=== PATIENT | male | born 1985 | race African-American/Black ===

== ENCOUNTER 2017-07-25 00:38 | Emergency (ER) | payer MEDICARE, MEDICAID ==
--- NOTE | 2017-07-25 01:10 | ER Document Report ---
HPI - HPI Patient complains to provider of: left knee pain Onset: Yesterday Onset/Duration: Sudden Pain Level: 5 Context: 32-year-old male fell on the left knee at work yesterday and is complaining of severe pain to the left knee. He is in a wheelchair moaning and rocking with a blanket over his mouth. He states he is allergic to hydrocodone. He has already been to x-ray. Associated Symptoms: None Exacerbated by: Movement, Walking Relieved by: Denies Similar symptoms previously: No Recently seen / treated by doctor: No - ROS ROS below otherwise negative: Yes Systems Reviewed and Negative: Yes All other systems reviewed and negative Past Medical History - General Information source: Patient - Social History Smoking Status: Current Every Day Smoker Frequency of alcohol use: None Drug Abuse: None Lives with: Family Family History: None, Reviewed & Not Pertinent - Medical History Notes: has been positive for cocaine in the past Neurological Medical History: Reports: Hx Seizures Surgical Hx: Negative - Immunizations Immunizations up to date: No Hx Diphtheria, Pertussis, Tetanus Vaccination: Yes Vertical Provider Document - CONSTITUTIONAL Agree With Documented VS: Yes Exam Limitations: No Limitations - NECK Neck: Supple - NEURO Level of Consciousness: Awake, Alert, Agitated - avoids eye contact, moaning, yelling out for the nurse states he can't get his leg up on the bed without help
[2017-07-25] MEDS ORDERED: IBUPROFEN 800 MG TABLET PO ONE (01:25)
[2017-07-25] MEDS ORDERED: ACETAMINOPHEN 325 MG TABLET PO ONE (01:25)
--- NOTE | 2017-07-25 01:50 | ER Document Report ---
ED Extremity Problem, Lower - General Chief Complaint: Knee Injury Stated Complaint: LEFT KNEE PAIN Time Seen by Provider: 07/25/17 01:09 Notes: Patient is a 32-year-old male who comes emergency department for chief complaint of left knee pain. He states that he has landed on the knee accidentally because it hurt and he could not bear his weight and then he fell and landed on the knee, he states he has done this several times, he states that today the pain and swelling became worse and he cannot walk on it now. He denies fever or chills. He denies history of IV drug abuse, he denies history of joint surgery or joint infection. He denies any other complaints. Past medical history of hypertension and seizures, medicated for both. - Related Data Allergies/Adverse Reactions: No Known Allergies Allergy (Verified 07/25/17 00:41) Past Medical History - General Information source: Patient - Social History Smoking Status: Current Some Day Smoker Chew tobacco use (# tins/day): No Frequency of alcohol use: None Drug Abuse: None Lives with: Family Family History: None, Reviewed & Not Pertinent Patient has suicidal ideation: No Patient has homicidal ideation: No - Past Medical History Cardiac Medical History: Reports: Hx Hypertension Neurological Medical History: Reports: Hx Seizures Renal/ Medical History: Denies: Hx Peritoneal Dialysis Surgical Hx: Negative - Immunizations Immunizations up to date: No Hx Diphtheria, Pertussis, Tetanus Vaccination: Yes Review of Systems - Review of Systems Constitutional: No symptoms reported EENT: No symptoms reported Cardiovascular: No symptoms reported Respiratory: No symptoms reported Gastrointestinal: No symptoms reported Genitourinary: No symptoms reported Male Genitourinary: No symptoms reported Musculoskeletal: See HPI Skin: No symptoms reported Hematologic/Lymphatic: No symptoms reported Neurological/Psychological: No symptoms reported Physical Exam - Vital signs Vitals: Temp Pulse Resp BP Pulse Ox 98.6 F 80 16 152/96 H 96 07/25/17 01:27 07/25/17 01:27 07/25/17 01:27 07/25/17 01:27 07/25/17 01:27 Interpretation: Normal - General General appearance: Appears well, Alert In distress: None - Patient talking on the phone when I entered the room - HEENT Head: Normocephalic, Atraumatic Eyes: Normal Pupils: PERRL - Respiratory Respiratory status: No respiratory distress Chest status: Nontender Breath sounds: Normal. No: Decreased air movement, Wheezing Chest palpation: Normal - Cardiovascular Rhythm: Regular. No: Tachycardia Heart sounds: Normal auscultation, S1 appreciated, S2 appreciated Murmur: No - Abdominal Inspection: Normal Distension: No distension Bowel sounds: Normal Tenderness: Nontender Organomegaly: No organomegaly - Back Back: Normal, Nontender. No: Tender - Extremities General upper extremity: Normal inspection, Nontender, Normal color, Normal ROM , Normal temperature General lower extremity: Other - Left knee has some soft tissue swelling generally anteriorly, minimal erythema, no wounds, range of motion appears painful but is still intact, normal hip, normal ankle, normal distal neurovascular exam. - Neurological Neuro grossly intact: Yes Cognition: Normal Orientation: AAOx4 [place] Coma Scale Eye Opening: Spontaneous [place] Coma Scale Verbal: Oriented [place] Coma Scale Motor: Obeys Commands [place] Coma Scale Total: 15 Speech: Normal Motor strength normal: LUE, RUE, LLE, RLE Sensory: Normal - Psychological Associated symptoms: Normal affect, Normal mood - Skin Skin Temperature: Warm Skin Moisture: Dry Skin Color: Normal Course - Re-evaluation Re-evalutation: Reported trauma to the knee, no reported risk factors of septic joint, area is swollen with some soft tissue swelling and mild erythema but he can still move the joint even though he reports significant pain when doing so, CRP and ESR are negative, no fever, I have very low suspicion of septic joint. No effusion on x-ray. I do not believe that with the amount of swelling he has in his knee that I would be able to obtain any fluid for evaluation. Will treat for traumatic swelling, provided with knee immobilizer, discussed follow-up and return precautions in detail. Discussed with Dr. Chamberlain. Patient states understanding and agreement. - Vital Signs Vital signs: Temp Pulse Resp BP Pulse Ox 99.2 F 82 18 156/86 H 96 07/25/17 04:08 07/25/17 04:08 07/25/17 04:08 07/25/17 04:08 07/25/17 04:08 - Laboratory Result Diagrams: 07/25/17 02:15 07/25/17 02:15 Laboratory results interpreted by me: 07/25/17 07/25/17 02:15 02:15 WBC 10.7 H RDW 14.2 H Seg Neutrophils % 80.5 H Lymphocytes % 9.2 L Absolute Neutrophils 8.6 H Glucose 112 H Procedures - Immobilization Left knee Pre-Proc Neuro Vasc Exam: Normal Immobilizer type: Knee immobilizer Performed by: RN, PCT Post-Proc Neuro Vasc Exam: Normal Alignment checked and good: Yes Discharge - Discharge Clinical Impression: Left knee injury Qualifiers: Encounter type: initial encounter Qualified Code(s): S89.92XA - Unspecified injury of left lower leg, initial encounter Condition: Stable Disposition: HOME, SELF-CARE Instructions: Use of Crutches ([facility]), Ice & Elevation ([facility]), Oral Narcotic Medication ([facility]) Additional Instructions: There is soft tissue swelling on exam, however no evidence of fracture, fluid in the joint, dislocation, or infection is seen on your evaluation and workup. This should resolve with time. Apply ice to the area 3-4 times a day for 10-15 minutes, take the naproxen anti-inflammatory, rest and elevate your knee. Use the knee immobilizer and crutches at least for the next few days. Follow-up with orthopedics referral if symptoms continue. Return immediately if you worsen including developing redness, spreading swelling, fever, or any other concerning symptoms. Prescriptions: Naproxen [Naprosyn 375 Mg Tablet] 375 mg PO BID #20 tablet Forms: Return to Work Referrals: POONAM HERNANDEZ MD [ACTIVE STAFF] - Follow up in 1 week
[2017-07-25 02:28] LABS: ABSOLUTE BASOPHILS # (AUTO) 0.1 10^3/uL (0.0-0.2); ABSOLUTE NEUT (AUTO) 8.6 10^3/uL (1.7-8.2); BASOPHILS % (AUTO) 0.8 % (0-2); EOSINOPHILS % (AUTO) 0.4 % (0-6); HEMATOCRIT 43.9 % (37.9-51.0); LYMPHOCYTES % (AUTO) 9.2 % (13-45); MEAN CORPUSCULAR HEMOGLOBIN 30.6 pg (27.0-33.4); MEAN CORPUSCULAR HGB CONC 34.3 g/dL (32.0-36.0); MEAN CORPUSCULAR VOLUME 89 fl (80-97); MONOCYTES % (AUTO) 9.1 % (3-13); PLATELET COUNT 196 10^3/uL (150-450); RED BLOOD COUNT 4.92 10^6/uL (4.35-5.55); RED CELL DISTRIBUTION WIDTH 14.2 % (11.5-14.0); SEGMENTED NEUTROPHILS % (AUTO) 80.5 % (42-78); TOTAL CELLS COUNTED % (AUTO) 100 %; WHITE BLOOD COUNT 10.7 10^3/uL (4.0-10.5)
[2017-07-25] MEDS ORDERED: MORPHINE SULFATE 10 MG/ML INJ IV ONE (02:29)
[2017-07-25] MEDS ORDERED: ONDANSETRON HCL INJ/PF 4 MG/2 ML SDV IV ONE (02:29)
[2017-07-25 02:43] LABS: ALANINE AMINOTRANSFERASE 27 U/L (21-72); ALBUMIN 4.1 g/dL (3.5-5.0); ALKALINE PHOSPHATASE 76 U/L (38-126); ANION GAP 10 (5-19); ASPARTATE AMINO TRANSFERASE 26 U/L (17-59); BILIRUBIN,DIRECT 0.3 mg/dL (0.0-0.4); BILIRUBIN,TOTAL 0.4 mg/dL (0.2-1.3); BLOOD UREA NITROGEN 12 mg/dL (7-20); CARBON DIOXIDE 26 mmol/L (22-30); CHLORIDE 106 mmol/L (98-107); GLUCOSE 112 mg/dL (75-110); POTASSIUM 3.6 mmol/L (3.6-5.0); SODIUM 141.9 mmol/L (137-145); TOTAL PROTEIN 7.2 g/dL (6.3-8.2); URIC ACID 5.6 mg/dL (3.5-8.5)
[2017-07-25 02:52] LABS: C-REACTIVE PROTEIN < 5.0 mg/L (<10.0)
[2017-07-25 03:05] LABS: ERYTHROCYTE SEDIMENTATION RATE 7 mm/hr (0-15)
--- NOTE | 2017-07-25 03:38 | RADIOLOGY REPORT (SQ) ---
EXAM DESCRIPTION: KNEE LEFT 3 VIEWS CLINICAL HISTORY: 32 years, Male, fall x5 with pain COMPARISON: None. LIMITATIONS: None. Bones, joints, and soft tissues of the left knee appear intact. IMPRESSION: No acute findings. 2011 [employer]- All Rights Reserved
[2017-07-25] MEDS ORDERED: HYDROCODONE/ACETAMINOPHEN 5-325 MG (6 TAB/ER DISP) PO PRN (03:50)
[2017-07-25 05:00] VITALS: BP 156/86
== END 2017-07-25 04:10 | disposition home or self-care (01) ==
LOC: ER 00:38
DX: S89.92XA Unspecified injury of left lower leg, initial encounter (principal); M25.562 Pain in left knee; F17.200 Nicotine dependence, unspecified, uncomplicated; W19.XXXA Unspecified fall, initial encounter
CPT/HCPCS: 99284; 36415; 84550; 85025; 85652; 86140; 80053; 73562; L1830; A9270 ×2

== ENCOUNTER 2017-11-23 15:49 | Emergency (ER) | payer MEDICARE, MEDICAID ==
[2017-11-23 16:02] VITALS: BP 161/114
== END 2017-11-23 17:01 | disposition left against medical advice (07) ==
LOC: ER 15:49
DX: Z53.21 Procedure and treatment not carried out due to patient leaving prior to being seen by health care provider (principal)

== ENCOUNTER 2017-11-24 11:35 | Emergency (ER) | payer OTHER, MEDICARE, MEDICAID ==
[2017-11-24] MEDS ORDERED: IBUPROFEN 600 MG TABLET PO ONE (11:53)
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
[2017-11-24 13:22] VITALS: BP 158/104
== END 2017-11-24 13:21 | disposition home or self-care (01) ==
LOC: ER 11:35
DX: S92.902A Unspecified fracture of left foot, initial encounter for closed fracture (principal); S16.1XXA Strain of muscle, fascia and tendon at neck level, initial encounter; S50.811A Abrasion of right forearm, initial encounter; S70.211A Abrasion, right hip, initial encounter; M25.551 Pain in right hip; M79.1 Myalgia; R51 Headache; V03.99XA Pedestrian with other conveyance injured in collision with car, pick-up truck or van, unspecified whether traffic or nontraffic accident, initial encounter; I10 Essential (primary) hypertension
CPT/HCPCS: 71046; 72110; 72125; 99284

== ENCOUNTER 2017-12-05 10:08 | Emergency (ER) | payer MEDICARE, MEDICAID ==
--- NOTE | 2017-12-05 10:24 | ER Document Report ---
ED General - General Stated Complaint: POSSIBLE SEIZURE/TOUNGE INJURY Time Seen by Provider: 12/05/17 10:20 Mode of Arrival: Medic Information source: Patient, Emergency Med Personnel Notes: This is a 32-year-old man with a history of seizures in the past (as previously been on Dilantin) who is brought into the emergency room by EMS after seizure. Patient does complain that he bit his tongue during the seizure. He does complain of pain to the right side of the tongue. The patient denies any recent fevers, chills, infections. He denies being under any stress. He denies lack of sleep. He denies alcohol or drug use. TRAVEL OUTSIDE OF THE [place] IN LAST 30 DAYS: No - HPI Onset: Just prior to arrival Onset/Duration: Sudden Quality of pain: Dull Severity: Moderate Pain Level: 2 Associated symptoms: denies: Chest pain, Fever, Shortness of breath Exacerbated by: Denies Relieved by: Denies Similar symptoms previously: No Recently seen / treated by doctor: No - Related Data Allergies/Adverse Reactions: acetaminophen [From Vicodin] Allergy (Verified 11/24/17 11:39) hydrocodone [From Vicodin] Allergy (Verified 11/24/17 11:39) Past Medical History - General Information source: Patient - Social History Smoking Status: Never Smoker Cigarette use (# per day): No Chew tobacco use (# tins/day): No Frequency of alcohol use: None Drug Abuse: None Lives with: Family Family History: None, Reviewed & Not Pertinent Patient has suicidal ideation: No Patient has homicidal ideation: No - Past Medical History Cardiac Medical History: Reports: Hx Hypertension Neurological Medical History: Reports: Hx Seizures Renal/ Medical History: Denies: Hx Peritoneal Dialysis Surgical Hx: Negative - Immunizations Immunizations up to date: No Hx Diphtheria, Pertussis, Tetanus Vaccination: Yes Review of Systems - Review of Systems Constitutional: denies: Chills, Fever EENT: No symptoms reported Cardiovascular: No symptoms reported Respiratory: No symptoms reported Gastrointestinal: No symptoms reported Genitourinary: No symptoms reported Male Genitourinary: No symptoms reported Musculoskeletal: No symptoms reported Skin: No symptoms reported Hematologic/Lymphatic: No symptoms reported Neurological/Psychological: See HPI Physical Exam - Vital signs Vitals: Temp Pulse Resp BP Pulse Ox 99.1 F 66 18 158/103 H 100 12/05/17 10:12 12/05/17 10:12 12/05/17 10:12 12/05/17 10:12 12/05/17 10:12 Notes: Physical exam: GENERAL: A 32-year-old man, alert and oriented 3, no acute distress HEAD: Atraumatic, normocephalic. EYES: Pupils equal round and reactive to light, extraocular movements intact, sclera anicteric, conjunctiva are normal. ENT: Oropharynx: Patient does have a puncture to the medial portion on the right side of the tongue with a small hematoma. No obvious laceration. There is no swelling of the airway. There is no stridor. No drooling. Moist mucous membranes. NECK: Normal range of motion, supple without obvious mass. LUNGS: Breath sounds clear to auscultation bilaterally and equal. No wheezes rales or rhonchi. HEART: Regular rate and rhythm without murmurs, rubs or gallops. ABDOMEN: Soft, normoactive bowel sounds. No tenderness to palpation. No guarding, no rebound. No masses appreciated. EXTREMITIES: Normal range of motion, no pitting or edema. No clubbing or cyanosis. NEUROLOGICAL: Cranial nerves II through XII grossly intact. Normal speech, moving all extremities. PSYCH: Normal mood, normal affect. SKIN: Warm, Dry, normal turgor, no rashes or lesions noted. Course - Re-evaluation Re-evalutation: 12/05/17 10:25 The charts for previous presentations with seizure have been reviewed. Patient did not tolerate any IV Dilantin so we will attempt to give it orally. 12/05/17 11:47 12/05/17 12:44 I have also given him the number for the [facility] for blood pressure recheck. - Vital Signs Vital signs: Temp Pulse Resp BP Pulse Ox 98.6 F 64 18 161/115 H 96 12/05/17 12:42 12/05/17 10:13 12/05/17 12:43 12/05/17 12:41 12/05/17 12:43 - Laboratory Result Diagrams: 12/05/17 11:00 12/05/17 11:00 Discharge - Discharge Clinical Impression: Seizure, TONGUE bITE, Hypertension Condition: Stable Disposition: HOME, SELF-CARE Instructions: Seizure, Known Epileptic ([facility]) Additional Instructions: As we discussed, the tongue bite will take a week or 2 to heal. There is no need for sutures at this time. I recommend Listerine rinses twice daily. For the seizure disorder, I recommend avoiding alcohol. See the seizure instruction sheet. I wrote for prescription for Dilantin and I would like you to follow-up with a neurologist. I put the number on the chart. Return to the emergency room for any concerns that the seizures are getting worse or if the tongue starts getting larger or there are concerns that it is getting more painful. Prescriptions: Phenytoin Sodium Extended [Dilantin 100 mg Capsule.er] 100 mg PO Q8 #90 capsule Forms: Elevated Blood Pressure Referrals: KATIE GATES MD [NO LOCAL MD] - Follow up as needed (This is the number for a neurologist) [facility] [Provider Group] - Follow up as needed (This is the number of the free clinic affiliated with the hospital: I want you to call them for blood pressure recheck.)
[2017-12-05] MEDS ORDERED: PHENYTOIN SODIUM INJ/PF 250 MG/5 ML SDV IV ONE (10:25)
[2017-12-05 11:18] LABS: ABSOLUTE BASOPHILS # (AUTO) 0.1 10^3/uL (0.0-0.2); ABSOLUTE MONOCYTES (AUTO) 0.8 10^3/uL (0.1-1.4); ABSOLUTE NEUT (AUTO) 4.6 10^3/uL (1.7-8.2); BASOPHILS % (AUTO) 0.9 % (0-2); EOSINOPHILS % (AUTO) 0.5 % (0-6); HEMOGLOBIN 14.8 g/dL (13.5-17.0); LYMPHOCYTES % (AUTO) 15.7 % (13-45); MEAN CORPUSCULAR HEMOGLOBIN 30.5 pg (27.0-33.4); MEAN CORPUSCULAR HGB CONC 34.4 g/dL (32.0-36.0); MEAN CORPUSCULAR VOLUME 89 fl (80-97); MONOCYTES % (AUTO) 12.2 % (3-13); PLATELET COUNT 222 10^3/uL (150-450); RED BLOOD COUNT 4.85 10^6/uL (4.35-5.55); RED CELL DISTRIBUTION WIDTH 13.4 % (11.5-14.0); SEGMENTED NEUTROPHILS % (AUTO) 70.7 % (42-78); TOTAL CELLS COUNTED % (AUTO) 100 %; WHITE BLOOD COUNT 6.5 10^3/uL (4.0-10.5)
[2017-12-05] MEDS ORDERED: PHENYTOIN SODIUM EXTENDED 100 MG CAPSULE PO ONE (11:45)
[2017-12-05 11:47] LABS: ALANINE AMINOTRANSFERASE 25 U/L (21-72); ALBUMIN 3.9 g/dL (3.5-5.0); ALKALINE PHOSPHATASE 75 U/L (38-126); ANION GAP 12 (5-19); ASPARTATE AMINO TRANSFERASE 26 U/L (17-59); BILIRUBIN,DIRECT 0.3 mg/dL (0.0-0.4); BILIRUBIN,TOTAL 0.3 mg/dL (0.2-1.3); BLOOD UREA NITROGEN 10 mg/dL (7-20); CALCIUM 9.1 mg/dL (8.4-10.2); CARBON DIOXIDE 27 mmol/L (22-30); CHLORIDE 105 mmol/L (98-107); GLUCOSE 86 mg/dL (75-110); POTASSIUM 3.7 mmol/L (3.6-5.0); SODIUM 144.3 mmol/L (137-145)
[2017-12-05 12:56] VITALS: BP 161/115
== END 2017-12-05 12:55 | disposition home or self-care (01) ==
LOC: ER 10:08
DX: R56.9 Unspecified convulsions (principal); S01.552A Open bite of oral cavity, initial encounter; W50.3XXA Accidental bite by another person, initial encounter; I10 Essential (primary) hypertension; Z88.6 Allergy status to analgesic agent; Z88.5 Allergy status to narcotic agent
CPT/HCPCS: 99284; 36415; 83735; 85025; 80053; A9270; J1165

== ENCOUNTER 2018-03-13 14:03 | Emergency (ER) | payer MEDICAID, MEDICARE ==
[2018-03-13] MEDS ORDERED: LEVETIRACETAM 1000 MG/NACL-ISO 1,000 MG/100 ML RTUPB IV ONE (14:32)
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
[2018-03-13 15:07] LABS: ABSOLUTE BASOPHILS # (AUTO) 0.1 10^3/uL (0.0-0.2); ABSOLUTE LYMPHOCYTES (AUTO) 0.6 10^3/uL (0.5-4.7); ABSOLUTE MONOCYTES (AUTO) 1.2 10^3/uL (0.1-1.4); ABSOLUTE NEUT (AUTO) 8.7 10^3/uL (1.7-8.2); BASOPHILS % (AUTO) 0.6 % (0-2); EOSINOPHILS % (AUTO) 0.1 % (0-6); HEMATOCRIT 46.1 % (37.9-51.0); LYMPHOCYTES % (AUTO) 5.7 % (13-45); MEAN CORPUSCULAR HEMOGLOBIN 30.9 pg (27.0-33.4); MEAN CORPUSCULAR HGB CONC 34.6 g/dL (32.0-36.0); MEAN CORPUSCULAR VOLUME 89 fl (80-97); MONOCYTES % (AUTO) 10.9 % (3-13); PLATELET COUNT 181 10^3/uL (150-450); RED BLOOD COUNT 5.16 10^6/uL (4.35-5.55); RED CELL DISTRIBUTION WIDTH 14.1 % (11.5-14.0); SEGMENTED NEUTROPHILS % (AUTO) 82.7 % (42-78); TOTAL CELLS COUNTED % (AUTO) 100 %; WHITE BLOOD COUNT 10.5 10^3/uL (4.0-10.5)
[2018-03-13 15:28] LABS: ALANINE AMINOTRANSFERASE 30 U/L (21-72); ALBUMIN 4.4 g/dL (3.5-5.0); ALKALINE PHOSPHATASE 89 U/L (38-126); ANION GAP 15 (5-19); ASPARTATE AMINO TRANSFERASE 40 U/L (17-59); BILIRUBIN,DIRECT 0.3 mg/dL (0.0-0.4); BILIRUBIN,TOTAL 0.3 mg/dL (0.2-1.3); BLOOD UREA NITROGEN 11 mg/dL (7-20); CALCIUM 9.1 mg/dL (8.4-10.2); CARBON DIOXIDE 21 mmol/L (22-30); CHLORIDE 108 mmol/L (98-107); GLUCOSE 84 mg/dL (75-110); POTASSIUM 3.7 mmol/L (3.6-5.0); SODIUM 144.2 mmol/L (137-145); TOTAL PROTEIN 8.2 g/dL (6.3-8.2)
[2018-03-13 15:30] LABS: ALCOHOL < 10 mg/dL (NONE DETECTED)
[2018-03-13 16:38] LABS: APPEARANCE,URINE SLIGHTLY-CLOUDY; BILIRUBIN,URINE NEGATIVE (NEGATIVE); COLOR,URINE YELLOW; GLUCOSE, URINE NEGATIVE (NEGATIVE); KETONES,URINE TRACE mg/dL (NEGATIVE); LEUKOCYTE ESTERASE,URINE NEGATIVE (NEGATIVE); NITRITE,URINE NEGATIVE (NEGATIVE); PROTEIN,URINE NEGATIVE (NEGATIVE); URIC ACID CRYSTALS,URINE MODERATE /HPF; URINE SPECIFIC GRAVITY 1.017; UROBILINOGEN,URINE NEGATIVE mg/dL (<2.0)
[2018-03-13 16:49] LABS: URINE AMPHETAMINES SCREEN NEGATIVE; URINE BARBITURATES SCREEN NEGATIVE; URINE BENZODIAZEPINES SCREEN NEGATIVE; URINE COCAINE SCREEN NEGATIVE; URINE MARIJUANA (THC) SCREEN NEGATIVE; URINE METHADONE SCREEN NEGATIVE; URINE PHENCYCLIDINE SCREEN NEGATIVE
[2018-03-13] MEDS ORDERED: IBUPROFEN 600 MG TABLET PO ONE (19:30)
[2018-03-13] MEDS ORDERED: LORAZEPAM INJ 2 MG/1 ML VIAL ONE (19:42)
[2018-03-13] MEDS ORDERED: NORMAL SALINE 1000 ML 1,000 ML IV ONE (19:51)
[2018-03-13] MEDS ORDERED: KETOROLAC TROMETHAMINE INJ/PF 30 MG/1 ML SDV IV ONE (19:55)
[2018-03-13] MEDS ORDERED: LORAZEPAM INJ 2 MG/1 ML VIAL IV ONE (20:15)
[2018-03-13 20:16] LABS: ABSOLUTE BASOPHILS # (AUTO) 0.1 10^3/uL (0.0-0.2); ABSOLUTE LYMPHOCYTES (AUTO) 1.4 10^3/uL (0.5-4.7); ABSOLUTE MONOCYTES (AUTO) 1.3 10^3/uL (0.1-1.4); ABSOLUTE NEUT (AUTO) 6.8 10^3/uL (1.7-8.2); BASOPHILS % (AUTO) 0.6 % (0-2); EOSINOPHILS % (AUTO) 0.2 % (0-6); HEMATOCRIT 42.1 % (37.9-51.0); HEMOGLOBIN 14.6 g/dL (13.5-17.0); LYMPHOCYTES % (AUTO) 14.7 % (13-45); MEAN CORPUSCULAR HGB CONC 34.6 g/dL (32.0-36.0); MEAN CORPUSCULAR VOLUME 89 fl (80-97); MONOCYTES % (AUTO) 13.4 % (3-13); PLATELET COUNT 176 10^3/uL (150-450); RED BLOOD COUNT 4.71 10^6/uL (4.35-5.55); RED CELL DISTRIBUTION WIDTH 13.9 % (11.5-14.0); SEGMENTED NEUTROPHILS % (AUTO) 71.1 % (42-78); TOTAL CELLS COUNTED % (AUTO) 100 %; WHITE BLOOD COUNT 9.5 10^3/uL (4.0-10.5)
[2018-03-13 20:32] LABS: VENOUS BLOOD BASE EXCESS -2.9 mmol/L; VENOUS BLOOD HCO3 21.7 mmol/L (20-32); VENOUS BLOOD PCO2 37.5 mmHg (35-63); VENOUS BLOOD PH 7.38 (7.30-7.42)
--- NOTE | 2018-03-13 20:54 | EKG REPORT ---
SEVERITY:- ABNORMAL ECG - SINUS RHYTHM PROBABLE LEFT ATRIAL ABNORMALITY LEFT VENTRICULAR HYPERTROPHY ST ELEVATION, CONSIDER ANTERIOR INJURY : Confirmed by: Katie Pérez 13-Mar-2018 20:53:23
[2018-03-13] MEDS ORDERED: HALOPERIDOL LACTATE INJ 5 MG/1 ML VIAL IV ONE (20:59)
--- NOTE | 2018-03-13 21:16 | RADIOLOGY REPORT (SQ) ---
EXAM DESCRIPTION: CT HEAD WITHOUT COMPLETED DATE/TIME: 03/13/2018 9:08 pm REASON FOR STUDY: ams COMPARISON: 11/17/2013 TECHNIQUE: Axial images acquired through the brain without intravenous contrast. Images reviewed wi th bone, brain and subdural windows. Additional sagittal and coronal reconstructions were generated. Images stored on PACS. All CT scanners at this facility use dose modulation, iterative reconstruction, and/or weight based d osing when appropriate to reduce radiation dose to as low as reasonably achievable (ALARA). [facility]: Dose Right [facility]: CareDose [facility]: Dose Right [facility]: Teradose 4D [facility]: Smart Motility Count RADIATION DOSE: CT Rad equipment meets quality standard of care and radiation dose reduction techniq ues were employed. CTDIvol: 53.2 mGy. DLP: 1124 mGy-cm. mGy. LIMITATIONS: None. FINDINGS: VENTRICLES: Normal size and contour. CEREBRUM: No masses. No hemorrhage. No midline shift. No evidence for acute infarction. Normal gra y/white matter differentiation. No areas of low density in the white matter. CEREBELLUM: No masses. No hemorrhage. No alteration of density. No evidence for acute infarction. EXTRAAXIAL SPACES: No fluid collections. No masses. ORBITS AND GLOBE: No intra- or extraconal masses. Normal contour of globe without masses. CALVARIUM: No fracture. PARANASAL SINUSES: No fluid or mucosal thickening. SOFT TISSUES: No mass or hematoma. OTHER: No other significant finding. IMPRESSION: NORMAL BRAIN CT WITHOUT CONTRAST. EVIDENCE OF ACUTE STROKE: NO. COMMENT: Quality ID # [id number]: Final reports with documentation of one or more dose reduction techniques (e.g., Automated exposure control, adjustment of the mA and/or kV according to patient size, use of iterative reconstruction technique) TECHNICAL DOCUMENTATION: JOB ID: [id number] [email or web address]- All Rights Reserved Reading location - IP/workstation name: [email or web address]
--- NOTE | 2018-03-13 21:38 | RADIOLOGY REPORT (SQ) ---
EXAM DESCRIPTION: CHEST SINGLE VIEW COMPLETED DATE/TIME: 03/13/2018 9:30 pm REASON FOR STUDY: fever COMPARISON: 11/24/2017 EXAM PARAMETERS: NUMBER OF VIEWS: One view. TECHNIQUE: Single frontal radiographic view of the chest acquired. RADIATION DOSE: NA LIMITATIONS: None. FINDINGS: LUNGS AND PLEURA: No opacities, masses or pneumothorax. No pleural effusion. MEDIASTINUM AND HILAR STRUCTURES: No masses. Contour normal. HEART AND VASCULAR STRUCTURES: Heart normal in size. Normal vasculature. BONES: No acute findings. HARDWARE: None in the chest. OTHER: No other significant finding. IMPRESSION: NO ACUTE RADIOGRAPHIC FINDING IN THE CHEST. TECHNICAL DOCUMENTATION: JOB ID: [id number] [employer]- All Rights Reserved Reading location - IP/workstation name: [email or web address]
[2018-03-13] MEDS ORDERED: LIDOCAINE 1% INJ-PF (10 MG/ML) 30 ML SDV INJ ONE (22:14)
[2018-03-13] MEDS ORDERED: KETAMINE HCL INJ 500 MG/10 ML VIAL IV ONE (22:15)
[2018-03-14 01:18] VITALS: BP 163/120
== END 2018-03-14 01:12 | disposition home or self-care (01) ==
LOC: ER 14:03
DX: R56.9 Unspecified convulsions (principal); S01.552A Open bite of oral cavity, initial encounter; Z88.6 Allergy status to analgesic agent; X58.XXXA Exposure to other specified factors, initial encounter
CPT/HCPCS: 93005; 99285; 96361; 96374; 96375; 36415; 87040; 82553; 80307 ×2; 82550; 83735; 85025; 80053; 81001; 82803; 83605; 71045; 70450; 93010; J1885; J2060; J7030; J1953

== ENCOUNTER 2018-03-18 01:18 | Emergency (ER) | payer MEDICARE ==
[2018-03-18 02:00] VITALS: BP 177/124
[2018-03-18] MEDS ORDERED: LIDOCAINE 2% VISCOUS SOLN 20 ML UDCUP PO ONE (04:54)
[2018-03-18] MEDS ORDERED: MAG HYDROX/AL HYDROX/SIMETH SUSP 30 ML UDCUP PO ONE (04:55)
[2018-03-18] MEDS ORDERED: AMOXICILLIN TR/POT CLAVULANATE 500-125 MG TAB PO ONE (04:59)
[2018-03-18] MEDS ORDERED: AMOXICILLIN TRIHYDRATE 500 MG CAPSULE PO ONE (05:00)
--- NOTE | 2018-03-18 05:27 | ER Document Report ---
ED General - General Chief Complaint: Abscess Stated Complaint: ABSCESS Time Seen by Provider: 03/18/18 04:14 Mode of Arrival: Ambulatory Information source: Patient Notes: Patient presents with complaint of possible abscess to his right upper leg just below the gluteal fold. Patient reports this is been there for several years. Patient also complaining of abnormality to his tongue. Reports that he bit his tongue during a seizure a few days ago and patient thinks it is infected. Patient denies any fevers. TRAVEL OUTSIDE OF THE [place] IN LAST 30 DAYS: No - HPI Onset/Duration: Gradual - Related Data Allergies/Adverse Reactions: acetaminophen [From Vicodin] Allergy (Verified 11/24/17 11:39) hydrocodone [From Vicodin] Allergy (Verified 11/24/17 11:39) Past Medical History - General Information source: Patient - Social History Smoking Status: Current Every Day Smoker Chew tobacco use (# tins/day): No Frequency of alcohol use: Social Drug Abuse: None Family History: None, Reviewed & Not Pertinent Patient has suicidal ideation: No Patient has homicidal ideation: No - Past Medical History Cardiac Medical History: Reports: Hx Hypertension Neurological Medical History: Reports: Hx Seizures Renal/ Medical History: Denies: Hx Peritoneal Dialysis Surgical Hx: Negative - Immunizations Immunizations up to date: No Hx Diphtheria, Pertussis, Tetanus Vaccination: Yes Review of Systems - Review of Systems EENT: Other - Tongue pain Skin: See HPI -: Yes All other systems reviewed and negative Physical Exam - Vital signs Vitals: Pulse BP Pulse Ox 71 177/124 H 100 03/18/18 01:47 03/18/18 01:47 03/18/18 01:47 - Notes Notes: PHYSICAL EXAMINATION: GENERAL: Well-appearing, well-nourished and in no acute distress. HEAD: Atraumatic, normocephalic. EYES: Pupils equal round and reactive to light, extraocular movements intact, sclera anicteric, conjunctiva are normal. ENT: Nares patent, oropharynx clear without exudates. Moist mucous membranes. Greenish discoloration noted to right side of patient's tongue near a healing laceration. NECK: Normal range of motion, supple without lymphadenopathy LUNGS: Breath sounds clear to auscultation bilaterally and equal. No wheezes rales or rhonchi. HEART: Regular rate and rhythm without murmurs ABDOMEN: Soft, nontender, nondistended abdomen. No guarding, no rebound. No masses appreciated. Musculoskeletal: Normal range of motion, no pitting or edema. No cyanosis. NEUROLOGICAL: Cranial nerves grossly intact. Normal speech, normal gait. Normal sensory, motor exams PSYCH: Normal mood, normal affect. SKIN: Warm, Dry, normal turgor, no rashes or lesions noted. Soft raised nontender area noted to right posterior leg just below the gluteal fold, consistent with lipoma. Course - Re-evaluation Re-evalutation: Patient will be referred back to his primary care provider for his lipoma. Patient will be placed on antibiotics and instructed to use Listerine mouth rinses for the infection to his tongue. Patient verbalizes understanding of the plan and agrees to same. - Vital Signs Vital signs: Temp Pulse Resp BP Pulse Ox 71 177/124 H 100 03/18/18 01:47 03/18/18 01:47 03/18/18 01:47 Discharge - Discharge Clinical Impression: Tongue biting Lipoma Qualifiers: Lipoma location: lower extremity Laterality: left Qualified Code(s): D17.24 - Benign lipomatous neoplasm of skin and subcutaneous tissue of left leg Clinical Impression: (Ruled Out): Tongue abnormality Condition: Good Disposition: HOME, SELF-CARE Additional Instructions: Follow up with primary care provider concerning treatment of lipoma on posterior aspect of right lower leg. This benign lesion cannot be removed in the ER and will require surgical consult. Complete Augmentin antibiotic for tongue infection most likely caused by biting during recent seizure. Discussed proper oral hygiene and recommend frequent washing mouth with Listerine mouthwash 1-2 times daily. Prescriptions: Amox Tr/Potassium Clavulanate [Augmentin 875-125 Tablet] 1 tab PO BID 10 Days # 14 tablet Forms: Smoking Cessation Education
== END 2018-03-18 06:06 | disposition home or self-care (01) ==
LOC: ER 01:18
DX: D17.24 Benign lipomatous neoplasm of skin and subcutaneous tissue of left leg (principal); S01.552A Open bite of oral cavity, initial encounter; X58.XXXA Exposure to other specified factors, initial encounter; F17.200 Nicotine dependence, unspecified, uncomplicated; I10 Essential (primary) hypertension
CPT/HCPCS: 99282; A9270 ×2; J3490

== ENCOUNTER 2018-04-27 10:51 | Emergency (ER) | payer MEDICARE ==
[2018-04-27] MEDS ORDERED: LORAZEPAM INJ 2 MG/1 ML VIAL ONE (11:22)
[2018-04-27] MEDS ORDERED: LORAZEPAM INJ 2 MG/1 ML VIAL IV ONE (11:25)
[2018-04-27] MEDS ORDERED: LEVETIRACETAM 1000 MG/NACL-ISO 1,000 MG/100 ML RTUPB IV ONE (11:41)
--- NOTE | 2018-04-27 11:47 | ER Document Report ---
ED General - General Mode of Arrival: Medic Information source: Emergency Med Personnel Cannot obtain history due to: Altered mental status <JOE GIANG - Last Filed: 04/27/18 14:55> <BOSTON HARLEY - Last Filed: 04/27/18 18:52> - General Chief Complaint: Seizure Stated Complaint: POSSIBLE SEIZURE Time Seen by Provider: 04/27/18 11:40 Notes: Patient is a 32 year old male with epilepsy (TBI related) presents to the emergency department via EMS due to seizures. According to staff patient had 4 witnessed tonic clonic seizures prior to arrival and 1 tonic clonic seizure while being in the emergency department. According to nurse, patient went out drinking last night and is non-compliant with his medications of Keppra. Patient is currently sleeping and no further history was obtained. Patient recently filled his prescription of 500 mg of Keppra, 2x daily on March 20, 2018 for 60 tablets. Patient currently has 11 tablets left. (JOE GIANG) - Related Data Allergies/Adverse Reactions: acetaminophen [From Vicodin] Allergy (Verified 11/24/17 11:39) hydrocodone [From Vicodin] Allergy (Verified 11/24/17 11:39) Past Medical History - General Information source: Emergency Med Personnel - Social History Smoking Status: Current Every Day Smoker Frequency of alcohol use: Social Family History: None, Reviewed & Not Pertinent Patient has suicidal ideation: No Patient has homicidal ideation: No - Past Medical History Cardiac Medical History: Reports: Hx Hypertension Neurological Medical History: Reports: Hx Seizures - Immunizations Immunizations up to date: No Hx Diphtheria, Pertussis, Tetanus Vaccination: Yes <JOE GIANG - Last Filed: 04/27/18 14:55> Review of Systems - Review of Systems Constitutional: No symptoms reported EENT: No symptoms reported Cardiovascular: No symptoms reported Respiratory: No symptoms reported Gastrointestinal: No symptoms reported Genitourinary: No symptoms reported Male Genitourinary: No symptoms reported Musculoskeletal: No symptoms reported Skin: No symptoms reported Hematologic/Lymphatic: No symptoms reported Neurological/Psychological: See HPI, Seizure -: Yes All other systems reviewed and negative <JOE GIANG - Last Filed: 04/27/18 14:55> Physical Exam <JOE GIANG - Last Filed: 04/27/18 14:55> <BOTSON HARLEY - Last Filed: 04/27/18 18:52> - Vital signs Vitals: Resp BP Pulse Ox 15 154/90 H 97 04/27/18 11:05 04/27/18 11:05 04/27/18 11:05 - Notes Notes: GENERAL: Sleeping, sedated appropriately, given 2 Ativan IV. Does not follow commands. No acute distress. HEAD: Normocephalic, atraumatic. EYES: Pupils equal, round, and reactive to light. Extraocular movements intact. ENT: Oral mucosa moist, tongue midline, appears to have bitten left side of tongue, less than half cm laceration. NECK: Full range of motion. Supple. Trachea midline. LUNGS: Clear to auscultation bilaterally, no wheezes, rales, or rhonchi. No respiratory distress. HEART: Regular rate and rhythm. No murmurs, gallops, or rubs. ABDOMEN: Soft, non-tender. Non-distended. Bowel sounds present in all 4 quadrants. EXTREMITIES: Moves all 4 extremities spontaneously. Left upper posterior thigh contains a soft nontender mass consistent with lipoma, no signs of infection, when palpating patient states to stop touching due to being ticklish. NEUROLOGICAL: Sleeping, does not follow commands. Withdraws from examination of tongue, opens eyes to noxious stimuli. No evidence of bladder or bowel incontinence. PSYCH: Sleeping. SKIN: Warm, dry, normal turgor. No rashes or lesions noted. (JOE GIANG) Course - Laboratory Result Diagrams: 04/27/18 11:40 04/27/18 11:40 <JOE GIANG - Last Filed: 04/27/18 14:55> - Laboratory Result Diagrams: 04/27/18 11:40 04/27/18 15:55 <BOSTON HARLEY - Last Filed: 04/27/18 18:52> - Re-evaluation Re-evalutation: 04/27/18 16:54 Patient arrived postictal, proceeded to have another full body tonic-clonic seizure that lasted for less than 1 minute, he was treated with 2 mg of Ativan IV and since then has had no further seizure activity. Pill bottle at the bedside was a prescription for Keppra which was filled on March 20 he was supposed to be taking 1 tablet twice a day and he was prescribed 60 pills, patient still had approximately 11 pills remaining. This means he is not taking his medications as frequently as directed. CBC shows mild leukocytosis at 11.2 otherwise unremarkable, arterial blood gas does not show any acidosis, CMP shows significantly low CO2 at 10 anion gap of 25 creatinine elevated 1.53, I am concerned for either starvation ketosis or alcoholic ketoacidosis given these findings, patient was hydrated with a liter of D5 normal saline and his labs were rechecked, chemistries now show a normal CO2 at 23 and a normal anion gap of 7, creatinine has improved significantly to 1.26, CK only mildly elevated at 416, CK-MB normal, urinalysis shows large blood but only 6 RBCs, this is likely myoglobinuria related to his multiple seizures. Urine drug screen is negative, alcohol, acetaminophen and salicylates are all undetectable , Keppra level is pending. Every time I tried to talk to the patient he will open his eyes look at me and then closes eyes and fall back asleep, at most he will mumble. Nursing just came and told me that he was standing at the side of the bed and then peed all over the floor, states that he was asking for something to eat and drink and when they told him that they would have to wait until they had asked me was when he proceeded to urinate all over the floor with good coordination. When I walked into the room the patient once again open his eyes and then close them again and would not wake up for me. When I attempted to talk to him multiple times and he only mumbled I then told him that he would be discharged home at this point he opened his eyes and said very clearly "but I am hungry I want some food" at this point I feel that the patient is neurologically intact and that he is intentionally misleading me by pretending to be asleep when I tried to talk to him. Nursing has witnessed him standing and walking on multiple occasions without any difficulty. Patient will be discharged home, patient was counseled to take his medication as directed, follow-up with a neurologist, he was given a referral to Dr. Gates and discharged to home. (BOSTON HARLEY) - Vital Signs Vital signs: Temp Pulse Resp BP Pulse Ox 97.8 F 87 16 158/98 H 98 04/27/18 18:03 04/27/18 18:03 04/27/18 18:03 04/27/18 18:03 04/27/18 18:03 - Laboratory Laboratory results interpreted by me: 04/27/18 04/27/18 04/27/18 11:40 11:40 11:40 WBC 11.2 H Chloride 109 H Carbon Dioxide 10 L* Anion Gap 25 H Creatinine 1.53 H Est GFR (Non-Af Amer) 53 L Glucose 117 H Direct Bilirubin 0.5 H Creatine Kinase Total Protein 8.7 H Urine Protein Urine Blood Salicylates < 1.0 L Acetaminophen < 10 L 04/27/18 04/27/18 04/27/18 12:20 14:48 15:55 WBC Chloride 111 H Carbon Dioxide Anion Gap Creatinine 1.26 H Est GFR (Non-Af Amer) Glucose Direct Bilirubin Creatine Kinase 416 H Total Protein Urine Protein 30 H Urine Blood LARGE H Salicylates Acetaminophen Discharge <JOE GIANG - Last Filed: 04/27/18 14:55> <BOSTON HARLEY - Last Filed: 04/27/18 18:52> - Discharge Clinical Impression: Seizure, Noncompliance w/medication treatment due to intermit use of medication , Alcoholic ketosis Condition: Stable Disposition: HOME, SELF-CARE Additional Instructions: You have not been taking your seizure medications as prescribed. I can tell this from looking at the bottle of medication that you have at the bedside and how many pills are left. You have too many pills left for when this was prescribed and filled. It is very important that you take your medications as prescribed. Do not drink alcohol, this can increase your risk of having seizures. You may not drive for at least the next year until you have been seizure-free for 1 year or until you are cleared by neurologist. Please follow-up with a neurologist within the next week. You had some signs of kidney damage on your examination today, this improved with hydration however you will need to have these rechecked by a primary care physician within the next week to make sure it continues improving. Referrals: KATIE GATES MD [NO LOCAL MD] - Follow up in 3-5 days TO NOLASCO MD [ACTIVE STAFF] - Follow up in 1 week Scribe Attestation: 04/27/18 18:51 I personally performed the services described in the documentation, reviewed and edited the documentation which was dictated to the scribe in my presence, and it accurately records my words and actions. (BOSTON HARLEY) Scribe Documentation - Scribe Written by Kell:: Kell Davis, 13:10 acting as scribe for :: Cintia <JOE GIANG - Last Filed: 04/27/18 14:55>
[2018-04-27 11:59] LABS: ABSOLUTE BASOPHILS # (AUTO) 0.1 10^3/uL (0.0-0.2); ABSOLUTE LYMPHOCYTES (AUTO) 2.3 10^3/uL (0.5-4.7); ABSOLUTE MONOCYTES (AUTO) 0.7 10^3/uL (0.1-1.4); ABSOLUTE NEUT (AUTO) 8.1 10^3/uL (1.7-8.2); BASOPHILS % (AUTO) 0.6 % (0-2); EOSINOPHILS % (AUTO) 0.3 % (0-6); HEMOGLOBIN 15.8 g/dL (13.5-17.0); LYMPHOCYTES % (AUTO) 20.4 % (13-45); MEAN CORPUSCULAR HEMOGLOBIN 30.7 pg (27.0-33.4); MEAN CORPUSCULAR VOLUME 93 fl (80-97); MONOCYTES % (AUTO) 6.5 % (3-13); PLATELET COUNT 269 10^3/uL (150-450); RED BLOOD COUNT 5.16 10^6/uL (4.35-5.55); RED CELL DISTRIBUTION WIDTH 13.7 % (11.5-14.0); SEGMENTED NEUTROPHILS % (AUTO) 72.2 % (42-78); TOTAL CELLS COUNTED % (AUTO) 100 %; WHITE BLOOD COUNT 11.2 10^3/uL (4.0-10.5)
[2018-04-27 12:24] LABS: ALANINE AMINOTRANSFERASE 24 U/L (21-72); ALBUMIN 4.9 g/dL (3.5-5.0); ALKALINE PHOSPHATASE 86 U/L (38-126); ASPARTATE AMINO TRANSFERASE 36 U/L (17-59); BILIRUBIN,DIRECT 0.5 mg/dL (0.0-0.4); BILIRUBIN,TOTAL 0.5 mg/dL (0.2-1.3); BLOOD UREA NITROGEN 12 mg/dL (7-20); CALCIUM 9.7 mg/dL (8.4-10.2); CHLORIDE 109 mmol/L (98-107); GLUCOSE 117 mg/dL (75-110); POTASSIUM 4.1 mmol/L (3.6-5.0); SODIUM 143.8 mmol/L (137-145); TOTAL PROTEIN 8.7 g/dL (6.3-8.2)
[2018-04-27 12:33] LABS: ANION GAP 25 (5-19)
[2018-04-27 12:36] LABS: CARBON DIOXIDE 10 mmol/L (22-30)
[2018-04-27] MEDS ORDERED: NORMAL SALINE 1000 ML 1,000 ML IV PRN (12:51)
[2018-04-27] MEDS ORDERED: DEXTROSE 5%-NORMAL SALINE 1,000 ML IV ONE (12:53)
[2018-04-27 13:15] LABS: URINE AMPHETAMINES SCREEN NEGATIVE; URINE BARBITURATES SCREEN NEGATIVE; URINE BENZODIAZEPINES SCREEN NEGATIVE; URINE COCAINE SCREEN NEGATIVE; URINE MARIJUANA (THC) SCREEN NEGATIVE; URINE METHADONE SCREEN NEGATIVE; URINE PHENCYCLIDINE SCREEN NEGATIVE
[2018-04-27 13:50] LABS: AMORPHOUS SEDIMENT,URINE TRACE /HPF; APPEARANCE,URINE CLOUDY; BILIRUBIN,URINE NEGATIVE (NEGATIVE); COLOR,URINE STRAW; GLUCOSE, URINE NEGATIVE (NEGATIVE); KETONES,URINE NEGATIVE (NEGATIVE); LEUKOCYTE ESTERASE,URINE NEGATIVE (NEGATIVE); NITRITE,URINE NEGATIVE (NEGATIVE); PROTEIN,URINE 30 mg/dL (NEGATIVE); UROBILINOGEN,URINE NEGATIVE mg/dL (<2.0)
[2018-04-27 14:00] LABS: URINE SPECIFIC GRAVITY 1.013
[2018-04-27 14:15] LABS: ACETAMINOPHEN < 10 ug/mL (10-30); ALCOHOL < 10 mg/dL (NONE DETECTED); SALICYLATE < 1.0 mg/dL (2.0-20.0)
[2018-04-27 14:29] LABS: ARTERIAL BLOOD BASE EXCESS -2.6 mmol/L; ARTERIAL BLOOD FIO2 ROOM AIR; ARTERIAL BLOOD H2CO3 1.31 mmol/L (1.05-1.35); ARTERIAL BLOOD HCO3 23.2 mmol/L (20-24); ARTERIAL BLOOD PCO2 43.4 mmHg (35-45); ARTERIAL BLOOD PH 7.35 (7.35-7.45); ARTERIAL BLOOD PO2 85.7 mmHg (80-100); ARTERIAL BLOOD TOTAL CO2 24.5 mmol/L (23-27)
[2018-04-27 16:21] LABS: BLOOD UREA NITROGEN 12 mg/dL (7-20); CHLORIDE 111 mmol/L (98-107); GLUCOSE 104 mg/dL (75-110); POTASSIUM 3.8 mmol/L (3.6-5.0); SODIUM 141.1 mmol/L (137-145)
[2018-04-27 16:36] LABS: ANION GAP 7 (5-19)
[2018-04-27 16:37] LABS: CARBON DIOXIDE 23 mmol/L (22-30)
[2018-04-27 18:19] VITALS: BP 158/98
== END 2018-04-27 18:03 | disposition home or self-care (01) ==
LOC: ER 10:51
DX: G40.909 Epilepsy, unspecified, not intractable, without status epilepticus (principal); T42.6X6A Underdosing of other antiepileptic and sedative-hypnotic drugs, initial encounter; Z91.14 Patient's other noncompliance with medication regimen; F10.20 Alcohol dependence, uncomplicated; E88.89 Other specified metabolic disorders; R22.42 Localized swelling, mass and lump, left lower limb; R74.8 Abnormal levels of other serum enzymes; R31.9 Hematuria, unspecified; F17.200 Nicotine dependence, unspecified, uncomplicated; I10 Essential (primary) hypertension; D72.829 Elevated white blood cell count, unspecified; Z88.5 Allergy status to narcotic agent; Z88.6 Allergy status to analgesic agent
CPT/HCPCS: 99284; 96361; 51701; 96374; 96375; 36415; 80177; 82553; 80307 ×4; 82803; 82550; 85025; 80048; 80053; 81001; 36600; J2060; J1953

== ENCOUNTER 2018-05-25 14:55 | Emergency (ER) | payer MEDICARE, MEDICAID ==
[2018-05-25] MEDS ORDERED: LEVETIRACETAM 1000 MG/NACL-ISO 1,000 MG/100 ML RTUPB IV ONE ×2 (15:06→15:15)
--- NOTE | 2018-05-25 15:15 | ER Document Report ---
ED General - General Mode of Arrival: Ambulatory Information source: Patient TRAVEL OUTSIDE OF THE [place] IN LAST 30 DAYS: No <JOE GIANG - Last Filed: 05/25/18 19:59> <BOSTON HARLEY - Last Filed: 05/25/18 20:04> - General Stated Complaint: POSSIBLE SEIZURE Time Seen by Provider: 05/25/18 15:08 Notes: Patient is a 32-year-old male with a history of epilepsy presents to the emergency department via EMS due to a seizure. EMS states the patient's girlfriend called EMS after a witness saw the patient having 2 tonic clonic seizures. EMS states upon arrival to the scene the patient was post ictal and bleeding from the mouth and remained post ictal for several minutes. Patient is known to be non-compliant with his medications and EMS reports they were told the patient had taken a dose of his Keppra (500 mg 2x daily) at 5 mins prior to their arrival. (JOE GIANG) - Related Data Allergies/Adverse Reactions: acetaminophen [From Vicodin] Allergy (Verified 11/24/17 11:39) hydrocodone [From Vicodin] Allergy (Verified 11/24/17 11:39) Past Medical History - General Information source: Patient, Emergency Med Personnel, [facility] Records - Social History Smoking Status: Current Every Day Smoker Cigarette use (# per day): Yes Chew tobacco use (# tins/day): No Frequency of alcohol use: Social Drug Abuse: None Family History: None, Reviewed & Not Pertinent - Past Medical History Cardiac Medical History: Reports: Hx Hypertension Neurological Medical History: Reports: Hx Seizures - Immunizations Immunizations up to date: No Hx Diphtheria, Pertussis, Tetanus Vaccination: Yes <JOE GIANG - Last Filed: 05/25/18 19:59> Review of Systems - Review of Systems Constitutional: No symptoms reported EENT: No symptoms reported Cardiovascular: No symptoms reported Respiratory: No symptoms reported Gastrointestinal: No symptoms reported Genitourinary: No symptoms reported Male Genitourinary: No symptoms reported Musculoskeletal: No symptoms reported Skin: No symptoms reported Hematologic/Lymphatic: No symptoms reported Neurological/Psychological: See HPI, Seizure -: Yes All other systems reviewed and negative <JOE GIANG - Last Filed: 05/25/18 19:59> <BOSTON HARLEY - Last Filed: 05/25/18 20:04> - Review of Systems Notes: Patient is postictal. ROS Per EMS. (JOE GIANG) Physical Exam <JOE GIANG - Last Filed: 05/25/18 19:59> <BOSTON HARLEY - Last Filed: 05/25/18 20:04> - Vital signs Vitals: Resp Pulse Ox 22 H 94 05/25/18 15:15 05/25/18 15:15 - Notes Notes: GENERAL: Initially actively having a non-focal, tonic-clonic seizure at bedside , resolves rapidly and is postictal. HEAD: Normocephalic, atraumatic. EYES: Pupils equal, round, and reactive to light. Extraocular movements intact. ENT: Oral mucosa moist, tongue midline. Small abrasions to the tongue consistent with bite craig. Bloody discharge from mouth. NECK: Full range of motion. Supple. Trachea midline. LUNGS: Sonorous respirations consistent with postictal phase. HEART: Tachycardic. No murmurs, gallops, or rubs. ABDOMEN: Soft, non-tender. Non-distended. Bowel sounds present in all 4 quadrants. EXTREMITIES: Moves all 4 extremities spontaneously. No edema, radial and dorsalis pedis pulses 2/4 bilaterally. No cyanosis. NEUROLOGICAL:Post ictal. Follows occasional commands. SKIN: Warm, dry, normal turgor. No rashes or lesions noted. (JOE GIANG) Course - Laboratory Result Diagrams: 05/25/18 15:30 05/25/18 17:37 <JOE GIANG - Last Filed: 05/25/18 19:59> - Laboratory Result Diagrams: 05/25/18 15:30 05/25/18 17:37 <BOSTON HARLEY - Last Filed: 05/25/18 20:04> - Re-evaluation Re-evalutation: 05/25/18 16:37 CBC shows slight leukocytosis at 11.6 otherwise unremarkable, CMP shows slightly elevated sodium of 148.4, CO2 low at 9 consistent with 2-3 seizures today, anion gap elevated at 28 also consistent with the seizures, these labs will be repeated after he has been hydrated, urinalysis shows moderate blood but 0 RBCs again likely mild rhabdomyolysis from the seizures. Urine drug screen negative, Keppra level is a send out. 05/25/18 20:01 Blood work has normalized, anion gap is now 10, CO2 is now 22, sodium has declined from 148.4 down to 143.9. Patient now wakes up uses the urinal and then goes back to sleep. Patient is following his usual postictal pattern. Patient tends to be tired for a few hours afterwards and sleeps and then is stable for discharge to home. We will continue to monitor this patient and as soon as he is able to ambulate on his own he will be discharged home. He is Guero been given a gram of Keppra. (BOSTON HARLEY) - Vital Signs Vital signs: Temp Pulse Resp BP Pulse Ox 29 H 135/94 H 100 05/25/18 17:28 05/25/18 17:28 05/25/18 17:28 - Laboratory Laboratory results interpreted by me: 05/25/18 05/25/18 05/25/18 14:35 15:30 15:30 WBC 11.6 H Absolute Neutrophils 8.7 H Sodium 148.4 H Chloride 111 H Carbon Dioxide 9 L* Anion Gap 28 H Glucose 111 H ALT 13 L Total Protein 8.3 H Urine Protein 100 H Urine Blood MODERATE H 05/25/18 17:37 WBC Absolute Neutrophils Sodium Chloride 112 H Carbon Dioxide Anion Gap Glucose ALT Total Protein Urine Protein Urine Blood - EKG Interpretation by Me Additional EKG results interpreted by me: 05/25/18 20:01 EKG shows sinus rhythm at a rate of 95, normal axis, prolonged QT interval at 392, QTc corrected is 493, there is LVH, no ST segment elevation, there is mild depression in 2 and aVF per my interpretation. (BOSTON HARLEY) Discharge <JOE GIANG - Last Filed: 05/25/18 19:59> <BOSTON HARLEY - Last Filed: 05/25/18 20:04> - Discharge Clinical Impression: Seizure, Noncompliance w/medication treatment due to intermit use of medication Condition: Stable Disposition: HOME, SELF-CARE Additional Instructions: It is incredibly important that you take your Keppra [address] day as directed. Whenever you skip your Keppra you have seizures. We will not know whether or not to add another medication until you have been taking your Keppra every day twice a day as directed for several months. Please follow-up with a neurologist as an outpatient. You may not drive until you have been seizure-free for at least a year and cleared by neurologist. Referrals: KATIE GATES MD [NO LOCAL MD] - Follow up as needed Scribe Attestation: 05/25/18 20:03 I personally performed the services described in the documentation, reviewed and edited the documentation which was dictated to the scribe in my presence, and it accurately records my words and actions. (BOSTON HARLEY) Scribe Documentation - Scribe Written by Scribe:: Kell Davis, 05/25/2018 15:42 acting as scribe for :: Cintia <JOE GIANG - Last Filed: 05/25/18 19:59>
[2018-05-25 15:46] LABS: ALANINE AMINOTRANSFERASE 13 U/L (21-72); ALBUMIN 4.9 g/dL (3.5-5.0); ALKALINE PHOSPHATASE 82 U/L (38-126); ASPARTATE AMINO TRANSFERASE 37 U/L (17-59); BILIRUBIN,DIRECT 0.2 mg/dL (0.0-0.4); BILIRUBIN,TOTAL 0.5 mg/dL (0.2-1.3); BLOOD UREA NITROGEN 7 mg/dL (7-20); CALCIUM 9.7 mg/dL (8.4-10.2); GLUCOSE 111 mg/dL (75-110); POTASSIUM 3.6 mmol/L (3.6-5.0); TOTAL PROTEIN 8.3 g/dL (6.3-8.2)
[2018-05-25 15:51] LABS: CHLORIDE 111 mmol/L (98-107); SODIUM 148.4 mmol/L (137-145)
[2018-05-25 15:52] LABS: ANION GAP 28 (5-19)
[2018-05-25 15:54] LABS: CARBON DIOXIDE 9 mmol/L (22-30)
[2018-05-25] MEDS ORDERED: NORMAL SALINE 1000 ML 1,000 ML IV ONE ×2 (15:55→16:46)
[2018-05-25 16:04] LABS: APPEARANCE,URINE CLEAR; BILIRUBIN,URINE NEGATIVE (NEGATIVE); COLOR,URINE COLORLESS; GLUCOSE, URINE NEGATIVE (NEGATIVE); KETONES,URINE NEGATIVE (NEGATIVE); LEUKOCYTE ESTERASE,URINE NEGATIVE (NEGATIVE); NITRITE,URINE NEGATIVE (NEGATIVE); PROTEIN,URINE 100 mg/dL (NEGATIVE); URINE SPECIFIC GRAVITY 1.011; UROBILINOGEN,URINE NEGATIVE mg/dL (<2.0)
[2018-05-25 16:12] LABS: ABSOLUTE BASOPHILS # (AUTO) 0.1 10^3/uL (0.0-0.2); ABSOLUTE EOSINOPHILS # (AUTO) 0.1 10^3/uL (0.0-0.6); ABSOLUTE LYMPHOCYTES (AUTO) 1.9 10^3/uL (0.5-4.7); ABSOLUTE MONOCYTES (AUTO) 0.8 10^3/uL (0.1-1.4); ABSOLUTE NEUT (AUTO) 8.7 10^3/uL (1.7-8.2); BASOPHILS % (AUTO) 0.7 % (0-2); EOSINOPHILS % (AUTO) 0.5 % (0-6); HEMATOCRIT 43.3 % (37.9-51.0); HEMOGLOBIN 14.7 g/dL (13.5-17.0); LYMPHOCYTES % (AUTO) 16.5 % (13-45); MEAN CORPUSCULAR HEMOGLOBIN 31.4 pg (27.0-33.4); MEAN CORPUSCULAR HGB CONC 33.9 g/dL (32.0-36.0); MEAN CORPUSCULAR VOLUME 93 fl (80-97); MONOCYTES % (AUTO) 7.3 % (3-13); PLATELET COUNT 209 10^3/uL (150-450); RED BLOOD COUNT 4.67 10^6/uL (4.35-5.55); RED CELL DISTRIBUTION WIDTH 13.8 % (11.5-14.0); TOTAL CELLS COUNTED % (AUTO) 100 %; WHITE BLOOD COUNT 11.6 10^3/uL (4.0-10.5)
[2018-05-25 16:25] LABS: URINE AMPHETAMINES SCREEN NEGATIVE; URINE BARBITURATES SCREEN NEGATIVE; URINE BENZODIAZEPINES SCREEN NEGATIVE; URINE COCAINE SCREEN NEGATIVE; URINE MARIJUANA (THC) SCREEN NEGATIVE; URINE METHADONE SCREEN NEGATIVE; URINE PHENCYCLIDINE SCREEN NEGATIVE
--- NOTE | 2018-05-25 18:11 | EKG REPORT ---
SEVERITY:- ABNORMAL ECG - SINUS RHYTHM PROLONGED QT INTERVAL : Confirmed by: Raghu Bird MD 25-May-2018 18:11:10
[2018-05-25 18:34] LABS: ANION GAP 10 (5-19); BLOOD UREA NITROGEN 8 mg/dL (7-20); CALCIUM 8.5 mg/dL (8.4-10.2); CHLORIDE 112 mmol/L (98-107); GLUCOSE 84 mg/dL (75-110); POTASSIUM 3.7 mmol/L (3.6-5.0); SODIUM 143.9 mmol/L (137-145)
[2018-05-25 18:51] LABS: CARBON DIOXIDE 22 mmol/L (22-30)
[2018-05-25 20:27] VITALS: BP 160/97
== END 2018-05-25 20:30 | disposition home or self-care (01) ==
LOC: ER 14:55
DX: G40.909 Epilepsy, unspecified, not intractable, without status epilepticus (principal); F17.210 Nicotine dependence, cigarettes, uncomplicated; Z91.14 Patient's other noncompliance with medication regimen
CPT/HCPCS: 93005; 99284; 96361; 96374; 36415; 80177; 85025; 80048; 80053; 81001; 80307; 93010; J7030; J1953

== ENCOUNTER 2018-07-10 08:25 | Emergency (ER) | payer MEDICARE ==
[2018-07-10] MEDS ORDERED: DIAZEPAM INJ 10 MG/2 ML DISP.SYRIN ONE (08:41)
[2018-07-10] MEDS ORDERED: LEVETIRACETAM 1000 MG/NACL-ISO 1,000 MG/100 ML RTUPB IV ONE (08:44)
[2018-07-10] MEDS ORDERED: LEVETIRACETAM 500 MG/NACL-ISO 500 MG/100 ML RTUPB IV ONE (08:44)
--- NOTE | 2018-07-10 08:48 | ER Document Report ---
ED General - General Stated Complaint: POSSIBLE SEIZURE Time Seen by Provider: 07/10/18 08:32 Mode of Arrival: Medic Information source: Patient, Emergency Med Personnel TRAVEL OUTSIDE OF THE [place] IN LAST 30 DAYS: No - HPI Patient complains to provider of: Seizure Onset: Just prior to arrival - 32-year-old man with a history of epilepsy and recurrent seizures in the past who is previously been treated with Keppra who also has a history of alcoholism and recurrent seizures when using alcohol that presents for evaluation of 2 seizures this morning witnessed at home. His girlfriend notes that he began to have a seizure this morning because he has been drinking heavily for the last 3 days at home similar to previous episodes of seizures she said she does not believe he has been taking his Keppra either. Patient is postictal limiting his history. - Related Data Allergies/Adverse Reactions: acetaminophen [From Vicodin] Allergy (Verified 11/24/17 11:39) hydrocodone [From Vicodin] Allergy (Verified 11/24/17 11:39) Past Medical History - General Information source: Patient, Emergency Med Personnel, [facility] Records Cannot obtain history due to: Altered mental status - Social History Smoking Status: Current Every Day Smoker Smoking Education Provided: Yes Frequency of alcohol use: Heavy Drug Abuse: None Family History: None, Reviewed & Not Pertinent - Past Medical History Cardiac Medical History: Reports: Hx Hypertension Neurological Medical History: Reports: Hx Seizures Renal/ Medical History: Denies: Hx Peritoneal Dialysis - Immunizations Immunizations up to date: No Hx Diphtheria, Pertussis, Tetanus Vaccination: Yes Review of Systems - Review of Systems -: Yes All other systems reviewed and negative Physical Exam - Vital signs Vitals: Resp 26 H 07/10/18 08:38 - General General appearance: Lethargic In distress: Moderate - HEENT Head: Normocephalic Eyes: Normal Conjunctiva: Normal Cornea: Normal Extraocular movements intact: Yes Pupils: PERRL Ears: Normal Mouth/Lips: Other - Bite craig on both sides of tongue - Respiratory Respiratory status: No respiratory distress Chest status: Nontender Breath sounds: Normal Chest palpation: Normal - Cardiovascular Rhythm: Regular Heart sounds: Normal auscultation Murmur: No - Abdominal Inspection: Normal Distension: No distension Bowel sounds: Normal Tenderness: Nontender Organomegaly: No organomegaly - Back Back: Normal, Nontender - Extremities General upper extremity: Normal inspection, Nontender, Normal color, Normal ROM, Normal temperature General lower extremity: Normal inspection, Nontender, Normal color, Normal ROM, Normal temperature, Normal weight bearing. No: Julissa's sign - Neurological Cognition: Confused Orientation: Disoriented to person Wilson Coma Scale Eye Opening: To Voice Wilson Coma Scale Verbal: Confused Wilson Coma Scale Motor: Localizes to Pain Bertin Coma Scale Total: 12 Cranial nerves: Normal Motor strength normal: LUE, RUE, LLE, RLE - Psychological Associated symptoms: Flat affect Course - Re-evaluation Re-evalutation: 32-year-old man that presents for history of seizures. Initially on arrival he was postictal having recently had a seizure while at home. Per family this patient has been on a binge drinking episode over the last 3 days which is a trigger for his seizures. His history is limited secondary to his postictal state. Upon arrival in the emergency department this patient had a recurrence of seizure, he bit his tongue, briefly had a desaturation, was emergently placed on nonrebreather had suctioning at the bedside aggressively. He was given Valium intravenously 5 mg. He was given 1500 of Keppra IV immediately loading. Is placed on residential monitor and kept on nonrebreather for an hour thereafter with frequent reassessments at the bedside. Following this episode this patient was somnolent however and a nonfocal neurologic examination and slowly cleared. I spoke to his girlfriend Lisa phone #[phone]. She notes that this is been a recurrent issue for him and he does not take his antiepileptic medication. As a gentleman begin to clear he denied any current complaints other than feeling somewhat cold. He was observed in the emergency department for approximately 5 hours without any return of seizures. He had a Keppra level drawn and sent. The importance of the use of his antiepileptic medications as well as the importance of alcohol cessation was reiterated to both he as well as his gi rlfriend's daughters who are helping take care of him Yahaira Chavez. Patient was discharged in the care of his family. - Vital Signs Vital signs: Temp Pulse Resp BP Pulse Ox 101.3 F H 81 12 180/128 H 97 07/10/18 16:22 07/10/18 16:22 07/10/18 16:22 07/10/18 16:22 07/10/18 16:22 - Laboratory Result Diagrams: 07/10/18 09:00 07/10/18 09:00 Laboratory results interpreted by me: 07/10/18 07/10/18 09:00 09:00 WBC 12.6 H Sodium 145.8 H Chloride 110 H Carbon Dioxide 9 L* Anion Gap 27 H Creatinine 1.28 H Glucose 128 H Creatine Kinase 608 H Discharge - Discharge Clinical Impression: Seizure, Alcohol abuse, Tongue biting Condition: Good Disposition: HOME, SELF-CARE Instructions: Acute Alcohol Intoxication ([facility]), Seizure, Known Epileptic ([facility]) Additional Instructions: Your seen today in the emergency department for your seizure. You should avoid alcohol as it is a trigger for your seizures. You must take your Keppra, if you missed doses of your Keppra you will have seizures again. If you have a seizure like this again it is possible that it will permanently damage your brain or potentially kill you. Today received doses of Keppra in the emergency department, you had blood tests performed as well as a chest x-ray. These look like they have looked previously. Prescriptions: Levetiracetam [Keppra 500 mg Tablet] 1,000 mg PO Q12 #120 tablet
[2018-07-10] MEDS ORDERED: DIAZEPAM INJ 10 MG/2 ML DISP.SYRIN IV ONE (08:49)
[2018-07-10] MEDS ORDERED: LEVETIRACETAM 1500 MG/NACL-ISO 1,500 MG/100 ML RTUPB IV ONE (08:50)
[2018-07-10 09:14] LABS: ABSOLUTE BASOPHILS # (AUTO) 0.1 10^3/uL (0.0-0.2); ABSOLUTE EOSINOPHILS # (AUTO) 0.2 10^3/uL (0.0-0.6); ABSOLUTE LYMPHOCYTES (AUTO) 3.8 10^3/uL (0.5-4.7); ABSOLUTE MONOCYTES (AUTO) 1.3 10^3/uL (0.1-1.4); ABSOLUTE NEUT (AUTO) 7.4 10^3/uL (1.7-8.2); BASOPHILS % (AUTO) 0.5 % (0-2); EOSINOPHILS % (AUTO) 1.2 % (0-6); HEMATOCRIT 48.6 % (37.9-51.0); HEMOGLOBIN 15.9 g/dL (13.5-17.0); LYMPHOCYTES % (AUTO) 29.9 % (13-45); MEAN CORPUSCULAR HEMOGLOBIN 30.6 pg (27.0-33.4); MEAN CORPUSCULAR HGB CONC 32.6 g/dL (32.0-36.0); MEAN CORPUSCULAR VOLUME 94 fl (80-97); PLATELET COUNT 246 10^3/uL (150-450); RED BLOOD COUNT 5.18 10^6/uL (4.35-5.55); RED CELL DISTRIBUTION WIDTH 13.4 % (11.5-14.0); SEGMENTED NEUTROPHILS % (AUTO) 58.4 % (42-78); TOTAL CELLS COUNTED % (AUTO) 100 %; WHITE BLOOD COUNT 12.6 10^3/uL (4.0-10.5)
[2018-07-10 09:29] LABS: BLOOD UREA NITROGEN 10 mg/dL (7-20); CALCIUM 9.5 mg/dL (8.4-10.2); CREATINE KINASE 608 U/L (55-170); GLUCOSE 128 mg/dL (75-110); POTASSIUM 4.1 mmol/L (3.6-5.0)
--- NOTE | 2018-07-10 09:31 | RADIOLOGY REPORT (SQ) ---
EXAM DESCRIPTION: CHEST SINGLE VIEW COMPLETED DATE/TIME: 07/10/2018 9:23 am REASON FOR STUDY: concern for aspiration COMPARISON: 11/24/2017 EXAM PARAMETERS: NUMBER OF VIEWS: One view. TECHNIQUE: Single frontal radiographic view of the chest acquired. RADIATION DOSE: NA LIMITATIONS: None. FINDINGS: LUNGS AND PLEURA: No opacities, masses or pneumothorax. No pleural effusion. MEDIASTINUM AND HILAR STRUCTURES: No masses. Contour normal. HEART AND VASCULAR STRUCTURES: Heart normal in size. Normal vasculature. BONES: No acute findings. HARDWARE: None in the chest. OTHER: No other significant finding. IMPRESSION: NO ACUTE RADIOGRAPHIC FINDING IN THE CHEST. TECHNICAL DOCUMENTATION: JOB ID: [id number] [employer]- All Rights Reserved Reading location - IP/workstation name: [email or web address]
[2018-07-10 09:34] LABS: CHLORIDE 110 mmol/L (98-107); SODIUM 145.8 mmol/L (137-145)
[2018-07-10 09:36] LABS: ANION GAP 27 (5-19); CARBON DIOXIDE 9 mmol/L (22-30)
[2018-07-10] MEDS ORDERED: NORMAL SALINE 1000 ML 1,000 ML IV ONE (10:15)
--- NOTE | 2018-07-10 11:39 | EKG REPORT ---
SEVERITY:- BORDERLINE ECG - SINUS RHYTHM PROBABLE LEFT ATRIAL ABNORMALITY : Confirmed by: Raghu Bird MD 10-Jul-2018 11:38:35
[2018-07-10] MEDS ORDERED: IBUPROFEN 600 MG TABLET PO ONE (16:05)
[2018-07-10 16:22] VITALS: BP 180/128
== END 2018-07-10 16:22 | disposition home or self-care (01) ==
LOC: ER 08:25
DX: G40.909 Epilepsy, unspecified, not intractable, without status epilepticus (principal); S01.552A Open bite of oral cavity, initial encounter; X58.XXXA Exposure to other specified factors, initial encounter; F10.10 Alcohol abuse, uncomplicated; I10 Essential (primary) hypertension; Z88.6 Allergy status to analgesic agent
CPT/HCPCS: 93005; 99291; 96361; 96375; 96365; 36415; 80177; 80307; 82550; 85025; 80048; 84484; 71045; 93010; J3360; A9270; J7030; J1953

== ENCOUNTER 2018-07-22 05:35 | Emergency (ER) | payer MEDICARE ==
[2018-07-22] MEDS ORDERED: LEVETIRACETAM 1000 MG/NACL-ISO 1,000 MG/100 ML RTUPB IV ONE (06:26)
--- NOTE | 2018-07-22 06:26 | ER Document Report ---
ED General - General Chief Complaint: Seizure Stated Complaint: POSSIBLE SEIZURE Time Seen by Provider: 07/22/18 06:11 Notes: Patient is a 33-year-old male with epilepsy that presents to the emergency department for chief complaint of seizure. Patient history obtained from EMS, patient reportedly had 2 seizures at home, one lasting 2 minutes this morning, and another lasting approximately 5 minutes, this was witnessed by his girlfriend. He does have epilepsy, but is noncompliant with his medications, he is supposed to be on Keppra, the last several times he has been seen, Keppra levels were sent, and were completely negative, he has not been taking medications despite being given multiple prescriptions for this. No other history obtained at this time as the patient is postictal. Past Medical History: Epilepsy Past Surgical History: Not obtainable at this time Social History: Smokes cigarettes, no apparent alcohol use or illicit drug use. Family History: Reviewed and noncontributory for presenting illness Allergies: Reviewed, see documented allergy list. REVIEW OF SYSTEMS: Complete review of systems is not obtainable at this time as the patient is postictal, and not able to answer all questions. PHYSICAL EXAMINATION: Vital signs reviewed, nursing noted reviewed. GENERAL: Somnolent, but arousable, will answer questions, current GCS is 13 HEAD: Atraumatic, normocephalic. EYES: Pupils dilated, but equally reactive, extraocular movements intact, sclera anicteric, conjunctiva are normal. ENT: nares patent, oropharynx clear without exudates. Moist mucous membranes. Right-sided tongue laceration NECK: Normal range of motion, supple without lymphadenopathy LUNGS: Breath sounds clear to auscultation bilaterally and equal. No wheezes rales or rhonchi. HEART: Regular rate and rhythm without murmurs ABDOMEN: Soft, nontender, normoactive bowel sounds. No rebound, guarding, or rigidity. No masses appreciated. EXTREMITIES: nontender, good range of motion, no pitting or edema. There was noted to be a fluctuant area over the patient's left lower leg, nontender no induration, possible seroma, no erythema or warmth either. NEUROLOGICAL: GCS 13, no focal neurological deficits. Moves all extremities sp ontaneously Motor and sensory grossly intact on exam. PSYCH: Postictal, arousable. SKIN: Warm, Dry, normal turgor, no rashes or lesions noted on exposed skin TRAVEL OUTSIDE OF THE [place] IN LAST 30 DAYS: No - Related Data Allergies/Adverse Reactions: acetaminophen [From Vicodin] Allergy (Verified 11/24/17 11:39) hydrocodone [From Vicodin] Allergy (Verified 11/24/17 11:39) Past Medical History - Social History Smoking Status: Unknown if Ever Smoked Family History: None, Reviewed & Not Pertinent Patient has suicidal ideation: No Patient has homicidal ideation: No - Past Medical History Cardiac Medical History: Reports: Hx Hypertension Neurological Medical History: Reports: Hx Seizures Renal/ Medical History: Denies: Hx Peritoneal Dialysis - Immunizations Immunizations up to date: No Hx Diphtheria, Pertussis, Tetanus Vaccination: Yes Physical Exam - Vital signs Vitals: Resp 15 07/22/18 05:38 Course - Re-evaluation Re-evalutation: Patient seen and examined vital signs reviewed. Laboratory data and imaging were ordered as appropriate for the patient's presenting symptoms and complaint, with consideration of any critical or life threatening conditions that may be associated with their obtained history and exam as noted above. Patient was treated with IV Keppra 1000 mg, but prior to administration of IV Keppra, the patient had a third seizure for the day, that lasted about 1 minute, IV Keppra was infused, patient was postictal again, then patient became very agitated and appeared to have tonic-clonic activity again, then continued to be agitated, was flailing around in the bed, not redirectable, and speaking nonsensically, he was kicking the bed, and falling out of the bed, and an immediate risk to himself and also staff, patient was given IV Ativan 2 mg, which did calm him down temporarily, but he was still agitated, at this point I decided to intubate the patient for his own protection, protection of other staff, as he was a immediate threat to himself and others. I also felt that given that the patient has had multiple seizures today, up to 4, that he is going to status epilepticus, patient was started on IV propofol after successful intubation, no further tonic-clonic activity. Results were reviewed when available and demonstrated mild metabolic acidosis consistent with seizure, mildly elevated CK as well, his creatinine was elevated at 1.8, when compared to prior labs, this is a mild acute kidney injury, he was at 1.4 in the past. Patient was additionally given IV fluids for his AK I. The patient was re-evaluated and was stable on the ventilator. CT of the head obtained and negative, chest x-ray demonstrated good positioning of ET tube and OG tube. Evaluation was most consistent with status epilepticus, AK I, metabolic aci dosis, acute respiratory failure, metabolic encephalopathy Results were discussed with the patients mother at this point after careful consideration I feel that that patient should be transferred to [facility], discussed with Dr. Pang due to status epilepticus, need for neurological evaluation and management. This was discussed with the patient's mother that it is in the best interest for their care to be transferred, the risks and benefits of transfer were discussed, including but not limited to clinical deterioration during transport, respiratory distress, and potential for traumatic injuries. Patients mother agreed with this plan of care. *Note is created using voice recognition software and may contain spelling, syntax or grammatical errors. Laboratory 07/22/18 07/22/18 07/22/18 05:40 05:40 07:20 WBC 7.5 RBC 4.58 Hgb 14.4 Hct 41.9 MCV 91 MCH 31.4 MCHC 34.4 RDW 12.6 Plt Count 300 Seg Neutrophils % 51.6 Lymphocytes % 35.1 Monocytes % 11.5 Eosinophils % 0.9 Basophils % 0.9 Absolute Neutrophils 3.9 Absolute Lymphocytes 2.6 Absolute Monocytes 0.9 Absolute Eosinophils 0.1 Absolute Basophils 0.1 Sodium 143.6 Potassium 4.3 Chloride 107 Carbon Dioxide 20 L Anion Gap 17 BUN 15 Creatinine 1.48 H Est GFR ( Amer) > 60 Est GFR (Non-Af Amer) 54 L Glucose 103 POC Glucose 107 Calcium 9.6 Total Bilirubin 0.2 Direct Bilirubin 0.2 Neonat Total Bilirubin Not Reportable Neonat Direct Bilirubin Not Reportable Neonat Indirect Bili Not Reportable AST 25 ALT 15 L Alkaline Phosphatase 82 Creatine Kinase 402 H Total Protein 7.9 Albumin 4.2 Urine Color Urine Appearance Urine pH Ur Specific [place] Urine Protein Urine Glucose (UA) Urine Ketones Urine Blood Urine Nitrite Urine Bilirubin Urine Urobilinogen Ur Leukocyte Esterase Urine WBC (Auto) Urine RBC (Auto) Urine Mucus (Auto) Urine Ascorbic Acid 07/22/18 09:20 WBC RBC Hgb Hct MCV MCH MCHC RDW Plt Count Seg Neutrophils % Lymphocytes % Monocytes % Eosinophils % Basophils % Absolute Neutrophils Absolute Lymphocytes Absolute Monocytes Absolute Eosinophils Absolute Basophils Sodium Potassium Chloride Carbon Dioxide Anion Gap BUN Creatinine Est GFR ( Amer) Est GFR (Non-Af Amer) Glucose POC Glucose Calcium Total Bilirubin Direct Bilirubin Neonat Total Bilirubin Neonat Direct Bilirubin Neonat Indirect Bili AST ALT Alkaline Phosphatase Creatine Kinase Total Protein Albumin Urine Color STRAW Urine Appearance CLEAR Urine pH 6.0 Ur Specific [place] 1.011 Urine Protein NEGATIVE Urine Glucose (UA) NEGATIVE Urine Ketones NEGATIVE Urine Blood NEGATIVE Urine Nitrite NEGATIVE Urine Bilirubin NEGATIVE Urine Urobilinogen NEGATIVE Ur Leukocyte Esterase NEGATIVE Urine WBC (Auto) 2 Urine RBC (Auto) 1 Urine Mucus (Auto) RARE Urine Ascorbic Acid NEGATIVE Chest X-Ray 07/22/18 07:35 IMPRESSION: Endotracheal tube, nasogastric tubes in good positioning. No focal infiltrates. Head CT 07/22/18 07:35 IMPRESSION: No acute intracranial changes EVIDENCE OF ACUTE STROKE: NO. 07/22/18 20:27 - Vital Signs Vital signs: Temp Pulse Resp BP Pulse Ox 99.3 F 12 169/116 H 100 07/22/18 05:47 07/22/18 10:08 07/22/18 10:08 07/22/18 10:08 - Laboratory Result Diagrams: 07/22/18 05:40 07/22/18 05:40 Laboratory results interpreted by me: 07/22/18 05:40 Carbon Dioxide 20 L Creatinine 1.48 H Est GFR (Non-Af Amer) 54 L ALT 15 L Creatine Kinase 402 H - EKG Interpretation by Me Additional EKG results interpreted by me: EKG demonstrates sinus rhythm with a ventricular rate of 80 bpm, normal axis, normal intervals, there is J-point elevation noted in leads V2 and V3, no ischemic changes. This is compared with prior EKG from 07/10/2018 Procedures - Intubation Orotracheal Airway evaluation: Normal anatomy Mallampati Classification: Class 1 Medications: Etomidate - 20mg, Other - rocuronium 75mg Intubation method: Orotracheal Blade size: 4 Equipment used: Glidescope ETT size: 8.0 ETT secured at: Teeth ETT secured at (cm): 23 Breath Sounds after Intubation: Equal End tidal CO2 confirmed: Yes Ventilator settings: SIMV Tidal volume: 500 FiO2: 40 Respirations: 12 PEEP: 5 Post Intubation Xray: Yes Intubation Complications: No complications Critical Care Note - Critical Care Note Total time excluding time spent on procedures (mins): 60 Comments: Critical care time 60 minutes exclusive from separate billable procedures for a patient requiring complex medical decision making, and high potential for clinical deterioration. In a patient with status epilepticus, requiring intubation, and close monitoring, high potential for deterioration. Time spent obtaining history from patient or surrogate, discussions with consultants, development of treatment plan with patient or surrogate, evaluation of patient's response to treatment, examination of patient, ordering and performing treatments and interventions, ordering and review of laboratory studies, re- evaluation of patient's condition, ordering and review of radiographic studies and review of old charts Discharge - Discharge Clinical Impression: Status epilepticus, Metabolic acidosis, BERRY (acute kidney injury) Acute respiratory failure Qualifiers: Respiratory failure complication: unspecified whether with hypoxia or hypercapnia Qualified Code(s): J96.00 - Acute respiratory failure, unspecified whether with hypoxia or hypercapnia Condition: Stable Disposition: [facility]
[2018-07-22] MEDS ORDERED: LORAZEPAM INJ 2 MG/1 ML VIAL IV ONE (07:16)
[2018-07-22] MEDS ORDERED: PROPOFOL 1,000 MG/100 ML INFUS..BTL IV ONE (07:33)
[2018-07-22] MEDS ORDERED: PROPOFOL 1,000 MG/100 ML INFUS..BTL IV PRN (07:34)
[2018-07-22] MEDS ORDERED: ETOMIDATE INJ/PF 20 MG/10 ML SDV IV ONE (07:34)
[2018-07-22] MEDS ORDERED: ROCURONIUM BROMIDE INJ 50 MG/5 ML VIAL IV ONE (07:34)
[2018-07-22 07:45] LABS: ABSOLUTE BASOPHILS # (AUTO) 0.1 10^3/uL (0.0-0.2); ABSOLUTE EOSINOPHILS # (AUTO) 0.1 10^3/uL (0.0-0.6); ABSOLUTE LYMPHOCYTES (AUTO) 2.6 10^3/uL (0.5-4.7); ABSOLUTE MONOCYTES (AUTO) 0.9 10^3/uL (0.1-1.4); ABSOLUTE NEUT (AUTO) 3.9 10^3/uL (1.7-8.2); BASOPHILS % (AUTO) 0.9 % (0-2); EOSINOPHILS % (AUTO) 0.9 % (0-6); HEMATOCRIT 41.9 % (37.9-51.0); HEMOGLOBIN 14.4 g/dL (13.5-17.0); LYMPHOCYTES % (AUTO) 35.1 % (13-45); MEAN CORPUSCULAR HEMOGLOBIN 31.4 pg (27.0-33.4); MEAN CORPUSCULAR HGB CONC 34.4 g/dL (32.0-36.0); MEAN CORPUSCULAR VOLUME 91 fl (80-97); MONOCYTES % (AUTO) 11.5 % (3-13); PLATELET COUNT 300 10^3/uL (150-450); RED BLOOD COUNT 4.58 10^6/uL (4.35-5.55); RED CELL DISTRIBUTION WIDTH 12.6 % (11.5-14.0); SEGMENTED NEUTROPHILS % (AUTO) 51.6 % (42-78); TOTAL CELLS COUNTED % (AUTO) 100 %; WHITE BLOOD COUNT 7.5 10^3/uL (4.0-10.5)
[2018-07-22 07:55] LABS: ALANINE AMINOTRANSFERASE 15 U/L (21-72); ALBUMIN 4.2 g/dL (3.5-5.0); ALKALINE PHOSPHATASE 82 U/L (38-126); ANION GAP 17 (5-19); ASPARTATE AMINO TRANSFERASE 25 U/L (17-59); BILIRUBIN,DIRECT 0.2 mg/dL (0.0-0.4); BILIRUBIN,TOTAL 0.2 mg/dL (0.2-1.3); BLOOD UREA NITROGEN 15 mg/dL (7-20); CALCIUM 9.6 mg/dL (8.4-10.2); CARBON DIOXIDE 20 mmol/L (22-30); CHLORIDE 107 mmol/L (98-107); CREATINE KINASE 402 U/L (55-170); GLUCOSE 103 mg/dL (75-110); POTASSIUM 4.3 mmol/L (3.6-5.0); SODIUM 143.6 mmol/L (137-145); TOTAL PROTEIN 7.9 g/dL (6.3-8.2)
--- NOTE | 2018-07-22 08:38 | RADIOLOGY REPORT (SQ) ---
EXAM DESCRIPTION: CT HEAD WITHOUT COMPLETED DATE/TIME: 07/22/2018 8:27 am REASON FOR STUDY: siezures, combative, ams COMPARISON: CT brain 03/13/2018, 11/17/2013 TECHNIQUE: Axial images acquired through the brain without intravenous contrast. Images reviewed wi th bone, brain and subdural windows. Additional sagittal and coronal reconstructions were generated. Images stored on PACS. All CT scanners at this facility use dose modulation, iterative reconstruction, and/or weight based d osing when appropriate to reduce radiation dose to as low as reasonably achievable (ALARA). [facility]: Dose Right [facility]: CareDose [facility]: Dose Right [facility]: Teradose 4D [facility]: [employer] RADIATION DOSE: CT Rad equipment meets quality standard of care and radiation dose reduction techniq ues were employed. CTDIvol: 53.2 mGy. DLP: 1177 mGy-cm. mGy. LIMITATIONS: None. FINDINGS: VENTRICLES: Normal size and contour. CEREBRUM: No masses. No hemorrhage. No midline shift. No evidence for acute infarction. Normal gra y/white matter differentiation. No areas of low density in the white matter. CEREBELLUM: No masses. No hemorrhage. No alteration of density. No evidence for acute infarction. EXTRAAXIAL SPACES: No fluid collections. No masses. ORBITS AND GLOBE: No intra- or extraconal masses. Normal contour of globe without masses. CALVARIUM: No fracture. PARANASAL SINUSES: There are air-fluid levels in the right and left maxillary sinuses, air and fluid in the ethmoid air cells likely representing pre-existing sinus disease. SOFT TISSUES: No mass or hematoma. OTHER: Endotracheal tube, orogastric tube in place. Oral airway in place. IMPRESSION: No acute intracranial changes EVIDENCE OF ACUTE STROKE: NO. COMMENT: Quality ID # [id number]: Final reports with documentation of one or more dose reduction techniques (e.g., Automated exposure control, adjustment of the mA and/or kV according to patient size, use of iterative reconstruction technique) TECHNICAL DOCUMENTATION: JOB ID: [id number] [employer]- All Rights Reserved Reading location - IP/workstation name: [email or web address]
--- NOTE | 2018-07-22 08:42 | RADIOLOGY REPORT (SQ) ---
EXAM DESCRIPTION: CHEST SINGLE VIEW COMPLETED DATE/TIME: 07/22/2018 8:32 am REASON FOR STUDY: post intubation COMPARISON: AP chest 07/10/2018 EXAM PARAMETERS: NUMBER OF VIEWS: One view. TECHNIQUE: Single frontal radiographic view of the chest acquired. RADIATION DOSE: NA LIMITATIONS: None. FINDINGS: LUNGS AND PLEURA: No opacities, masses or pneumothorax. No pleural effusion. MEDIASTINUM AND HILAR STRUCTURES: No masses. Contour normal. HEART AND VASCULAR STRUCTURES: Heart normal in size. Normal vasculature. BONES: No acute findings. HARDWARE: Endotracheal tube tip 5 cm above the jason. Nasogastric tube tip and side port in the sto mach. OTHER: No other significant finding. IMPRESSION: Endotracheal tube, nasogastric tubes in good positioning. No focal infiltrates. TECHNICAL DOCUMENTATION: JOB ID: [id number] [employer]- All Rights Reserved Reading location - IP/workstation name: [email or web address]
[2018-07-22] MEDS ORDERED: NORMAL SALINE 1000 ML 1,000 ML IV ONE (08:55)
[2018-07-22 09:33] LABS: APPEARANCE,URINE CLEAR; BILIRUBIN,URINE NEGATIVE (NEGATIVE); COLOR,URINE STRAW; GLUCOSE, URINE NEGATIVE (NEGATIVE); KETONES,URINE NEGATIVE (NEGATIVE); LEUKOCYTE ESTERASE,URINE NEGATIVE (NEGATIVE); NITRITE,URINE NEGATIVE (NEGATIVE); PROTEIN,URINE NEGATIVE (NEGATIVE); URINE SPECIFIC GRAVITY 1.011; UROBILINOGEN,URINE NEGATIVE mg/dL (<2.0)
[2018-07-22] MEDS ORDERED: PROPOFOL 2,000 MG/200 ML INFUS..BTL IV ONE (10:24)
[2018-07-22 10:30] VITALS: BP 169/116
[2018-07-22 10:59] LABS: URINE AMPHETAMINES SCREEN NEGATIVE; URINE BARBITURATES SCREEN NEGATIVE; URINE BENZODIAZEPINES SCREEN NEGATIVE; URINE COCAINE SCREEN NEGATIVE; URINE MARIJUANA (THC) SCREEN NEGATIVE; URINE METHADONE SCREEN NEGATIVE; URINE PHENCYCLIDINE SCREEN NEGATIVE
--- NOTE | 2018-07-22 13:40 | EKG REPORT ---
SEVERITY:- ABNORMAL ECG - SINUS RHYTHM CONSIDER LEFT VENTRICULAR HYPERTROPHY ST ELEV, PROBABLE NORMAL EARLY REPOL PATTERN : Confirmed by: Maddy Marx MD 22-Jul-2018 13:39:11
== END 2018-07-22 10:35 | disposition short-term general hospital (02) ==
LOC: ER 05:35
DX: G40.901 Epilepsy, unspecified, not intractable, with status epilepticus (principal); N17.9 Acute kidney failure, unspecified; E87.2 Acidosis; J96.00 Acute respiratory failure, unspecified whether with hypoxia or hypercapnia; Z88.6 Allergy status to analgesic agent
CPT/HCPCS: 93005; 99291; 96361; 51702; 96375; 96365; 36415; 82962; 82550; 85025; 80053; 81001; 80307; 71045; 70450; 94660; 93010; 31500; J3490 ×2; J2704; J2060; J7030; J1953

== ENCOUNTER 2018-08-13 10:35 | Emergency (ER) | payer MEDICARE ==
[2018-08-13] MEDS ORDERED: LEVETIRACETAM 1000 MG/NACL-ISO 1,000 MG/100 ML RTUPB IV ONE (10:51)
--- NOTE | 2018-08-13 11:03 | ER Document Report ---
ED General - General Chief Complaint: Seizure Stated Complaint: POSSIBLE SEIZURE Time Seen by Provider: 08/13/18 10:46 Primary Care Provider: KATIE GATES MD [NO LOCAL MD] - Follow up as needed TRAVEL OUTSIDE OF THE [place] IN LAST 30 DAYS: No - HPI Notes: Patient is a 33-year-old male with a history of seizure disorder and noncompliance with a history of alcoholism who presents to the emergency department by EMS for a seizure prior to arrival who was then found to be postictal at that time. Pt was drinking alcohol this morning which is a known trigger for his seizures (witnessed intake). Patient states that he has been eating and drinking without difficulty. He is urinating normally and having normal bowel movements. Patient states he has not been drinking recently. Patient states that he has been taking his Keppra as prescribed. Patient states that aside from feeling cold and weak this is his typical after a seizure. He was intubated and sent to [facility] earlier this month for recurrent seizures. No other concerns or complaints at this time. Denies any headache, fever, neck pain, URI, sore throat, chest pain, palpitations, syncope, cough, shortness of breath, wheeze, dyspnea, abdominal pain, nausea/vomiting/diarrhea, urinary retention, dysuria, hematuria, loss of control of bowel or bladder, numbness/tingling, saddle anesthesia, muscle paralysis/weakness, or rash. - Related Data Allergies/Adverse Reactions: acetaminophen [From Vicodin] Allergy (Verified 11/24/17 11:39) hydrocodone [From Vicodin] Allergy (Verified 11/24/17 11:39) Past Medical History - Social History Smoking Status: Current Every Day Smoker Family History: None, Reviewed & Not Pertinent - Past Medical History Cardiac Medical History: Reports: Hx Hypertension Neurological Medical History: Reports: Hx Seizures Renal/ Medical History: Denies: Hx Peritoneal Dialysis - Immunizations Immunizations up to date: No Hx Diphtheria, Pertussis, Tetanus Vaccination: Yes Review of Systems - Review of Systems -: Yes All other systems reviewed and negative Physical Exam - Vital signs Vitals: Temp Resp 98.6 F 22 H 08/13/18 10:39 08/13/18 10:39 - Notes Notes: PHYSICAL EXAMINATION: GENERAL: Well-appearing, well-nourished and in no acute distress. A&Ox4. Answers questions appropriately. Pt is somnolent but otherwise cooperative. HEAD: Atraumatic, normocephalic. Non-tender. EYES: Pupils equal round and reactive to light, extraocular movements intact, sclera anicteric, conjunctiva are normal. No nystagmus. vis rouse intact. ENT: EAC clear b/l. TM's intact b/l without erythema, fluid, or perforation. Nares patent and without discharge. oropharynx clear without exudates. No ton silar hypertrophy or erythema. Moist mucous membranes. No sinus tenderness. NECK: Normal range of motion, supple without lymphadenopathy. No rigidity/meningismus. No midline tenderness. LUNGS: Breath sounds clear to auscultation bilaterally and equal. No wheezes rales or rhonchi. HEART: Regular rate and rhythm without murmurs, rubs, gallops. ABDOMEN: Soft, nontender, nondistended abdomen. No guarding, no rebound. Normal bowel sounds present. No CVA tenderness bilaterally. Musculoskeletal: Ext's b/l: FROM to passive/active. Strength 5+/5. No deficits noted. No bony tenderness of extremities. Extremities: No cyanosis, clubbing, or edema b/l. Peripheral pulses 2+. Capillary refill less than 2 seconds. NEUROLOGICAL: NIH 0. GCS 15. Cranial nerves grossly intact. Normal speech. Normal sensory, motor exams. Reflexes 2+ b/l. HIPOLITO's negative. Pronator drift negative. Heel/smith, finger/nose wnl. PSYCH: flat SKIN: Warm, Dry, normal turgor, no rashes or lesions noted. Course - Re-evaluation Re-evalutation: 08/13/18 11:[address] Ortiz. Pt is somewhat somnolent but appropriately responsive. Pt has a seizure history. We will give keppra and fluids. Discharge if pt stable thereafter. 08/13/18 13:10 Patient is an afebrile, well-hydrated 33-year-old male who presents to the emergency department with seizure and known epileptic. Patient has returned to baseline. Vitals are acceptable without significant tachycardia, tachypnea, or hypoxia. PE is otherwise unremarkable for any focal neurological deficits. Patient is nontoxic-appearing and is tolerating p.o. without difficulty. He is responding appropriately. Patient does have a Keppra level pending. He did receive fluids as well as IV Keppra. No further labs or imaging warranted at this time. Low suspicion for any acute intracranial process, sepsis, meningitis, severe dehydration, respiratory compromise, or other systemic emergent condition at this time. Patient is aware that condition can change from initial presentation and he needs to monitor symptoms closely and seek medical attention with any acute changes. Recheck with your PCM/neurologist in 2-3 days. Return to the ED with any other worsening/concerning symptoms as reviewed. Patient is in agreement. - Vital Signs Vital signs: Temp Pulse Resp BP Pulse Ox 98.6 F 14 159/109 H 100 08/13/18 10:39 08/13/18 13:22 08/13/18 13:22 08/13/18 12:01 Discharge - Discharge Clinical Impression: Seizure Condition: Stable Disposition: HOME, SELF-CARE Instructions: Seizure, Known Epileptic ([facility]) Additional Instructions: AVOID ALCOHOL! Take your medicines as prescribed Rest, Ice/cool compress Tylenol/ibuprofen as needed Light stretches daily Strength exercises as able Moist heat and massage may help F/u with your PCP/Neurology in 2-3 days for a recheck Return to the ED with any worsening symptoms and/or development of fever, headache, changes in behavior/mentation/vision/speech, chest pain, palpitations, syncope, shortness of breath, trouble breathing, abdominal pain, n/v/d, blood in stool/urine, loss of control of bowel/bladder, urinary retention, muscle weakness/paralysis, saddle anesthesia, numbness/tingling, or other worsening symptoms that are concerning to you. Forms: Elevated Blood Pressure Referrals: KATIE GATES MD [NO LOCAL MD] - Follow up as needed
[2018-08-13] MEDS: NORMAL SALINE 1000 ML 1,000 ML IV PRN ×2 (11:27→12:27)
[2018-08-13 14:28] VITALS: BP 154/98
== END 2018-08-13 14:25 | disposition home or self-care (01) ==
LOC: ER 10:35
DX: G40.909 Epilepsy, unspecified, not intractable, without status epilepticus (principal); Z91.14 Patient's other noncompliance with medication regimen; F17.200 Nicotine dependence, unspecified, uncomplicated; I10 Essential (primary) hypertension
CPT/HCPCS: 99284; 96361; 96374; 36415; 80177; J7030; J1953

== ENCOUNTER 2018-09-04 06:47 | Emergency (ER) | payer MEDICARE ==
[2018-09-04] MEDS ORDERED: LEVETIRACETAM 1000 MG/NACL-ISO 1,000 MG/100 ML RTUPB IV ONE (06:50)
[2018-09-04] MEDS ORDERED: NORMAL SALINE 1000 ML 1,000 ML IV ONE ×2 (06:54→08:41)
[2018-09-04 07:16] LABS: ABSOLUTE BASOPHILS # (AUTO) 0.1 10^3/uL (0.0-0.2); ABSOLUTE LYMPHOCYTES (AUTO) 1.8 10^3/uL (0.5-4.7); ABSOLUTE MONOCYTES (AUTO) 0.9 10^3/uL (0.1-1.4); ABSOLUTE NEUT (AUTO) 9.5 10^3/uL (1.7-8.2); BASOPHILS % (AUTO) 0.6 % (0-2); EOSINOPHILS % (AUTO) 0.2 % (0-6); HEMATOCRIT 42.5 % (37.9-51.0); HEMOGLOBIN 14.1 g/dL (13.5-17.0); LYMPHOCYTES % (AUTO) 14.7 % (13-45); MEAN CORPUSCULAR HEMOGLOBIN 30.4 pg (27.0-33.4); MEAN CORPUSCULAR HGB CONC 33.1 g/dL (32.0-36.0); MEAN CORPUSCULAR VOLUME 92 fl (80-97); MONOCYTES % (AUTO) 7.4 % (3-13); PLATELET COUNT 296 10^3/uL (150-450); RED BLOOD COUNT 4.64 10^6/uL (4.35-5.55); RED CELL DISTRIBUTION WIDTH 13.2 % (11.5-14.0); SEGMENTED NEUTROPHILS % (AUTO) 77.1 % (42-78); TOTAL CELLS COUNTED % (AUTO) 100 %; WHITE BLOOD COUNT 12.3 10^3/uL (4.0-10.5)
[2018-09-04 07:30] LABS: ALANINE AMINOTRANSFERASE 19 U/L (21-72); ALKALINE PHOSPHATASE 93 U/L (38-126); ASPARTATE AMINO TRANSFERASE 36 U/L (17-59); BILIRUBIN,DIRECT 0.2 mg/dL (0.0-0.4); BILIRUBIN,TOTAL 0.3 mg/dL (0.2-1.3); BLOOD UREA NITROGEN 11 mg/dL (7-20); CALCIUM 9.5 mg/dL (8.4-10.2); GLUCOSE 86 mg/dL (75-110); POTASSIUM 4.1 mmol/L (3.6-5.0); TOTAL PROTEIN 8.2 g/dL (6.3-8.2)
[2018-09-04 07:34] LABS: CHLORIDE 107 mmol/L (98-107); SODIUM 142.9 mmol/L (137-145)
[2018-09-04 07:45] LABS: ACETAMINOPHEN < 10 ug/mL (10-30); ALCOHOL < 10 mg/dL (NONE DETECTED); ANION GAP 26 (5-19); SALICYLATE < 1.0 mg/dL (2.0-20.0)
[2018-09-04 07:47] LABS: CARBON DIOXIDE 10 mmol/L (22-30)
[2018-09-04 07:57] LABS: APPEARANCE,URINE SLIGHTLY-CLOUDY; BILIRUBIN,URINE NEGATIVE (NEGATIVE); COLOR,URINE STRAW; GLUCOSE, URINE NEGATIVE (NEGATIVE); KETONES,URINE NEGATIVE (NEGATIVE); LEUKOCYTE ESTERASE,URINE NEGATIVE (NEGATIVE); NITRITE,URINE NEGATIVE (NEGATIVE); PROTEIN,URINE NEGATIVE (NEGATIVE); UROBILINOGEN,URINE NEGATIVE mg/dL (<2.0)
--- NOTE | 2018-09-04 08:03 | RADIOLOGY REPORT (SQ) ---
EXAM DESCRIPTION: CT HEAD WITHOUT COMPLETED DATE/TIME: 09/04/2018 7:43 am REASON FOR STUDY: seizure COMPARISON: 07/22/2018, 03/13/2018, 11/17/2013 CT brain TECHNIQUE: Axial images acquired through the brain without intravenous contrast. Images reviewed wi th bone, brain and subdural windows. Additional sagittal and coronal reconstructions were generated. Images stored on PACS. All CT scanners at this facility use dose modulation, iterative reconstruction, and/or weight based d osing when appropriate to reduce radiation dose to as low as reasonably achievable (ALARA). [facility]: Dose Right [facility]: CareDose [facility]: Dose Right [facility]: Teradose 4D [facility]: [employer] RADIATION DOSE: CT Rad equipment meets quality standard of care and radiation dose reduction techniq ues were employed. CTDIvol: 53.2 mGy. DLP: 1044 mGy-cm. mGy. LIMITATIONS: None. FINDINGS: VENTRICLES: Normal size and contour. CEREBRUM: No masses. No hemorrhage. No midline shift. No evidence for acute infarction. Normal gra y/white matter differentiation. No areas of low density in the white matter. CEREBELLUM: No masses. No hemorrhage. No alteration of density. No evidence for acute infarction. EXTRAAXIAL SPACES: No fluid collections. No masses. ORBITS AND GLOBE: No intra- or extraconal masses. Normal contour of globe without masses. CALVARIUM: No fracture. PARANASAL SINUSES: No fluid or mucosal thickening. SOFT TISSUES: Left frontal scalp hematoma without underlying skull fracture or acute intracranial hem orrhage OTHER: Old bilateral nasal bone fractures IMPRESSION: Left frontal scalp hematoma without underlying skull fracture or intracranial hemorrhage EVIDENCE OF ACUTE STROKE: NO. COMMENT: Quality ID # [id number]: Final reports with documentation of one or more dose reduction techniques (e.g., Automated exposure control, adjustment of the mA and/or kV according to patient size, use of iterative reconstruction technique) TECHNICAL DOCUMENTATION: JOB ID: [id number] [employer]- All Rights Reserved Reading location - IP/workstation name: [email or web address]
[2018-09-04 08:16] LABS: URINE AMPHETAMINES SCREEN NEGATIVE; URINE BARBITURATES SCREEN NEGATIVE; URINE BENZODIAZEPINES SCREEN NEGATIVE; URINE COCAINE SCREEN NEGATIVE; URINE MARIJUANA (THC) SCREEN NEGATIVE; URINE METHADONE SCREEN NEGATIVE; URINE PHENCYCLIDINE SCREEN NEGATIVE
--- NOTE | 2018-09-04 08:41 | EKG REPORT ---
SEVERITY:- ABNORMAL ECG - SINUS RHYTHM PROBABLE LEFT ATRIAL ABNORMALITY LEFT VENTRICULAR HYPERTROPHY : Confirmed by: Maddy Marx MD 04-Sep-2018 08:40:49
[2018-09-04 10:45] LABS: ANION GAP 11 (5-19); BLOOD UREA NITROGEN 11 mg/dL (7-20); CALCIUM 8.7 mg/dL (8.4-10.2); CHLORIDE 110 mmol/L (98-107); GLUCOSE 73 mg/dL (75-110); POTASSIUM 4.2 mmol/L (3.6-5.0); SODIUM 141.4 mmol/L (137-145)
[2018-09-04 10:59] LABS: CARBON DIOXIDE 20 mmol/L (22-30)
--- NOTE | 2018-09-04 12:08 | ER Document Report ---
ED General - General Chief Complaint: Seizure Stated Complaint: SEIZURES Time Seen by Provider: 09/04/18 06:49 TRAVEL OUTSIDE OF THE [place] IN LAST 30 DAYS: No - HPI Patient complains to provider of: Seizure Notes: Patient coming in for evaluation of a seizure. According EMS had a seizure while in route. Patient has been out drinking the night prior and apparently had been noncompliant with his medications. Patient has a history of noncompliance with breakthrough seizures in the past. During transport was given Versed upon my evaluation patient has a nasal trumpet in his right nare will open his eyes to painful stimuli will follow some commands does have a gag in place. Otherwise patient's sedated. The current seizure-like activity because of sedation medications given by EMS no history can be obtained at this time. A brief review of the patient's past medical records available in [facility] was performed - Related Data Allergies/Adverse Reactions: acetaminophen [From Vicodin] Allergy (Verified 11/24/17 11:39) hydrocodone [From Vicodin] Allergy (Verified 11/24/17 11:39) Past Medical History - Social History Smoking Status: Unknown if Ever Smoked Family History: None, Reviewed & Not Pertinent Patient has suicidal ideation: No Patient has homicidal ideation: No - Past Medical History Cardiac Medical History: Reports: Hx Hypertension Neurological Medical History: Reports: Hx Seizures Renal/ Medical History: Denies: Hx Peritoneal Dialysis - Immunizations Immunizations up to date: No Hx Diphtheria, Pertussis, Tetanus Vaccination: Yes Review of Systems - Review of Systems -: Yes ROS unobtainable due to patient's medical condition - Sedated Physical Exam - Vital signs Vitals: Temp Resp BP Pulse Ox 98.5 F 20 174/95 H 97 09/04/18 06:58 09/04/18 06:58 09/04/18 06:58 09/04/18 06:58 Interpretation: Normal - General General appearance: Appears well, Alert - HEENT Head: Normocephalic, Atraumatic Eyes: Normal Conjunctiva: Normal Cornea: Normal Eyelashes: Normal Pupils: PERRL Ears: Normal External canal: Normal Tympanic membrane: Normal Mouth/Lips: Other - Laceration of the tongue V-shaped on the left lateral border approximately 2 cm Pharynx: Normal Neck: Normal - Respiratory Respiratory status: No respiratory distress Chest status: Nontender Breath sounds: Normal Chest palpation: Normal - Cardiovascular Rhythm: Regular Heart sounds: Normal auscultation Murmur: No - Abdominal Inspection: Normal Distension: No distension Bowel sounds: Normal Tenderness: Nontender Organomegaly: No organomegaly - Back Back: Normal, Nontender - Extremities General upper extremity: Normal inspection, Nontender, Normal color, Normal ROM, Normal temperature General lower extremity: Normal inspection, Nontender, Normal color, Normal ROM, Normal temperature, Normal weight bearing. No: Julissa's sign - Neurological Neuro grossly intact: Yes Bertin Coma Scale Eye Opening: To Voice Bertin Coma Scale Verbal: Confused Bertin Coma Scale Motor: Obeys Commands Bertin Coma Scale Total: 13 Speech: Normal Motor strength normal: LUE, RUE, LLE, RLE Sensory: Normal - Psychological Associated symptoms: Normal affect, Normal mood - Skin Skin Temperature: Warm Skin Moisture: Dry Skin Color: Normal Course - Re-evaluation Re-evalutation: 09/04/18 14:19 Observation of the patient after sedation wore off patient seen and relating around the room using a urinal however would lay back down and go back to sleep. I would attempt to reevaluate the patient patient would answer simple questions however was very much uncooperative with examination. Patient able to move all 4 extremities ambulating with a steady gait. After multiple attempts of examining the patient was able to find that he did have a tongue laceration. Explained to the patient that we will be able to repair this however he would like to stay awake and give consent. Patient would not give verbal consent patient will continue to be asleep patient will take his head yes when I explained the procedure to him. Patient remained silent while trying to obtain consent took this as patient not consenting to treatment to so his laceration of his tongue. Bleeding is otherwise well controlled. Patient does have a low bicarb more likely due to seizure activity. Patient had a repeat showing increase in his bicarb. Electrolytes otherwise are normal limits. No other critical pathology patient was given Keppra here in ER. Zach was called patient was discharged into her custody. - Vital Signs Vital signs: Temp Pulse Resp BP Pulse Ox 99.2 F 18 143/90 H 98 09/04/18 13:16 09/04/18 13:16 09/04/18 13:16 09/04/18 13:16 - Laboratory Result Diagrams: 09/04/18 06:28 09/04/18 10:07 Laboratory results interpreted by me: 09/04/18 09/04/18 09/04/18 06:28 06:28 07:08 WBC 12.3 H Absolute Neutrophils 9.5 H Chloride Carbon Dioxide 10 L* Anion Gap 26 H Creatinine 1.26 H Glucose ALT 19 L Urine Blood MODERATE H Salicylates < 1.0 L Acetaminophen < 10 L 09/04/18 10:07 WBC Absolute Neutrophils Chloride 110 H Carbon Dioxide 20 L D Anion Gap Creatinine Glucose 73 L ALT Urine Blood Salicylates Acetaminophen Discharge - Discharge Clinical Impression: Seizure, History of medication noncompliance Tongue laceration Qualifiers: Encounter type: initial encounter Qualified Code(s): S01.512A - Laceration without foreign body of oral cavity, initial encounter Disposition: HOME, SELF-CARE Instructions: Febrile Seizure ([facility]) Additional Instructions: You were seen today for seizure-like activity we did give you an IV dose of your Keppra. Please continue to take your Keppra at home. Please do not drink any alcohol as alcohol will increase your chances of having a seizure. Your evaluation did reveal a tongue laceration. I would recommend rinsing your mouth out after eating with water. I offered to repair your tongue laceration today he did not give consent he may follow-up with your primary care physician for further evaluation of your tongue laceration. Your tongue laceration will heal on its own
[2018-09-04 13:20] VITALS: BP 143/90
== END 2018-09-04 13:37 | disposition home or self-care (01) ==
LOC: ER 06:47
DX: G40.909 Epilepsy, unspecified, not intractable, without status epilepticus (principal); S01.512A Laceration without foreign body of oral cavity, initial encounter; X58.XXXA Exposure to other specified factors, initial encounter; I10 Essential (primary) hypertension; Z88.6 Allergy status to analgesic agent
CPT/HCPCS: 93005; 99285; 96361; 51701; 96365; 36415; 80177; 80307 ×4; 85025; 80048; 80053; 81001; 70450; 93010; J7030; J1953

== ENCOUNTER 2018-10-07 12:35 | Emergency (ER) | payer MEDICARE ==
[2018-10-07] MEDS ORDERED: LEVETIRACETAM 1500 MG/NACL-ISO 1,500 MG/100 ML RTUPB IV ONE (13:11)
[2018-10-07] MEDS ORDERED: NORMAL SALINE 1000 ML 1,000 ML IV ONE (13:11)
--- NOTE | 2018-10-07 13:13 | ER Document Report ---
ED Seizure - General Chief Complaint: Probable Seizure Stated Complaint: POSSIBLE SEIZURE Time Seen by Provider: 10/07/18 13:04 Mode of Arrival: Medic Information source: Emergency Med Personnel, [facility] Records Notes: 33-year-old male patient with seizure disorder brought to the emergency room by EMS. By EMS history the patient has been on a 5-day alcohol binge. He is known to be frequently noncompliant. He had Keppra levels done here on 08/13/2018 and the level is 15.8 and again on 09/04/2018 level 17.3. Both of those are within the therapeutic range but at the lowest end of that range. He comes here frequently for seizures after he had been drinking and probably not taking his medication. - Related Data Allergies/Adverse Reactions: acetaminophen [From Vicodin] Allergy (Verified 10/07/18 13:35) hydrocodone [From Vicodin] Allergy (Verified 10/07/18 13:35) Past Medical History - General Information source: Emergency Med Personnel, [facility] Records - Social History Smoking Status: Current Every Day Smoker Cigarette use (# per day): Yes Chew tobacco use (# tins/day): No Smoking Education Provided: No Frequency of alcohol use: Heavy Drug Abuse: None Occupation: Unemployed Lives with: Spouse/Significant other Family History: None, Reviewed & Not Pertinent Patient has suicidal ideation: No Patient has homicidal ideation: No - Past Medical History Cardiac Medical History: Reports: Hx Hypertension Neurological Medical History: Reports: Hx Seizures Past Surgical History: Reports: None - Immunizations Immunizations up to date: No Hx Diphtheria, Pertussis, Tetanus Vaccination: Yes Review of Systems - Review of Systems -: Yes ROS unobtainable due to patient's medical condition - Patient is extremely postictal at this time and not answering questions. Physical Exam - Vital signs Vitals: BP Pulse Ox 119/83 95 10/07/18 12:46 10/07/18 12:46 Interpretation: Normal - General General appearance: Other - Patient is trying to sleep, and appears to be somewhat postictal - HEENT Head: Normocephalic, Atraumatic Eyes: Normal Pupils: PERRL Mouth/Lips: No: Laceration Mucous membranes: Dry Neck: Normal - Respiratory Respiratory status: No respiratory distress Breath sounds: Normal - Cardiovascular Rhythm: Regular Heart sounds: Normal auscultation Murmur: No - Abdominal Inspection: Normal Distension: No distension Bowel sounds: Normal Tenderness: Nontender - Back Back: Normal - Extremities General upper extremity: Normal inspection General lower extremity: Normal inspection - Neurological Neuro grossly intact: Yes Cognition: Other - Patient is postictal and not answering questions, however he was able to stick his tongue out when I asked him to do that. - Psychological Associated symptoms: Other - Patient is extremely postictal at this time and not answering questions. Course - Re-evaluation Re-evalutation: 10/07/18 15:48 The patient has received 800 mg of Keppra IV, and 1 L of normal saline. At this time he is arousable. He states that he has not missed any doses of his Keppra, and he also states that he has plenty of medication at home. Reviewing records shows that the last 2 times his Keppra levels were checked once in July 2018 once in August 2018, they are in the very low end of the therapeutic range. If he is in fact taking his medication as he claims, then he needs to be on a higher dose. He will be advised to follow up with his primary care provider to discuss his Keppra dosing. - Vital Signs Vital signs: Temp Pulse Resp BP Pulse Ox 98.4 F 18 118/78 96 10/07/18 12:47 10/07/18 15:01 10/07/18 15:01 10/07/18 15:01 - Laboratory Result Diagrams: 10/07/18 12:43 10/07/18 12:43 Laboratory results interpreted by me: 10/07/18 10/07/18 12:43 12:43 Seg Neutrophils % 36.4 L Lymphocytes % 46.9 H Monocytes % 13.6 H Absolute Neutrophils 1.5 L Carbon Dioxide 21 L ALT 14 L Creatine Kinase 180 H Discharge - Discharge Clinical Impression: Seizures Condition: Stable Disposition: HOME, SELF-CARE Additional Instructions: Seizure, Known Epileptic You have had a seizure. Seizures may "break through" in an epileptic due to stress of infection or injury, a change in blood chemistry, or drug and alcohol use. Another common cause is failure to take medication as prescribed. Your doctor has evaluated your situation for the likely cause of this seizure. It is important that you follow his advice concerning any medication changes and follow-up care. Further testing of anti-seizure medication levels in your blood may be necessary. 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 This seizure must be reported to the crew truck driver's license bureau. Call the doctor or return if seizures recur, or if new or unusual symptoms arise -- such as severe headache, confusion, excessive sleepiness, local weakness or numbness, neck stiffness, or fever. Be sure not to miss any doses of your seizure medication. Stop drinking alcohol completely to reduce your frequency of seizures. Follow-up with your primary care provider to discuss your Keppra dosing, since your levels are always on the low therapeutic side when they are checked. You will have another level that was done today, available for review early next week. RETURN TO THE EMERGENCY ROOM IF ANY NEW OR WORSENING SYMPTOMS. Scribe Attestation: 10/07/18 15:52 I personally performed the services described in the documentation, reviewed and edited the documentation which was dictated to the scribe in my presence, and it accurately records my words and actions.
[2018-10-07 14:00] LABS: ABSOLUTE BASOPHILS # (AUTO) 0.1 10^3/uL (0.0-0.2); ABSOLUTE EOSINOPHILS # (AUTO) 0.1 10^3/uL (0.0-0.6); ABSOLUTE LYMPHOCYTES (AUTO) 1.9 10^3/uL (0.5-4.7); ABSOLUTE MONOCYTES (AUTO) 0.6 10^3/uL (0.1-1.4); ABSOLUTE NEUT (AUTO) 1.5 10^3/uL (1.7-8.2); BASOPHILS % (AUTO) 1.4 % (0-2); EOSINOPHILS % (AUTO) 1.7 % (0-6); HEMATOCRIT 43.2 % (37.9-51.0); HEMOGLOBIN 14.9 g/dL (13.5-17.0); LYMPHOCYTES % (AUTO) 46.9 % (13-45); MEAN CORPUSCULAR HEMOGLOBIN 30.8 pg (27.0-33.4); MEAN CORPUSCULAR HGB CONC 34.4 g/dL (32.0-36.0); MEAN CORPUSCULAR VOLUME 90 fl (80-97); MONOCYTES % (AUTO) 13.6 % (3-13); PLATELET COUNT 213 10^3/uL (150-450); RED BLOOD COUNT 4.83 10^6/uL (4.35-5.55); RED CELL DISTRIBUTION WIDTH 13.6 % (11.5-14.0); SEGMENTED NEUTROPHILS % (AUTO) 36.4 % (42-78); TOTAL CELLS COUNTED % (AUTO) 100 %; WHITE BLOOD COUNT 4.1 10^3/uL (4.0-10.5)
[2018-10-07 14:23] LABS: ALANINE AMINOTRANSFERASE 14 U/L (21-72); ALBUMIN 4.4 g/dL (3.5-5.0); ALKALINE PHOSPHATASE 82 U/L (38-126); ANION GAP 14 (5-19); ASPARTATE AMINO TRANSFERASE 27 U/L (17-59); BILIRUBIN,DIRECT 0.3 mg/dL (0.0-0.4); BILIRUBIN,TOTAL 0.5 mg/dL (0.2-1.3); BLOOD UREA NITROGEN 9 mg/dL (7-20); CALCIUM 9.8 mg/dL (8.4-10.2); CARBON DIOXIDE 21 mmol/L (22-30); CHLORIDE 106 mmol/L (98-107); CREATINE KINASE 180 U/L (55-170); GLUCOSE 77 mg/dL (75-110); POTASSIUM 4.3 mmol/L (3.6-5.0); SODIUM 140.6 mmol/L (137-145); TOTAL PROTEIN 7.9 g/dL (6.3-8.2)
[2018-10-07 14:24] LABS: ALCOHOL < 10 mg/dL (NONE DETECTED)
[2018-10-07 16:10] VITALS: BP 127/86
== END 2018-10-07 16:20 | disposition home or self-care (01) ==
LOC: ER 12:35
DX: G40.909 Epilepsy, unspecified, not intractable, without status epilepticus (principal); F17.210 Nicotine dependence, cigarettes, uncomplicated; I10 Essential (primary) hypertension; Z88.6 Allergy status to analgesic agent
CPT/HCPCS: 99284; 96361; 96365; 36415; 80177; 80307; 82550; 85025; 80053; J7030; J1953

== ENCOUNTER 2019-02-01 14:16 | Emergency (ER) | payer MEDICARE, MEDICAID ==
[2019-02-01] MEDS: ONDANSETRON HCL INJ/PF 4 MG/2 ML SDV ONE ×2 (14:45→16:47)
[2019-02-01] MEDS ORDERED: LORAZEPAM INJ 2 MG/1 ML VIAL ONE (14:53)
[2019-02-01] MEDS ORDERED: LEVETIRACETAM 1000 MG/NACL-ISO 1,000 MG/100 ML RTUPB IV ONE (15:07)
[2019-02-01] MEDS ORDERED: ONDANSETRON HCL INJ/PF 4 MG/2 ML SDV IV ONE (15:10)
[2019-02-01] MEDS ORDERED: NORMAL SALINE 1000 ML 1,000 ML IV ONE (15:10)
[2019-02-01] MEDS ORDERED: THIAMINE HCL 100 MG, FOLIC ACID 1 MG in NORMAL SALINE 250 ML IV ONE (15:11)
--- NOTE | 2019-02-01 15:14 | ER Document Report ---
ED General - General Chief Complaint: Probable Seizure Stated Complaint: POSSIBLE SEIZURE Time Seen by Provider: 02/01/19 15:00 Mode of Arrival: Medic Information source: Relative, Emergency Med Personnel, [facility] Records Cannot obtain history due to: Altered mental status Notes: 33-year-old male with a history of hypertension, epilepsy (known history of noncompliance with seizure medication and alcohol use) presents via EMS from home after a witnessed seizure by his . EMS reported that the patient had no seizure-like activity during their interaction with him. Nursing reports that just prior to my exam patient had a tonic-clonic seizure lasting approximately 1 minute. She also reported that the patient did arrive alert and awake and admitted to drinking "shots". Unclear how much alcohol was consumed. Patient does smell of alcohol. Has had prior similar visits. Patient is unresponsive but breathing spontaneously. Appears to be in a postictal state. TRAVEL OUTSIDE OF THE [place] IN LAST 30 DAYS: No - HPI Onset: Just prior to arrival Similar symptoms previously: Yes Recently seen / treated by doctor: Yes - Related Data Allergies/Adverse Reactions: acetaminophen [From Vicodin] Allergy (Verified 10/07/18 13:35) hydrocodone [From Vicodin] Allergy (Verified 10/07/18 13:35) Past Medical History - General Information source: Relative, Emergency Med Personnel, [facility] Records Cannot obtain history due to: Altered mental status - Social History Smoking Status: Unknown if Ever Smoked Frequency of alcohol use: Heavy Drug Abuse: None Lives with: Spouse/Significant other Family History: None, Reviewed & Not Pertinent - Past Medical History Cardiac Medical History: Reports: Hx Hypertension Neurological Medical History: Reports: Hx Seizures Renal/ Medical History: Denies: Hx Peritoneal Dialysis - Immunizations Immunizations up to date: No Hx Diphtheria, Pertussis, Tetanus Vaccination: Yes Review of Systems - Review of Systems -: Yes ROS unobtainable due to patient's medical condition Physical Exam - Vital signs Vitals: Temp Pulse Resp BP Pulse Ox 98.3 F 112 H 22 H 181/116 H 94 02/01/19 14:17 02/01/19 14:17 02/01/19 14:17 02/01/19 14:17 02/01/19 14:17 - Notes Notes: PHYSICAL EXAMINATION: GENERAL: Unresponsive, breathing spontaneously, on nonrebreather. HEAD: Atraumatic, normocephalic. EYES: Pupils equal round and reactive to light, sclera anicteric, conjunctiva are normal. No nystagmus or abnormal eye movements. ENT: Nares patent, oropharynx clear without exudates. Moist mucous membranes. Small tongue laceration NECK: Normal range of motion, supple without lymphadenopathy LUNGS: Breath sounds clear to auscultation bilaterally and equal. No wheezes rales or rhonchi. HEART: Tachycardic, regular rhythm without murmurs ABDOMEN: Soft, nontender, nondistended abdomen. No guarding, no rebound. No masses appreciated. Musculoskeletal: No evidence of trauma NEUROLOGICAL: GCS 9 PSYCH: Altered SKIN: Small superficial abrasion on the right temporal scalp 3 cm. Course - Re-evaluation Re-evalutation: Laboratory 02/01/19 02/01/19 02/01/19 15:14 15:22 15:22 WBC 16.9 H RBC 5.45 Hgb 16.5 Hct 52.0 H MCV 96 MCH 30.4 MCHC 31.8 L RDW 14.4 H Plt Count 314 Seg Neutrophils % 72.8 Lymphocytes % 20.0 Monocytes % 6.1 Eosinophils % 0.2 Basophils % 0.9 Absolute Neutrophils 12.3 H Absolute Lymphocytes 3.4 Absolute Monocytes 1.0 Absolute Eosinophils 0.0 Absolute Basophils 0.1 VBG pH VBG pCO2 VBG HCO3 VBG Base Excess Sodium 146.6 H Potassium 4.5 Chloride 112 H Carbon Dioxide < 5 L* Anion Gap Not Reportable BUN 7 Creatinine 1.45 H Est GFR ( Amer) > 60 Est GFR (Non-Af Amer) 56 L Glucose 124 H POC Glucose 112 H Calcium 9.8 Magnesium 3.1 H Total Bilirubin 0.4 Direct Bilirubin 0.3 Neonat Total Bilirubin Not Reportable Neonat Direct Bilirubin Not Reportable Neonat Indirect Bili Not Reportable AST 45 ALT 9 L Alkaline Phosphatase 151 H Total Protein 10.2 H Albumin 5.4 H Urine Color Urine Appearance Urine pH Ur Specific [place] Urine Protein Urine Glucose (UA) Urine Ketones Urine Blood Urine Nitrite Urine Bilirubin Urine Urobilinogen Ur Leukocyte Esterase Urine WBC (Auto) Urine RBC (Auto) Urine Bacteria (Auto) Squamous Epi Cells Auto Urine Mucus (Auto) Urine Ascorbic Acid Salicylates < 1.0 L Urine Opiates Screen Urine Methadone Screen Acetaminophen < 10 L Ur Barbiturates Screen Ur Phencyclidine Scrn Ur Amphetamines Screen U Benzodiazepines Scrn Urine Cocaine Screen U Marijuana (THC) Screen Serum Alcohol < 10 02/01/19 02/01/19 02/01/19 16:53 16:53 18:05 WBC RBC Hgb Hct MCV MCH MCHC RDW Plt Count Seg Neutrophils % Lymphocytes % Monocytes % Eosinophils % Basophils % Absolute Neutrophils Absolute Lymphocytes Absolute Monocytes Absolute Eosinophils Absolute Basophils VBG pH 7.22 L VBG pCO2 35.3 VBG HCO3 14.1 L VBG Base Excess -12.7 Sodium Potassium Chloride Carbon Dioxide Anion Gap BUN Creatinine Est GFR ( Amer) Est GFR (Non-Af Amer) Glucose POC Glucose Calcium Magnesium Total Bilirubin Direct Bilirubin Neonat Total Bilirubin Neonat Direct Bilirubin Neonat Indirect Bili AST ALT Alkaline Phosphatase Total Protein Albumin Urine Color YELLOW Urine Appearance CLOUDY Urine pH 5.0 Ur Specific [place] 1.016 Urine Protein 100 H Urine Glucose (UA) NEGATIVE Urine Ketones TRACE H Urine Blood MODERATE H Urine Nitrite NEGATIVE Urine Bilirubin NEGATIVE Urine Urobilinogen NEGATIVE Ur Leukocyte Esterase NEGATIVE Urine WBC (Auto) 2 Urine RBC (Auto) 2 Urine Bacteria (Auto) TRACE Squamous Epi Cells Auto 1 Urine Mucus (Auto) RARE Urine Ascorbic Acid NEGATIVE Salicylates Urine Opiates Screen NEGATIVE Urine Methadone Screen NEGATIVE Acetaminophen Ur Barbiturates Screen NEGATIVE Ur Phencyclidine Scrn NEGATIVE Ur Amphetamines Screen NEGATIVE U Benzodiazepines Scrn NEGATIVE Urine Cocaine Screen NEGATIVE U Marijuana (THC) Screen NEGATIVE Serum Alcohol Head CT 02/01/19 15:08 IMPRESSION: No acute intracranial pathology. EVIDENCE OF ACUTE STROKE: NO. 02/01/19 15:13 33-year-old male with known epilepsy and known noncompliance presents via EMS after witnessed seizure. Has been drinking admittedly. Was initially responsive upon arrival to the emergency department but then had a 1 minute tonic-clonic seizure that was reported to me by nursing. Seizure stopped prior to administration of Ativan. I did review the patient's medication records and the last time he filled his Keppra as far as I can see in our system was March 20, 2018. Vitals reviewed upon arrival and patient is 95% on a nonrebreather, mildly tachycardic but afebrile. There is a small superficial abrasion to the right temporal scalp. Will obtain a CT. Keppra administered as well as IV fluids. 02/01/19 20:13 Nursing reported that the patient became agitated and administered Ativan. Patient is somnolent but arousable. He is alert and oriented x2. Blood pressure remains elevated. Metoprolol will be administered. 02/01/19 21:56 Nursing did speak to the patient's who did witness the patient's seizure. She states that he has been out of his seizure medication for 2 days now. He is supposed to be on Keppra 500 mg twice daily. Patient is also supposed to be on amlodipine which he states he needs a refill of. Patient has been sleeping consistently for several hours and is now alert, awake and able to ambulate. Patient will be given a prescription for his Keppra and amlodipine. 02/02/19 10:52 Patient was evaluated and treated as appropriate for the patient's presenting symptoms and complaint, with consideration of any critical or life threatening conditions that may be associated with their obtained history and exam as noted above. All results were discussed with patient. Patient provided the opportunity to ask questions, and express concerns. Patient was educated on treatments based on their presumed diagnosis as noted above. At this time we will discharge the patient with return precautions and follow-up recommendations. Verbal discharge instructions given a the bedside. Medication warnings reviewed. Patient is in agreement with this plan and has verbalized understanding of return precautions. After careful consideration I feel that that patient can be safely discharged from the emergency department, they were advised to followup with a primary care physician in 2-3 days. Dictation on this chart was performed using voice recognition software and may result in unintended grammatical, spelling, syntax or errors. - Vital Signs Vital signs: Temp Pulse Resp BP Pulse Ox 98.3 F 112 H 18 163/108 H 98 02/01/19 14:17 02/01/19 14:17 02/01/19 22:22 02/01/19 22:22 02/01/19 22:22 - Laboratory Result Diagrams: 02/01/19 15:22 02/01/19 20:19 Laboratory results interpreted by me: 02/01/19 02/01/19 02/01/19 15:14 15:22 15:22 WBC 16.9 H Hct 52.0 H MCHC 31.8 L RDW 14.4 H Absolute Neutrophils 12.3 H VBG pH VBG HCO3 Sodium 146.6 H Chloride 112 H Carbon Dioxide < 5 L* Creatinine 1.45 H Est GFR (Non-Af Amer) 56 L Glucose 124 H POC Glucose 112 H Magnesium 3.1 H ALT 9 L Alkaline Phosphatase 151 H Total Protein 10.2 H Albumin 5.4 H Urine Protein Urine Ketones Urine Blood Salicylates < 1.0 L Acetaminophen < 10 L 02/01/19 02/01/19 02/01/19 16:53 18:05 20:19 WBC Hct MCHC RDW Absolute Neutrophils VBG pH 7.22 L VBG HCO3 14.1 L Sodium Chloride 115 H Carbon Dioxide 16 L D Creatinine 1.32 H Est GFR (Non-Af Amer) Glucose 74 L POC Glucose Magnesium ALT Alkaline Phosphatase Total Protein Albumin Urine Protein 100 H Urine Ketones TRACE H Urine Blood MODERATE H Salicylates Acetaminophen - Diagnostic Test Radiology reviewed: Image reviewed, Reports reviewed - EKG Interpretation by Me EKG shows normal: Sinus rhythm Rate: Normal Rhythm: NSR Voltage: Consistant with LVH When compared to previous EKG there are: No significant change Discharge - Discharge Clinical Impression: Seizure, Noncompliance with medication regimen Hypertension Qualifiers: Hypertension type: unspecified Qualified Code(s): I10 - Essential (primary) hypertension Condition: Good Disposition: HOME, SELF-CARE Instructions: Seizure, Known Epileptic ([facility]) Additional Instructions: Regarding Blood Pressure: Your blood pressure was noted to be greater than 120/80 at least once in the emergency room today. It is recommended that you follow-up with her primary care physician in the next week for repeat blood pressure check. The Centers for Medicare and Medicaid Services has specific recommendations regarding a person's blood pressure. There are several lifestyle modifications that are recommended in order to help lower your blood pressure. These include: Quitting smoking if you smoke. Reducing the amount of sodium in your diet. Getting regular exercise Limiting alcohol to no more than 2 drinks a day for men and one drink a day for women. Eating a healthy diet, including more fruits and vegetables, low fat dairy products, less saturated and total fat. Losing weight if you are overweight. FOLLOW-UP: Call your doctor's office and let them know your blood pressure was elevated and you were advised to get your blood pressure checked in the above time-line. If you are unable to get into your doctor's office in this time period, you can follow-up with a new physician (I have left the numbers below for a few primary care doctors affiliated with this [facility]) or return to the ER. PRIMARY CARE PHYSICIANS: Dr. Albert Bernal [address], [place] [phone] Dr Bañuelos Address: [address] [place] [address] [place] [address] Dr Sawant Address: [address] [place] [address] , [place] [address] Prescriptions: RX: Amlodipine Besylate [Norvasc 10 mg Tablet] 10 mg PO DAILY #30 tablet Levetiracetam [Keppra 500 mg Tablet] 500 mg PO Q12 #60 tablet Forms: Elevated Blood Pressure
[2019-02-01 15:43] LABS: ABSOLUTE BASOPHILS # (AUTO) 0.1 10^3/uL (0.0-0.2); ABSOLUTE LYMPHOCYTES (AUTO) 3.4 10^3/uL (0.5-4.7); ABSOLUTE NEUT (AUTO) 12.3 10^3/uL (1.7-8.2); BASOPHILS % (AUTO) 0.9 % (0-2); EOSINOPHILS % (AUTO) 0.2 % (0-6); HEMOGLOBIN 16.5 g/dL (13.5-17.0); MEAN CORPUSCULAR HEMOGLOBIN 30.4 pg (27.0-33.4); MEAN CORPUSCULAR HGB CONC 31.8 g/dL (32.0-36.0); MEAN CORPUSCULAR VOLUME 96 fl (80-97); MONOCYTES % (AUTO) 6.1 % (3-13); PLATELET COUNT 314 10^3/uL (150-450); RED BLOOD COUNT 5.45 10^6/uL (4.35-5.55); RED CELL DISTRIBUTION WIDTH 14.4 % (11.5-14.0); SEGMENTED NEUTROPHILS % (AUTO) 72.8 % (42-78); TOTAL CELLS COUNTED % (AUTO) 100 %; WHITE BLOOD COUNT 16.9 10^3/uL (4.0-10.5)
--- NOTE | 2019-02-01 15:50 | RADIOLOGY REPORT (SQ) ---
EXAM DESCRIPTION: CT HEAD WITHOUT COMPLETED DATE/TIME: 02/01/2019 3:37 pm REASON FOR STUDY: abrasion right head seizure unwitnessed COMPARISON: 09/04/2018 TECHNIQUE: Axial images acquired through the brain without intravenous contrast. Images reviewed wi th bone, brain and subdural windows. Additional sagittal and coronal reconstructions were generated. Images stored on PACS. All CT scanners at this facility use dose modulation, iterative reconstruction, and/or weight based d osing when appropriate to reduce radiation dose to as low as reasonably achievable (ALARA). [facility]: Dose Right [facility]: CareDose [facility]: Dose Right [facility]: Teradose 4D [facility]: Smart Doist RADIATION DOSE: CT Rad equipment meets quality standard of care and radiation dose reduction techniq ues were employed. CTDIvol: 53.2 mGy. DLP: 1203 mGy-cm. mGy. LIMITATIONS: None. FINDINGS: VENTRICLES: Normal size and contour. CEREBRUM: No masses. No hemorrhage. No midline shift. No evidence for acute infarction. Normal gra y/white matter differentiation. No areas of low density in the white matter. CEREBELLUM: No masses. No hemorrhage. No alteration of density. No evidence for acute infarction. EXTRAAXIAL SPACES: No fluid collections. No masses. ORBITS AND GLOBE: No intra- or extraconal masses. Normal contour of globe without masses. CALVARIUM: No fracture. PARANASAL SINUSES: No fluid or mucosal thickening. SOFT TISSUES: No mass or hematoma. OTHER: No other significant finding. IMPRESSION: No acute intracranial pathology. EVIDENCE OF ACUTE STROKE: NO. COMMENT: Quality ID # [id number]: Final reports with documentation of one or more dose reduction techniques (e.g., Automated exposure control, adjustment of the mA and/or kV according to patient size, use of iterative reconstruction technique) TECHNICAL DOCUMENTATION: JOB ID: [id number] [employer]- All Rights Reserved Reading location - IP/workstation name: [email or web address]
[2019-02-01] MEDS ORDERED: LORAZEPAM INJ 2 MG/1 ML VIAL IV ONE (16:00)
[2019-02-01 16:03] LABS: ALANINE AMINOTRANSFERASE 9 U/L (21-72); ALBUMIN 5.4 g/dL (3.5-5.0); ALKALINE PHOSPHATASE 151 U/L (38-126); ASPARTATE AMINO TRANSFERASE 45 U/L (17-59); BILIRUBIN,DIRECT 0.3 mg/dL (0.0-0.4); BILIRUBIN,TOTAL 0.4 mg/dL (0.2-1.3); BLOOD UREA NITROGEN 7 mg/dL (7-20); CALCIUM 9.8 mg/dL (8.4-10.2); CHLORIDE 112 mmol/L (98-107); GLUCOSE 124 mg/dL (75-110); POTASSIUM 4.5 mmol/L (3.6-5.0); SODIUM 146.6 mmol/L (137-145); TOTAL PROTEIN 10.2 g/dL (6.3-8.2)
[2019-02-01 16:05] LABS: ACETAMINOPHEN < 10 ug/mL (10-30); ALCOHOL < 10 mg/dL (NONE DETECTED); SALICYLATE < 1.0 mg/dL (2.0-20.0)
[2019-02-01 16:29] LABS: CARBON DIOXIDE < 5 mmol/L (22-30)
[2019-02-01 17:22] LABS: APPEARANCE,URINE CLOUDY; BILIRUBIN,URINE NEGATIVE (NEGATIVE); COLOR,URINE YELLOW; GLUCOSE, URINE NEGATIVE (NEGATIVE); KETONES,URINE TRACE mg/dL (NEGATIVE); LEUKOCYTE ESTERASE,URINE NEGATIVE (NEGATIVE); NITRITE,URINE NEGATIVE (NEGATIVE); PROTEIN,URINE 100 mg/dL (NEGATIVE); URINE AMPHETAMINES SCREEN NEGATIVE; URINE BARBITURATES SCREEN NEGATIVE; URINE BENZODIAZEPINES SCREEN NEGATIVE; URINE COCAINE SCREEN NEGATIVE; URINE MARIJUANA (THC) SCREEN NEGATIVE; URINE METHADONE SCREEN NEGATIVE; URINE PHENCYCLIDINE SCREEN NEGATIVE; URINE SPECIFIC GRAVITY 1.016; UROBILINOGEN,URINE NEGATIVE mg/dL (<2.0)
[2019-02-01 18:13] LABS: VENOUS BLOOD BASE EXCESS -12.7 mmol/L; VENOUS BLOOD HCO3 14.1 mmol/L (20-32); VENOUS BLOOD PCO2 35.3 mmHg (35-63); VENOUS BLOOD PH 7.22 (7.30-7.42)
[2019-02-01] MEDS ORDERED: METOPROLOL TARTRATE PF/INJ 5 MG/5 ML SDV IV ONE (20:03)
[2019-02-01 20:55] LABS: ANION GAP 11 (5-19); BLOOD UREA NITROGEN 11 mg/dL (7-20); CHLORIDE 115 mmol/L (98-107); GLUCOSE 74 mg/dL (75-110); POTASSIUM 4.1 mmol/L (3.6-5.0); SODIUM 142.3 mmol/L (137-145)
[2019-02-01 21:05] LABS: CARBON DIOXIDE 16 mmol/L (22-30)
[2019-02-01] MEDS ORDERED: CLONIDINE HCL 0.2 MG TABLET PO ONE (21:38)
[2019-02-01 22:48] VITALS: BP 163/108
--- NOTE | 2019-02-02 07:53 | EKG REPORT ---
SEVERITY:- ABNORMAL ECG - SINUS RHYTHM CONSIDER LEFT VENTRICULAR HYPERTROPHY NONSPECIFIC ST-T CHANGES INFERIOR LEADS. : Confirmed by: Raghu Bird MD 02-Feb-2019 07:52:37
== END 2019-02-01 23:10 | disposition home or self-care (01) ==
LOC: ER 14:16
DX: G40.909 Epilepsy, unspecified, not intractable, without status epilepticus (principal); T42.6X6A Underdosing of other antiepileptic and sedative-hypnotic drugs, initial encounter; Z91.128 Patient's intentional underdosing of medication regimen for other reason; Z91.14 Patient's other noncompliance with medication regimen; I10 Essential (primary) hypertension; S00.01XA Abrasion of scalp, initial encounter; X58.XXXA Exposure to other specified factors, initial encounter; R00.0 Tachycardia, unspecified; Z88.8 Allergy status to other drugs, medicaments and biological substances; Z88.5 Allergy status to narcotic agent
CPT/HCPCS: 93005; 99285; 96361; 96375; 96365; 96367; 36415; 80177; 82962; 80307 ×4; 83735; 85025; 80053; 81001; 82803; 70450; 93010; A9270; J3490 ×2; J2060; J3411; J2405; J7030; J7050; J1953

== ENCOUNTER 2019-03-27 03:32 | Inpatient (IN) | payer MEDICARE, MEDICAID ==
[2019-03-27] MEDS: LEVETIRACETAM 1000 MG/NACL-ISO 1,000 MG/100 ML RTUPB IV ONE ×4 (03:40→06:38)
[2019-03-27] MEDS ORDERED: LORAZEPAM INJ 2 MG/1 ML VIAL IM ONE (03:40)
[2019-03-27] MEDS: LORAZEPAM INJ 2 MG/1 ML VIAL ONE ×6 (03:40→06:37)
[2019-03-27] MEDS ORDERED: RINGERS SOLUTION,LACTATED 1,000 ML IV ONE ×3 (03:46→06:11)
[2019-03-27] MEDS ORDERED: LEVETIRACETAM 500 MG/NACL-ISO 500 MG/100 ML RTUPB IV ONE ×2 (03:59→04:55)
[2019-03-27 04:15] LABS: APPEARANCE,URINE CLEAR; BILIRUBIN,URINE NEGATIVE (NEGATIVE); COLOR,URINE STRAW; GLUCOSE, URINE NEGATIVE (NEGATIVE); KETONES,URINE NEGATIVE (NEGATIVE); LEUKOCYTE ESTERASE,URINE NEGATIVE (NEGATIVE); NITRITE,URINE NEGATIVE (NEGATIVE); PROTEIN,URINE 100 mg/dL (NEGATIVE); UROBILINOGEN,URINE NEGATIVE mg/dL (<2.0)
[2019-03-27 04:20] LABS: ALBUMIN 5.7 g/dL (3.5-5.0); ALKALINE PHOSPHATASE 143 U/L (38-126); ASPARTATE AMINO TRANSFERASE 39 U/L (17-59); BILIRUBIN,DIRECT 0.4 mg/dL (0.0-0.4); BILIRUBIN,TOTAL 0.4 mg/dL (0.2-1.3); BLOOD UREA NITROGEN 15 mg/dL (7-20); CALCIUM 10.9 mg/dL (8.4-10.2); CHLORIDE 109 mmol/L (98-107); GLUCOSE 222 mg/dL (75-110); POTASSIUM 4.4 mmol/L (3.6-5.0); TOTAL PROTEIN 10.1 g/dL (6.3-8.2)
[2019-03-27 04:28] LABS: URINE AMPHETAMINES SCREEN NEGATIVE; URINE BARBITURATES SCREEN NEGATIVE; URINE BENZODIAZEPINES SCREEN NEGATIVE; URINE COCAINE SCREEN NEGATIVE; URINE MARIJUANA (THC) SCREEN NEGATIVE; URINE METHADONE SCREEN NEGATIVE; URINE PHENCYCLIDINE SCREEN NEGATIVE
[2019-03-27] MEDS ORDERED: ONDANSETRON HCL INJ/PF 4 MG/2 ML SDV IV ONE (04:30)
--- NOTE | 2019-03-27 04:33 | ER Document Report ---
ED General - General Chief Complaint: Seizure Stated Complaint: SEIZURE Time Seen by Provider: 03/27/19 03:46 Mode of Arrival: Medic Information source: Relative, Friend, Emergency Med Personnel, [facility] Records Cannot obtain history due to: Altered mental status Notes: 33-year-old male with known seizure disorder, known noncompliance with his seizure medication and presents via EMS from home after seizures witnessed by his . states that the patient only takes his Keppra when he wants to drink alcohol. She did state that they did heavy drinking tonight. No reported recent illness from EMS. TRAVEL OUTSIDE OF THE [place] IN LAST 30 DAYS: No - HPI Onset: Just prior to arrival Onset/Duration: Sudden - Related Data Allergies/Adverse Reactions: acetaminophen [From Vicodin] Allergy (Verified 10/07/18 13:35) hydrocodone [From Vicodin] Allergy (Verified 10/07/18 13:35) Past Medical History - General Information source: Relative, Emergency Med Personnel, [facility] Records Cannot obtain history due to: Altered mental status - Social History Smoking Status: Unknown if Ever Smoked Family History: None, Reviewed & Not Pertinent Patient has suicidal ideation: No Patient has homicidal ideation: No - Past Medical History Cardiac Medical History: Reports: Hx Hypertension Neurological Medical History: Reports: Hx Seizures Renal/ Medical History: Denies: Hx Peritoneal Dialysis - Immunizations Immunizations up to date: No Hx Diphtheria, Pertussis, Tetanus Vaccination: Yes Review of Systems - Review of Systems -: Yes ROS unobtainable due to patient's medical condition Physical Exam - Vital signs Vitals: Temp Pulse Resp BP 98.6 F 112 H 32 H 227/135 H 03/27/19 03:32 03/27/19 03:32 03/27/19 03:32 03/27/19 03:32 - Notes Notes: PHYSICAL EXAMINATION: GENERAL: Somnolent, spontaneous respirations, vomit on clothing HEAD: Atraumatic, normocephalic. EYES: Pupils equal round and reactive to light, extraocular movements intact, sclera anicteric, conjunctiva are normal. ENT: Nares patent, oropharynx clear without exudates. Moist mucous membranes. Laceration of the tongue on the left side. NECK: Normal range of motion, supple without lymphadenopathy LUNGS: Breath sounds clear to auscultation bilaterally and equal. No wheezes rales or rhonchi. HEART: Regular rate and rhythm without murmurs ABDOMEN: Soft, nontender, nondistended abdomen. No guarding, no rebound. No masses appreciated. Incontinent of urine Musculoskeletal: Normal range of motion, no pitting or edema. No cyanosis. NEUROLOGICAL: Postictal PSYCH: Cooperative SKIN: Warm, Dry, normal turgor, no rashes or lesions noted. Course - Re-evaluation Re-evalutation: 03/27/19 05:32 Laboratory 03/27/19 03/27/19 03/27/19 03:52 03:55 03:55 Sodium 148.9 H Potassium 4.4 Chloride 109 H Carbon Dioxide < 5 L* Anion Gap Not Reportable BUN 15 Creatinine 1.90 H Est GFR ( Amer) 49 L Est GFR (MDRD) Non-Af 41 L Glucose 222 H Calcium 10.9 H Total Bilirubin 0.4 Direct Bilirubin 0.4 Neonat Total Bilirubin Not Reportable Neonat Direct Bilirubin Not Reportable Neonat Indirect Bili Not Reportable AST 39 ALT 22 Alkaline Phosphatase 143 H Total Protein 10.1 H Albumin 5.7 H Urine Color STRAW Urine Appearance CLEAR Urine pH 5.0 Ur Specific [place] 1.010 Urine Protein 100 H Urine Glucose (UA) NEGATIVE Urine Ketones NEGATIVE Urine Blood MODERATE H Urine Nitrite NEGATIVE Urine Bilirubin NEGATIVE Urine Urobilinogen NEGATIVE Ur Leukocyte Esterase NEGATIVE Urine RBC (Auto) 0 U Hyaline Cast (Auto) 3 Urine Bacteria (Auto) 1+ Squamous Epi Cells Auto 1 Urine Mucus (Auto) RARE Urine Ascorbic Acid NEGATIVE Urine Opiates Screen NEGATIVE Urine Methadone Screen NEGATIVE Ur Barbiturates Screen NEGATIVE Ur Phencyclidine Scrn NEGATIVE Ur Amphetamines Screen NEGATIVE U Benzodiazepines Scrn NEGATIVE Urine Cocaine Screen NEGATIVE U Marijuana (THC) Screen NEGATIVE Serum Alcohol < 10 Temp Pulse Resp BP Pulse Ox 98.6 F 112 H 23 H 194/112 H 100 03/27/19 03:32 03/27/19 03:32 03/27/19 04:51 03/27/19 04:51 03/27/19 04:51 Laboratory 03/27/19 03/27/19 03/27/19 03:52 03:55 03:55 Sodium 148.9 H Potassium 4.4 Chloride 109 H Carbon Dioxide < 5 L* Anion Gap Not Reportable BUN 15 Creatinine 1.90 H Est GFR ( Amer) 49 L Est GFR (MDRD) Non-Af 41 L Glucose 222 H Calcium 10.9 H Total Bilirubin 0.4 Direct Bilirubin 0.4 Neonat Total Bilirubin Not Reportable Neonat Direct Bilirubin Not Reportable Neonat Indirect Bili Not Reportable AST 39 ALT 22 Alkaline Phosphatase 143 H Total Protein 10.1 H Albumin 5.7 H Urine Color STRAW Urine Appearance CLEAR Urine pH 5.0 Ur Specific [place] 1.010 Urine Protein 100 H Urine Glucose (UA) NEGATIVE Urine Ketones NEGATIVE Urine Blood MODERATE H Urine Nitrite NEGATIVE Urine Bilirubin NEGATIVE Urine Urobilinogen NEGATIVE Ur Leukocyte Esterase NEGATIVE Urine RBC (Auto) 0 U Hyaline Cast (Auto) 3 Urine Bacteria (Auto) 1+ Squamous Epi Cells Auto 1 Urine Mucus (Auto) RARE Urine Ascorbic Acid NEGATIVE Urine Opiates Screen NEGATIVE Urine Methadone Screen NEGATIVE Ur Barbiturates Screen NEGATIVE Ur Phencyclidine Scrn NEGATIVE Ur Amphetamines Screen NEGATIVE U Benzodiazepines Scrn NEGATIVE Urine Cocaine Screen NEGATIVE U Marijuana (THC) Screen NEGATIVE Serum Alcohol < [address] 03/27/19 00:00 IMPRESSION: No acute intracranial findings. 33-year-old male with known seizure history presents after a witnessed seizure at home. Per EMS the did report that the patient had been drinking and coleman s only take his Keppra when he wants to drink. Upon arrival patient was alert, awake and in asking for urinal. Patient did have a witnessed tonic-clonic seizure which lasted approximately 30 seconds and self resolved. Patient had a second seizure and 2 mg of IM Ativan was administered as well as 1500 mg of Keppra. Again this seizure lasted less than 1 minute. Patient had an additional seizure and did receive 2 mg of IV Ativan. He has had spontaneous respirations, no hypoxia. Patient was placed on a nonrebreather temporarily and an oral airway was placed. Despite the report of heavy drinking patient's alcohol is less than 10. Urine drug screen is negative. CT of the head was obtained and showed no acute abnormalities. Patient has been evaluated multiple times and is still unresponsive but breathing spontaneously with stable vital signs. EMS also reported that the stated that patient often has a long postictal periods. At this time patient will be evaluated for airway c ompromise, recurrent seizures. 03/27/19 05:49 03/27/19 05:54 Patient was reevaluated and is now having spontaneous movement. He is responsive to painful stimuli. Repeat BMP pending. I did attempt to contact the that phone #[phone] without success. Patient will be signed out to Dr. Poe with repeat BMP pending and observation for return to baseline mental status. 03/27/19 06:18 - Vital Signs Vital signs: Temp Pulse Resp BP Pulse Ox 100.2 F 112 H 34 H 145/92 H 98 03/27/19 13:47 03/27/19 03:32 03/27/19 12:16 03/27/19 12:16 03/27/19 12:16 - Laboratory Result Diagrams: 03/27/19 06:19 Laboratory results interpreted by me: 03/27/19 03/27/19 03/27/19 03:52 03:55 06:19 Sodium 148.9 H Chloride 109 H 111 H Carbon Dioxide < 5 L* 19 L D Creatinine 1.90 H 1.47 H Est GFR ( Amer) 49 L Est GFR (MDRD) Non-Af 41 L 55 L Glucose 222 H Calcium 10.9 H Alkaline Phosphatase 143 H Total Protein 10.1 H Albumin 5.7 H Urine Protein 100 H Urine Blood MODERATE H CSF Glucose CSF Total Protein 03/27/19 11:48 Sodium Chloride Carbon Dioxide Creatinine Est GFR ( Amer) Est GFR (MDRD) Non-Af Glucose Calcium Alkaline Phosphatase Total Protein Albumin Urine Protein Urine Blood CSF Glucose 82 H CSF Total Protein 83 H - Diagnostic Test Radiology reviewed: Image reviewed, Reports reviewed Discharge - Discharge Clinical Impression: Seizure, Hyperglycemia, Dehydration, Fever, Altered mental status Hypertension Qualifiers: Hypertension type: unspecified Qualified Code(s): I10 - Essential (primary) hypertension Kidney injury Qualifiers: Encounter type: initial encounter Laterality: unspecified laterality Qualified Code(s): S37.009A - Unspecified injury of unspecified kidney, initial encounter Condition: Stable Disposition: ADMITTED INPATIENT
[2019-03-27 04:34] LABS: ALCOHOL < 10 mg/dL (NONE DETECTED)
[2019-03-27] MEDS: ONDANSETRON HCL INJ/PF 4 MG/2 ML SDV ONE ×2 (04:35→06:34)
[2019-03-27 04:37] LABS: CARBON DIOXIDE < 5 mmol/L (22-30)
--- NOTE | 2019-03-27 04:45 | RADIOLOGY REPORT (SQ) ---
CLINICAL HISTORY: r/o stroke COMPARISON: None. TECHNIQUE: CT HEAD WITHOUT IV CONTRAST on 03/27/2019 12:00 AM CDT This exam was performed according to our departmental dose-optimization program, which includes automated exposure control, adjustment of the mA and/or kV according to patient size and/or use of iterative reconstruction technique. FINDINGS: There is no acute hemorrhage, mass effect or midline shift. Patterson-white differentiation is preserved. There is no hydrocephalus. There is no significant volume loss for age. The calvarium is intact. Orbits and globes are unremarkable. The paranasal sinuses are clear. Mastoid air cells are clear. IMPRESSION: No acute intracranial findings.
[2019-03-27] MEDS ORDERED: LORAZEPAM INJ 2 MG/1 ML VIAL IV ONE ×4 (04:58→11:59)
--- NOTE | 2019-03-27 05:36 | RADIOLOGY REPORT (SQ) ---
CLINICAL HISTORY: possible aspiration COMPARISON: None. TECHNIQUE: XR CHEST 1 VIEW 03/27/2019 12:00 AM CDT FINDINGS: Cardiac silhouette is normal in size. Lungs are clear without consolidation, atelectasis, mass or edema. There is no pleural effusion. There is no pneumothorax. There are no acute osseous findings. IMPRESSION: Clear lungs.
[2019-03-27 06:43] LABS: ANION GAP 13 (5-19); BLOOD UREA NITROGEN 16 mg/dL (7-20); CALCIUM 9.2 mg/dL (8.4-10.2); CHLORIDE 111 mmol/L (98-107); GLUCOSE 110 mg/dL (75-110); POTASSIUM 4.5 mmol/L (3.6-5.0)
[2019-03-27 06:50] LABS: CARBON DIOXIDE 19 mmol/L (22-30)
[2019-03-27] MEDS ORDERED: ACETAMINOPHEN 650 MG SUPP.RECT PR ONE (08:57)
--- NOTE | 2019-03-27 09:40 | RADIOLOGY REPORT (SQ) ---
EXAM DESCRIPTION: CHEST SINGLE VIEW COMPLETED DATE/TIME: 03/27/2019 9:12 am REASON FOR STUDY: fever COMPARISON: Earlier same day. EXAM PARAMETERS: NUMBER OF VIEWS: One view. TECHNIQUE: Single frontal radiographic view of the chest acquired. RADIATION DOSE: NA LIMITATIONS: None. FINDINGS: LUNGS AND PLEURA: No opacities, masses or pneumothorax. No pleural effusion. MEDIASTINUM AND HILAR STRUCTURES: No masses. Contour normal. HEART AND VASCULAR STRUCTURES: Heart normal in size. Normal vasculature. BONES: No acute findings. HARDWARE: None in the chest. OTHER: No other significant finding. IMPRESSION: NO ACUTE RADIOGRAPHIC FINDING IN THE CHEST. TECHNICAL DOCUMENTATION: JOB ID: [id number] [employer]- All Rights Reserved Reading location - IP/workstation name: [email or web address]
[2019-03-27] MEDS ORDERED: LIDOCAINE 1% INJ-PF (10 MG/ML) 30 ML SDV INJ ONE (11:07)
[2019-03-27] MEDS ORDERED: LORAZEPAM INJ 2 MG/1 ML VIAL ONE (11:36)
[2019-03-27] MEDS ORDERED: CEFTRIAXONE 2 GM/D5W RTU 2 GM/50 ML RTUPB IV ONE (11:54)
--- NOTE | 2019-03-27 11:56 | ER Document Report ---
ED General - General Chief Complaint: Seizure Stated Complaint: SEIZURE Time Seen by Provider: 03/27/19 03:46 Mode of Arrival: Medic TRAVEL OUTSIDE OF THE [place] IN LAST 30 DAYS: No - HPI Notes: Patient presents to the emergency department for evaluation. Initially this patient was a sign out from the prior ED physician. I was notified that the patient had a new finding of fever. I did go in and reevaluate the patient. The patient himself is not able to give me any sort of history, history entirely obtained from the patient's , present at bedside. Patient's states that he has a history of seizure disorder. He is supposed to be taking Keppra, but was told that he should not mix it with alcohol. Therefore, since he is alcohol dependent and drinks daily, he does not take any Keppra. He had 3 seizures last night according to doctor's notes. There is some confusion, as they had been told that the patient normally takes several days to return to baseline. The patient's at bedside tells me that normally within an hour he is back to baseline. I asked her if she knew anything about a fever. She states that her grandchildren live with them, they have been having fevers with vomiting and diarrhea. She notes that she saw him directly drinking alcohol last evening. - Related Data Allergies/Adverse Reactions: acetaminophen [From Vicodin] Allergy (Verified 10/07/18 13:35) hydrocodone [From Vicodin] Allergy (Verified 10/07/18 13:35) Home Medications: Keppra and an antihypertensive. The patient is noncompliant with both. Past Medical History - General Information source: Patient, Relative, Emergency Med Personnel, [facility] Records - Social History Smoking Status: Unknown if Ever Smoked Family History: None, Reviewed & Not Pertinent Patient has suicidal ideation: No Patient has homicidal ideation: No - Past Medical History Cardiac Medical History: Reports: Hx Hypertension Neurological Medical History: Reports: Hx Seizures Renal/ Medical History: Denies: Hx Peritoneal Dialysis - Immunizations Immunizations up to date: No Hx Diphtheria, Pertussis, Tetanus Vaccination: Yes Review of Systems - Review of Systems -: Yes ROS unobtainable due to patient's medical condition Physical Exam - Vital signs Vitals: Temp Pulse Resp BP 98.6 F 112 H 32 H 227/135 H 03/27/19 03:32 03/27/19 03:32 03/27/19 03:32 03/27/19 03:32 - Notes Notes: This is a 33-year-old male who appears his stated age, no acute distress. He is somnolent but rises to painful stimuli, eventually verbal stimuli. He has an oral airway in place. Pupils are equal and round, reactive to light. Nares are patent. Oral mucosa is moist. Neck is supple, I do not appreciate any meningismus, negative Kernig's emergency signs. Heart is regular rate and rhythm, lungs are clear station bilaterally. Abdomen soft, nontender, normoactive bowel sounds. No gross facial asymmetry. Patient moves all 4 extremity spontaneously. Course - Re-evaluation Re-evalutation: 03/27/19 12:00 Patient presents to the emergency department for evaluation. He was initially worked up by my colleague. At that time he was found to have a significant lactic acidosis and resultant low bicarb. He was hydrated with significant improvement. During the course of his stay, however, the patient developed a fever. According to his he did not return to baseline. Given his seizures, lack of return to baseline, as well as fever, I was inclined to perform lumbar puncture. Consent was obtained from his . Procedure went without difficulty. Patient was treated with IV Rocephin. Because I am getting conflicting reports, about the fact that he was drinking but had a negative alcohol level, repeat blood alcohol level was ordered. We will continue to monitor. - Vital Signs Vital signs: Temp Pulse Resp BP Pulse Ox 101.5 F H 112 H 34 H 145/92 H 98 03/27/19 11:57 03/27/19 03:32 03/27/19 12:16 03/27/19 12:16 03/27/19 12:16 - Laboratory Result Diagrams: 03/27/19 06:19 Laboratory results interpreted by me: 03/27/19 03/27/19 03/27/19 03:52 03:55 06:19 Sodium 148.9 H Chloride 109 H 111 H Carbon Dioxide < 5 L* 19 L D Creatinine 1.90 H 1.47 H Est GFR ( Amer) 49 L Est GFR (MDRD) Non-Af 41 L 55 L Glucose 222 H Calcium 10.9 H Alkaline Phosphatase 143 H Total Protein 10.1 H Albumin 5.7 H Urine Protein 100 H Urine Blood MODERATE H CSF Glucose CSF Total Protein 03/27/19 11:48 Sodium Chloride Carbon Dioxide Creatinine Est GFR ( Amer) Est GFR (MDRD) Non-Af Glucose Calcium Alkaline Phosphatase Total Protein Albumin Urine Protein Urine Blood CSF Glucose 82 H CSF Total Protein 83 H - Diagnostic Test Radiology reviewed: Reports reviewed Radiology results interpreted by me: 03/27/19 12:42 Chest X-Ray 03/27/19 00:00 IMPRESSION: Clear lungs. Head CT 03/27/19 00:00 IMPRESSION: No acute intracranial findings. Chest X-Ray 03/27/19 08:56 IMPRESSION: NO ACUTE RADIOGRAPHIC FINDING IN THE CHEST. - EKG Interpretation by Me Additional EKG results interpreted by me: 03/27/19 12:42 Sinus mechanism with a rate of [address] changes, but no acute changes concerning for ischemia or infarction. Procedures - Lumbar Puncture Lumbar puncture Time completed: 11:50 Consent obtained: Yes Lumbar puncture pre-procedure: Sterile PPE donned, Betadine prep applied, Sterile drapes applied Patient position: Lying - Left lateral recumbent Needle size: 22 Lumbar puncture location: L3-4 Anesthetic type: 1% Lidocaine mL's of anesthetic: 3 Amount/type of drainage: 4-1/2 cc of clear CSF Number of attempts: 1 Complications: No Discharge - Discharge Clinical Impression: Seizure, Hyperglycemia, Dehydration, Fever, Altered mental status Hypertension Qualifiers: Hypertension type: unspecified Qualified Code(s): I10 - Essential (primary) hypertension Kidney injury Qualifiers: Encounter type: initial encounter Laterality: unspecified laterality Qualified Code(s): S37.009A - Unspecified injury of unspecified kidney, initial encounter Condition: Stable Disposition: ADMITTED INPATIENT Admitting Provider: RUSSEL Kay Unit Admitted: ICU Instructions: Dehydration ([facility]), Kidney Injury ([facility]), Seizure, Known Epileptic ([facility]) Additional Instructions: You need to followup urgently with your primary care doctor as your blood sugars were high today. You did not have any evidence of a dangerous condition associated with these blood sugars at this time. However, it is very important that you get your blood sugars under control. Please take all of your medications exactly as directed. You should avoid foods that are high in carbohydrates and sugary foods. Losing weight will also help to better control your blood sugars. Please return to emergency department immediately if you develop weakness, persistent vomiting, confusion, or any other symptoms that are concerning to you. Today you had a seizure. It is imperative that you take your seizure medication as prescribed. It is very important that you do not engage in any activities that could result in severe injury should you have a seizure. Specifically, do not drive a vehicle, go into a body of water, take a bath, climb ladders, or operate any heavy machinery until you have been cleared by your neurologist. Please return to the ED immediately if you have multiple seizures close together, develop a severe headache, weakness, numbness, difficulty speaking, have a seizure in which you do not return to normal within 1 hour of the seizure, or have any other symptoms that are concerning to you. Prescriptions: Levetiracetam [Keppra 500 mg Tablet] 500 mg PO Q12 #60 tablet Forms: Elevated Blood Pressure
[2019-03-27] MEDS ORDERED: KETOROLAC TROMETHAMINE INJ/PF 30 MG/1 ML SDV IV ONE (12:16)
[2019-03-27 12:24] LABS: GLUCOSE,CSF 82 mg/dL (40-70); PROTEIN,CSF 83 mg/dL (12-60)
[2019-03-27 12:38] LABS: APPEARANCE ALL TUBES CLEAR; COLOR ALL TUBES COLORLESS; CSF TUBE NUMBER 1; RED BLOOD CELL,CSF 7 /uL (0-10); WHITE BLOOD CELL,CSF 2 /uL (0-5)
[2019-03-27 12:49] LABS: APPEARANCE ALL TUBES CLEAR; COLOR ALL TUBES COLORLESS; CSF TUBE NUMBER 4; RED BLOOD CELL,CSF 5 /uL (0-10); WHITE BLOOD CELL,CSF 3 /uL (0-5)
[2019-03-27] MEDS ORDERED: ONDANSETRON HCL INJ/PF 4 MG/2 ML SDV IV PRN (13:15)
[2019-03-27] MEDS ORDERED: NORMAL SALINE 1000 ML 1,000 ML IV PRN (13:15)
--- NOTE | 2019-03-27 13:54 | PDOC H&P ---
History of Present Illness Admission Date/PCP: 03/27/19 13:09 Patient admitted today for seizure disorder and alcohol abuse History of Present Illness: AMADOR CHAVEZ is a 33 year old male who is brought to the emergency room because of seizure disorder. Patient has a known history of seizures as well as alcohol abuse. Patient is said in the past he only takes his Keppra "when I drink". Reportedly had 3 seizures last night. Patient originally did not have a fever when he presented to the emergency room but after several hours his temperature is gone up to 102. Patient is now obtunded either from being postictal or from Ativan to control his agitation. The chart patient is also supposed to be taking metoprolol as well as Norvasc. Patient is unable to give any history due to altered mental status and no family members has not Past Medical History Medical History: Other - Unable to get medical history except from the chart Cardiac Medical History: Reports: Hypertension Neurological Medical History: Reports: Seizures Psychiatric Medical History: Reports: Alcohol Dependency Social History Smoking Status: Unknown if Ever Smoked - Advance Directive Resuscitation Status: Full Code Family History Family History: None, Reviewed & Not Pertinent Parental Family History Reviewed: No Children Family History Reviewed: No Sibling(s) Family History Reviewed.: No Medication/Allergy Home Medications: No Home Medications 1 07/19/11 Phenytoin Sodium Extended [Dilantin 100 Mg Capsule.Er] 200 mg PO BID #60 capsule 06/03/12 Phenytoin Sodium Extended [Dilantin] 300 mg PO DAILY #90 capsule 01/14/13 Ibuprofen 600 mg PO QID PRN #30 tablet 07/12/13 Naproxen [Naprosyn 375 Mg Tablet] 375 mg PO BID #20 tablet 07/25/17 Tramadol HCl [Ultram 50 mg Tablet] 50 mg PO Q6HP PRN #12 tablet 11/24/17 Phenytoin Sodium Extended [Dilantin 100 mg Capsule.er] 100 mg PO Q8 #90 capsule 12/05/17 Levetiracetam [Keppra 500 mg Tablet] 500 mg PO Q12 #60 tablet 03/13/18 Amox Tr/Potassium Clavulanate [Augmentin 875-125 Tablet] 1 tab PO BID 10 Days #14 tablet 03/18/18 Levetiracetam [Keppra 500 mg Tablet] 1,000 mg PO Q12 #120 tablet 07/10/18 Amlodipine Besylate [Norvasc 10 mg Tablet] 10 mg PO DAILY #30 tablet 02/01/19 Levetiracetam [Keppra 500 mg Tablet] 500 mg PO Q12 #60 tablet 02/01/19 Levetiracetam [Keppra 500 mg Tablet] 500 mg PO Q12 #60 tablet 03/27/19 Allergies/Adverse Reactions: acetaminophen [From Vicodin] Allergy (Verified 10/07/18 13:35) hydrocodone [From Vicodin] Allergy (Verified 10/07/18 13:35) Review of Systems ROS unobtainable: Due to mental status Physical Exam Vital Signs: Temp Pulse Resp BP Pulse Ox 101.5 F H 112 H 34 H 145/92 H 98 03/27/19 11:57 03/27/19 03:32 03/27/19 12:16 03/27/19 12:16 03/27/19 12:16 Intake & Output 03/26/19 03/27/19 03/28/19 06:59 06:59 06:59 Intake Total 2005 1151 Balance 2005 1151 Weight 81 kg General appearance: PRESENT: severe distress Head exam: PRESENT: atraumatic, normocephalic Cardiovascular exam: PRESENT: RRR. ABSENT: diastolic murmur, rubs, systolic murmur Neurological exam: PRESENT: altered, other - Post ictal or obtunded secondary to benzodiazepines Results Laboratory Results: 03/27/19 06:19 03/27/19 03/27/19 03/27/19 03:52 03:55 06:19 Sodium 148.9 H 142.5 Potassium 4.4 4.5 Chloride 109 H 111 H Carbon Dioxide < 5 L* 19 L D Anion Gap Not Reportable 13 BUN 15 16 Creatinine 1.90 H 1.47 H Est GFR ( Amer) 49 L > 60 Glucose 222 H 110 Calcium 10.9 H 9.2 Total Bilirubin 0.4 AST 39 Alkaline Phosphatase 143 H Total Protein 10.1 H Albumin 5.7 H Urine Color STRAW Urine Appearance CLEAR Urine pH 5.0 Ur Specific [place] 1.010 Urine Protein 100 H Urine Glucose (UA) NEGATIVE Urine Ketones NEGATIVE Urine Blood MODERATE H Urine Nitrite NEGATIVE Ur Leukocyte Esterase NEGATIVE Urine RBC (Auto) 0 Fluid Tube Number CSF Volume CSF Appearance CSF Color CSF WBC CSF RBC CSF Glucose CSF Total Protein 09/03/0703/27/19 03/27/19 11:48 11:48 11:48 Sodium Potassium Chloride Carbon Dioxide Anion Gap BUN Creatinine Est GFR ( Amer) Glucose Calcium Total Bilirubin AST Alkaline Phosphatase Total Protein Albumin Urine Color Urine Appearance Urine pH Ur Specific [place] Urine Protein Urine Glucose (UA) Urine Ketones Urine Blood Urine Nitrite Ur Leukocyte Esterase Urine RBC (Auto) Fluid Tube Number 1 4 CSF Volume 4.0 4.0 CSF Appearance CLEAR CLEAR CSF Color COLORLESS COLORLESS CSF WBC 2 3 CSF RBC 7 5 CSF Glucose 82 H CSF Total Protein 83 H Impressions: Head CT 03/27/19 00:00 IMPRESSION: No acute intracranial findings. Chest X-Ray 03/27/19 08:56 IMPRESSION: NO ACUTE RADIOGRAPHIC FINDING IN THE CHEST. Assessment and Plan - Diagnosis (1) Alcohol abuse Is this a current diagnosis for this admission?: Yes Plan: She has a known past medical history of alcohol abuse although his alcohol level on this admission less than 10 urine drug screen is negative (2) Altered mental status Is this a current diagnosis for this admission?: Yes Plan: Patient has an oral airway in place. Patient has had 3 separate seizures that we know of a be postictal. He is also been given a total of 8 mg of Ativan IV over the course of his ER visit. Patient is obtunded at this time unable to give any history (3) Fever Is this a current diagnosis for this admission?: Yes Plan: Patient came in his temperature was 98 6 then it went up to 100.3 and then 101.5 and now 100.2, over a course of 10 hours. Patient has had 2 chest x-rays in the ER both are negative acute disease. CT head scan is negative (4) Seizure Is this a current diagnosis for this admission?: Yes Plan: She has a known seizure history and was supposed to be taking Keppra patient had 2 previous levels one in July of this year that was 15.8 and another one August of this year 17.3. Both of these are therapeutic but on the low side. - Time Time Spent with patient: 35 or more minutes
[2019-03-27] MEDS ORDERED: AZITHROMYCIN INJ 500 MG VIAL IV SCH (14:00)
[2019-03-27] MEDS: AZITHROMYCIN 500 MG in DEXTROSE 5%-WATER 250 ML IV SCH (15:05)
[2019-03-27] MEDS: PANTOPRAZOLE SODIUM 40 MG VIAL IV SCH ×2 (15:06→22:01)
[2019-03-27 15:39] LABS: HEMATOCRIT 53.1 % (37.9-51.0); HEMOGLOBIN 16.2 g/dL (13.5-17.0); MEAN CORPUSCULAR HEMOGLOBIN 30.4 pg (27.0-33.4); MEAN CORPUSCULAR HGB CONC 30.5 g/dL (32.0-36.0); MEAN CORPUSCULAR VOLUME 100 fl (80-97); PLATELET COUNT 239 10^3/uL (150-450); RED BLOOD COUNT 5.33 10^6/uL (4.35-5.55); RED CELL DISTRIBUTION WIDTH 15.1 % (11.5-14.0); WHITE BLOOD COUNT 19.6 10^3/uL (4.0-10.5)
[2019-03-27] MEDS: HEPARIN SOD (PORCINE) 5,000 UNIT/ML 1 ML VIAL SUBCUT SCH ×2 (16:17→22:01)
[2019-03-27] MEDS ORDERED: ZIPRASIDONE MESYLATE INJ/PF 20 MG SDV IM ONE (17:04)
[2019-03-27] MEDS: LORAZEPAM INJ 2 MG/1 ML VIAL IV PRN ×2 (17:06→22:01)
[2019-03-27] MEDS ORDERED: HYDRALAZINE HCL INJ/PF 20 MG/1 ML SDV IV PRN (18:50)
[2019-03-27] MEDS ORDERED: ZIPRASIDONE MESYLATE INJ/PF 20 MG SDV IM PRN (18:52)
--- NOTE | 2019-03-27 18:56 | EKG REPORT ---
SEVERITY:- ABNORMAL ECG - SINUS TACHYCARDIA PROBABLE LEFT VENTRICULAR HYPERTROPHY TALL T, CONSIDER METABOLIC/ISCHEMIC ABNRM PROLONGED QT INTERVAL : Confirmed by: Katie Pérez 27-Mar-2019 18:55:56
--- NOTE | 2019-03-27 18:57 | EKG REPORT ---
SEVERITY:- ABNORMAL ECG - SINUS TACHYCARDIA PROBABLE LEFT ATRIAL ABNORMALITY LEFT VENTRICULAR HYPERTROPHY : Confirmed by: Katie Pérez 27-Mar-2019 18:55:40
[2019-03-27] MEDS ORDERED: LEVETIRACETAM 500 MG TABLET PO SCH (22:00)
[2019-03-27] MEDS: CEFTRIAXONE 1 GM/D5W RTU 1 GM/50 ML RTUPB IV SCH (22:02)
[2019-03-27] MEDS ORDERED: LEVETIRACETAM 500 MG TABLET PO ONE ×2 (22:45)
[2019-03-27] MEDS: METOPROLOL TARTRATE PF/INJ 5 MG/5 ML SDV IV SCH ×3 (22:58→23:11)
[2019-03-27] MEDS ORDERED: METOPROLOL TARTRATE 100 MG TABLET PO ONE (23:00)
[2019-03-28] MEDS: HYDRALAZINE HCL INJ/PF 20 MG/1 ML SDV IV PRN ×3 (01:18→21:42)
[2019-03-28 05:09] LABS: ABSOLUTE LYMPHOCYTES (AUTO) 1.5 10^3/uL (0.5-4.7); ABSOLUTE MONOCYTES (AUTO) 0.8 10^3/uL (0.1-1.4); ABSOLUTE NEUT (AUTO) 5.9 10^3/uL (1.7-8.2); BASOPHILS % (AUTO) 0.6 % (0-2); EOSINOPHILS % (AUTO) 0.2 % (0-6); HEMATOCRIT 44.8 % (37.9-51.0); HEMOGLOBIN 15.4 g/dL (13.5-17.0); LYMPHOCYTES % (AUTO) 18.1 % (13-45); MEAN CORPUSCULAR HEMOGLOBIN 30.5 pg (27.0-33.4); MEAN CORPUSCULAR HGB CONC 34.3 g/dL (32.0-36.0); MONOCYTES % (AUTO) 9.6 % (3-13); PLATELET COUNT 192 10^3/uL (150-450); RED BLOOD COUNT 5.04 10^6/uL (4.35-5.55); SEGMENTED NEUTROPHILS % (AUTO) 71.5 % (42-78); TOTAL CELLS COUNTED % (AUTO) 100 %; WHITE BLOOD COUNT 8.2 10^3/uL (4.0-10.5)
[2019-03-28 05:13] LABS: MEAN CORPUSCULAR VOLUME 89 fl (80-97)
[2019-03-28 05:25] LABS: ANION GAP 11 (5-19); BLOOD UREA NITROGEN 11 mg/dL (7-20); CALCIUM 9.4 mg/dL (8.4-10.2); CARBON DIOXIDE 22 mmol/L (22-30); CHLORIDE 106 mmol/L (98-107); GLUCOSE 93 mg/dL (75-110); POTASSIUM 3.7 mmol/L (3.6-5.0)
[2019-03-28 05:32] LABS: INTERNATIONAL RATION (INR) 1.09; PROTHROMBIN TIME 14.2 SEC (11.4-15.4)
[2019-03-28] MEDS: HEPARIN SOD (PORCINE) 5,000 UNIT/ML 1 ML VIAL SUBCUT SCH ×3 (06:34→21:46)
--- NOTE | 2019-03-28 09:31 | PDOC PROGRESS REPORT ---
Subjective Progress Note for:: 03/28/19 Subjective:: Mr. Stout is resting in bed. He does not appear to be uncomfortable. He appears to have minimal interest in verbal interaction during this encounter. He is very slow to answer questions. He is not maintain or establish eye contact. His answers are somewhat mumbled and in a low voice. Reason For Visit: SEIZURE DISORDER,PATIENT NONCOMPLIANCE,HYPERTENSIO Physical Exam Vital Signs: Temp Pulse Resp BP Pulse Ox 98.8 F 93 11 L 145/100 H 99 03/28/19 06:00 03/28/19 05:03 03/28/19 06:08 03/28/19 06:08 03/28/19 06:08 Intake & Output 03/27/19 03/28/19 03/29/19 06:59 06:59 06:59 Intake Total 2005 1641 Output Total 925 Balance 2005 716 Weight 81 kg 81.7 kg General appearance: PRESENT: no acute distress, well-developed. ABSENT: cooperative - Sullen and quiet Eye exam: PRESENT: conjunctiva pink. ABSENT: scleral icterus Ear exam: PRESENT: normal external ear exam. ABSENT: bleeding, drainage Mouth exam: PRESENT: moist, tongue midline Respiratory exam: PRESENT: clear to auscultation ector, symmetrical, unlabored. ABSENT: rales, rhonchi, tachypnea, wheezes Cardiovascular exam: PRESENT: RRR, +S1, +S2. ABSENT: diastolic murmur, systolic murmur Pulses: PRESENT: normal radial pulses, +2 pedal pulses bilateral GI/Abdominal exam: PRESENT: normal bowel sounds, soft. ABSENT: distended, tenderness Rectal exam: PRESENT: deferred Gentrourinary exam: ABSENT: indwelling catheter Extremities exam: ABSENT: pedal edema Musculoskeletal exam: PRESENT: ambulatory, normal inspection. ABSENT: deformity Neurological exam: PRESENT: awake, oriented to person, oriented to place, oriented to situation, CN II-XII grossly intact. ABSENT: alert - seems somewhat somnolent Psychiatric exam: PRESENT: flat affect, other - Very limited interaction. Patient provided very limited answers to questions. He did not keep his eyes open during the encounter. He did not attempt to maintain eye contact.. ABSENT: agitated, anxious Focused psych exam: ABSENT: delusional, restlessness Results Laboratory Results: 03/28/19 04:45 03/28/19 04:45 03/27/19 03/27/19 03/27/19 03:52 11:48 11:48 WBC 19.6 H RBC 5.33 Hgb 16.2 Hct 53.1 H MCV 100 H MCH 30.4 MCHC 30.5 L RDW 15.1 H Plt Count 239 Seg Neutrophils % Sodium Potassium Chloride Carbon Dioxide Anion Gap BUN Creatinine Est GFR ( Amer) Glucose Calcium Magnesium Ammonia Fluid Tube Number 1 CSF Volume 4.0 CSF Appearance CLEAR CSF Color COLORLESS CSF WBC 2 CSF RBC 7 CSF Glucose 82 H CSF Total Protein 83 H 03/27/19 03/28/19 03/28/19 11:48 04:45 04:45 WBC 8.2 RBC 5.04 Hgb 15.4 Hct 44.8 MCV 89 D MCH 30.5 MCHC 34.3 RDW 14.0 Plt Count 192 Seg Neutrophils % 71.5 Sodium 138.9 Potassium 3.7 Chloride 106 Carbon Dioxide 22 Anion Gap 11 BUN 11 Creatinine 0.97 Est GFR ( Amer) > 60 Glucose 93 Calcium 9.4 Magnesium 2.6 H Ammonia Fluid Tube Number 4 CSF Volume 4.0 CSF Appearance CLEAR CSF Color COLORLESS CSF WBC 3 CSF RBC 5 CSF Glucose CSF Total Protein 03/28/19 04:45 WBC RBC Hgb Hct MCV MCH MCHC RDW Plt Count Seg Neutrophils % Sodium Potassium Chloride Carbon Dioxide Anion Gap BUN Creatinine Est GFR ( Amer) Glucose Calcium Magnesium Ammonia 19.5 Fluid Tube Number CSF Volume CSF Appearance CSF Color CSF WBC CSF RBC CSF Glucose CSF Total Protein 03/27/19 06:19 Creatine Kinase 356 H Impressions: Head CT 03/27/19 00:00 IMPRESSION: No acute intracranial findings. Chest X-Ray 03/27/19 08:56 IMPRESSION: NO ACUTE RADIOGRAPHIC FINDING IN THE CHEST. Assessment and Plan - Diagnosis (1) Seizure Is this a current diagnosis for this admission?: Yes Plan: She has a known seizure history and was supposed to be taking Keppra patient had 2 previous levels one in July of this year that was 15.8 and another one August of this year 17.3. Both of these are therapeutic but on the low side. 03/28/2019-the patient presented to the emergency department after having multiple seizures. Since initiation of Keppra he is seizure-free. He should be past the postictal state. He has been seizure-free while in the hospital. He is downgraded to medical floor status. (2) Hypertension Qualifiers: Hypertension type: essential hypertension Qualified Code(s): I10 - Essenti al (primary) hypertension Is this a current diagnosis for this admission?: Yes Plan: 03/28/2019-the patient was on antihypertensive medications prior to this admission. There is a question of compliance. His blood pressures are still elevated. I have ordered 5 mg of enalapril by intravenous and we will add oral leslie inhibitor therapy. He does have hydralazine ordered as needed and is on metoprolol 200 mg daily. (3) Altered mental status Is this a current diagnosis for this admission?: Yes Plan: Patient has an oral airway in place. Patient has had 3 separate seizures that we know of a be postictal. He is also been given a total of 8 mg of Ativan IV over the course of his ER visit. Patient is obtunded at this time unable to give any history 03/28/2019-the altered mental status was a combination of a post ictal state and benzodiazepine therapy for his seizure. He is no longer on benzodiazepines. He is communicative although in a limited fashion. The medications may still be wearing off. The postictal altered mental status has resolved. (4) Fever Is this a current diagnosis for this admission?: Yes Plan: Patient came in his temperature was 98 6 then it went up to 100.3 and then 101.5 and now 100.2, over a course of 10 hours. Patient has had 2 chest x-rays in the ER both are negative acute disease. CT head scan is negative 03/28/2019-the patient was febrile upon arrival in the emergency department. He appeared to be dehydrated in the increased muscle activity from several seizures could certainly have elevated his temperature. Having experienced multiple seizures he is at risk for aspiration pneumonia. He is afebrile now. His chest x-ray has been negative but he is also on antibiotic therapy. He did receive IV fluids. If there is no evidence of infection I would consider discontinuing his antibiotics. (5) Leukocytosis Qualifiers: Leukocytosis type: unspecified Qualified Code(s): D72.829 - Elevated white blood cell count, unspecified Is this a current diagnosis for this admission?: Yes Plan: 03/28/2019-the patient's elevated white count is likely a combination of his seizure activity and dehydration with possible underlying infection. His white blood cell count has normalized. He is on antibiotics for possible aspiration pneumonia. Leukocytosis has resolved. If still suspicious for infection despite 2- chest x-rays consider continuing antibiotics. (6) Kidney injury Qualifiers: Encounter type: initial encounter Laterality: unspecified laterality Qualified Code(s): S37.009A - Unspecified injury of unspecified kidney, initial encounter Is this a current diagnosis for this admission?: Yes Plan: 03/28/2019-the patient's serum creatinine was elevated on admission. He did have a slightly elevated creatinine kinase level that is secondary to his seizure activity. His BUN was normal and but his MCV, calcium, total protein, sodium, chloride and albumin were elevated. Dehydration might be a consideration and an etiology of his elevated creatinine. At this point his serum creatinine has normalized. His BUN is remained normal. Kidney injury is resolved. (7) Dehydration Is this a current diagnosis for this admission?: Yes Plan: 03/28/2019-please see above (8) Rhabdomyolysis Qualifiers: Rhabdomyolysis type: non-traumatic Qualified Code(s): M62.82 - Rhabdomyolysis Is this a current diagnosis for this admission?: Yes Plan: 03/28/2019-the mildly elevated creatinine kinase level is likely due to increased muscular activity from seizure. This should normalize with the aggressive IV hydration. (9) Alcohol abuse Is this a current diagnosis for this admission?: Yes Plan: 03/28/2019-the patient has a history of alcohol abuse. His serum alcohol level was negative on admission. Seizures may have been induced by withdrawal however he does have a positive seizure history. Continue to monitor for withdrawal symptoms. - Time Time Spent with patient: 15-24 minutes Medications reviewed and adjusted accordingly: Yes Anticipated discharge: Home
[2019-03-28] MEDS ORDERED: METOPROLOL TARTRATE 25 MG TABLET PO SCH (10:00)
[2019-03-28] MEDS: AMLODIPINE BESYLATE 10 MG TABLET PO SCH (10:05)
[2019-03-28] MEDS: LEVETIRACETAM 500 MG TABLET PO SCH ×2 (10:07→21:43)
[2019-03-28] MEDS: METOPROLOL SUCCINATE 50 MG TAB.SR.24H PO SCH (10:07)
[2019-03-28] MEDS: PANTOPRAZOLE SODIUM 40 MG VIAL IV SCH ×2 (10:12→22:22)
[2019-03-28] MEDS ORDERED: ENALAPRILAT DIHYDRATE INJ/PF 2.5 MG/2 ML SDV IV ONE (11:30)
[2019-03-28] MEDS: CEFTRIAXONE 1 GM/D5W RTU 1 GM/50 ML RTUPB IV SCH ×2 (13:15→21:43)
[2019-03-28] MEDS: AZITHROMYCIN 500 MG in DEXTROSE 5%-WATER 250 ML IV SCH (14:07)
[2019-03-29] MEDS: HYDRALAZINE HCL INJ/PF 20 MG/1 ML SDV IV PRN (03:47)
[2019-03-29 04:13] LABS: ABSOLUTE BASOPHILS # (AUTO) 0.1 10^3/uL (0.0-0.2); ABSOLUTE LYMPHOCYTES (AUTO) 2.2 10^3/uL (0.5-4.7); ABSOLUTE MONOCYTES (AUTO) 0.9 10^3/uL (0.1-1.4); ABSOLUTE NEUT (AUTO) 3.6 10^3/uL (1.7-8.2); BASOPHILS % (AUTO) 0.9 % (0-2); EOSINOPHILS % (AUTO) 0.5 % (0-6); HEMATOCRIT 45.8 % (37.9-51.0); HEMOGLOBIN 15.6 g/dL (13.5-17.0); LYMPHOCYTES % (AUTO) 32.7 % (13-45); MEAN CORPUSCULAR HEMOGLOBIN 30.7 pg (27.0-33.4); MEAN CORPUSCULAR HGB CONC 34.1 g/dL (32.0-36.0); MEAN CORPUSCULAR VOLUME 90 fl (80-97); MONOCYTES % (AUTO) 12.6 % (3-13); PLATELET COUNT 196 10^3/uL (150-450); RED CELL DISTRIBUTION WIDTH 14.4 % (11.5-14.0); SEGMENTED NEUTROPHILS % (AUTO) 53.3 % (42-78); TOTAL CELLS COUNTED % (AUTO) 100 %; WHITE BLOOD COUNT 6.8 10^3/uL (4.0-10.5)
[2019-03-29 04:21] LABS: ANION GAP 11 (5-19); BLOOD UREA NITROGEN 15 mg/dL (7-20); CALCIUM 9.2 mg/dL (8.4-10.2); CARBON DIOXIDE 24 mmol/L (22-30); CHLORIDE 104 mmol/L (98-107); GLUCOSE 110 mg/dL (75-110); POTASSIUM 3.6 mmol/L (3.6-5.0)
[2019-03-29] MEDS: HEPARIN SOD (PORCINE) 5,000 UNIT/ML 1 ML VIAL SUBCUT SCH ×2 (05:26→13:16)
[2019-03-29] MEDS: ACETAMINOPHEN 325 MG TABLET PO PRN ×2 (05:51→13:19)
[2019-03-29] MEDS: LEVETIRACETAM 500 MG TABLET PO SCH (09:30)
[2019-03-29] MEDS: METOPROLOL SUCCINATE 50 MG TAB.SR.24H PO SCH (09:32)
[2019-03-29] MEDS: AMLODIPINE BESYLATE 10 MG TABLET PO SCH (09:32)
[2019-03-29] MEDS ORDERED: FAMOTIDINE 20 MG TABLET PO SCH (10:00)
[2019-03-29] MEDS ORDERED: LISINOPRIL 10 MG TABLET PO SCH (10:00)
[2019-03-29 16:38] VITALS: BP 129/88
--- NOTE | 2019-03-31 17:28 | Left Against Medical Advice ---
Against Medical Advice Admission Date/Time: 03/27/19 13:09 Primary Care Provider: Date of Patient Emigration: 03/29/19 - Diagnosis: (1) Altered mental status Is this a current diagnosis for this admission?: Yes (2) Dehydration Is this a current diagnosis for this admission?: Yes (3) Fever Is this a current diagnosis for this admission?: Yes (4) Kidney injury Is this a current diagnosis for this admission?: Yes (5) Leukocytosis Is this a current diagnosis for this admission?: Yes (6) Rhabdomyolysis Is this a current diagnosis for this admission?: Yes (7) Seizure Is this a current diagnosis for this admission?: Yes - Summary: Summary: Please see Admission and Progress Notes as well. AMADOR CHAVEZ is a 33 M, who LEFT AGAINST MEDICAL ADVICE. The Patient was admitted on 03/27/19 13:09. Saw patient in the morning who was awake and enjoying her breakfast, alert and oriented, very slow to response, not sure if this was his baseline, after talking to his in the afternoon she stated that 3 years ago patient had a TBI and since then level of communication has decreased, patient is disabled due to TBI however making his own medical decisions. Patient is still having intermittent fever however leukocytosis improved, has not had any seizure. Patient was asked to stay in the hospital until his fever has solved as it may cause more seizures. Patient still wanted to leave the hospital AMA, as per my conversation with his he still has supplies of her Keppra. were strongly encouraged to continue his Keppra and if he develops another seizure to come back to ED right away. Patient and voiced understanding.
== END 2019-03-29 17:19 | disposition left against medical advice (07) | DRG 101 ==
LOC: ER 03:32 → EH 13:09 → ICU 16:51
PROVIDERS: ADMIT Internal Medicine; ATTEND Internal Medicine
PROC: 009U3ZX Drainage of Spinal Canal, Percutaneous Approach, Diagnostic (ICD-10-PCS; principal; 2019-03-27)
DX: G40.909 Epilepsy, unspecified, not intractable, without status epilepticus (principal); M62.82 Rhabdomyolysis; N17.9 Acute kidney failure, unspecified; T42.6X6A Underdosing of other antiepileptic and sedative-hypnotic drugs, initial encounter; F10.20 Alcohol dependence, uncomplicated; I10 Essential (primary) hypertension; N28.9 Disorder of kidney and ureter, unspecified; R50.9 Fever, unspecified; D72.829 Elevated white blood cell count, unspecified; R41.82 Altered mental status, unspecified; E86.0 Dehydration; Z87.820 Personal history of traumatic brain injury; Z91.128 Patient's intentional underdosing of medication regimen for other reason; Y92.009 Unspecified place in unspecified non-institutional (private) residence as the place of occurrence of the external cause; Z88.5 Allergy status to narcotic agent; Z88.8 Allergy status to other drugs, medicaments and biological substances; Z79.899 Other long term (current) drug therapy; Z78.1 Physical restraint status
CPT/HCPCS: 36415; 70450; 71045; 80048; 80053; 80177; 80307; 81001; 82140; 82550; 82945; 83735; 84157; 85025; 85027; 85610; 87040; 87070; 87086; 87205; 87210; 89050; 93005; 93010; 96361; 96365; 96375; 96376; 99285; J0360; J0456; J0696; J1644; J1885; J1953; J2060; J2405; J3490; J7030; J7060; J7120; S0164

== ENCOUNTER 2019-05-06 05:12 | Observation (INO) | payer MEDICARE, MEDICAID ==
--- NOTE | 2019-05-06 05:42 | ER Document Report ---
ED General - General Chief Complaint: Seizure Stated Complaint: POSS SEIZURE Time Seen by Provider: 05/06/19 05:35 Notes: Patient is a 33-year-old male with a known history of seizures who presents to the emergency department post ictal after his second seizure of the night. No family is at bedside at this time. According to EMS, the patient had been given thousand milligrams of Keppra by his shortly before having his second seizure. No reports of vomiting. According to the patient's medical record, he is noncompliant with his medications from his previous visit when he was here in ICU. TRAVEL OUTSIDE OF THE [place] IN LAST 30 DAYS: No - Related Data Allergies/Adverse Reactions: acetaminophen [From Vicodin] Allergy (Verified 10/07/18 13:35) hydrocodone [From Vicodin] Allergy (Verified 10/07/18 13:35) Past Medical History - General Information source: [facility] Records - Social History Smoking Status: Unknown if Ever Smoked Family History: None, Reviewed & Not Pertinent - Past Medical History Cardiac Medical History: Reports: Hx Hypertension Neurological Medical History: Reports: Hx Seizures Renal/ Medical History: Denies: Hx Peritoneal Dialysis - Immunizations Immunizations up to date: No Hx Diphtheria, Pertussis, Tetanus Vaccination: Yes Review of Systems - Review of Systems -: Yes ROS unobtainable due to patient's medical condition Physical Exam - Vital signs Vitals: Pulse Ox 100 05/06/19 05:12 - Notes Notes: PHYSICAL EXAMINATION: GENERAL: Appears well, healthy, well-nourished, no acute distress. HEAD: Normocephalic, atraumatic. EYES: PERRL, conjunctiva normal, all extraocular movements intact, sclera nonicteric ENT: Dry mucous membranes. NECK: Supple, no noticeable swelling, redness, rash. Normal range of motion. LUNGS: Equal breath sounds bilaterally and clear to auscultation. No wheezes rales or rhonchi. CARDIOVASCULAR: S1-S2, regular rate, regular rhythm. Radial pulses 2+, normal. ABDOMEN: Normoactive bowel sounds. Soft, nontender, no guarding, no rebound tenderness, and no masses palpated. EXTREMITIES: Normal strength and range of motion, no pitting or edema. No cyanosis. NEUROLOGICAL: Unresponsive, postictal. PSYCH: Normal mood, normal affect. SKIN: Warm, dry. No rash, lesions, ulcerations noted. Normal skin turgor. Course - Re-evaluation Re-evalutation: 05/06/19 06:40 Patient CO2 is 9 and he has a creatinine of 1.13. I suspect this is due to dehydration. His blood pressure is elevated. I will give him hydralazine and a fluid bolus. Chest x-ray is negative at this time. CT of the head is negative for any intracranial bleed. 05/06/19 07:00 I reevaluated the patient and he is able to tell me where he is, his name, and date of . I asked the patient if he takes his Keppra every day and he stated "yes." I told him that he had a seizure today. I asked him if he is really compliant with his medication and he stated, "I ran out." I then asked him if he ran out, how did his give him a dose of Keppra when he had his first seizure this morning. He did not have anything to say and he ended up pulling the covers over his head. I asked him if he drank alcohol tonight and he did not respond. 05/06/19 07:[address] Grover. The patient will be admitted to [facility]. - Vital Signs Vital signs: Temp Pulse Resp BP Pulse Ox 97.4 F 18 170/113 H 100 05/06/19 08:01 05/06/19 08:01 05/06/19 08:01 05/06/19 08:01 - Laboratory Result Diagrams: 05/06/19 05:40 05/06/19 05:40 Laboratory results interpreted by me: 05/06/19 05/06/19 05/06/19 05:40 05:40 05:40 Hct 51.9 H RDW 15.4 H VBG pH Chloride 108 H Carbon Dioxide 9 L* Anion Gap 26 H Creatinine 1.31 H Glucose 116 H Creatine Kinase 248 H Total Protein 9.5 H Albumin 5.4 H Urine Protein 30 H Urine Blood MODERATE H Salicylates Acetaminophen 05/06/19 05/06/19 05:40 06:58 Hct RDW VBG pH 7.27 L Chloride Carbon Dioxide Anion Gap Creatinine Glucose Creatine Kinase Total Protein Albumin Urine Protein Urine Blood Salicylates < 1.0 L Acetaminophen < 10 L - EKG Interpretation by Me Additional EKG results interpreted by me: 05/06/19 07:59 Sinus tachycardia. Rate 109. MO 148; QRS 98; QT 354; QTc 480. No ST elevations or depressions noted. Discharge - Discharge Clinical Impression: Seizure, Acute kidney injury Condition: Fair Disposition: ADMITTED INPATIENT Admitting Provider: Reilly (Hospitalist) Unit Admitted: [facility]
[2019-05-06 05:57] LABS: ABSOLUTE BASOPHILS # (AUTO) 0.1 10^3/uL (0.0-0.2); ABSOLUTE EOSINOPHILS # (AUTO) 0.1 10^3/uL (0.0-0.6); ABSOLUTE LYMPHOCYTES (AUTO) 2.9 10^3/uL (0.5-4.7); ABSOLUTE MONOCYTES (AUTO) 0.9 10^3/uL (0.1-1.4); BASOPHILS % (AUTO) 0.8 % (0-2); EOSINOPHILS % (AUTO) 0.7 % (0-6); HEMATOCRIT 51.9 % (37.9-51.0); HEMOGLOBIN 16.9 g/dL (13.5-17.0); LYMPHOCYTES % (AUTO) 28.9 % (13-45); MEAN CORPUSCULAR HGB CONC 32.6 g/dL (32.0-36.0); MEAN CORPUSCULAR VOLUME 95 fl (80-97); MONOCYTES % (AUTO) 8.8 % (3-13); PLATELET COUNT 234 10^3/uL (150-450); RED BLOOD COUNT 5.45 10^6/uL (4.35-5.55); RED CELL DISTRIBUTION WIDTH 15.4 % (11.5-14.0); SEGMENTED NEUTROPHILS % (AUTO) 60.8 % (42-78); TOTAL CELLS COUNTED % (AUTO) 100 %; WHITE BLOOD COUNT 9.9 10^3/uL (4.0-10.5)
[2019-05-06 06:09] LABS: ALBUMIN 5.4 g/dL (3.5-5.0); ALKALINE PHOSPHATASE 110 U/L (38-126); ASPARTATE AMINO TRANSFERASE 32 U/L (17-59); BILIRUBIN,DIRECT 0.2 mg/dL (0.0-0.4); BILIRUBIN,TOTAL 0.3 mg/dL (0.2-1.3); BLOOD UREA NITROGEN 12 mg/dL (7-20); CALCIUM 9.8 mg/dL (8.4-10.2); CREATINE KINASE 248 U/L (55-170); GLUCOSE 116 mg/dL (75-110); POTASSIUM 4.5 mmol/L (3.6-5.0); TOTAL PROTEIN 9.5 g/dL (6.3-8.2)
[2019-05-06 06:14] LABS: CHLORIDE 108 mmol/L (98-107)
[2019-05-06 06:19] LABS: ANION GAP 26 (5-19)
[2019-05-06 06:21] LABS: CARBON DIOXIDE 9 mmol/L (22-30); CREATINE KINASE MB 2.33 ng/mL (<4.55); TROPONIN I < 0.012 ng/mL
[2019-05-06 06:23] LABS: APPEARANCE,URINE CLEAR; BILIRUBIN,URINE NEGATIVE (NEGATIVE); COLOR,URINE STRAW; GLUCOSE, URINE NEGATIVE (NEGATIVE); KETONES,URINE NEGATIVE (NEGATIVE); LEUKOCYTE ESTERASE,URINE NEGATIVE (NEGATIVE); NITRITE,URINE NEGATIVE (NEGATIVE); PROTEIN,URINE 30 mg/dL (NEGATIVE); URINE SPECIFIC GRAVITY 1.012; UROBILINOGEN,URINE NEGATIVE mg/dL (<2.0)
--- NOTE | 2019-05-06 06:31 | RADIOLOGY REPORT (SQ) ---
EXAM: CT head without IV contrast CLINICAL DATA: seizure; unresponsive; hypertensive TECHNICAL DATA: Multiple axial CT images of the brain were performed followed by sagittal and coronal reconstructed images. The CT study is performed according to ALARA (as low as reasonably achievable) or ALARA/IMAGE GENTLY, with automatic adjustment of mA and/or kV according to patient size. Performed on: 05/06/2019 at 6:13 AM Comparisons: 03/27/2019. FINDINGS: There is no evidence of mass, acute mass effect or midline shift. There are no acute extra-axial fluid collections. There is no evidence of acute intracranial hemorrhage. The cerebral sulci and ventricles are normal in size and configuration. There are no focal abnormal areas of increased or decreased attenuation. There is no significant mucosal thickening of the paranasal sinuses. The mastoid air cells are clear. The orbital contents are grossly unremarkable. There is an old medial wall blowout fracture of the left orbit with herniation of fat through the orbital wall defect. No acute osseous abnormalities are identified. There is minimal left frontal parietal scalp soft tissue swelling. IMPRESSION: 1. There is no evidence of acute intracranial pathology. 2. Minimal left frontal parietal scalp soft tissue swelling.
--- NOTE | 2019-05-06 06:33 | RADIOLOGY REPORT (SQ) ---
Chest single view on 05/06/2019 CLINICAL INDICATION: Unresponsive COMPARISON: 03/27/2019 FINDINGS: There is mild elevation of the right hemidiaphragm. There is minimal basilar atelectasis or scarring. Lungs are otherwise clear. Cardiac, hilar and mediastinal contours are within normal limits. Pulmonary vascularity is within normal limits. IMPRESSION: No acute disease.
[2019-05-06 06:36] LABS: URINE AMPHETAMINES SCREEN NEGATIVE; URINE BARBITURATES SCREEN NEGATIVE; URINE BENZODIAZEPINES SCREEN UNCONFIRMED POSITIVE; URINE COCAINE SCREEN NEGATIVE; URINE MARIJUANA (THC) SCREEN NEGATIVE; URINE METHADONE SCREEN NEGATIVE; URINE PHENCYCLIDINE SCREEN NEGATIVE
[2019-05-06 06:48] LABS: ACETAMINOPHEN < 10 ug/mL (10-30); ALCOHOL < 10 mg/dL (NONE DETECTED); SALICYLATE < 1.0 mg/dL (2.0-20.0)
[2019-05-06] MEDS ORDERED: NORMAL SALINE 1000 ML 1,000 ML IV ONE (06:50)
[2019-05-06] MEDS ORDERED: HYDRALAZINE HCL INJ/PF 20 MG/1 ML SDV IV ONE (07:07)
[2019-05-06 07:14] LABS: VENOUS BLOOD BASE EXCESS -6.1 mmol/L; VENOUS BLOOD HCO3 21.1 mmol/L (20-32); VENOUS BLOOD PCO2 47.1 mmHg (35-63); VENOUS BLOOD PH 7.27 (7.30-7.42)
[2019-05-06] MEDS ORDERED: TEMAZEPAM 7.5 MG CAPSULE PO PRN (10:03)
[2019-05-06] MEDS ORDERED: IPRATROPIUM/ALBUTEROL 0.5-2.5 MG/3 ML AMPUL NEB PRN (10:03)
[2019-05-06] MEDS ORDERED: MAG HYDROX/AL HYDROX/SIMETH SUSP 30 ML UDCUP PO PRN (10:03)
[2019-05-06] MEDS ORDERED: ONDANSETRON HCL INJ/PF 4 MG/2 ML SDV IV PRN (10:03)
[2019-05-06] MEDS ORDERED: LORAZEPAM INJ 2 MG/1 ML VIAL IV PRN (10:07)
[2019-05-06] MEDS ORDERED: HYDRALAZINE HCL INJ/PF 20 MG/1 ML SDV IV PRN (10:09)
[2019-05-06] MEDS ORDERED: METOPROLOL TARTRATE PF/INJ 5 MG/5 ML SDV IV PRN (10:09)
[2019-05-06 10:30] LABS: BLOOD UREA NITROGEN 12 mg/dL (7-20); CALCIUM 9.2 mg/dL (8.4-10.2); CHLORIDE 110 mmol/L (98-107); GLUCOSE 100 mg/dL (75-110)
[2019-05-06 10:42] LABS: ANION GAP 12 (5-19)
[2019-05-06 10:47] LABS: CARBON DIOXIDE 19 mmol/L (22-30)
[2019-05-06] MEDS: LISINOPRIL 10 MG TABLET PO SCH (11:07)
[2019-05-06] MEDS: DEXTROSE 5%-NORMAL SALINE 1,000 ML IV PRN ×2 (12:52→21:39)
[2019-05-06] MEDS: HEPARIN SOD (PORCINE) 5,000 UNIT/ML 1 ML VIAL SUBCUT SCH ×2 (16:30→21:38)
--- NOTE | 2019-05-06 19:02 | PDOC H&P ---
History of Present Illness Admission Date/PCP: 05/06/19 08:12 History of Present Illness: AMADOR CHAVEZ is a 33 year old male with a known history of seizures noncompliant, TBI presented brought into ED by EMS after having a seizure at home. On my first encounter patient is very lethargic and postictal, arousable but does not provide any information, later that day when he was more alert and not lethargic anymore he stated that he missed 3 of his Depakote doses but did not provide any clear reasons. Patient denies any recent trauma, fever, chills, nausea, vomiting, diarrhea, constipation or any urinary symptoms. Past Medical History Cardiac Medical History: Reports: Hypertension Neurological Medical History: Reports: Seizures Psychiatric Medical History: Denies: Depression Social History Smoking Status: Current Every Day Smoker Cigarettes Packs Per Day: 1 Electronic Cigarette use?: No Number of Years Smokin Frequency of Alcohol Use: Occasional Hx Recreational Drug Use: No Drugs: None Hx Prescription Drug Abuse: No Family History Family History: None, Reviewed & Not Pertinent Parental Family History Reviewed: Yes Children Family History Reviewed: Yes Sibling(s) Family History Reviewed.: Yes Medication/Allergy Home Medications: Levetiracetam [Keppra] 1,000 mg PO Q12 90 Days #180 tab 05/07/19 Lisinopril 20 mg PO DAILY 30 Days #30 tablet 05/07/19 Allergies/Adverse Reactions: acetaminophen [From Vicodin] Allergy (Verified 10/07/18 13:35) hydrocodone [From Vicodin] Allergy (Verified 10/07/18 13:35) Review of Systems Review of Systems: as per hpi Physical Exam Vital Signs: Temp Pulse Resp BP Pulse Ox 99.6 F 79 15 159/88 H 100 05/06/19 17:34 05/06/19 17:34 05/06/19 17:34 05/06/19 17:34 05/06/19 17:34 Intake & Output 05/05/19 05/06/19 05/07/19 06:59 06:59 06:59 Intake Total 1450 Output Total 1578 Balance -128 Weight 87 kg 87 kg General appearance: PRESENT: no acute distress, well-developed, well-nourished Respiratory exam: PRESENT: clear to auscultation ector. ABSENT: rales, rhonchi, wheezes Cardiovascular exam: PRESENT: RRR. ABSENT: diastolic murmur, rubs, systolic murmur GI/Abdominal exam: PRESENT: normal bowel sounds, soft. ABSENT: distended, guarding, mass, organolmegaly, rebound, tenderness Extremities exam: PRESENT: full ROM. ABSENT: calf tenderness, clubbing, pedal edema Neurological exam: PRESENT: alert, altered, awake, oriented to person, oriented to place, oriented to time, CN II-XII grossly intact, motor sensory deficit Results Laboratory Results: 05/06/19 05:40 05/06/19 08:57 05/06/19 05/06/19 05/06/19 05:40 05:40 05:40 WBC 9.9 RBC 5.45 Hgb 16.9 Hct 51.9 H MCV 95 MCH 31.0 MCHC 32.6 RDW 15.4 H Plt Count 234 Seg Neutrophils % 60.8 VBG pH VBG pCO2 VBG HCO3 VBG Base Excess Sodium 142.9 Potassium 4.5 Chloride 108 H Carbon Dioxide 9 L* Anion Gap 26 H BUN 12 Creatinine 1.31 H Est GFR ( Amer) > 60 Glucose 116 H Calcium 9.8 Total Bilirubin 0.3 AST 32 Alkaline Phosphatase 110 Total Protein 9.5 H Albumin 5.4 H Urine Color STRAW Urine Appearance CLEAR Urine pH 5.0 Ur Specific [place] 1.012 Urine Protein 30 H Urine Glucose (UA) NEGATIVE Urine Ketones NEGATIVE Urine Blood MODERATE H Urine Nitrite NEGATIVE Ur Leukocyte Esterase NEGATIVE Urine WBC (Auto) 0 Urine RBC (Auto) 0 05/06/19 05/06/19 06:58 08:57 WBC RBC Hgb Hct MCV MCH MCHC RDW Plt Count Seg Neutrophils % VBG pH 7.27 L VBG pCO2 47.1 VBG HCO3 21.1 VBG Base Excess -6.1 Sodium 140.7 Potassium 4.0 Chloride 110 H Carbon Dioxide 19 L D Anion Gap 12 BUN 12 Creatinine 1.02 Est GFR ( Amer) > 60 Glucose 100 Calcium 9.2 Total Bilirubin AST Alkaline Phosphatase Total Protein Albumin Urine Color Urine Appearance Urine pH Ur Specific [place] Urine Protein Urine Glucose (UA) Urine Ketones Urine Blood Urine Nitrite Ur Leukocyte Esterase Urine WBC (Auto) Urine RBC (Auto) 05/06/19 05/06/19 05:40 05:40 Creatine Kinase 248 H CK-MB (CK-2) 2.33 Troponin I < 0.012 Impressions: Head CT 05/06/19 05:38 IMPRESSION: 1. There is no evidence of acute intracranial pathology. 2. Minimal left frontal parietal scalp soft tissue swelling. Chest X-Ray 05/06/19 05:41 IMPRESSION: No acute disease. Assessment and Plan - Diagnosis (1) Seizure Is this a current diagnosis for this admission?: Yes Plan: No history of seizure disorder. History of noncompliance. Patient is stating that he missed 3 doses, does not provide any clear reason. Will admit to ICU, with seizure fall precautions, restart Keppra and benzos as needed. (2) Acute kidney injury Is this a current diagnosis for this admission?: Yes Plan: Prerenal. Cautious volume resuscitation, monitor volume status and electrolytes. (3) Hypertension Qualifiers: Is this a current diagnosis for this admission?: Yes Plan: Noncompliant. We will start on lisinopril. Adjust dose as needed. Outpatient PCP follow-up.
[2019-05-06] MEDS: LEVETIRACETAM 500 MG TABLET PO SCH (21:37)
[2019-05-06] MEDS: FAMOTIDINE 20 MG TABLET PO SCH (21:37)
[2019-05-07 05:49] LABS: ABSOLUTE LYMPHOCYTES (AUTO) 1.6 10^3/uL (0.5-4.7); ABSOLUTE MONOCYTES (AUTO) 0.6 10^3/uL (0.1-1.4); ABSOLUTE NEUT (AUTO) 1.7 10^3/uL (1.7-8.2); BASOPHILS % (AUTO) 0.8 % (0-2); EOSINOPHILS % (AUTO) 0.3 % (0-6); HEMATOCRIT 44.8 % (37.9-51.0); HEMOGLOBIN 14.9 g/dL (13.5-17.0); LYMPHOCYTES % (AUTO) 39.9 % (13-45); MEAN CORPUSCULAR HEMOGLOBIN 30.6 pg (27.0-33.4); MEAN CORPUSCULAR HGB CONC 33.2 g/dL (32.0-36.0); MEAN CORPUSCULAR VOLUME 92 fl (80-97); PLATELET COUNT 173 10^3/uL (150-450); RED BLOOD COUNT 4.86 10^6/uL (4.35-5.55); TOTAL CELLS COUNTED % (AUTO) 100 %
[2019-05-07] MEDS: HEPARIN SOD (PORCINE) 5,000 UNIT/ML 1 ML VIAL SUBCUT SCH (06:46)
[2019-05-07] MEDS ORDERED: INFLUENZA QUAD (6MOS+) 2019-20 VAC 0.5 ML SYR IM ONE (08:00)
[2019-05-07] MEDS: LISINOPRIL 10 MG TABLET PO SCH (09:15)
[2019-05-07] MEDS: LEVETIRACETAM 500 MG TABLET PO SCH (09:15)
[2019-05-07] MEDS: FAMOTIDINE 20 MG TABLET PO SCH (09:15)
[2019-05-07] MEDS ORDERED: DOCUSATE SODIUM 100 MG CAPSULE PO SCH (10:00)
[2019-05-07 10:28] LABS: ALBUMIN 3.8 g/dL (3.5-5.0); ALKALINE PHOSPHATASE 81 U/L (38-126); ANION GAP 12 (5-19); ASPARTATE AMINO TRANSFERASE 22 U/L (17-59); BILIRUBIN,DIRECT 0.2 mg/dL (0.0-0.4); BILIRUBIN,TOTAL 0.7 mg/dL (0.2-1.3); BLOOD UREA NITROGEN 9 mg/dL (7-20); CALCIUM 9.1 mg/dL (8.4-10.2); CARBON DIOXIDE 16 mmol/L (22-30); CHLORIDE 112 mmol/L (98-107); GLUCOSE 180 mg/dL (75-110); POTASSIUM 3.3 mmol/L (3.6-5.0); TOTAL PROTEIN 7.2 g/dL (6.3-8.2)
[2019-05-07] MEDS ORDERED: POTASSIUM CHLORIDE 10 MEQ CAPSULE.ER PO ONE ×2 (12:15→12:28)
[2019-05-07 13:11] VITALS: BP 139/99
--- NOTE | 2019-05-08 18:10 | PDOC H&P ---
History of Present Illness Admission Date/PCP: 05/06/19 08:12 History of Present Illness: AMADOR CHAVEZ is a 33 year old male with a known history of seizures noncompliant, TBI presented brought into ED by EMS after having a seizure at home. On my first encounter patient is very lethargic and postictal, arousable but does not provide any information, later that day when he was more alert and not lethargic anymore he stated that he missed 3 of his Depakote doses but did not provide any clear reasons. Patient denies any recent trauma, fever, chills, nausea, vomiting, diarrhea, constipation or any urinary symptoms. Past Medical History Cardiac Medical History: Reports: Hypertension Neurological Medical History: Reports: Seizures Psychiatric Medical History: Denies: Depression Social History Smoking Status: Current Every Day Smoker Cigarettes Packs Per Day: 1 Electronic Cigarette use?: No Number of Years Smokin Frequency of Alcohol Use: Occasional Hx Recreational Drug Use: No Drugs: None Hx Prescription Drug Abuse: No Family History Family History: None, Reviewed & Not Pertinent Parental Family History Reviewed: Yes Children Family History Reviewed: Yes Sibling(s) Family History Reviewed.: Yes Medication/Allergy Home Medications: Levetiracetam [Keppra] 1,000 mg PO Q12 90 Days #180 tab 05/07/19 Lisinopril 20 mg PO DAILY 30 Days #30 tablet 05/07/19 Allergies/Adverse Reactions: acetaminophen [From Vicodin] Allergy (Verified 10/07/18 13:35) hydrocodone [From Vicodin] Allergy (Verified 10/07/18 13:35) Physical Exam Vital Signs: Temp Pulse Resp BP Pulse Ox 98.8 F 67 16 159/88 H 95 05/07/19 12:41 05/07/19 12:41 05/07/19 12:41 05/07/19 12:41 05/07/19 12:41 Intake & Output 05/07/19 05/08/19 05/09/19 06:59 06:59 06:59 Intake Total 2564 1354 Output Total 1578 Balance 986 1354 Weight 84.1 kg General appearance: PRESENT: no acute distress, well-developed, well-nourished Head exam: PRESENT: atraumatic, normocephalic Eye exam: PRESENT: conjunctiva pink, EOMI, PERRLA. ABSENT: scleral icterus Ear exam: PRESENT: normal external ear exam Mouth exam: PRESENT: moist, tongue midline Neck exam: ABSENT: carotid bruit, JVD, lymphadenopathy, thyromegaly Respiratory exam: PRESENT: clear to auscultation ector. ABSENT: rales, rhonchi, wheezes Cardiovascular exam: PRESENT: RRR. ABSENT: diastolic murmur, rubs, systolic murmur Pulses: PRESENT: normal dorsalis pedis pul Vascular exam: PRESENT: normal capillary refill GI/Abdominal exam: PRESENT: normal bowel sounds, soft. ABSENT: distended, guarding, mass, organolmegaly, rebound, tenderness Rectal exam: PRESENT: deferred Extremities exam: PRESENT: full ROM. ABSENT: calf tenderness, clubbing, pedal edema Neurological exam: PRESENT: alert, awake, oriented to person, oriented to place, oriented to time, CN II-XII grossly intact, other - Alert oriented x3 however there is slow when he is communicates.. ABSENT: motor sensory deficit Psychiatric exam: PRESENT: appropriate affect. ABSENT: homicidal ideation, suicidal ideation Skin exam: PRESENT: dry, intact, warm. ABSENT: cyanosis, rash Results Laboratory Results: 05/07/19 05:24 05/07/19 09:56 05/06/19 05/06/19 05:40 05:40 Creatine Kinase 248 H CK-MB (CK-2) 2.33 Troponin I < 0.012 Impressions: Head CT 05/06/19 05:38 IMPRESSION: 1. There is no evidence of acute intracranial pathology. 2. Minimal left frontal parietal scalp soft tissue swelling. Chest X-Ray 05/06/19 05:41 IMPRESSION: No acute disease. Assessment and Plan - Diagnosis (1) Seizure Is this a current diagnosis for this admission?: Yes Plan: No history of seizure disorder. History of noncompliance. Patient is stating that he missed 3 doses, does not provide any clear reason. Was admitted to [facility], with seizure fall precautions, restart Keppra and benzos as needed. Did not have any seizure episode while inpatient. Patient was extensively counseled on the need for medication adherence. Patient was discharged on Keppra 1000 mg p.o. twice daily and a prescription was provided for him for the next 3 months just in case he does not follow-up with PCP. (2) Acute kidney injury Is this a current diagnosis for this admission?: Yes Plan: Prerenal. Resolved. Started on cautious volume resuscitation, monitor volume status and electrolytes. (3) Hypertension Qualifiers: Is this a current diagnosis for this admission?: Yes Plan: Noncompliant. Start on lisinopril. Normotensive and euvolemic at the time of discharge. Was started on normal we will start on lisinopril. Outpatient PCP follow-up. (4) Hypokalemia Is this a current diagnosis for this admission?: Yes Plan: Likely due to low p.o. intake. Was started on supplemental p.o. potassium. Potassium three-point. Day of discharge, patient was given 40 mEq of p.o. potassium before discharge. Encouraged to follow-up with PCP for reevaluation of his potassium level.
--- NOTE | 2019-05-08 18:11 | PDOC DISCHARGE SUMMARY ---
Impression - Admit/DC Date/PCP Admission Date/Primary Care Provider: 05/06/19 08:12 Discharge Date: 05/07/19 - Discharge Diagnosis (1) Seizure Is this a current diagnosis for this admission?: Yes (2) Acute kidney injury Is this a current diagnosis for this admission?: Yes (3) Hypertension Is this a current diagnosis for this admission?: Yes - Additional Information Discharge Activity: Activity As Tolerated, Balance Activity w/Rest Prescriptions: Levetiracetam [Keppra] 1,000 mg PO Q12 90 Days #180 tab Lisinopril 20 mg PO DAILY 30 Days #30 tablet Home Medications: Levetiracetam [Keppra] 1,000 mg PO Q12 90 Days #180 tab 05/07/19 Lisinopril 20 mg PO DAILY 30 Days #30 tablet 05/07/19 History of Present Illiness History of Present Illness: AMADOR CHAVEZ is a 33 year old male with a known history of seizures noncompliant, TBI presented brought into ED by EMS after having a seizure at home. On my first encounter patient is very lethargic and postictal, arousable but does not provide any information, later that day when he was more alert and not lethargic anymore he stated that he missed 3 of his Depakote doses but did not provide any clear reasons. Patient denies any recent trauma, fever, chills, nausea, vomiting, diarrhea, constipation or any urinary symptoms. Hospital Course Hospital Course: (1) Seizure No history of seizure disorder. History of noncompliance. Patient is stating that he missed 3 doses, does not provide any clear reason. Was admitted to [facility], with seizure fall precautions, restart Keppra and benzos as needed. Did not have any seizure episode while inpatient. Patient was extensively counseled on the need for medication adherence. Patient was discharged on Keppra 1000 mg p.o. twice daily and a prescription was provided for him for the next 3 months just in case he does not follow-up with PCP. (2) Acute kidney injury Prerenal. Resolved. Started on cautious volume resuscitation, monitor volume status and electrolytes. (3) Hypertension Noncompliant. Start on lisinopril. Normotensive and euvolemic at the time of discharge. Was started on normal we will start on lisinopril. Outpatient PCP follow-up. (4) Hypokalemia Likely due to low p.o. intake. Was started on supplemental p.o. potassium. Potassium three-point. Day of discharge, patient was given 40 mEq of p.o. potassium before discharge. Encouraged to follow-up with PCP for reevaluation of his potassium level. Physical Exam Vital Signs: Temp Pulse Resp BP Pulse Ox 98.8 F 67 16 159/88 H 95 05/07/19 12:41 05/07/19 12:41 05/07/19 12:41 05/07/19 12:41 05/07/19 12:41 Intake & Output 05/07/19 05/08/19 05/09/19 06:59 06:59 06:59 Intake Total 2564 1354 Output Total 1578 Balance 986 1354 Weight 84.1 kg General appearance: PRESENT: no acute distress, well-developed, well-nourished Head exam: PRESENT: atraumatic, normocephalic Eye exam: PRESENT: conjunctiva pink, EOMI, PERRLA. ABSENT: scleral icterus Ear exam: PRESENT: normal external ear exam Mouth exam: PRESENT: moist, tongue midline Neck exam: ABSENT: carotid bruit, JVD, lymphadenopathy, thyromegaly Respiratory exam: PRESENT: clear to auscultation ector. ABSENT: rales, rhonchi, wheezes Cardiovascular exam: PRESENT: RRR. ABSENT: diastolic murmur, rubs, systolic murmur Pulses: PRESENT: normal dorsalis pedis pul Vascular exam: PRESENT: normal capillary refill GI/Abdominal exam: PRESENT: normal bowel sounds, soft. ABSENT: distended, guarding, mass, organolmegaly, rebound, tenderness Rectal exam: PRESENT: deferred Extremities exam: PRESENT: full ROM. ABSENT: calf tenderness, clubbing, pedal edema Neurological exam: PRESENT: alert, awake, oriented to person, oriented to place, oriented to time, oriented to situation, CN II-XII grossly intact, other - Alert oriented x3, however communicate is a very slowly.. ABSENT: motor sensory deficit Psychiatric exam: PRESENT: appropriate affect, normal mood. ABSENT: homicidal ideation, suicidal ideation Skin exam: PRESENT: dry, intact, warm. ABSENT: cyanosis, rash Results Laboratory Results: WBC 4.0 10^3/uL (4.0-10.5) 05/07/19 05:24 RBC 4.86 10^6/uL (4.35-5.55) 05/07/19 05:24 Hgb 14.9 g/dL (13.5-17.0) 05/07/19 05:24 Hct 44.8 % (37.9-51.0) 05/07/19 05:24 MCV 92 fl (80-97) 05/07/19 05:24 MCH 30.6 pg (27.0-33.4) 05/07/19 05:24 MCHC 33.2 g/dL (32.0-36.0) 05/07/19 05:24 RDW 15.0 % (11.5-14.0) H 05/07/19 05:24 Plt Count 173 10^3/uL (150-450) 05/07/19 05:24 Lymph % (Auto) 39.9 % (13-45) 05/07/19 05:24 [place] % (Auto) 16.0 % (3-13) H 05/07/19 05:24 Eos % (Auto) 0.3 % (0-6) 05/07/19 05:24 Baso % (Auto) 0.8 % (0-2) 05/07/19 05:24 Absolute Neuts (auto) 1.7 10^3/uL (1.7-8.2) 05/07/19 05:24 Absolute Lymphs (auto) 1.6 10^3/uL (0.5-4.7) 05/07/19 05:24 Absolute Monos (auto) 0.6 10^3/uL (0.1-1.4) 05/07/19 05:24 Absolute Eos (auto) 0.0 10^3/uL (0.0-0.6) 05/07/19 05:24 Absolute Basos (auto) 0.0 10^3/uL (0.0-0.2) 05/07/19 05:24 Seg Neutrophils % 43.0 % (42-78) 05/07/19 05:24 VBG pH 7.27 (7.30-7.42) L 05/06/19 06:58 VBG pCO2 47.1 mmHg (35-63) 05/06/19 06:58 VBG HCO3 21.1 mmol/L (20-32) 05/06/19 06:58 VBG Base Excess -6.1 mmol/L 05/06/19 06:58 Sodium 140.4 mmol/L (137-145) 05/07/19 09:56 Potassium 3.3 mmol/L (3.6-5.0) L 05/07/19 09:56 Chloride 112 mmol/L (98-107) H 05/07/19 09:56 Carbon Dioxide 16 mmol/L (22-30) L 05/07/19 09:56 Anion Gap 12 (5-19) 05/07/19 09:56 BUN 9 mg/dL (7-20) 05/07/19 09:56 Creatinine 1.23 mg/dL (0.52-1.25) 05/07/19 09:56 Est GFR ( Amer) > 60 (>60) 05/07/19 09:56 Est GFR (MDRD) Non-Af > 60 (>60) 05/07/19 09:56 Glucose 180 mg/dL (75-110) H 05/07/19 09:56 Calcium 9.1 mg/dL (8.4-10.2) 05/07/19 09:56 Magnesium 2.3 mg/dL (1.6-2.3) 05/07/19 09:56 Total Bilirubin 0.7 mg/dL (0.2-1.3) 05/07/19 09:56 Direct Bilirubin 0.2 mg/dL (0.0-0.4) 05/07/19 09:56 Neonat Total Bilirubin Not Reportable 05/07/19 09:56 Neonat Direct Bilirubin Not Reportable 05/07/19 09:56 Neonat Indirect Bili Not Reportable 05/07/19 09:56 AST 22 U/L (17-59) 05/07/19 09:56 ALT 18 U/L (<50) 05/07/19 09:56 Alkaline Phosphatase 81 U/L (38-126) 05/07/19 09:56 Creatine Kinase 248 U/L (55-170) H 05/06/19 05:40 CK-MB (CK-2) 2.33 ng/mL (<4.55) 05/06/19 05:40 Troponin I < 0.012 ng/mL 05/06/19 05:40 Total Protein 7.2 g/dL (6.3-8.2) 05/07/19 09:56 Albumin 3.8 g/dL (3.5-5.0) 05/07/19 09:56 Urine Color STRAW 05/06/19 05:40 Urine Appearance CLEAR 05/06/19 05:40 Urine pH 5.0 (5.0-9.0) 05/06/19 05:40 Ur Specific [place] 1.012 05/06/19 05:40 Urine Protein 30 mg/dL (NEGATIVE) H 05/06/19 05:40 Urine Glucose (UA) NEGATIVE mg/dL (NEGATIVE) 05/06/19 05:40 Urine Ketones NEGATIVE mg/dL (NEGATIVE) 05/06/19 05:40 Urine Blood MODERATE (NEGATIVE) H 05/06/19 05:40 Urine Nitrite NEGATIVE (NEGATIVE) 05/06/19 05:40 Urine Bilirubin NEGATIVE (NEGATIVE) 05/06/19 05:40 Urine Urobilinogen NEGATIVE mg/dL (<2.0) 05/06/19 05:40 Ur Leukocyte Esterase NEGATIVE (NEGATIVE) 05/06/19 05:40 Urine WBC (Auto) 0 /HPF 05/06/19 05:40 Urine RBC (Auto) 0 /HPF 05/06/19 05:40 U Hyaline Cast (Auto) 1 /LPF 05/06/19 05:40 Urine Mucus (Auto) RARE /LPF 05/06/19 05:40 Urine Ascorbic Acid NEGATIVE (NEGATIVE) 05/06/19 05:40 Salicylates < 1.0 mg/dL (2.0-20.0) L 05/06/19 05:40 Urine Opiates Screen NEGATIVE 05/06/19 05:40 Urine Methadone Screen NEGATIVE 05/06/19 05:40 Acetaminophen < 10 ug/mL (10-30) L 05/06/19 05:40 Ur Barbiturates Screen NEGATIVE 05/06/19 05:40 Ur Phencyclidine Scrn NEGATIVE 05/06/19 05:40 Ur Amphetamines Screen NEGATIVE 05/06/19 05:40 U Benzodiazepines Scrn UNCONFIRMED POSITIVE 05/06/19 05:40 Urine Cocaine Screen NEGATIVE 05/06/19 05:40 U Marijuana (THC) Screen NEGATIVE 05/06/19 05:40 Serum Alcohol < 10 mg/dL (NONE DETECTED) 05/06/19 05:40 05/06/19 05:40 CK-MB (CK-2) 2.33 Troponin I < 0.012 Impressions: Head CT 05/06/19 05:38 IMPRESSION: 1. There is no evidence of acute intracranial pathology. 2. Minimal left frontal parietal scalp soft tissue swelling. Chest X-Ray 05/06/19 05:41 IMPRESSION: No acute disease. Plan Time Spent: Greater than 30 Minutes Stroke Is this a Stroke Patient?: No Acute Heart Failure - Is this a Heart Failure Patient?: No
== END 2019-05-07 13:13 | disposition home or self-care (01) ==
LOC: ER 05:12 → INTOOBSV 08:12 → EH 08:12 → 3N 16:50
PROVIDERS: ADMIT Internal Medicine; ATTEND Internal Medicine
DX: R56.9 Unspecified convulsions (principal); I16.0 Hypertensive urgency; N17.9 Acute kidney failure, unspecified; I10 Essential (primary) hypertension; E87.6 Hypokalemia; F17.210 Nicotine dependence, cigarettes, uncomplicated; Z91.19 Patient's noncompliance with other medical treatment and regimen; Z87.820 Personal history of traumatic brain injury; Z88.6 Allergy status to analgesic agent; Z23 Encounter for immunization
CPT/HCPCS: 99285; 96361; 96374; 36415 ×2; 80177; 82553; 80307 ×4; 82550; 83735; 85025 ×2; 80053 ×2; 81001; 84484; 82803; 71045; 70450; 90686; 90471; J1644 ×2; A9270 ×8; J0360; J7042; J7030

== ENCOUNTER 2019-05-31 12:56 | Inpatient (IN) | payer MEDICARE, MEDICAID ==
[2019-05-31 14:06] LABS: ALBUMIN 5.4 g/dL (3.5-5.0); ALKALINE PHOSPHATASE 130 U/L (38-126); ASPARTATE AMINO TRANSFERASE 36 U/L (17-59); BILIRUBIN,DIRECT 0.2 mg/dL (0.0-0.4); BILIRUBIN,TOTAL 0.4 mg/dL (0.2-1.3); BLOOD UREA NITROGEN 9 mg/dL (7-20); CALCIUM 9.9 mg/dL (8.4-10.2); CHLORIDE 106 mmol/L (98-107); GLUCOSE 144 mg/dL (75-110); POTASSIUM 4.8 mmol/L (3.6-5.0); TOTAL PROTEIN 9.6 g/dL (6.3-8.2)
[2019-05-31] MEDS ORDERED: LEVETIRACETAM 1000 MG/NACL-ISO 1,000 MG/100 ML RTUPB IV ONE (14:13)
--- NOTE | 2019-05-31 14:14 | ER Document Report ---
ED Seizure - General Chief Complaint: Seizure Stated Complaint: POSSIBLE SEIZURE Time Seen by Provider: 05/31/19 14:04 - Related Data Allergies/Adverse Reactions: acetaminophen [From Vicodin] Allergy (Verified 10/07/18 13:35) hydrocodone [From Vicodin] Allergy (Verified 10/07/18 13:35) Past Medical History - Social History Smoking Status: Unknown if Ever Smoked Family History: None, Reviewed & Not Pertinent Patient has suicidal ideation: No Patient has homicidal ideation: No - Past Medical History Cardiac Medical History: Reports: Hx Hypertension Neurological Medical History: Reports: Hx Seizures Renal/ Medical History: Denies: Hx Peritoneal Dialysis Psychiatric Medical History: Denies: Hx Depression - Immunizations Immunizations up to date: No Hx Diphtheria, Pertussis, Tetanus Vaccination: Yes Physical Exam - Vital signs Vitals: Temp Resp BP Pulse Ox 98.2 F 27 H 182/108 H 94 05/31/19 13:03 05/31/19 13:03 05/31/19 13:03 05/31/19 13:03 Course - Vital Signs Vital signs: Temp Pulse Resp BP Pulse Ox 98.2 F 27 H 182/108 H 94 05/31/19 13:03 05/31/19 13:03 05/31/19 13:03 05/31/19 13:03 - Laboratory Result Diagrams: 05/31/19 13:14 05/31/19 13:14
[2019-05-31 14:16] LABS: ALCOHOL < 10 mg/dL (NONE DETECTED)
--- NOTE | 2019-05-31 14:16 | ER Document Report ---
ED Seizure - General Chief Complaint: Seizure Stated Complaint: POSSIBLE SEIZURE Time Seen by Provider: 05/31/19 14:04 Notes: Patient is a 33-year-old male who presents with a past medical history of seizures who presents emergency department after having 1 seizure at home and 4 with EMS. He was given 6 mg of Ativan in route to the hospital. Patient is postictal at this time. He is also sedated with the Ativan. He is unable to give me any meaningful history. Primary nurse has reported to be that the patient has been drinking alcohol. - Related Data Allergies/Adverse Reactions: acetaminophen [From Vicodin] Allergy (Verified 10/07/18 13:35) hydrocodone [From Vicodin] Allergy (Verified 10/07/18 13:35) Past Medical History - Social History Smoking Status: Unknown if Ever Smoked Family History: None, Reviewed & Not Pertinent Patient has suicidal ideation: No Patient has homicidal ideation: No - Past Medical History Cardiac Medical History: Reports: Hx Hypertension Neurological Medical History: Reports: Hx Seizures Renal/ Medical History: Denies: Hx Peritoneal Dialysis Psychiatric Medical History: Denies: Hx Depression - Immunizations Immunizations up to date: No Hx Diphtheria, Pertussis, Tetanus Vaccination: Yes Review of Systems - Review of Systems -: Yes ROS unobtainable due to patient's medical condition Physical Exam - Vital signs Vitals: Temp Resp BP Pulse Ox 98.2 F 27 H 182/108 H 94 05/31/19 13:03 05/31/19 13:03 05/31/19 13:03 05/31/19 13:03 - Notes Notes: PHYSICAL EXAMINATION: GENERAL: Appears well, healthy, well-nourished, no acute distress. HEAD: Normocephalic, atraumatic. EYES: PERRL, conjunctiva normal, all extraocular movements intact, sclera nonicteric ENT: Moist mucous membranes. NECK: Supple, no noticeable swelling, redness, rash. Normal range of motion. LUNGS: Equal breath sounds bilaterally and clear to auscultation. No wheezes rales or rhonchi. CARDIOVASCULAR: S1-S2, tachycardic, regular rhythm. Radial pulses 2+, normal. ABDOMEN: Normoactive bowel sounds. Soft, nontender, no guarding, no rebound tenderness, and no masses palpated. EXTREMITIES: Normal strength and range of motion, no pitting or edema. No cyanosis. NEUROLOGICAL: Obtunded, but able to protect airway. PSYCH: Normal mood, normal affect. SKIN: Warm, dry. No rash, lesions, ulcerations noted. Normal skin turgor. Course - Re-evaluation Re-evalutation: 05/31/19 17:2 patient 5 Hematology shows a leukocytosis of 18,200. In the ED due to him having a seizure. No bandemia noted. Chemistries show a bicarb less than 5. His creatinine is also elevated at 4 and the patient was here he did have an acute kidney injury. Urinalysis shows protein and blood in his urine. This is most likely due to dehydration. Patient received a liter of IV fluids here in the emergency department. Surprisingly, the patient's alcohol level is nondetectable and toxicology screen is negative. Patient was positive for illicit drugs. Due to the patient having seizures and is not fully out of his postictal state, will call hospitalist for admission. CT of the head and chest x-ray are unremarkable. 05/31/19 17:[address] Wilson, the patient will be admitted to [facility]. - Vital Signs Vital signs: Temp Pulse Resp BP Pulse Ox 99.0 F 92 16 135/75 H 99 06/01/19 19:34 06/01/19 19:34 06/01/19 19:34 06/01/19 19:34 06/01/19 19:34 - Laboratory Result Diagrams: 06/01/19 04:27 06/01/19 04:27 Laboratory results interpreted by me: 05/31/19 05/31/19 05/31/19 13:14 14:32 15:49 WBC 18.2 H RDW 14.6 H Seg Neuts % (Manual) 90 H Lymphocytes % (Manual) 3 L Abs Neuts (Manual) 16.4 H ABG pH ABG pO2 ABG HCO3 ABG Total CO2 Carbon Dioxide < 5 L* Creatinine 1.48 H Est GFR (MDRD) Non-Af 54 L Glucose 144 H Alkaline Phosphatase 130 H Total Protein 9.6 H Albumin 5.4 H Urine Protein 100 H Urine Blood MODERATE H 05/31/19 17:06 WBC RDW Seg Neuts % (Manual) Lymphocytes % (Manual) Abs Neuts (Manual) ABG pH 7.31 L ABG pO2 78.3 L ABG HCO3 17.8 L ABG Total CO2 18.9 L Carbon Dioxide Creatinine Est GFR (MDRD) Non-Af Glucose Alkaline Phosphatase Total Protein Albumin Urine Protein Urine Blood - EKG Interpretation by Me Additional EKG results interpreted by me: 05/31/19 17:36 Sinus rhythm. Rate 92. RI 148; QRS 92; QT 400; QTc 495. No ST elevations or depressions noted. Discharge - Discharge Clinical Impression: Seizure, Dehydration Altered mental status Qualifiers: Altered mental status type: unspecified Qualified Code(s): R41.82 - Altered mental status, unspecified Condition: Stable Disposition: ADMITTED INPATIENT Admitting Provider: Reilly (Hospitalist) Unit Admitted: [facility]
[2019-05-31] MEDS ORDERED: NORMAL SALINE 1000 ML 1,000 ML IV ONE (14:28)
[2019-05-31 14:33] LABS: CARBON DIOXIDE < 5 mmol/L (22-30)
[2019-05-31] MEDS ORDERED: LEVETIRACETAM 500 MG/NACL-ISO 500 MG/100 ML RTUPB IV ONE (14:36)
[2019-05-31 15:16] LABS: APPEARANCE,URINE SLIGHTLY-CLOUDY; BILIRUBIN,URINE NEGATIVE (NEGATIVE); COLOR,URINE STRAW; GLUCOSE, URINE NEGATIVE (NEGATIVE); KETONES,URINE NEGATIVE (NEGATIVE); PROTEIN,URINE 100 mg/dL (NEGATIVE); URINE SPECIFIC GRAVITY 1.011; UROBILINOGEN,URINE NEGATIVE mg/dL (<2.0)
--- NOTE | 2019-05-31 15:20 | RADIOLOGY REPORT (SQ) ---
EXAM DESCRIPTION: CT HEAD WITHOUT COMPLETED DATE/TIME: 05/31/2019 3:00 pm REASON FOR STUDY: seizure, AMS; HTN COMPARISON: CT of the head without contrast from 05/06/2019. TECHNIQUE: Axial images acquired through the brain without intravenous contrast. Images reviewed wi th bone, brain and subdural windows. Additional sagittal and coronal reconstructions were generated. Images stored on PACS. All CT scanners at this facility use dose modulation, iterative reconstruction, and/or weight based d osing when appropriate to reduce radiation dose to as low as reasonably achievable (ALARA). [facility]: Dose Right [facility]: CareDose [facility]: Dose Right [facility]: Teradose 4D [facility]: VGTI [place] RADIATION DOSE: CT Rad equipment meets quality standard of care and radiation dose reduction techniq ues were employed. CTDIvol: 48.8 mGy. DLP: 1104 mGy-cm. mGy. LIMITATIONS: None. FINDINGS: There is no acute intracranial hemorrhage, vascular territorial infarct, extra-axial fluid collection, mass effect or midline shift. There is no effacement of the cerebral sulci or basal sub arachnoid cisterns. The sanchez-white matter differentiation is preserved. The caliber of the ventricl es is concordant with the degree of sulcation. The orbits and globes are intact. The paranasal sinuses and the mastoid air cells are clear. There is a left frontoparietal scalp hematoma/laceration. There is no associated fracture of the calvarium . IMPRESSION: 1. No acute intracranial abnormality. 2. Left frontoparietal scalp hematoma/laceration. EVIDENCE OF ACUTE STROKE: NO. COMMENT: Quality ID # [id number]: Final reports with documentation of one or more dose reduction techniques (e.g., Automated exposure control, adjustment of the mA and/or kV according to patient size, use of iterative reconstruction technique) TECHNICAL DOCUMENTATION: JOB ID: [id number] [employer]- All Rights Reserved Reading location - IP/workstation name: [email or web address]
[2019-05-31 15:32] LABS: URINE AMPHETAMINES SCREEN NEGATIVE; URINE BARBITURATES SCREEN NEGATIVE; URINE BENZODIAZEPINES SCREEN NEGATIVE; URINE COCAINE SCREEN NEGATIVE; URINE MARIJUANA (THC) SCREEN NEGATIVE; URINE METHADONE SCREEN NEGATIVE; URINE PHENCYCLIDINE SCREEN NEGATIVE
--- NOTE | 2019-05-31 15:32 | RADIOLOGY REPORT (SQ) ---
EXAM DESCRIPTION: CHEST SINGLE VIEW COMPLETED DATE/TIME: 05/31/2019 3:14 pm REASON FOR STUDY: vomiting; eval aspiration PNA COMPARISON: AP view of the chest from 05/06/2019. EXAM PARAMETERS: NUMBER OF VIEWS: One view. TECHNIQUE: Single frontal radiographic view of the chest acquired. RADIATION DOSE: NA LIMITATIONS: None. FINDINGS: LUNGS AND PLEURA: No consolidation, pleural effusion or pneumothorax. MEDIASTINUM AND HILAR STRUCTURES: No mediastinal or hilar contour abnormality. HEART AND VASCULAR STRUCTURES: The cardiac silhouette is enlarged. The pulmonary vasculature is with in normal limits given the low inspiratory lung volumes. BONES: No acute findings. HARDWARE: None in the chest. OTHER: No other finding. IMPRESSION: Cardiomegaly without a superimposed acute cardiopulmonary process. TECHNICAL DOCUMENTATION: JOB ID: [id number] [employer]- All Rights Reserved Reading location - IP/workstation name: [email or web address]
[2019-05-31 16:01] LABS: HEMOGLOBIN 16.9 g/dL (13.5-17.0); MEAN CORPUSCULAR HEMOGLOBIN 30.9 pg (27.0-33.4); MEAN CORPUSCULAR HGB CONC 33.9 g/dL (32.0-36.0); MEAN CORPUSCULAR VOLUME 91 fl (80-97); PLATELET COUNT 176 10^3/uL (150-450); RED BLOOD COUNT 5.49 10^6/uL (4.35-5.55); RED CELL DISTRIBUTION WIDTH 14.6 % (11.5-14.0); WHITE BLOOD COUNT 18.2 10^3/uL (4.0-10.5)
--- NOTE | 2019-05-31 16:19 | EKG REPORT ---
SEVERITY:- ABNORMAL ECG - SINUS RHYTHM PROBABLE LEFT ATRIAL ABNORMALITY PROBABLE LEFT VENTRICULAR HYPERTROPHY ANTERIOR Q WAVES, POSSIBLY DUE TO LVH PROLONGED QT INTERVAL : Confirmed by: Maddy Marx MD 31-May-2019 16:18:45
[2019-05-31 16:28] LABS: ABSOLUTE LYMPHOCYTES# (MANUAL) 0.7 10^3/uL (0.5-4.7); ABSOLUTE MONOCYTES # (MANUAL) 1.1 10^3/uL (0.1-1.4); ANISOCYTOSIS SLIGHT; BASOPHILS % (MANUAL) 0 % (0-2); EOSINOPHILS % (MANUAL) 0 % (0-6); LYMPHOCYTES % (MANUAL) 3 % (13-45); MONOCYTES % (MANUAL) 6 % (3-13); PLATELET COMMENT ADEQUATE; SEGMENTED NEUTROPHILS % (MAN) 90 % (42-78); TOTAL CELLS COUNTED 100
[2019-05-31] MEDS ORDERED: HYDRALAZINE HCL INJ/PF 20 MG/1 ML SDV IV ONE ×2 (17:15→17:35)
[2019-05-31 17:23] LABS: ARTERIAL BLOOD BASE EXCESS -7.6 mmol/L; ARTERIAL BLOOD FIO2 ROOM AIR; ARTERIAL BLOOD H2CO3 1.09 mmol/L (1.05-1.35); ARTERIAL BLOOD HCO3 17.8 mmol/L (20-24); ARTERIAL BLOOD O2 SATURATION 94.6 % (94-98); ARTERIAL BLOOD PCO2 36.1 mmHg (35-45); ARTERIAL BLOOD PH 7.31 (7.35-7.45); ARTERIAL BLOOD PO2 78.3 mmHg (80-100); ARTERIAL BLOOD TOTAL CO2 18.9 mmol/L (23-27)
[2019-05-31] MEDS ORDERED: DEXTROSE 5%-NORMAL SALINE 1,000 ML IV PRN ×2 (17:55→18:36)
[2019-05-31] MEDS ORDERED: ONDANSETRON HCL INJ/PF 4 MG/2 ML SDV IV PRN (17:55)
[2019-05-31] MEDS ORDERED: PROMETHAZINE HCL INJ 25 MG/1 ML VIAL IV PRN (17:55)
[2019-05-31] MEDS ORDERED: IPRATROPIUM/ALBUTEROL 0.5-2.5 MG/3 ML AMPUL NEB PRN (17:55)
[2019-05-31] MEDS ORDERED: LORAZEPAM INJ 2 MG/1 ML VIAL IV PRN (18:00)
--- NOTE | 2019-05-31 18:17 | PDOC H&P ---
History of Present Illness History of Present Illness: AMADOR CHAVEZ is a 33 year old male past medical history of TBI, seizure disorder, EtOH abuse, hypertension known to be medically noncompliant recently discharged after sustaining a seizure brought in by ED after having a seizure at home, and for seizure in route to the hospital. In ED he was noted to be postictal, started on Keppra and hospitalist admitted for admission. On my encounter patient is heavily sedated arousable to voice unfortunately no family available at the bedside. CT head negative for any acute abnormalities, CBC positive for leukocytosis and CMP positive for BERRY. Past Medical History Cardiac Medical History: Reports: Hypertension Neurological Medical History: Reports: Seizures Psychiatric Medical History: Denies: Depression Social History Smoking Status: Unknown if Ever Smoked Frequency of Alcohol Use: Occasional Hx Recreational Drug Use: No Drugs: None Hx Prescription Drug Abuse: No Family History Family History: None, Reviewed & Not Pertinent Parental Family History Reviewed: Yes Children Family History Reviewed: Yes Sibling(s) Family History Reviewed.: Yes Medication/Allergy Home Medications: Levetiracetam [Keppra] 1,000 mg PO Q12 90 Days #180 tab 05/07/19 Lisinopril 20 mg PO DAILY 30 Days #30 tablet 05/07/19 Allergies/Adverse Reactions: acetaminophen [From Vicodin] Allergy (Verified 10/07/18 13:35) hydrocodone [From Vicodin] Allergy (Verified 10/07/18 13:35) Review of Systems ROS unobtainable: Due to mental status Physical Exam Vital Signs: Temp Pulse Resp BP Pulse Ox 98.2 F 15 188/127 H 98 05/31/19 13:03 05/31/19 17:33 05/31/19 17:33 05/31/19 17:33 Intake & Output 05/30/19 05/31/19 06/01/19 06:59 06:59 06:59 Intake Total 1100 Balance 1100 Weight 81.647 kg General appearance: PRESENT: no acute distress, well-developed, well-nourished Neck exam: ABSENT: carotid bruit, JVD, lymphadenopathy, thyromegaly Respiratory exam: PRESENT: clear to auscultation ector. ABSENT: rales, rhonchi, wheezes Cardiovascular exam: PRESENT: RRR. ABSENT: diastolic murmur, rubs, systolic murmur Pulses: PRESENT: normal dorsalis pedis pul Extremities exam: PRESENT: full ROM. ABSENT: calf tenderness, clubbing, pedal edema Neurological exam: PRESENT: other - Heavily sedated due to receiving be nzodiazepine.. ABSENT: motor sensory deficit Results Laboratory Results: 05/31/19 15:49 05/31/19 13:14 05/31/19 05/31/19 05/31/19 13:14 13:14 14:32 WBC Cancelled RBC Cancelled Hgb Cancelled Hct Cancelled MCV Cancelled MCH Cancelled MCHC Cancelled RDW Cancelled Plt Count Cancelled Seg Neutrophils % Cancelled Carbonic Acid HCO3/H2CO3 Ratio ABG pH ABG pCO2 ABG pO2 ABG HCO3 ABG O2 Saturation ABG Base Excess FiO2 Sodium 144.8 Potassium 4.8 Chloride 106 Carbon Dioxide < 5 L* Anion Gap Not Reportable BUN 9 Creatinine 1.48 H Est GFR ( Amer) > 60 Glucose 144 H Calcium 9.9 Total Bilirubin 0.4 AST 36 Alkaline Phosphatase 130 H Total Protein 9.6 H Albumin 5.4 H Urine Color STRAW Urine Appearance SLIGHTLY-CLOUDY Urine pH 5.0 Ur Specific [place] 1.011 Urine Protein 100 H Urine Glucose (UA) NEGATIVE Urine Ketones NEGATIVE Urine Blood MODERATE H Urine RBC (Auto) 0 05/31/19 05/31/19 15:49 17:06 WBC 18.2 H RBC 5.49 Hgb 16.9 Hct 50.0 MCV 91 MCH 30.9 MCHC 33.9 RDW 14.6 H Plt Count 176 Seg Neutrophils % Not Reportable Carbonic Acid 1.09 HCO3/H2CO3 Ratio 16:1 ABG pH 7.31 L ABG pCO2 36.1 ABG pO2 78.3 L ABG HCO3 17.8 L ABG O2 Saturation 94.6 ABG Base Excess -7.6 FiO2 ROOM AIR Sodium Potassium Chloride Carbon Dioxide Anion Gap BUN Creatinine Est GFR ( Amer) Glucose Calcium Total Bilirubin AST Alkaline Phosphatase Total Protein Albumin Urine Color Urine Appearance Urine pH Ur Specific [place] Urine Protein Urine Glucose (UA) Urine Ketones Urine Blood Urine RBC (Auto) Impressions: Head CT 05/31/19 14:13 IMPRESSION: 1. No acute intracranial abnormality. 2. Left frontoparietal scalp hematoma/laceration. EVIDENCE OF ACUTE STROKE: NO. Chest X-Ray 05/31/19 14:14 IMPRESSION: Cardiomegaly without a superimposed acute cardiopulmonary process. Assessment and Plan - Diagnosis (1) Seizure Is this a current diagnosis for this admission?: Yes Plan: Known history of seizure disorder. History of noncompliance. Will to admitted to [facility], with seizure fall precautions, restart Keppra and benzos as needed. (2) Metabolic acidosis Is this a current diagnosis for this admission?: Yes Plan: Likely due to underlying seizure. We will start on sodium bicarbonate and follow BMP. (3) Kidney injury Qualifiers: Encounter type: subsequent encounter Laterality: unspecified laterality Qualified Code(s): S37.009D - Unspecified injury of unspecified kidney, subsequent encounter Is this a current diagnosis for this admission?: Yes Plan: Prerenal. Likely due to low p.o. intake. We will start on cautious volume resuscitation, monitor volume status and electrolytes. (4) Hypertension Qualifiers: Is this a current diagnosis for this admission?: Yes Plan: Known history of noncompliant. Home meds are lisinopril. Admit to telemetry, PRN hydralazine and labetalol, restart home meds once kidney function improves. Outpatient PCP follow-up.
[2019-05-31] MEDS ORDERED: METOPROLOL TARTRATE PF/INJ 5 MG/5 ML SDV IV PRN (18:30)
[2019-05-31] MEDS ORDERED: HYDRALAZINE HCL INJ/PF 20 MG/1 ML SDV ONE (18:36)
[2019-05-31] MEDS: HYDRALAZINE HCL INJ/PF 20 MG/1 ML SDV IV PRN (18:41)
[2019-05-31] MEDS: DEXTROSE 5%-WATER 1000 ML 1,000 ML with SODIUM BICARBONATE 100 MEQ IV PRN ×2 (19:46)
[2019-05-31 21:16] LABS: BLOOD UREA NITROGEN 12 mg/dL (7-20); CALCIUM 7.8 mg/dL (8.4-10.2); CHLORIDE 99 mmol/L (98-107)
[2019-05-31 21:28] LABS: ANION GAP 11 (5-19)
[2019-05-31 21:32] LABS: CARBON DIOXIDE 26 mmol/L (22-30); POTASSIUM 3.1 mmol/L (3.6-5.0)
[2019-05-31 21:39] LABS: GLUCOSE 554 mg/dL (75-110)
[2019-05-31] MEDS: LEVETIRACETAM 1500 MG/NACL-ISO 1,500 MG/100 ML RTUPB IV SCH (21:57)
[2019-05-31] MEDS: HEPARIN SOD (PORCINE) 5,000 UNIT/ML 1 ML VIAL SUBCUT SCH (21:58)
[2019-05-31] MEDS: LABETALOL HCL INJ 20 MG/4 ML DISP.SYRIN IV PRN (22:00)
[2019-05-31 23:06] LABS: ANION GAP 15 (5-19); BLOOD UREA NITROGEN 13 mg/dL (7-20); CALCIUM 9.2 mg/dL (8.4-10.2); CARBON DIOXIDE 17 mmol/L (22-30); CHLORIDE 112 mmol/L (98-107); GLUCOSE 100 mg/dL (75-110); POTASSIUM 3.8 mmol/L (3.6-5.0)
[2019-05-31] MEDS ORDERED: INFLUENZA QUAD (6MOS+) 2019-20 VAC 0.5 ML SYR IM ONE (23:47)
[2019-06-01] MEDS: HYDRALAZINE HCL INJ/PF 20 MG/1 ML SDV IV PRN ×2 (00:47→12:56)
[2019-06-01] MEDS: PANTOPRAZOLE SODIUM 40 MG TABLET.DR PO SCH ×2 (05:33→17:11)
[2019-06-01] MEDS: HEPARIN SOD (PORCINE) 5,000 UNIT/ML 1 ML VIAL SUBCUT SCH ×3 (05:33→21:04)
[2019-06-01 07:13] LABS: ALBUMIN 4.2 g/dL (3.5-5.0); ALKALINE PHOSPHATASE 104 U/L (38-126); ANION GAP 11 (5-19); ASPARTATE AMINO TRANSFERASE 33 U/L (17-59); BILIRUBIN,DIRECT 0.3 mg/dL (0.0-0.4); BILIRUBIN,TOTAL 0.8 mg/dL (0.2-1.3); BLOOD UREA NITROGEN 13 mg/dL (7-20); CARBON DIOXIDE 22 mmol/L (22-30); CHLORIDE 110 mmol/L (98-107); GLUCOSE 114 mg/dL (75-110); POTASSIUM 3.2 mmol/L (3.6-5.0); TOTAL PROTEIN 7.8 g/dL (6.3-8.2)
[2019-06-01] MEDS: DEXTROSE 5%-WATER 1000 ML 1,000 ML with SODIUM BICARBONATE 100 MEQ IV PRN ×2 (08:00)
[2019-06-01] MEDS: LABETALOL HCL INJ 20 MG/4 ML DISP.SYRIN IV PRN (08:01)
[2019-06-01 08:19] LABS: MEAN CORPUSCULAR HEMOGLOBIN 31.4 pg (27.0-33.4); MEAN CORPUSCULAR HGB CONC 34.7 g/dL (32.0-36.0); MEAN CORPUSCULAR VOLUME 90 fl (80-97); PLATELET COUNT 165 10^3/uL (150-450); RED BLOOD COUNT 5.09 10^6/uL (4.35-5.55); RED CELL DISTRIBUTION WIDTH 14.5 % (11.5-14.0); WHITE BLOOD COUNT 10.4 10^3/uL (4.0-10.5)
[2019-06-01] MEDS ORDERED: HYDRALAZINE HCL INJ/PF 20 MG/1 ML SDV IV ONE (09:00)
[2019-06-01] MEDS: LEVETIRACETAM 1500 MG/NACL-ISO 1,500 MG/100 ML RTUPB IV SCH (09:43)
[2019-06-01] MEDS ORDERED: LEVETIRACETAM INJ/PF 500 MG/5 ML SDV IV SCH (10:00)
[2019-06-01] MEDS ORDERED: LISINOPRIL 10 MG TABLET PO SCH (10:00)
[2019-06-01] MEDS ORDERED: (PENDING PHARMACY ID) (Lisinopril [Lisinopril] 20 MG) PO SCH (10:00)
[2019-06-01] MEDS: NORMAL SALINE 1000 ML 1,000 ML IV PRN (11:34)
[2019-06-01] MEDS ORDERED: POTASSIUM CHLORIDE 10 MEQ CAPSULE.ER PO ONE (13:04)
--- NOTE | 2019-06-01 13:14 | PDOC PROGRESS REPORT ---
Subjective Progress Note for:: 06/01/19 Subjective:: AMADOR CHAVEZ is a 33 year old male past medical history of TBI, seizure disorder, EtOH abuse, hypertension known to be medically noncompliant recently discharged after sustaining a seizure brought in by ED after having a seizure at home, and for seizure in route to the hospital. In ED he was noted to be postictal, started on Keppra and hospitalist admitted for admission. On my encounter patient is heavily sedated arousable to voice unfortunately no family available at the bedside. CT head negative for any acute abnormalities, CBC positive for leukocytosis and CMP positive for BERRY. 06/01/2019. No acute events overnight. Patient has not had any seizures since admission. On my encounter patient is sitting on the edge of his pain enjoying his breakfast. Patient back to baseline. Patient does not communicate much but will talk to he responds however very slowly. He stating that he is taking his medication does not know what caused his seizure. Patient living with his and when asked if she is taking care of him he states yes. Patient complaining of chronic right shoulder pain and some headache otherwise denies any fever, chills, nausea, vomiting, diarrhea, constipation or any urinary symptoms. Reason For Visit: SEIZURE,DEHUDRATION,AMS Physical Exam Vital Signs: Temp Pulse Resp BP Pulse Ox 98.2 F 91 16 158/107 H 99 06/01/19 12:36 06/01/19 12:36 06/01/19 12:36 06/01/19 12:36 06/01/19 12:36 Intake & Output 05/31/19 06/01/19 06/02/19 06:59 06:59 06:59 Intake Total 2550 400 Output Total 1150 Balance 1400 400 Weight 76.8 kg General appearance: PRESENT: no acute distress, well-developed, well-nourished Head exam: PRESENT: atraumatic, normocephalic Respiratory exam: PRESENT: clear to auscultation ector. ABSENT: rales, rhonchi, wheezes GI/Abdominal exam: PRESENT: normal bowel sounds, soft. ABSENT: distended, guarding, mass, organolmegaly, rebound, tenderness Extremities exam: PRESENT: full ROM - Right shoulder pain upon abduction.. ABSENT: calf tenderness, clubbing, pedal edema Neurological exam: PRESENT: alert, awake, oriented to person, oriented to place, oriented to time, CN II-XII grossly intact. ABSENT: motor sensory deficit Results Laboratory Results: 06/01/19 04:27 06/01/19 04:27 05/31/19 05/31/19 05/31/19 13:14 13:14 14:32 WBC Cancelled RBC Cancelled Hgb Cancelled Hct Cancelled MCV Cancelled MCH Cancelled MCHC Cancelled RDW Cancelled Plt Count Cancelled Seg Neutrophils % Cancelled Carbonic Acid HCO3/H2CO3 Ratio ABG pH ABG pCO2 ABG pO2 ABG HCO3 ABG O2 Saturation ABG Base Excess FiO2 Sodium 144.8 Potassium 4.8 Chloride 106 Carbon Dioxide < 5 L* Anion Gap Not Reportable BUN 9 Creatinine 1.48 H Est GFR ( Amer) > 60 Glucose 144 H Calcium 9.9 Magnesium Total Bilirubin 0.4 AST 36 Alkaline Phosphatase 130 H Total Protein 9.6 H Albumin 5.4 H Urine Color STRAW Urine Appearance SLIGHTLY-CLOUDY Urine pH 5.0 Ur Specific [place] 1.011 Urine Protein 100 H Urine Glucose (UA) NEGATIVE Urine Ketones NEGATIVE Urine Blood MODERATE H Urine RBC (Auto) 0 05/31/19 05/31/19 05/31/19 15:49 17:06 20:41 WBC 18.2 H RBC 5.49 Hgb 16.9 Hct 50.0 MCV 91 MCH 30.9 MCHC 33.9 RDW 14.6 H Plt Count 176 Seg Neutrophils % Not Reportable Carbonic Acid 1.09 HCO3/H2CO3 Ratio 16:1 ABG pH 7.31 L ABG pCO2 36.1 ABG pO2 78.3 L ABG HCO3 17.8 L ABG O2 Saturation 94.6 ABG Base Excess -7.6 FiO2 ROOM AIR Sodium 135.5 L Potassium 3.1 L D Chloride 99 Carbon Dioxide 26 D Anion Gap 11 BUN 12 Creatinine 1.13 Est GFR ( Amer) > 60 Glucose 554 H* Calcium 7.8 L Magnesium Total Bilirubin AST Alkaline Phosphatase Total Protein Albumin Urine Color Urine Appearance Urine pH Ur Specific [place] Urine Protein Urine Glucose (UA) Urine Ketones Urine Blood Urine RBC (Auto) 05/31/19 06/01/19 06/01/19 22:33 04:27 04:27 WBC 10.4 RBC 5.09 Hgb 16.0 Hct 46.0 MCV 90 MCH 31.4 MCHC 34.7 RDW 14.5 H Plt Count 165 Seg Neutrophils % Carbonic Acid HCO3/H2CO3 Ratio ABG pH ABG pCO2 ABG pO2 ABG HCO3 ABG O2 Saturation ABG Base Excess FiO2 Sodium 143.5 143.0 Potassium 3.8 3.2 L Chloride 112 H 110 H Carbon Dioxide 17 L 22 Anion Gap 15 11 BUN 13 13 Creatinine 1.42 H 1.42 H Est GFR ( Amer) > 60 > 60 Glucose 100 114 H Calcium 9.2 9.0 Magnesium 2.8 H Total Bilirubin 0.8 AST 33 Alkaline Phosphatase 104 Total Protein 7.8 Albumin 4.2 Urine Color Urine Appearance Urine pH Ur Specific [place] Urine Protein Urine Glucose (UA) Urine Ketones Urine Blood Urine RBC (Auto) Impressions: Head CT 05/31/19 14:13 IMPRESSION: 1. No acute intracranial abnormality. 2. Left frontoparietal scalp hematoma/laceration. EVIDENCE OF ACUTE STROKE: NO. Chest X-Ray 05/31/19 14:14 IMPRESSION: Cardiomegaly without a superimposed acute cardiopulmonary process. Assessment and Plan - Diagnosis (1) Seizure Is this a current diagnosis for this admission?: Yes Plan: Known history of seizure disorder. History of noncompliance. No recurrence since admission. Switch IV Keppra to p.o. Continue PRN benzos, fall and seizure precautions. (2) Metabolic acidosis Is this a current diagnosis for this admission?: Yes Plan: Resolved. Non-anion gap metabolic acidosis. Likely due to underlying seizure. Bicarbonate WNL. Electrolytes WNL except for low potassium. DC bicarb drip. Continue treating the underlying seizure. (3) Kidney injury Qualifiers: Encounter type: subsequent encounter Laterality: unspecified laterality Qualified Code(s): S37.009D - Unspecified injury of unspecified kidney, subsequent encounter Is this a current diagnosis for this admission?: Yes Plan: Improving. Prerenal. Likely due to low p.o. intake. Cautious volume resuscitation, monitor volume status and electrolytes. (4) Hypertension Qualifiers: Is this a current diagnosis for this admission?: Yes Plan: Improving. Not optimized. Known history of noncompliant. Home meds are lisinopril. Continue telemetry, PRN hydralazine and labetalol, restart home meds once kidney function improves. Outpatient PCP follow-up. (5) Right shoulder pain Qualifiers: Chronicity: chronic Qualified Code(s): M25.511 - Pain in right shoulder; G89.29 - Other chronic pain Is this a current diagnosis for this admission?: Yes Plan: Right shoulder pain from abduction. Neurovascularly intact. Chronic. We will obtain x-rays. Continue supportive measures. We will consult orthopedic surgery if x-rays are positive. (6) Hypokalemia Is this a current diagnosis for this admission?: Yes Plan: Replenished. No acute EKG changes. BMP tomorrow.
--- NOTE | 2019-06-01 14:03 | RADIOLOGY REPORT (SQ) ---
EXAM DESCRIPTION: SHOULDER RIGHT 2 OR MORE VIEWS COMPLETED DATE/TIME: 06/01/2019 1:51 pm REASON FOR STUDY: Right shoulder pain COMPARISON: None. NUMBER OF VIEWS: Three views. TECHNIQUE: Internal rotation, external rotation, and Y view images acquired of the right shoulder. LIMITATIONS: None. FINDINGS: MINERALIZATION: Normal. BONES: No acute fracture. No worrisome bone lesions. JOINTS: No dislocation. VISUALIZED LUNGS AND RIBS: No pneumothorax. No rib fracture. SOFT TISSUES: No radiopaque foreign body. OTHER: No other significant finding. IMPRESSION: NEGATIVE STUDY OF THE RIGHT SHOULDER. NO RADIOGRAPHIC EVIDENCE OF ACUTE INJURY. TECHNICAL DOCUMENTATION: JOB ID: [id number] [employer]- All Rights Reserved Reading location - IP/workstation name: [email or web address]
[2019-06-01] MEDS: FOLIC ACID 1 MG TABLET PO SCH (17:11)
[2019-06-01] MEDS: THIAMINE HCL 100 MG TABLET PO SCH (17:11)
[2019-06-01] MEDS: LEVETIRACETAM 500 MG TABLET PO SCH (21:04)
[2019-06-02] MEDS: NORMAL SALINE 1000 ML 1,000 ML IV PRN (00:48)
[2019-06-02] MEDS: HEPARIN SOD (PORCINE) 5,000 UNIT/ML 1 ML VIAL SUBCUT SCH ×3 (05:24→22:05)
[2019-06-02] MEDS: PANTOPRAZOLE SODIUM 40 MG TABLET.DR PO SCH ×2 (05:24→18:11)
[2019-06-02] MEDS ORDERED: PIPERACILLIN SODIUM/TAZOBACTAM 3.375 GM in NORMAL SALINE 100 ML IV SCH (06:00)
[2019-06-02 06:20] LABS: HEMATOCRIT 45.6 % (37.9-51.0); HEMOGLOBIN 15.4 g/dL (13.5-17.0); MEAN CORPUSCULAR HGB CONC 33.8 g/dL (32.0-36.0); MEAN CORPUSCULAR VOLUME 92 fl (80-97); PLATELET COUNT 140 10^3/uL (150-450); RED BLOOD COUNT 4.98 10^6/uL (4.35-5.55); RED CELL DISTRIBUTION WIDTH 14.7 % (11.5-14.0); WHITE BLOOD COUNT 5.6 10^3/uL (4.0-10.5)
[2019-06-02] MEDS ORDERED: PIPERACILLIN/TAZOBACTAM 3.375 GM VIAL IV PRN (07:01)
[2019-06-02] MEDS ORDERED: VANCOMYCIN HCL 0 MG in DEXTROSE 5%-WATER 250 ML IV NR (07:30)
[2019-06-02 08:33] LABS: ALBUMIN 3.7 g/dL (3.5-5.0); ALKALINE PHOSPHATASE 81 U/L (38-126); ANION GAP 7 (5-19); ASPARTATE AMINO TRANSFERASE 23 U/L (17-59); BILIRUBIN,TOTAL 0.7 mg/dL (0.2-1.3); BLOOD UREA NITROGEN 7 mg/dL (7-20); CALCIUM 8.7 mg/dL (8.4-10.2); CARBON DIOXIDE 25 mmol/L (22-30); CHLORIDE 107 mmol/L (98-107); GLUCOSE 94 mg/dL (75-110); POTASSIUM 3.6 mmol/L (3.6-5.0); TOTAL PROTEIN 6.8 g/dL (6.3-8.2)
[2019-06-02] MEDS: VANCOMYCIN HCL 1,000 MG in DEXTROSE 5%-WATER 250 ML IV SCH ×2 (10:24→22:08)
[2019-06-02] MEDS: LEVETIRACETAM 500 MG TABLET PO SCH ×2 (10:24→22:09)
[2019-06-02] MEDS: THIAMINE HCL 100 MG TABLET PO SCH (10:24)
[2019-06-02] MEDS: FOLIC ACID 1 MG TABLET PO SCH (10:24)
[2019-06-02] MEDS: LISINOPRIL 10 MG TABLET PO SCH (10:24)
[2019-06-02] MEDS ORDERED: PIPERACILLIN/TAZOBACTAM 3.375 GM VIAL IV SCH (12:00)
--- NOTE | 2019-06-02 15:29 | PDOC PROGRESS REPORT ---
Subjective Progress Note for:: 06/02/19 Subjective:: AMADOR CHAVEZ is a 33 year old male past medical history of TBI, seizure disorder, EtOH abuse, hypertension known to be medically noncompliant recently discharged after sustaining a seizure brought in by ED after having a seizure at home, and for seizure in route to the hospital. In ED he was noted to be postictal, started on Keppra and hospitalist admitted for admission. On my encounter patient is heavily sedated arousable to voice unfortunately no family available at the bedside. CT head negative for any acute abnormalities, CBC positive for leukocytosis and CMP positive for BERRY. 06/01/2019. No acute events overnight. Patient has not had any seizures since admission. On my encounter patient is sitting on the edge of his pain enjoying his breakfast. Patient back to baseline. Patient does not communicate much but will talk to he responds however very slowly. He stating that he is taking his medication does not know what caused his seizure. Patient living with his and when asked if she is taking care of him he states yes. Patient complaining of chronic right shoulder pain and some headache otherwise denies any fever, chills, nausea, vomiting, diarrhea, constipation or any urinary symptoms. 06/02/2019. No acute events overnight. Patient Resting in bed in no apparent distress, has not had any recurrence of his seizures. Patient was asked about his EtOH abuse stating that he does drink but he drinks only socially. Patient denies any fever, chills, nausea, vomiting, diarrhea, constipation or any urinary symptoms. Patient would like to be discharged home but unfortunately patient had one positive blood culture which is pending sensitivity. Possible discharge tomorrow. Reason For Visit: SEIZURE,DEHUDRATION,AMS Physical Exam Vital Signs: Temp Pulse Resp BP Pulse Ox 98.3 F 81 18 156/108 H 98 06/02/19 08:30 06/02/19 08:30 06/02/19 08:30 06/02/19 08:30 06/02/19 08:30 Intake & Output 06/01/19 06/02/19 06/03/19 06:59 06:59 06:59 Intake Total 2550 3140 360 Output Total 1150 1160 Balance 1400 1980 360 Weight 76.8 kg 77 kg General appearance: PRESENT: no acute distress, well-developed, well-nourished Respiratory exam: PRESENT: clear to auscultation ector. ABSENT: rales, rhonchi, wheezes Cardiovascular exam: PRESENT: RRR. ABSENT: diastolic murmur, rubs, systolic murmur GI/Abdominal exam: PRESENT: normal bowel sounds, soft. ABSENT: distended, guarding, mass, organolmegaly, rebound, tenderness Extremities exam: PRESENT: full ROM - Right shoulder pain upon abduction.. ABSENT: calf tenderness, clubbing, pedal edema Neurological exam: PRESENT: alert, awake, oriented to person, oriented to place. ABSENT: motor sensory deficit Results Laboratory Results: 06/02/19 06:02 06/02/19 07:50 06/02/19 06/02/19 06/02/19 06:02 06:02 07:50 WBC 5.6 RBC 4.98 Hgb 15.4 Hct 45.6 MCV 92 MCH 31.0 MCHC 33.8 RDW 14.7 H Plt Count 140 L Sodium Cancelled 139.2 Potassium Cancelled 3.6 Chloride Cancelled 107 Carbon Dioxide Cancelled 25 Anion Gap Cancelled 7 BUN Cancelled 7 Creatinine Cancelled 1.05 Est GFR ( Amer) Cancelled > 60 Est GFR (Non-Af Amer) Cancelled Glucose Cancelled 94 Calcium Cancelled 8.7 Magnesium Cancelled 2.2 Total Bilirubin Cancelled 0.7 AST Cancelled 23 Alkaline Phosphatase Cancelled 81 Total Protein Cancelled 6.8 Albumin Cancelled 3.7 Impressions: Head CT 05/31/19 14:13 IMPRESSION: 1. No acute intracranial abnormality. 2. Left frontoparietal scalp hematoma/laceration. EVIDENCE OF ACUTE STROKE: NO. Chest X-Ray 05/31/19 14:14 IMPRESSION: Cardiomegaly without a superimposed acute cardiopulmonary process. Shoulder X-Ray 06/01/19 13:07 IMPRESSION: NEGATIVE STUDY OF THE RIGHT SHOULDER. NO RADIOGRAPHIC EVIDENCE OF ACUTE INJURY. Assessment and Plan - Diagnosis (1) Seizure Is this a current diagnosis for this admission?: Yes Plan: Known history of seizure disorder. History of noncompliance as well as EtOH abuse. No recurrence since admission. Switch IV Keppra to p.o. Continue PRN benzos, fall and seizure precautions. (2) Alcohol abuse Is this a current diagnosis for this admission?: Yes Plan: Patient endorses alcohol abuse is stating that he only drinks socially. As per patient has history of excessive alcohol abuse he is compliant with his Keppra. EtOH abuse could be a reason for recurrent seizures while being on Keppra as EtOH withdrawal tend to decrease seizure threshold. Patient advised on alcohol abstinence. Voiced understanding. Start on DT protocol. No sign of withdrawal while inpatient. Will be discharged on folic acid and thiamine p.o. (3) Metabolic acidosis Is this a current diagnosis for this admission?: Yes Plan: Resolved. Non-anion gap metabolic acidosis. Likely due to underlying seizure. Bicarbonate WNL. Electrolytes WNL except for low potassium. DC bicarb drip. Continue treating the underlying seizure. (4) Kidney injury Qualifiers: Encounter type: subsequent encounter Laterality: unspecified laterality Qualified Code(s): S37.009D - Unspecified injury of unspecified kidney, subsequent encounter Is this a current diagnosis for this admission?: Yes Plan: Resolved. Renal function WNL. Electrolytes are noted. Likely due to low p.o. intake. DC IV fluids. Encourage p.o. intake. (5) Hypertension Qualifiers: Is this a current diagnosis for this admission?: Yes Plan: Euvolemic. Improving. Not optimized. Known history of noncompliant. Home meds are lisinopril. Increase lisinopril to 40 mg p.o. daily. Continue telemetry, PRN hydralazine and labetalol. Outpatient PCP follow-up. (6) Right shoulder pain Qualifiers: Chronicity: chronic Qualified Code(s): M25.511 - Pain in right shoulder; G89.29 - Other chronic pain Is this a current diagnosis for this admission?: Yes Plan: Right shoulder pain from abduction. Neurovascularly intact. Chronic. Right shoulder x-ray 2 views no acute abnormalities. Continue supportive measures. (7) Hypokalemia Is this a current diagnosis for this admission?: Yes Plan: Resolved. (8) Gram-positive bacteremia Is this a current diagnosis for this admission?: Yes Plan: Gram-positive cocci in clusters 1 bottle out of 2. Patient did present with leukocytosis however it may have been due to seizure. Leukocytosis improved the following day without any antibiotics. No sign of systemic infection. Likely contamination. Repeat blood culture. Follow-up culture results.
[2019-06-03] MEDS: LABETALOL HCL INJ 20 MG/4 ML DISP.SYRIN IV PRN (00:22)
[2019-06-03] MEDS: HEPARIN SOD (PORCINE) 5,000 UNIT/ML 1 ML VIAL SUBCUT SCH (05:35)
[2019-06-03] MEDS: PANTOPRAZOLE SODIUM 40 MG TABLET.DR PO SCH (05:41)
[2019-06-03 07:26] LABS: HEMATOCRIT 40.1 % (37.9-51.0); HEMOGLOBIN 13.6 g/dL (13.5-17.0); MEAN CORPUSCULAR VOLUME 91 fl (80-97); PLATELET COUNT 134 10^3/uL (150-450); RED BLOOD COUNT 4.39 10^6/uL (4.35-5.55); RED CELL DISTRIBUTION WIDTH 14.1 % (11.5-14.0); WHITE BLOOD COUNT 3.8 10^3/uL (4.0-10.5)
[2019-06-03 07:49] LABS: ALBUMIN 3.5 g/dL (3.5-5.0); ALKALINE PHOSPHATASE 66 U/L (38-126); ANION GAP 7 (5-19); ASPARTATE AMINO TRANSFERASE 25 U/L (17-59); BILIRUBIN,TOTAL 0.7 mg/dL (0.2-1.3); BLOOD UREA NITROGEN 8 mg/dL (7-20); CALCIUM 8.8 mg/dL (8.4-10.2); CARBON DIOXIDE 26 mmol/L (22-30); CHLORIDE 109 mmol/L (98-107); GLUCOSE 86 mg/dL (75-110); POTASSIUM 3.6 mmol/L (3.6-5.0); TOTAL PROTEIN 6.8 g/dL (6.3-8.2)
[2019-06-03] MEDS: NORMAL SALINE 1000 ML 1,000 ML IV PRN (08:33)
[2019-06-03] MEDS: LEVETIRACETAM 500 MG TABLET PO SCH (09:22)
[2019-06-03] MEDS: FOLIC ACID 1 MG TABLET PO SCH (09:23)
[2019-06-03] MEDS: LISINOPRIL 10 MG TABLET PO SCH (09:23)
[2019-06-03] MEDS: THIAMINE HCL 100 MG TABLET PO SCH (09:23)
[2019-06-03] MEDS: VANCOMYCIN HCL 1,000 MG in DEXTROSE 5%-WATER 250 ML IV SCH (09:30)
[2019-06-03 12:43] VITALS: BP 186/118
--- NOTE | 2019-06-05 17:23 | PDOC DISCHARGE SUMMARY ---
Impression - Admit/DC Date/PCP Admission Date/Primary Care Provider: 05/31/19 18:28 Discharge Date: 06/03/19 - Discharge Diagnosis (1) Seizure Is this a current diagnosis for this admission?: Yes (2) Alcohol abuse Is this a current diagnosis for this admission?: Yes (3) Metabolic acidosis Is this a current diagnosis for this admission?: Yes (4) Kidney injury Is this a current diagnosis for this admission?: Yes (5) Hypertension Is this a current diagnosis for this admission?: Yes (6) Right shoulder pain Is this a current diagnosis for this admission?: Yes (7) Hypokalemia Is this a current diagnosis for this admission?: Yes (8) Gram-positive bacteremia Is this a current diagnosis for this admission?: Yes - Additional Information Discharge Diet: As Tolerated Discharge Activity: Activity As Tolerated Referrals: CELESTINO MACK MD [ACTIVE STAFF] - 06/07/19 9:00 am (New patient appointment) Prescriptions: Folic Acid [Folvite 1 mg Tablet] 1 mg PO DAILY 30 Days #30 tablet Thiamine HCl [Thiamine 100 mg Tablet] 100 mg PO DAILY 30 Days #30 tablet Lisinopril [Zestril] 40 mg PO DAILY 30 Days #30 tablet Home Medications: Levetiracetam [Keppra] 1,000 mg PO Q12 90 Days #180 tab 05/07/19 Folic Acid [Folvite 1 mg Tablet] 1 mg PO DAILY 30 Days #30 tablet 06/02/19 Lisinopril [Zestril] 40 mg PO DAILY 30 Days #30 tablet 06/02/19 Thiamine HCl [Thiamine 100 mg Tablet] 100 mg PO DAILY 30 Days #30 tablet 06/02/19 History of Present Illiness History of Present Illness: AMADOR CHAVEZ is a 33 year old male past medical history of TBI, seizure disorder, EtOH abuse, hypertension known to be medically noncompliant recently discharged after sustaining a seizure brought in by ED after having a seizure at home, and for seizure in route to the hospital. In ED he was noted to be postictal, started on Keppra and hospitalist admitted for admission. On my encounter patient is heavily sedated arousable to voice unfortunately no family available at the bedside. CT head negative for any acute abnormalities, CBC positive for leukocytosis and CMP positive for BERRY. Hospital Course Hospital Course: (1) Seizure Known history of seizure disorder. History of noncompliance as well as EtOH abuse. No recurrence since admission. Was a started on IV Keppra 1500 mg twice daily, benzodiazepine as needed, fall and seizure precautions. Restarted on home meds on discharge advised on medication adherence and EtOH abstinence. (2) Alcohol abuse Patient endorses alcohol abuse is stating that he only drinks socially. As per patient has history of excessive alcohol abuse he is compliant with his Keppra. EtOH abuse could be a reason for recurrent seizures while being on Keppra as EtOH withdrawal tend to decrease seizure threshold. Patient advised on alcohol abstinence. Voiced understanding. Started on DT protocol. No sign of withdrawal while inpatient. Discharged on folic acid and thiamine p.o. (3) Metabolic acidosis Resolved. Non-anion gap metabolic acidosis. Likely due to underlying seizure. Bicarbonate WNL. Electrolytes WNL except for low potassium. Was a started on bicarbonate drip. DC'd after metabolic disorder resolved. (4) Kidney injury Resolved. Renal function WNL. Electrolytes are noted. Likely due to low p.o. intake. Was started on cautious fluid resuscitation. (5) Hypertension Euvolemic. Optimized. Known history of noncompliant. Home meds are lisinopril 20 mg p.o. daily. Increased lisinopril to 40 mg p.o. daily, PRN hydralazine and labetalol. Discharged on lisinopril 40 mg p.o. daily. Advised follow-up with PCP for read justment of his meds. Patient voiced understanding. (6) Right shoulder pain Right shoulder pain from abduction. Neurovascularly intact. Chronic. Right shoulder x-ray 2 views no acute abnormalities. Continued supportive measures. Outpatient orthopedic and PCP follow-up. (7) Hypokalemia Resolved. (8) Gram-positive bacteremia Staphylococcus hominis pansensitive coagulase-negative 1 bottle out of 2 Patient did present with leukocytosis however it may have been due to seizure. Received 1 dose of Zosyn on admission. Leukocytosis improved the following day. No sign of systemic infection. Likely contamination. Repeat blood culture remained negative. Physical Exam Vital Signs: Temp Pulse Resp BP Pulse Ox 98.5 F 82 16 186/118 H 94 06/03/19 12:39 06/03/19 12:39 06/03/19 12:39 06/03/19 12:39 06/03/19 12:39 Intake & Output 06/04/19 06/05/19 06/06/19 06:59 06:59 06:59 Intake Total 480 Output Total 1000 Balance -520 General appearance: PRESENT: no acute distress, well-developed, well-nourished Respiratory exam: PRESENT: clear to auscultation ector. ABSENT: rales, rhonchi, wheezes Cardiovascular exam: PRESENT: RRR. ABSENT: diastolic murmur, rubs, systolic murmur Neurological exam: PRESENT: alert, awake, oriented to person, oriented to place, oriented to time, CN II-XII grossly intact Results Laboratory Results: WBC 3.8 10^3/uL (4.0-10.5) L 06/03/19 07:01 RBC 4.39 10^6/uL (4.35-5.55) 06/03/19 07:01 Hgb 13.6 g/dL (13.5-17.0) 06/03/19 07:01 Hct 40.1 % (37.9-51.0) 06/03/19 07:01 MCV 91 fl (80-97) 06/03/19 07:01 MCH 31.0 pg (27.0-33.4) 06/03/19 07:01 MCHC 34.0 g/dL (32.0-36.0) 06/03/19 07:01 RDW 14.1 % (11.5-14.0) H 06/03/19 07:01 Plt Count 134 10^3/uL (150-450) L 06/03/19 07:01 Lymph % (Auto) Not Reportable 05/31/19 15:49 Casey % (Auto) Not Reportable 05/31/19 15:49 Eos % (Auto) Not Reportable 05/31/19 15:49 Baso % (Auto) Not Reportable 05/31/19 15:49 Absolute Neuts (auto) Not Reportable 05/31/19 15:49 Absolute Lymphs (auto) Not Reportable 05/31/19 15:49 Absolute Monos (auto) Not Reportable 05/31/19 15:49 Absolute Eos (auto) Not Reportable 05/31/19 15:49 Absolute Basos (auto) Not Reportable 05/31/19 15:49 Total Counted 100 05/31/19 15:49 Seg Neutrophils % Not Reportable 05/31/19 15:49 Seg Neuts % (Manual) 90 % (42-78) H 05/31/19 15:49 Lymphocytes % (Manual) 3 % (13-45) L 05/31/19 15:49 Atypical Lymphs % 1 % (0) 05/31/19 15:49 Monocytes % (Manual) 6 % (3-13) 05/31/19 15:49 Eosinophils % (Manual) 0 % (0-6) 05/31/19 15:49 Basophils % (Manual) 0 % (0-2) 05/31/19 15:49 Abs Neuts (Manual) 16.4 10^3/uL (1.7-8.2) H 05/31/19 15:49 Abs Lymphs (Manual) 0.7 10^3/uL (0.5-4.7) 05/31/19 15:49 Abs Monocytes (Manual) 1.1 10^3/uL (0.1-1.4) 05/31/19 15:49 Absolute Eos (Manual) 0.0 10^3/uL (0.0-0.6) 05/31/19 15:49 Abs Basophils (Manual) 0.0 10^3/uL (0.0-0.2) 05/31/19 15:49 Platelet Estimate Cancelled 05/31/19 13:14 Platelet Comment ADEQUATE 05/31/19 15:49 Anisocytosis SLIGHT 05/31/19 15:49 Carbonic Acid 1.09 mmol/L (1.05-1.35) 05/31/19 17:06 HCO3/H2CO3 Ratio 16:1 05/31/19 17:06 ABG pH 7.31 (7.35-7.45) L 05/31/19 17:06 ABG pCO2 36.1 mmHg (35-45) 05/31/19 17:06 ABG pO2 78.3 mmHg (80-100) L 05/31/19 17:06 ABG HCO3 17.8 mmol/L (20-24) L 05/31/19 17:06 ABG Total CO2 18.9 mmol/L (23-27) L 05/31/19 17:06 ABG O2 Saturation 94.6 % (94-98) 05/31/19 17:06 ABG Base Excess -7.6 mmol/L 05/31/19 17:06 FiO2 ROOM AIR 05/31/19 17:06 Sodium 142.3 mmol/L (137-145) 06/03/19 07:01 Potassium 3.6 mmol/L (3.6-5.0) 06/03/19 07:01 Chloride 109 mmol/L (98-107) H 06/03/19 07:01 Carbon Dioxide 26 mmol/L (22-30) 06/03/19 07:01 Anion Gap 7 (5-19) 06/03/19 07:01 BUN 8 mg/dL (7-20) 06/03/19 07:01 Creatinine 1.05 mg/dL (0.52-1.25) 06/03/19 07:01 Est GFR ( Amer) > 60 (>60) 06/03/19 07:01 Est GFR (Non-Af Amer) Cancelled 06/02/19 06:02 Est GFR (MDRD) Non-Af > 60 (>60) 06/03/19 07:01 Glucose 86 mg/dL (75-110) 06/03/19 07:01 POC Glucose 100 mg/dL (70-110) 05/31/19 21:57 Calcium 8.8 mg/dL (8.4-10.2) 06/03/19 07:01 Magnesium 1.8 mg/dL (1.6-2.3) 06/03/19 07:01 Total Bilirubin 0.7 mg/dL (0.2-1.3) 06/03/19 07:01 Direct Bilirubin 0.0 mg/dL (0.0-0.4) 06/03/19 07:01 Neonat Total Bilirubin Not Reportable 06/03/19 07:01 Neonat Direct Bilirubin Not Reportable 06/03/19 07:01 Neonat Indirect Bili Not Reportable 06/03/19 07:01 AST 25 U/L (17-59) 06/03/19 07:01 ALT 14 U/L (<50) 06/03/19 07:01 Alkaline Phosphatase 66 U/L (38-126) 06/03/19 07:01 Total Protein 6.8 g/dL (6.3-8.2) 06/03/19 07:01 Albumin 3.5 g/dL (3.5-5.0) 06/03/19 07:01 EGFR Cancelled 06/02/19 06:02 Urine Color STRAW 05/31/19 14:32 Urine Appearance SLIGHTLY-CLOUDY 05/31/19 14:32 Urine pH 5.0 (5.0-9.0) 05/31/19 14:32 Ur Specific [place] 1.011 05/31/19 14:32 Urine Protein 100 mg/dL (NEGATIVE) H 05/31/19 14:32 Urine Glucose (UA) NEGATIVE mg/dL (NEGATIVE) 05/31/19 14:32 Urine Ketones NEGATIVE mg/dL (NEGATIVE) 05/31/19 14:32 Urine Blood MODERATE (NEGATIVE) H 05/31/19 14:32 Urine Nitrite (Reflex) NEGATIVE (NEGATIVE) 05/31/19 14:32 Urine Bilirubin NEGATIVE (NEGATIVE) 05/31/19 14:32 Urine Urobilinogen NEGATIVE mg/dL (<2.0) 05/31/19 14:32 Leukocyte Esterase Rfl NEGATIVE (NEGATIVE) 05/31/19 14:32 Urine RBC (Auto) 0 /HPF 05/31/19 14:32 Urine Bacteria (Auto) TRACE /HPF 05/31/19 14:32 Urine WBC (Reflex) 1 /HPF 05/31/19 14:32 Squamous Epi Cells Auto <1 /HPF 05/31/19 14:32 Urine Mucus (Auto) RARE /LPF 05/31/19 14:32 Urine Ascorbic Acid NEGATIVE (NEGATIVE) 05/31/19 14:32 Urine Opiates Screen NEGATIVE 05/31/19 14:32 Urine Methadone Screen NEGATIVE 05/31/19 14:32 Ur Barbiturates Screen NEGATIVE 05/31/19 14:32 Ur Phencyclidine Scrn NEGATIVE 05/31/19 14:32 Ur Amphetamines Screen NEGATIVE 05/31/19 14:32 U Benzodiazepines Scrn NEGATIVE 05/31/19 14:32 Urine Cocaine Screen NEGATIVE 05/31/19 14:32 U Marijuana (THC) Screen NEGATIVE 05/31/19 14:32 Serum Alcohol < 10 mg/dL (NONE DETECTED) 05/31/19 13:14 Slides for Path Review Cancelled 05/31/19 13:14 Impressions: Head CT 05/31/19 14:13 IMPRESSION: 1. No acute intracranial abnormality. 2. Left frontoparietal scalp hematoma/laceration. EVIDENCE OF ACUTE STROKE: NO. Chest X-Ray 05/31/19 14:14 IMPRESSION: Cardiomegaly without a superimposed acute cardiopulmonary process. Shoulder X-Ray 06/01/19 13:07 IMPRESSION: NEGATIVE STUDY OF THE RIGHT SHOULDER. NO RADIOGRAPHIC EVIDENCE OF ACUTE INJURY. Stroke Is this a Stroke Patient?: No Acute Heart Failure - Is this a Heart Failure Patient?: No
== END 2019-06-03 13:31 | disposition home or self-care (01) | DRG 101 ==
LOC: ER 12:56 → EH 18:28 → 3S 19:57
PROVIDERS: ADMIT Internal Medicine; ATTEND Internal Medicine
DX: G40.909 Epilepsy, unspecified, not intractable, without status epilepticus (principal); R78.81 Bacteremia; N17.9 Acute kidney failure, unspecified; E87.2 Acidosis; F10.10 Alcohol abuse, uncomplicated; I10 Essential (primary) hypertension; M25.511 Pain in right shoulder; E87.6 Hypokalemia; G89.29 Other chronic pain; Z87.820 Personal history of traumatic brain injury; Z91.14 Patient's other noncompliance with medication regimen; Z79.899 Other long term (current) drug therapy; Z88.6 Allergy status to analgesic agent; Z23 Encounter for immunization
CPT/HCPCS: 36415; 51702; 70450; 71045; 80053; 80307; 81001; 82803; 82962; 83735; 85025; 85027; 87040; 87077; 87186; 90686; 93005; 93010; 94660; 96361; 96365; 96375; 99285; J0360; J1644; J1953; J3370; J3490; J7030; J7060

== ENCOUNTER 2019-06-21 08:40 | Inpatient (IN) | payer MEDICARE, MEDICAID ==
[2019-06-21] MEDS ORDERED: NORMAL SALINE IV ONE (09:22)
[2019-06-21] MEDS ORDERED: LEVETIRACETAM 1500 MG/NACL-ISO 1,500 MG/100 ML RTUPB IV ONE (09:35)
[2019-06-21 09:43] LABS: PROTHROMBIN TIME 18.2 SEC (11.4-15.4)
--- NOTE | 2019-06-21 10:34 | RADIOLOGY REPORT (SQ) ---
EXAM DESCRIPTION: CHEST SINGLE VIEW COMPLETED DATE/TIME: 06/21/2019 10:10 am REASON FOR STUDY: ams COMPARISON: 05/31/2019 EXAM PARAMETERS: NUMBER OF VIEWS: One view. TECHNIQUE: Single frontal radiographic view of the chest acquired. RADIATION DOSE: NA LIMITATIONS: None. FINDINGS: LUNGS AND PLEURA: No opacities, masses or pneumothorax. No pleural effusion. MEDIASTINUM AND HILAR STRUCTURES: No masses. Contour normal. HEART AND VASCULAR STRUCTURES: Heart normal in size. Normal vasculature. BONES: No acute findings. HARDWARE: None in the chest. OTHER: No other significant finding. IMPRESSION: NO ACUTE RADIOGRAPHIC FINDING IN THE CHEST. TECHNICAL DOCUMENTATION: JOB ID: [id number] [employer]- All Rights Reserved Reading location - IP/workstation name: [email or web address]
[2019-06-21] MEDS ORDERED: LORAZEPAM INJ 2 MG/1 ML VIAL IV ONE ×3 (11:42→14:52)
[2019-06-21 11:44] LABS: HEMATOCRIT 53.2 % (37.9-51.0); HEMOGLOBIN 17.4 g/dL (13.5-17.0); MEAN CORPUSCULAR HGB CONC 32.6 g/dL (32.0-36.0); PLATELET COUNT 293 10^3/uL (150-450); RED CELL DISTRIBUTION WIDTH 14.4 % (11.5-14.0); WHITE BLOOD COUNT 23.2 10^3/uL (4.0-10.5)
[2019-06-21 11:55] LABS: ALCOHOL 17 mg/dL (NONE DETECTED); ALKALINE PHOSPHATASE 137 U/L (38-126); ASPARTATE AMINO TRANSFERASE 49 U/L (17-59); BILIRUBIN,DIRECT 0.3 mg/dL (0.0-0.4); BILIRUBIN,TOTAL 0.5 mg/dL (0.2-1.3); BLOOD UREA NITROGEN 10 mg/dL (7-20); CALCIUM 10.5 mg/dL (8.4-10.2); GLUCOSE 161 mg/dL (75-110); POTASSIUM 4.3 mmol/L (3.6-5.0); TOTAL PROTEIN 9.1 g/dL (6.3-8.2)
[2019-06-21 11:59] LABS: CHLORIDE 110 mmol/L (98-107)
[2019-06-21 12:02] LABS: CARBON DIOXIDE 9 mmol/L (22-30)
[2019-06-21 12:03] LABS: ANION GAP 26 (5-19)
[2019-06-21 12:04] LABS: MEAN CORPUSCULAR VOLUME 95 fl (80-97)
[2019-06-21] MEDS ORDERED: 1/2 NORMAL SALINE 1,000 ML IV ONE (12:08)
[2019-06-21 12:14] LABS: ABSOLUTE LYMPHOCYTES# (MANUAL) 2.3 10^3/uL (0.5-4.7); ABSOLUTE MONOCYTES # (MANUAL) 1.4 10^3/uL (0.1-1.4); BAND NEUTROPHILS % (MANUAL) 3 % (3-5); BASOPHILS % (MANUAL) 1 % (0-2); EOSINOPHILS % (MANUAL) 0 % (0-6); LYMPHOCYTES % (MANUAL) 10 % (13-45); MONOCYTES % (MANUAL) 6 % (3-13); SEGMENTED NEUTROPHILS % (MAN) 80 % (42-78); TOTAL CELLS COUNTED 100
[2019-06-21 12:16] LABS: ANISOCYTOSIS SLIGHT; POLYCHROMASIA SLIGHT; TOXIC VACUOLATION PRESENT
[2019-06-21 12:17] LABS: PLATELET COMMENT ADEQUATE
--- NOTE | 2019-06-21 12:26 | RADIOLOGY REPORT (SQ) ---
EXAM DESCRIPTION: HUMERUS RIGHT COMPLETED DATE/TIME: 06/21/2019 12:04 pm REASON FOR STUDY: arm pain COMPARISON: None. NUMBER OF VIEWS: Two views. TECHNIQUE: Two radiographic images were acquired of the right humerus to include elbow and shoulder in at least one projection. LIMITATIONS: None. FINDINGS: MINERALIZATION: Normal. BONES: No acute fracture or dislocation. No worrisome bone lesions. SOFT TISSUES: No obvious swelling or foreign body. OTHER: No other significant finding. IMPRESSION: NEGATIVE STUDY OF THE RIGHT HUMERUS. NO RADIOGRAPHIC EVIDENCE OF ACUTE INJURY. TECHNICAL DOCUMENTATION: JOB ID: [id number] [employer]- All Rights Reserved Reading location - IP/workstation name: [email or web address]
[2019-06-21 14:08] LABS: APPEARANCE,URINE SLIGHTLY-CLOUDY; BILIRUBIN,URINE NEGATIVE (NEGATIVE); COLOR,URINE YELLOW; GLUCOSE, URINE NEGATIVE (NEGATIVE); KETONES,URINE NEGATIVE (NEGATIVE); PROTEIN,URINE 100 mg/dL (NEGATIVE); UROBILINOGEN,URINE NEGATIVE mg/dL (<2.0)
[2019-06-21 14:30] LABS: URINE AMPHETAMINES SCREEN NEGATIVE; URINE BARBITURATES SCREEN NEGATIVE; URINE COCAINE SCREEN NEGATIVE; URINE MARIJUANA (THC) SCREEN NEGATIVE; URINE METHADONE SCREEN NEGATIVE; URINE PHENCYCLIDINE SCREEN NEGATIVE
[2019-06-21 14:31] LABS: URINE BENZODIAZEPINES SCREEN UNCONFIRMED POSITIVE
--- NOTE | 2019-06-21 14:33 | EKG REPORT ---
SEVERITY:- ABNORMAL ECG - SINUS TACHYCARDIA DENNIS, CONSIDER BIATRIAL ABNORMALITIES LEFT VENTRICULAR HYPERTROPHY ST ELEV, PROBABLE NORMAL EARLY REPOL PATTERN TALL T, CONSIDER METABOLIC/ISCHEMIC ABNRM BORDERLINE PROLONGED QT INTERVAL : Confirmed by: Maddy Marx MD 21-Jun-2019 14:32:09
[2019-06-21 14:34] LABS: ARTERIAL BLOOD BASE EXCESS -4.9 mmol/L; ARTERIAL BLOOD H2CO3 1.16 mmol/L (1.05-1.35); ARTERIAL BLOOD HCO3 20.3 mmol/L (20-24); ARTERIAL BLOOD O2 SATURATION 94.8 % (94-98); ARTERIAL BLOOD PCO2 38.4 mmHg (35-45); ARTERIAL BLOOD PH 7.34 (7.35-7.45); ARTERIAL BLOOD PO2 77.1 mmHg (80-100); ARTERIAL BLOOD TOTAL CO2 21.5 mmol/L (23-27)
[2019-06-21 14:36] LABS: ARTERIAL BLOOD FIO2 ROOM AIR
[2019-06-21] MEDS ORDERED: WATER IV PRN ×2 (15:41)
[2019-06-21] MEDS ORDERED: SODIUM BICARBONATE IV PRN ×2 (15:41)
[2019-06-21] MEDS ORDERED: DEXTROSE 5% IV PRN ×2 (15:41)
[2019-06-21] MEDS ORDERED: FOLIC ACID INJ 5 MG/1 ML 10 ML VIAL IV SCH (16:15)
--- NOTE | 2019-06-21 16:40 | CRITICAL CARE ADMISSION REPORT ---
HPI Date:: 06/21/19 Time:: 15:30 Reason for ICU Reason:: Seizure with hypertension HPI: 33-year-old black male with known history of seizure disorder since childhood, traumatic brain injury, with significant alcohol abuse disorder. Admitted multiple times and in fact this admission is contact center representative of previous admission except for severe lactic acidosis and prolonged alteration of mental status. I was able to speak with the emergency room staff and the patient's Lisa Stout phone #[phone] According to the the patient had his typical beer binge late last evening. He has not been through any withdrawal patterns. She states that he awoke in his normal state but had a seizure that lasted less than 3 minutes. He had a very short-lived postictal state and then had a short seizure. After this he remained seizure-free walking and talking acting normal. Approximately 1 and half hours after the first seizure he had another prolonged seizure. EMS was called he was given Versed. He was noted to be hypotensive in the emergency room and received 3 L of fluid. He also had a significant lactic acidosis and bicarbonate was low as well. He did awaken in the emergency room and was somewhat agitated. He did complain of right shoulder discomfort examination was unremarkable and x-ray was unremarkable as well. ED staff confirms that he was in his normal state however he became agitated and gave him more Ativan. Evaluated patient in the emergency room however he was too lethargic to provide any history or complaints. His heart rate was 117 with a blood pressure of 186/130 saturation 99% breathing at 18 breaths/min. Cardene drip was started. He was arousable and would follow commands but extremely lethargic. His exam following was not consistent. Glascow coma scale on my initial evaluation was 2-2-6 intermittent. - Diagnosis/Plan (1) Status epilepticus, generalized convulsive Is this a current diagnosis for this admission?: Yes (2) Lactic acidosis Is this a current diagnosis for this admission?: Yes (3) Acute kidney failure Qualifiers: Acute renal failure type: with acute renal cortical necrosis Qualified Code(s): N17.1 - Acute kidney failure with acute cortical necrosis Is this a current diagnosis for this admission?: Yes (4) Encephalopathy acute Is this a current diagnosis for this admission?: Yes (5) Delirium due to another medical condition, acute, hypoactive Is this a current diagnosis for this admission?: Yes (6) Alcohol abuse Is this a current diagnosis for this admission?: Yes (7) Tobacco abuse Is this a current diagnosis for this admission?: Yes (8) Rhabdomyolysis Qualifiers: Rhabdomyolysis type: traumatic Encounter type: initial encounter Qualified Code(s): T79.6XXA - Traumatic ischemia of muscle, initial encounter Is this a current diagnosis for this admission?: Yes Plan: Suspected. Await Ck. From excessive muscle activity - . Plan Summary: Will admit the patient to the ICU. Have placed him on a D5 modified bicarbonate drip as a resuscitation fluid to prevent renal failure. Have increased his Keppra to 1500 mg twice daily. Unfortunately I am unable to get a baseline Keppra because the patient was given a bolus loading dose in the emergency room. Of importance is his encephalopathy and delirium. He was given Ativan and I am concerned about aspiration and neurological status. He also has hypertension that is difficult to control. He is not taking anything p.o. and so we have started a Cardene drip. Important follow-up items will be to check creatinine kinase to evaluate the degree of rhabdomyolysis. We will follow his pH and bicarbonate status. In that the patient had a full neurological recovery and has had multiple CAT scans (greater than 9), will wait on ordering any imaging studies unless the patient has a neurological deficits. This does not appear to be alcohol withdrawal related but may be related to alcohol excess. Will check alcohol level as well. Will need to have neurological follow-up as well. Past Medical History Cardiac Medical History: Reports: Hypertension Pulmonary Medical History: Reports: None EENT Medical History: Reports: None Neurological Medical History: Reports: Seizures Endocrine Medical History: Reports: None Renal/ Medical History: Reports: None Malignancy Medical History: Reports: None GI Medical History: Reports: None Musculoskeltal Medical History: Reports: None Skin Medical History: Reports: None Psychiatric Medical History: Reports: Alcohol Dependency, Tobacco Dependency Denies: Depression Traumatic Medical History: Reports: Traumatic Brain Injury Hematology: Reports: None Infectious Medical History: Reports: None Social/Family History - Social History Lives with: Spouse/Significant other - Lisa Stout: [phone] Smoking Status: Unknown if Ever Smoked Frequency of Alcohol Use: Occasional Hx Recreational Drug Use: No Drugs: None Hx Prescription Drug Abuse: No - Family History Family History: Unable to obtain - Medication/Allergies Home Medications: Folic Acid [Folvite 1 mg Tablet] 1 mg PO DAILY 06/21/19 Levetiracetam [Keppra] 1,000 mg PO Q12 06/21/19 Lisinopril [Prinivil 40 mg Tablet] 40 mg PO DAILY 06/21/19 Thiamine HCl [Thiamine 100 mg Tablet] 100 mg PO DAILY 06/21/19 Allergies/Adverse Reactions: hydrocodone [From Vicodin] Allergy (Verified 10/07/18 13:35) Review of Systems ROS unobtainable: Due to mental status Physical Exam Vital Signs: Temp Pulse Resp BP Pulse Ox 99.1 F 9 L 188/131 H 98 06/21/19 14:00 06/21/19 14:21 06/21/19 14:21 06/21/19 14:21 Intake & Output 06/20/19 06/21/19 06/22/19 06:59 06:59 06:59 Intake Total 3710 Balance 3710 Weight 87.1 kg Weight/Height Weight 87.1 kg Chest X-Ray 06/21/19 09:22 IMPRESSION: NO ACUTE RADIOGRAPHIC FINDING IN THE CHEST. Humerus X-Ray 06/21/19 10:39 IMPRESSION: NEGATIVE STUDY OF THE RIGHT HUMERUS. NO RADIOGRAPHIC EVIDENCE OF ACUTE INJURY. General appearance: PRESENT: no acute distress, disheveled, well-developed, well-nourished Exam: Well-developed well-nourished nontoxic older appearing 33-year-old black male no active distress. He is lethargic arousable only to loud voice and noxious stimulus. Over time he did follow some commands but not consistently. Head exam: PRESENT: atraumatic, normocephalic Eye exam: PRESENT: conjunctival injection, conjunctiva pink, PERRLA, other - No papilledema. ABSENT: conjunctiva pale, scleral icterus Ear exam: PRESENT: normal external ear exam. ABSENT: bleeding Mouth exam: PRESENT: dry mucosa Teeth exam: PRESENT: poor dentation Neck exam: ABSENT: carotid bruit, JVD, lymphadenopathy, meningismus, tenderness, thyromegaly Respiratory exam: PRESENT: clear to auscultation ector, unlabored. ABSENT: accessory muscle use, rales, rhonchi, tachypnea, wheezes Cardiovascular exam: PRESENT: RRR, +S1, +S2, tachycardia Pulses: PRESENT: +2 pedal pulses bilateral Vascular exam: PRESENT: normal capillary refill. ABSENT: pallor GI/Abdominal exam: PRESENT: normal bowel sounds, soft. ABSENT: distended, guarding, mass, organolmegaly, rebound, tenderness Rectal exam: PRESENT: deferred Gentrourinary exam: ABSENT: lesions, scrotal swelling, urethral discharge Extremities exam: ABSENT: tenderness Musculoskeletal exam: PRESENT: normal inspection. ABSENT: deformity, dislocation Neurological exam: PRESENT: altered - GCS: 2-2-6. No focal deficits. Moving all extremities. Follows commands intermittently Skin exam: PRESENT: intact. ABSENT: abrasion, jaundice, mottled, normal color, petechiae, urticaria, vesicles Tubes/Lines: ABSENT: Endotracheal Tube, Chest Tube, Central Line, Arterial Catheter, Dialysis catheter, Peg Tube, Nasogastic Tube, Other Laboratory/Radiographs Laboratory Results: 06/21/19 11:09 06/21/19 11:09 06/21/19 06/21/19 06/21/19 08:53 08:53 09:30 WBC Cancelled RBC Cancelled Hgb Cancelled Hct Cancelled MCV Cancelled MCH Cancelled MCHC Cancelled RDW Cancelled Plt Count Cancelled Seg Neutrophils % Cancelled Carbonic Acid HCO3/H2CO3 Ratio ABG pH ABG pCO2 ABG pO2 ABG HCO3 ABG O2 Saturation ABG Base Excess VBG pH Cancelled VBG pCO2 Cancelled VBG HCO3 Cancelled VBG Base Excess Cancelled FiO2 Sodium Cancelled Potassium Cancelled Chloride Cancelled Carbon Dioxide Cancelled Anion Gap Cancelled BUN Cancelled Creatinine Cancelled Est GFR ( Amer) Cancelled Est GFR (Non-Af Amer) Cancelled Glucose Cancelled Calcium Cancelled Total Bilirubin Cancelled AST Cancelled Alkaline Phosphatase Cancelled Total Protein Cancelled Albumin Cancelled Urine Color Urine Appearance Urine pH Ur Specific [place] Urine Protein Urine Glucose (UA) Urine Ketones Urine Blood 06/21/19 06/21/19 06/21/19 11:09 11:09 13:40 WBC 23.2 H RBC 5.60 H Hgb 17.4 H Hct 53.2 H MCV 95 D MCH 31.0 MCHC 32.6 RDW 14.4 H Plt Count 293 Seg Neutrophils % Not Reportable Carbonic Acid HCO3/H2CO3 Ratio ABG pH ABG pCO2 ABG pO2 ABG HCO3 ABG O2 Saturation ABG Base Excess VBG pH VBG pCO2 VBG HCO3 VBG Base Excess FiO2 Sodium 145.3 H Potassium 4.3 Chloride 110 H Carbon Dioxide 9 L* Anion Gap 26 H BUN 10 Creatinine 2.16 H Est GFR ( Amer) 43 L Est GFR (Non-Af Amer) Glucose 161 H Calcium 10.5 H Total Bilirubin 0.5 AST 49 Alkaline Phosphatase 137 H Total Protein 9.1 H Albumin 5.0 Urine Color YELLOW Urine Appearance SLIGHTLY-CLOUDY Urine pH 5.0 Ur Specific [place] 1.010 Urine Protein 100 H Urine Glucose (UA) NEGATIVE Urine Ketones NEGATIVE Urine Blood MODERATE H 06/21/19 14:10 WBC RBC Hgb Hct MCV MCH MCHC RDW Plt Count Seg Neutrophils % Carbonic Acid 1.16 HCO3/H2CO3 Ratio 17:1 ABG pH 7.34 L ABG pCO2 38.4 ABG pO2 77.1 L ABG HCO3 20.3 ABG O2 Saturation 94.8 ABG Base Excess -4.9 VBG pH VBG pCO2 VBG HCO3 VBG Base Excess FiO2 ROOM AIR Sodium Potassium Chloride Carbon Dioxide Anion Gap BUN Creatinine Est GFR ( Amer) Est GFR (Non-Af Amer) Glucose Calcium Total Bilirubin AST Alkaline Phosphatase Total Protein Albumin Urine Color Urine Appearance Urine pH Ur Specific [place] Urine Protein Urine Glucose (UA) Urine Ketones Urine Blood 06/21/19 08:53 Troponin I 0.022 Impressions: Chest X-Ray 06/21/19 09:22 IMPRESSION: NO ACUTE RADIOGRAPHIC FINDING IN THE CHEST. Humerus X-Ray 06/21/19 10:39 IMPRESSION: NEGATIVE STUDY OF THE RIGHT HUMERUS. NO RADIOGRAPHIC EVIDENCE OF ACUTE INJURY. All labs, radiographs, diagnostic studies and EKGs were personally reviewed: Yes In addition, reports of radiographic and diagnostic studies were read: Yes Critical Time Critical Time (minutes): 65 -: The care of a critically ill patient is dynamic. This note represents a static moment in the admission process. orders and treatments may be given simultaneously and urgently, and time is not contact center representative of the treatment process. This patient requires Critical Care secondary to life threatening organ or limb dysfunction. Without the need for Critical Care services, the patient is at risk for increased mortality and morbidity. MPOA: Lisa Girish: [phone]
[2019-06-21] MEDS: ENOXAPARIN SODIUM INJ 40 MG/0.4 ML DISP.SYRIN SUBCUT SCH (16:45)
--- NOTE | 2019-06-21 16:48 | RADIOLOGY REPORT (SQ) ---
EXAM DESCRIPTION: CT HEAD WITHOUT COMPLETED DATE/TIME: 06/21/2019 4:38 pm REASON FOR STUDY: ams COMPARISON: 05/31/2019 TECHNIQUE: Axial images acquired through the brain without intravenous contrast. Images reviewed wi th bone, brain and subdural windows. Additional sagittal and coronal reconstructions were generated. Images stored on PACS. All CT scanners at this facility use dose modulation, iterative reconstruction, and/or weight based d osing when appropriate to reduce radiation dose to as low as reasonably achievable (ALARA). [facility]: Dose Right [facility]: CareDose [facility]: Dose Right [facility]: Teradose 4D [facility]: Copybar RADIATION DOSE: CT Rad equipment meets quality standard of care and radiation dose reduction techniq ues were employed. CTDIvol: 53.2 mGy. DLP: 1230 mGy-cm. mGy. LIMITATIONS: None. FINDINGS: VENTRICLES: Normal size and contour. CEREBRUM: No masses. No hemorrhage. No midline shift. No evidence for acute infarction. Normal gra y/white matter differentiation. No areas of low density in the white matter. CEREBELLUM: No masses. No hemorrhage. No alteration of density. No evidence for acute infarction. EXTRAAXIAL SPACES: No fluid collections. No masses. ORBITS AND GLOBE: No intra- or extraconal masses. Normal contour of globe without masses. CALVARIUM: No fracture. PARANASAL SINUSES: No fluid or mucosal thickening. SOFT TISSUES: Mild soft tissue swelling remains overlying the left frontal bone. This is improved fr om prior study. OTHER: No other significant finding. IMPRESSION: NORMAL BRAIN CT WITHOUT CONTRAST. EVIDENCE OF ACUTE STROKE: NO. COMMENT: Quality ID # [id number]: Final reports with documentation of one or more dose reduction techniques (e.g., Automated exposure control, adjustment of the mA and/or kV according to patient size, use of iterative reconstruction technique) TECHNICAL DOCUMENTATION: JOB ID: [id number] [employer]- All Rights Reserved Reading location - IP/workstation name: [email or web address]
[2019-06-21] MEDS: NICARDIPINE HCL RTU, ISO-OS 20 MG/200 ML RTUINJ IV PRN ×2 (16:49→23:24)
[2019-06-21] MEDS ORDERED: ZINC SULF/CUSO4 P-HYD/MANG/CR INJ 1 ML SDV IV SCH (17:00)
[2019-06-21] MEDS ORDERED: LEVETIRACETAM IV SCH (18:00)
[2019-06-21] MEDS ORDERED: NORMAL SALINE IV SCH (18:00)
[2019-06-21] MEDS ORDERED: NORMAL SALINE INJ/PF 0.9% 10 ML SDV IV PRN (18:03)
[2019-06-21] MEDS: LEVETIRACETAM 1500 MG/NACL-ISO 1,500 MG/100 ML RTUPB IV SCH (18:03)
--- NOTE | 2019-06-21 18:03 | Operative Report ---
Bedside Procedure - History of Present Illness History of Present Illness: 33-year-old black male with known history of seizure disorder since childhood, traumatic brain injury, with significant alcohol abuse disorder. Admitted multiple times and in fact this admission is patient representative of previous admission except for severe lactic acidosis and prolonged alteration of mental status. I was able to speak with the emergency room staff and the patient's Lisa Stout phone #[phone] According to the the patient had his typical beer binge late last evening. He has not been through any withdrawal patterns. She states that he awoke in his normal state but had a seizure that lasted less than 3 minutes. He had a very short-lived postictal state and then had a short seizure. After this he remained seizure-free walking and talking acting normal. Approximately 1 and half hours after the first seizure he had another prolonged seizure. EMS was called he was given Versed. He was noted to be hypotensive in the emergency room and received 3 L of fluid. He also had a significant lactic acidosis and bicarbonate was low as well. He did awaken in the emergency room and was somewhat agitated. He did complain of right shoulder discomfort examination was unremarkable and x-ray was unremarkable as well. ED staff confirms that he was in his normal state however he became agitated and gave him more Ativan. Evaluated patient in the emergency room however he was too lethargic to provide any history or complaints. His heart rate was 117 with a blood pressure of 186/130 saturation 99% breathing at 18 breaths/min. Cardene drip was started. He was arousable and would follow commands but extremely lethargic. His exam following was not consistent. Glascow coma scale on my initial evaluation was 2-2-6 intermittent. He required multiple medications and had no available IV access. His gave consent over the phone Indication for Procedure: Seizure and Hypertensive urgency, need for IV access Date: 06/21/19 Provider: PRETTY HENRIQUEZ - Central Line Right Internal jugular Time completed: 18:02 Consent obtained: Yes - verbal over phone from Lsia Central line pre-insertion: Sterile PPE donned, Chloraprep applied, Sterile drapes applied Central line size (Fr.): 7 Central line lumen type: Triple Anesthetic type: 1% Lidocaine mL's of anesthesia: 3 Ultrasound guided: Yes CM at insertion site: 15 Line secured with sutures: Yes Central line post-insertion: Blood return from lumens, Biopatch applied, Sutured, Sterile dressing applied, Other - Seen on ultrasound. Number of attempts: 1 Complications: No
[2019-06-21] MEDS: THIAMINE HCL 500 MG in NORMAL SALINE 250 ML IV SCH (18:22)
--- NOTE | 2019-06-21 18:35 | RADIOLOGY REPORT (SQ) ---
EXAM DESCRIPTION: CHEST SINGLE VIEW COMPLETED DATE/TIME: 06/21/2019 6:21 pm REASON FOR STUDY: line placement COMPARISON: 06/21/2019 EXAM PARAMETERS: NUMBER OF VIEWS: One view. TECHNIQUE: Single frontal radiographic view of the chest acquired. RADIATION DOSE: NA LIMITATIONS: None. FINDINGS: LUNGS AND PLEURA: No opacities, masses or pneumothorax. No pleural effusion. MEDIASTINUM AND HILAR STRUCTURES: No masses. Contour normal. HEART AND VASCULAR STRUCTURES: Heart normal in size. Normal vasculature. BONES: No acute findings. HARDWARE: Right internal jugular catheter has its tip in the superior vena cava. OTHER: No other significant finding. IMPRESSION: Right internal jugular catheter placement. TECHNICAL DOCUMENTATION: JOB ID: [id number] [employer]- All Rights Reserved Reading location - IP/workstation name: [email or web address]
--- NOTE | 2019-06-21 18:40 | ER Document Report ---
Entered by HITESH KING SCRIBE 06/21/19 0927 Acting as scribe for:OLGA LIDIA MEDINA DO ED Seizure - General Chief Complaint: Seizure Stated Complaint: POSSIBLE SEIZURE Time Seen by Provider: 06/21/19 09:21 Mode of Arrival: Medic Information source: Emergency Med Personnel Cannot obtain history due to: Altered mental status Notes: This 33 year old male patient presents to the emergency department today with complaints of seizures prior to arrival. EMS administered 2.5 mg of Versed in route to this facility due to continued seizures. Patient is on keppra for seizures. Patient is postictal here and unable to provide any history. EMS reports that family on scene reported that the patient has been drinking EtOH heavily the last few days. - Related Data Allergies/Adverse Reactions: hydrocodone [From Vicodin] Allergy (Verified 10/07/18 13:35) Past Medical History - General Information source: [facility] Records Cannot obtain history due to: Altered mental status - Social History Smoking Status: Smoker,Current Status Unk Frequency of alcohol use: Heavy Family History: None, Reviewed & Not Pertinent Patient has suicidal ideation: No Patient has homicidal ideation: No - Past Medical History Cardiac Medical History: Reports: Hx Hypertension Neurological Medical History: Reports: Hx Seizures - Immunizations Immunizations up to date: No Hx Diphtheria, Pertussis, Tetanus Vaccination: Yes Review of Systems - Review of Systems -: Yes ROS unobtainable due to patient's medical condition Physical Exam - Vital signs Vitals: Resp BP Pulse Ox 39 H 98/62 L 92 06/21/19 08:54 06/21/19 08:54 06/21/19 08:54 Interpretation: Hypotensive - Notes Notes: Physical Exam: General: Drowsy, difficult to arouse. HEENT: Normocephalic. Atraumatic. PERRL. Neck: Supple. Non-tender. Respiratory: No respiratory distress. Clear and equal breath sounds bilaterally. Cardiovascular: Regular rate and rhythm. Abdominal: Normal Inspection. Non-tender. No distension. Normal Bowel Sounds. Back: No gross abnormalities. Extremities: Moves all four extremities. Upper extremities: Normal inspection. Normal ROM. Lower extremities: Normal inspection. No edema. Normal ROM. Neurological: Drowsy, difficult to arouse, GCS of 3. Skin: Warm. Dry. Normal color. Course - Re-evaluation Re-evalutation: 06/21/19 10:28 Patient is alert and talking now, complaining of right shoulder pain. 06/21/19 14:01 Patient is a 33-year-old male with a history of seizure disorder who was drinking last night. Patient has a history of hypertension has been admitted for high blood pressure seizures in the past. Concern is that this is more likely alcohol withdrawal leading to seizures from alcohol withdrawal. Patient was initially hypotensive likely from Versed given prior to arrival. Responded well to fluid bolus. Patient was then awake and talking but becoming tachycardic and hypertensive. Serum alcohol 17. Patient was given Ativan for symptoms and became less tachycardic and less hypertensive. His initial lactic was 16 likely from seizure activity and dehydration. He has an BERRY today. Lactic acid is downtrending with IV fluids. Patient was given normal saline and then half-normal saline when his sodium resulted at 145. Please note, blood work that is done was 2 hours after presentation due to hemolyzation of initial blood work although it is quite possible that he had severe metabolic derangement at the time so it was not reported. Regardless, patient is trending in the right direction. Given his history of alcohol abuse with likely alcohol withdrawal seizures, he will require ICU admission. He has been discussed with the network desktop support specialist, Dr. Penny and is accepted for admission. He is stable at this time and has had no further seizures here in the emergency department. He was loaded with Keppra 1500 mg and has seizure precautions in place. Of note, head CT within normal limits. - Vital Signs Vital signs: Temp Pulse Resp BP Pulse Ox 99.1 F 9 L 188/131 H 98 06/21/19 14:00 06/21/19 14:21 06/21/19 14:21 06/21/19 14:21 - Laboratory Result Diagrams: 06/21/19 11:09 06/21/19 11:09 Laboratory results interpreted by me: 06/21/19 06/21/19 06/21/19 08:53 11:09 11:09 WBC RBC Hgb Hct RDW Seg Neuts % (Manual) Lymphocytes % (Manual) Abs Neuts (Manual) PT 18.2 H ABG pH ABG pO2 ABG Total CO2 Sodium 145.3 H Chloride 110 H Carbon Dioxide 9 L* Anion Gap 26 H Creatinine 2.16 H Est GFR ( Amer) 43 L Est GFR (MDRD) Non-Af 35 L Glucose 161 H Lactic Acid (Sepsis) 16.4 H Calcium 10.5 H Alkaline Phosphatase 137 H Total Protein 9.1 H Urine Protein Urine Blood 06/21/19 06/21/19 06/21/19 11:09 13:40 14:10 WBC 23.2 H RBC 5.60 H Hgb 17.4 H Hct 53.2 H RDW 14.4 H Seg Neuts % (Manual) 80 H Lymphocytes % (Manual) 10 L Abs Neuts (Manual) 19.3 H PT ABG pH 7.34 L ABG pO2 77.1 L ABG Total CO2 21.5 L Sodium Chloride Carbon Dioxide Anion Gap Creatinine Est GFR ( Amer) Est GFR (MDRD) Non-Af Glucose Lactic Acid (Sepsis) Calcium Alkaline Phosphatase Total Protein Urine Protein 100 H Urine Blood MODERATE H 06/21/19 14:41 WBC RBC Hgb Hct RDW Seg Neuts % (Manual) Lymphocytes % (Manual) Abs Neuts (Manual) PT ABG pH ABG pO2 ABG Total CO2 Sodium Chloride Carbon Dioxide Anion Gap Creatinine Est GFR ( Amer) Est GFR (MDRD) Non-Af Glucose Lactic Acid (Sepsis) 3.3 H Calcium Alkaline Phosphatase Total Protein Urine Protein Urine Blood Critical Care Note - Critical Care Note Total time excluding time spent on procedures (mins): 90 - Evaluation and ma nagement of persistent seizure activity, altered mental status, metabolic derangement including BERRY and elevated lactic acid, treatment of patient, coordination of admission, multiple re-evaluations Discharge - Discharge Clinical Impression: Seizure, Encephalopathy acute, Lactic acidosis Altered mental status Qualifiers: Altered mental status type: unspecified Qualified Code(s): R41.82 - Altered mental status, unspecified Acute kidney failure Qualifiers: Acute renal failure type: with acute renal cortical necrosis Qualified Code(s): N17.1 - Acute kidney failure with acute cortical necrosis Alcohol withdrawal seizure Qualifiers: Complication of substance-induced condition: with unspecified complication Qu alified Code(s): F10.239 - Alcohol dependence with withdrawal, unspecified; R56.9 - Unspecified convulsions Condition: Stable Disposition: ADMITTED INPATIENT Admitting Provider: Zohaib (Tobacco Packing Machine Operator) Unit Admitted: ICU I personally performed the services described in the documentation, reviewed and edited the documentation which was dictated to the scribe in my presence, and it accurately records my words and actions.
[2019-06-21] MEDS ORDERED: [UNRECOGNIZED DRUG - REMARK] IV SCH ×3 (20:00)
[2019-06-21] MEDS ORDERED: [UNRECOGNIZED DRUG - REMARK] IV ONE ×3 (20:00)
--- NOTE | 2019-06-22 01:38 | RADIOLOGY REPORT (SQ) ---
EXAM DESCRIPTION: XR CHEST 1 VIEW COMPLETED DATE/TME: 06/22/2019 00:00 CLINICAL HISTORY: 33 years, Male, line pulled COMPARISON: X-ray chest 06/21/2019 at 6:20 PM NUMBER OF VIEWS: TECHNIQUE: LIMITATIONS: None. FINDINGS: The tip of the right-sided jugular venous line is in the superior vena cava. No evidence of pneumothorax or pleural effusion. No evidence of pulmonary infiltrate. The heart and mediastinum are unremarkable. There is elevation of the right hemidiaphragm. There is no significant change, as compared with the prior x-ray(s). IMPRESSION: The tip of the central venous line is in the superior vena cava. copyright 2010 [employer]- All Rights Reserved
[2019-06-22 05:05] LABS: ALBUMIN 3.5 g/dL (3.5-5.0); ALKALINE PHOSPHATASE 82 U/L (38-126); ASPARTATE AMINO TRANSFERASE 33 U/L (17-59); BILIRUBIN,DIRECT 0.1 mg/dL (0.0-0.4); BILIRUBIN,TOTAL 0.5 mg/dL (0.2-1.3); BLOOD UREA NITROGEN 7 mg/dL (7-20); CALCIUM 8.4 mg/dL (8.4-10.2); CHLORIDE 105 mmol/L (98-107); GLUCOSE 126 mg/dL (75-110); PHOSPHORUS 2.7 mg/dL (2.5-4.5); TOTAL PROTEIN 6.7 g/dL (6.3-8.2)
[2019-06-22 05:17] LABS: ANION GAP 7 (5-19)
[2019-06-22 05:22] LABS: CARBON DIOXIDE 26 mmol/L (22-30); POTASSIUM 3.2 mmol/L (3.6-5.0)
[2019-06-22] MEDS: THIAMINE HCL 500 MG in NORMAL SALINE 250 ML IV SCH ×2 (05:59→17:48)
[2019-06-22] MEDS: LEVETIRACETAM 1500 MG/NACL-ISO 1,500 MG/100 ML RTUPB IV SCH (05:59)
[2019-06-22 06:05] LABS: ABSOLUTE MONOCYTES (AUTO) 1.2 10^3/uL (0.1-1.4); ABSOLUTE NEUT (AUTO) 7.4 10^3/uL (1.7-8.2); BASOPHILS % (AUTO) 0.3 % (0-2); HEMATOCRIT 41.8 % (37.9-51.0); LYMPHOCYTES % (AUTO) 18.5 % (13-45); MEAN CORPUSCULAR HEMOGLOBIN 31.1 pg (27.0-33.4); MEAN CORPUSCULAR HGB CONC 34.3 g/dL (32.0-36.0); MONOCYTES % (AUTO) 11.3 % (3-13); PLATELET COUNT 208 10^3/uL (150-450); RED BLOOD COUNT 4.61 10^6/uL (4.35-5.55); RED CELL DISTRIBUTION WIDTH 14.1 % (11.5-14.0); SEGMENTED NEUTROPHILS % (AUTO) 69.9 % (42-78); TOTAL CELLS COUNTED % (AUTO) 100 %; WHITE BLOOD COUNT 10.7 10^3/uL (4.0-10.5)
[2019-06-22 06:14] LABS: HEMOGLOBIN 14.3 g/dL (13.5-17.0)
[2019-06-22 06:15] LABS: MEAN CORPUSCULAR VOLUME 91 fl (80-97)
[2019-06-22] MEDS ORDERED: LISINOPRIL 10 MG TABLET PO ONE (06:15)
[2019-06-22] MEDS: ENOXAPARIN SODIUM INJ 40 MG/0.4 ML DISP.SYRIN SUBCUT SCH (10:43)
--- NOTE | 2019-06-22 12:05 | XCELERA REPORT ---
[address] [address] Transthoracic Echocardiogram Report Name: AMADOR CHAVEZ Age: 33 yrs Gender: Male : 1985 Patient Status: Inpatient Patient Location: ICU^606^A Study Date: 06/22/2019 10:45 AM Height: 70 in Weight: 171 lb BSA: 2.0 m2 Procedure: A two-dimensional transthoracic echocardiogram with color flow and Doppler was performed. Study Quality: Fair. Reason For Study: cardiomegaly History: CARDIOMEGALY. Ordering Physician: PRETTY HENRIQUEZ Performed By: Candida Perez Interpretation Summary The left ventricle is normal in size. There is normal left ventricular wall thickness. LV EF is 65% Left ventricular systolic function is normal. Doppler measurements suggest normal left ventricular diastolic function The left ventricular wall motion is normal. There is no thrombus. There is no ventricular septal defect visualized. The right ventricle is normal in size and function. The right atrium is normal. The left atrial size is normal. The interatrial septum is intact with no evidence for an atrial septal defect. There is no Doppler evidence for an interatrial shunt There is no evidence of mitral valve prolapse. There is no vegetation seen on the mitral valve. There is no mitral valve stenosis. There is no mitral regurgitation noted. There is no aortic valvular vegetation. There is no aortic valve stenosis There is no LVOT obstruction. No aortic regurgitation is present. There is no tricuspid stenosis. There is a trace amount of tricuspid regurgitation Right ventricular systolic pressure is normal. RVSP is 23 to 28 mmm of Hg , with RA mean of 5 to 10. There is no pulmonic valvular stenosis. There is a trace amount of pulmonic regurgitation The aortic root is normal size. The inferior vena cava appeared normal and decreased > 50% with respiration (RAP 5-10 mmHg) There is no pericardial effusion. MMode/2D Measurements & Calculations RVDd: 2.5 cm LVIDd: 4.8 cm FS: 37.0 % Ao root diam: 3.3 cm IVSd: 1.0 cm LVIDs: 3.0 cm EDV(Teich): 105.1 ml Ao root area: 8.3 cm2 LVPWd: 1.1 cm ESV(Teich): 34.9 ml EF(Teich): 66.8 % Doppler Measurements & Calculations MV E max varghese: MV dec slope: Ao V2 max: LV V1 max P.3 cm/sec 540.1 cm/sec2 146.9 cm/sec 6.1 mmHg MV A max varghese: MV dec time: 0.13 secAo max PG: LV V1 max: 64.1 cm/sec 8.6 mmHg 123.7 cm/sec MV E/A: 1.1 PA V2 max: PI end-d varghese: TR max varghese: 102.7 cm/sec 102.8 cm/sec 211.8 cm/sec PA max P.2 mmHg TR max P.9 mmHg Left Ventricle The left ventricle is normal in size. There is normal left ventricular wall thickness. LV EF is 65%. Left ventricular systolic function is normal. Doppler measurements suggest normal left ventricular diastolic function. The left ventricular wall motion is normal. There is no thrombus. There is no ventricular septal defect visualized. Right Ventricle The right ventricle is normal in size and function. Atria The right atrium is normal. The left atrial size is normal. The interatrial septum is intact with no evidence for an atrial septal defect. There is no Doppler evidence for an interatrial shunt. Mitral Valve There is no evidence of mitral valve prolapse. There is no vegetation seen on the mitral valve. There is no mitral valve stenosis. There is no mitral regurgitation noted. Aortic Valve There is no aortic valvular vegetation. There is no aortic valve stenosis. There is no LVOT obstruction. No aortic regurgitation is present. Tricuspid Valve There is no tricuspid stenosis. There is a trace amount of tricuspid regurgitation. Right ventricular systolic pressure is normal. RVSP is 23 to 28 mmm of Hg , with RA mean of 5 to 10. Pulmonic Valve There is no pulmonic valvular stenosis. There is a trace amount of pulmonic regurgitation. Great Vessels The aortic root is normal size. The inferior vena cava appeared normal and decreased > 50% with respiration (RAP 5-10 mmHg). Effusions There is no pericardial effusion. : PRETTY HENRIQUEZ Lakshmi
[2019-06-22] MEDS: AMLODIPINE BESYLATE 5 MG TABLET PO SCH ×2 (17:48→21:14)
[2019-06-22] MEDS ORDERED: [UNRECOGNIZED DRUG - REMARK] IV SCH ×3 (18:00)
[2019-06-22] MEDS ORDERED: WATER IV PRN ×2 (18:03)
[2019-06-22] MEDS ORDERED: DEXTROSE 5% IV PRN ×2 (18:03)
[2019-06-22] MEDS ORDERED: SODIUM BICARBONATE IV PRN ×2 (18:03)
[2019-06-22] MEDS ORDERED: RINGERS SOLUTION,LACTATED 1,000 ML IV PRN (18:07)
--- NOTE | 2019-06-22 18:19 | PDOC CRITICAL CARE PROG REPORT ---
General Date:: 06/22/19 ICU Day:: 2 Hospital Day:: 2 Events in the past 12 to 24 Hours:: Patient admitted from the emergency room with encephalopathy postictal state after prolonged status epilepticus. He was also started on a Cardene drip because of significant hypertension. He has had no further seizures. Review of systems relevant to events:: Patient's blood pressure has improved and he is off Cardene. This afternoon he had a slight increase without any evidence to support seizure or alcohol withdrawal. He has been started on oral and PRN anti-hypertensives. We have not started his SATURNINO inhibitor because of his renal failure. Reason for ICU Addmission:: Seizure with hypertension - Medications: Medications reviewed and adjusted accordingly: Yes Vasopressors:: Cardene off Physical Exam Vital Signs: Temp Pulse Resp BP Pulse Ox 99.9 F 86 12 162/109 H 98 06/22/19 04:21 06/22/19 07:45 06/22/19 07:45 06/22/19 07:45 06/22/19 07:45 Intake & Output 06/21/19 06/22/19 06/23/19 06:59 06:59 06:59 Intake Total 6008 Output Total 670 Balance 5338 Weight 78 kg Weight/Height Weight 78 kg Height 5 ft 10 in General appearance: PRESENT: no acute distress, cooperative, disheveled, well-developed, well-nourished Exam: Nontoxic older appearing 33-year-old black male appears ill but no acute distress. Head exam: PRESENT: atraumatic, normocephalic Eye exam: PRESENT: conjunctiva pink, EOMI, PERRLA. ABSENT: conjunctival injection, scleral icterus Ear exam: PRESENT: normal external ear exam Mouth exam: PRESENT: moist, neck supple Teeth exam: PRESENT: dental caries, poor dentation Throat exam: ABSENT: post pharyngeal erythema Neck exam: ABSENT: carotid bruit, JVD, lymphadenopathy, meningismus, thyromegaly Respiratory exam: PRESENT: clear to auscultation ector, unlabored. ABSENT: rales, rhonchi, tachypnea, wheezes Cardiovascular exam: PRESENT: RRR, +S1, +S2. ABSENT: systolic murmur Pulses: PRESENT: normal dorsalis pedis pul, +2 pedal pulses bilateral Vascular exam: PRESENT: normal capillary refill GI/Abdominal exam: PRESENT: normal bowel sounds, soft. ABSENT: distended, guarding, mass, organolmegaly, rebound, tenderness Rectal exam: PRESENT: deferred Gentrourinary exam: ABSENT: ecchymosis, lesions, scrotal swelling, urethral discharge, indwelling catheter Extremities exam: ABSENT: pedal edema, tenderness Musculoskeletal exam: PRESENT: normal inspection, other - Has soft-tissue subcutaneous mass proximal dorsal thigh. ABSENT: deformity, dislocation Neurological exam: PRESENT: alert, awake, oriented to person, oriented to place, oriented to time, CN II-XII grossly intact. ABSENT: motor sensory deficit, aphasic Psychiatric exam: PRESENT: appropriate affect Focused psych exam: ABSENT: pressured speech, psychomotor agitation, restlessness Skin exam: PRESENT: dry, intact, warm. ABSENT: cyanosis, rash Laboratory/Radiographs Laboratory Results: 06/22/19 05:43 06/22/19 04:10 06/21/19 06/21/19 06/21/19 08:53 08:53 09:30 WBC Cancelled RBC Cancelled Hgb Cancelled Hct Cancelled MCV Cancelled MCH Cancelled MCHC Cancelled RDW Cancelled Plt Count Cancelled Seg Neutrophils % Cancelled Carbonic Acid HCO3/H2CO3 Ratio ABG pH ABG pCO2 ABG pO2 ABG HCO3 ABG O2 Saturation ABG Base Excess VBG pH Cancelled VBG pCO2 Cancelled VBG HCO3 Cancelled VBG Base Excess Cancelled FiO2 Sodium Cancelled Potassium Cancelled Chloride Cancelled Carbon Dioxide Cancelled Anion Gap Cancelled BUN Cancelled Creatinine Cancelled Est GFR ( Amer) Cancelled Est GFR (Non-Af Amer) Cancelled Glucose Cancelled Lactic Acid Calcium Cancelled Ionized Calcium Matthew Phosphorus Magnesium Total Bilirubin Cancelled AST Cancelled Alkaline Phosphatase Cancelled Total Protein Cancelled Albumin Cancelled PTH Intact Urine Color Urine Appearance Urine pH Ur Specific [place] Urine Protein Urine Glucose (UA) Urine Ketones Urine Blood 06/21/19 06/21/19 06/21/19 11:09 11:09 13:40 WBC 23.2 H RBC 5.60 H Hgb 17.4 H Hct 53.2 H MCV 95 D MCH 31.0 MCHC 32.6 RDW 14.4 H Plt Count 293 Seg Neutrophils % Not Reportable Carbonic Acid HCO3/H2CO3 Ratio ABG pH ABG pCO2 ABG pO2 ABG HCO3 ABG O2 Saturation ABG Base Excess VBG pH VBG pCO2 VBG HCO3 VBG Base Excess FiO2 Sodium 145.3 H Potassium 4.3 Chloride 110 H Carbon Dioxide 9 L* Anion Gap 26 H BUN 10 Creatinine 2.16 H Est GFR ( Amer) 43 L Est GFR (Non-Af Amer) Glucose 161 H Lactic Acid Calcium 10.5 H Ionized Calcium Matthew Phosphorus Magnesium Total Bilirubin 0.5 AST 49 Alkaline Phosphatase 137 H Total Protein 9.1 H Albumin 5.0 PTH Intact Urine Color YELLOW Urine Appearance SLIGHTLY-CLOUDY Urine pH 5.0 Ur Specific [place] 1.010 Urine Protein 100 H Urine Glucose (UA) NEGATIVE Urine Ketones NEGATIVE Urine Blood MODERATE H 06/21/19 06/21/19 06/21/19 14:10 17:27 18:16 WBC RBC Hgb Hct MCV MCH MCHC RDW Plt Count Seg Neutrophils % Carbonic Acid 1.16 HCO3/H2CO3 Ratio 17:1 ABG pH 7.34 L ABG pCO2 38.4 ABG pO2 77.1 L ABG HCO3 20.3 ABG O2 Saturation 94.8 ABG Base Excess -4.9 VBG pH VBG pCO2 VBG HCO3 VBG Base Excess FiO2 ROOM AIR Sodium Potassium Chloride Carbon Dioxide Anion Gap BUN Creatinine Est GFR ( Amer) Est GFR (Non-Af Amer) Glucose Lactic Acid Calcium Ionized Calcium Matthew 1.09 L Phosphorus Magnesium Total Bilirubin AST Alkaline Phosphatase Total Protein Albumin PTH Intact 85.2 H Urine Color Urine Appearance Urine pH Ur Specific [place] Urine Protein Urine Glucose (UA) Urine Ketones Urine Blood 06/22/19 06/22/19 06/22/19 04:10 04:10 05:43 WBC Cancelled 10.7 H RBC Cancelled 4.61 Hgb Cancelled 14.3 D Hct Cancelled 41.8 MCV Cancelled 91 D MCH Cancelled 31.1 MCHC Cancelled 34.3 RDW Cancelled 14.1 H Plt Count Cancelled 208 Seg Neutrophils % Cancelled 69.9 Carbonic Acid HCO3/H2CO3 Ratio ABG pH ABG pCO2 ABG pO2 ABG HCO3 ABG O2 Saturation ABG Base Excess VBG pH VBG pCO2 VBG HCO3 VBG Base Excess FiO2 Sodium 138.4 Potassium 3.2 L D Chloride 105 Carbon Dioxide 26 D Anion Gap 7 BUN 7 Creatinine 1.17 Est GFR ( Amer) > 60 Est GFR (Non-Af Amer) Glucose 126 H Lactic Acid Calcium 8.4 Ionized Calcium Matthew Phosphorus 2.7 Magnesium 2.4 H Total Bilirubin 0.5 AST 33 Alkaline Phosphatase 82 Total Protein 6.7 Albumin 3.5 PTH Intact Urine Color Urine Appearance Urine pH Ur Specific [place] Urine Protein Urine Glucose (UA) Urine Ketones Urine Blood 06/22/19 07:10 WBC RBC Hgb Hct MCV MCH MCHC RDW Plt Count Seg Neutrophils % Carbonic Acid HCO3/H2CO3 Ratio ABG pH ABG pCO2 ABG pO2 ABG HCO3 ABG O2 Saturation ABG Base Excess VBG pH VBG pCO2 VBG HCO3 VBG Base Excess FiO2 Sodium Potassium Chloride Carbon Dioxide Anion Gap BUN Creatinine Est GFR ( Amer) Est GFR (Non-Af Amer) Glucose Lactic Acid 1.3 Calcium Ionized Calcium Matthew Phosphorus Magnesium Total Bilirubin AST Alkaline Phosphatase Total Protein Albumin PTH Intact Urine Color Urine Appearance Urine pH Ur Specific [place] Urine Protein Urine Glucose (UA) Urine Ketones Urine Blood 06/21/19 06/21/19 06/21/19 08:53 17:27 17:27 Creatine Kinase 622 H Troponin I 0.022 0.519 06/21/19 06/22/19 18:16 04:10 Creatine Kinase Troponin I 0.428 0.127 Impressions: Humerus X-Ray 06/21/19 10:39 IMPRESSION: NEGATIVE STUDY OF THE RIGHT HUMERUS. NO RADIOGRAPHIC EVIDENCE OF ACUTE INJURY. Head CT 06/21/19 16:12 IMPRESSION: NORMAL BRAIN CT WITHOUT CONTRAST. EVIDENCE OF ACUTE STROKE: NO. Chest X-Ray 06/22/19 00:00 IMPRESSION: The tip of the central venous line is in the superior vena cava. copyright 2010 [employer]- All Rights Reserved All labs, radiographs, diagnostic studies and EKGs were personally reviewed: Yes In addition, reports of radiographic and diagnostic studies were read: Yes Assessment and Plan - Diagnosis (1) Hypertensive urgency Is this a current diagnosis for this admission?: Yes Plan: Wean cardene. Start BBlocker and Norvasc. Have held chlorthalidone and ACEI secondary to acute renal failure (2) Status epilepticus, generalized convulsive Is this a current diagnosis for this admission?: Yes Plan: Resolved. Suspect medicine non-compliance. (3) Lactic acidosis Is this a current diagnosis for this admission?: Yes Plan: Resolved. Secondary to seizures (4) Acute kidney failure Qualifiers: Acute renal failure type: with acute renal cortical necrosis Qualified Code(s): N17.1 - Acute kidney failure with acute cortical necrosis Is this a current diagnosis for this admission?: Yes Plan: Improving. Reduce IVF, liquid encouraged in diet. Have held ACEI until improved (5) Encephalopathy acute Is this a current diagnosis for this admission?: Yes Plan: Resolved. Has history of TBI. At baseline neurologic status. Right arm has been intermittently weak and painful. XRay negative (6) Delirium due to another medical condition, acute, hypoactive Is this a current diagnosis for this admission?: Yes Plan: Resolved. Watch for ETOH withdrawl (7) Alcohol abuse Is this a current diagnosis for this admission?: Yes (8) Tobacco abuse Is this a current diagnosis for this admission?: Yes (9) Rhabdomyolysis Qualifiers: Rhabdomyolysis type: traumatic Encounter type: initial encounter Qualified Code(s): T79.6XXA - Traumatic ischemia of muscle, initial encounter Is this a current diagnosis for this admission?: Yes Plan: Improved. IV Fluids reduced Plan Summary: 06.22.19: Patient's condition, overall has improved. We have had some difficulty in controlling his blood pressure however this appears to be an ongoing chronic issue secondary to medical noncompliance. I have started him on Lopressor and Norvasc today. We have held using chlorthalidone or SATURNINO inhibitor due to his renal failure. PRN hydralazine is also been ordered. We will need to monitor in the ICU secondary to the unstable nature of his blood pressure. We will also need to monitor for acute alcohol withdrawal given the amount of alcohol he ingest daily. Of course he is at risk for further seizures with alcohol withdrawal and will monitor his status in the ICU 06.21.19 Will admit the patient to the ICU. Have placed him on a D5 modified bicarbonate drip as a resuscitation fluid to prevent renal failure. Have increased his Keppra to 1500 mg twice daily. Unfortunately I am unable to get a baseline Keppra because the patient was given a bolus loading dose in the emergency room. Of importance is his encephalopathy and delirium. He was given Ativan and I am concerned about aspiration and neurological status. He also has hypertension that is difficult to control. He is not taking anything p.o. and so we have started a Cardene drip. Important follow-up items will be to check creatinine kinase to evaluate the degree of rhabdomyolysis. We will follow his pH and bicarbonate status. In that the patient had a full neurological recovery and has had multiple CAT scans (greater than 9), will wait on ordering any imaging studies unless the patient has a neurological deficits. This does not appear to be alcohol withdrawal related but may be related to alcohol excess. Will check alcohol level as well. Will need to have neurological follow-up as well. Critical Time Critical Time (minutes): 40 Level of Care: ICU Anticipated discharge: Home Within: within 48 hours -: 1. The care of a critical patient is a dynamic process. This note is a senior outside sales representative synopsis but static in nature. The timeframe for treatments given in order is not necessary the actual time these treatments may have been done. 2. This patient requires critical care secondary to ongoing requirements for therapy not offered or safe outside the critical care environment. Transfer to a lower level of care with altered life or limb morbidity and mortality. 3. Multidisciplinary rounds completed. 4. ABCDE bundle addressed. 5. MPOA: , Lisa
[2019-06-22] MEDS ORDERED: METOPROLOL TARTRATE PF/INJ 5 MG/5 ML SDV IV ONE (18:30)
[2019-06-22] MEDS: HYDRALAZINE HCL INJ/PF 20 MG/1 ML SDV IV PRN ×2 (20:17→22:33)
[2019-06-22 20:22] LABS: APPEARANCE,URINE CLEAR; BILIRUBIN,URINE NEGATIVE (NEGATIVE); COLOR,URINE YELLOW; GLUCOSE, URINE NEGATIVE (NEGATIVE); KETONES,URINE NEGATIVE (NEGATIVE); LEUKOCYTE ESTERASE,URINE NEGATIVE (NEGATIVE); NITRITE,URINE NEGATIVE (NEGATIVE); PROTEIN,URINE NEGATIVE (NEGATIVE); URINE SPECIFIC GRAVITY 1.009; UROBILINOGEN,URINE NEGATIVE mg/dL (<2.0)
[2019-06-22] MEDS: METOPROLOL TARTRATE 25 MG TABLET PO SCH (21:14)
[2019-06-22] MEDS ORDERED: LORAZEPAM INJ 2 MG/1 ML VIAL IV PRN (22:30)
[2019-06-22] MEDS ORDERED: POTASSIUM CHLORIDE 10 MEQ TABLET.ER PO ONE (22:31)
[2019-06-22] MEDS ORDERED: LEVETIRACETAM 500 MG TABLET PO ONE (22:45)
[2019-06-22 22:55] LABS: ALBUMIN 3.6 g/dL (3.5-5.0); ALKALINE PHOSPHATASE 77 U/L (38-126); ANION GAP 7 (5-19); ASPARTATE AMINO TRANSFERASE 31 U/L (17-59); BILIRUBIN,DIRECT 0.2 mg/dL (0.0-0.4); BILIRUBIN,TOTAL 0.7 mg/dL (0.2-1.3); BLOOD UREA NITROGEN 6 mg/dL (7-20); CARBON DIOXIDE 26 mmol/L (22-30); CHLORIDE 106 mmol/L (98-107); GLUCOSE 102 mg/dL (75-110); POTASSIUM 3.5 mmol/L (3.6-5.0); TOTAL PROTEIN 6.9 g/dL (6.3-8.2)
[2019-06-23] MEDS ORDERED: METOPROLOL TARTRATE PF/INJ 5 MG/5 ML SDV IV ONE ×2 (01:19→01:26)
[2019-06-23 04:11] LABS: ABSOLUTE LYMPHOCYTES (AUTO) 1.6 10^3/uL (0.5-4.7); ABSOLUTE NEUT (AUTO) 3.9 10^3/uL (1.7-8.2); BASOPHILS % (AUTO) 0.5 % (0-2); EOSINOPHILS % (AUTO) 0.3 % (0-6); HEMOGLOBIN 13.6 g/dL (13.5-17.0); LYMPHOCYTES % (AUTO) 24.3 % (13-45); MEAN CORPUSCULAR HGB CONC 34.1 g/dL (32.0-36.0); MEAN CORPUSCULAR VOLUME 91 fl (80-97); MONOCYTES % (AUTO) 14.9 % (3-13); PLATELET COUNT 187 10^3/uL (150-450); RED CELL DISTRIBUTION WIDTH 14.1 % (11.5-14.0); TOTAL CELLS COUNTED % (AUTO) 100 %; WHITE BLOOD COUNT 6.4 10^3/uL (4.0-10.5)
[2019-06-23] MEDS: HYDRALAZINE HCL INJ/PF 20 MG/1 ML SDV IV PRN (04:19)
[2019-06-23 04:30] LABS: ANION GAP 6 (5-19); BLOOD UREA NITROGEN 5 mg/dL (7-20); CALCIUM 9.1 mg/dL (8.4-10.2); CARBON DIOXIDE 28 mmol/L (22-30); CHLORIDE 107 mmol/L (98-107); GLUCOSE 94 mg/dL (75-110); PHOSPHORUS 2.9 mg/dL (2.5-4.5); POTASSIUM 3.6 mmol/L (3.6-5.0)
[2019-06-23] MEDS ORDERED: THIAMINE HCL 250 MG in NORMAL SALINE 100 ML IV SCH (06:00)
[2019-06-23] MEDS: ENOXAPARIN SODIUM INJ 40 MG/0.4 ML DISP.SYRIN SUBCUT SCH (09:14)
[2019-06-23] MEDS: METOPROLOL TARTRATE 25 MG TABLET PO SCH (09:14)
[2019-06-23] MEDS: LEVETIRACETAM 500 MG TABLET PO SCH ×2 (09:15→23:26)
[2019-06-23] MEDS: AMLODIPINE BESYLATE 5 MG TABLET PO SCH (09:15)
[2019-06-23] MEDS: THIAMINE HCL 100 MG TABLET PO SCH ×2 (09:16→23:26)
[2019-06-23] MEDS: FOLIC ACID 1 MG TABLET PO SCH (09:16)
[2019-06-23] MEDS: CHLORTHALIDONE 25 MG TABLET PO SCH (11:03)
[2019-06-23] MEDS: LISINOPRIL 10 MG TABLET PO SCH (11:03)
--- NOTE | 2019-06-23 14:54 | PDOC CRITICAL CARE PROG REPORT ---
General Date:: 06/23/19 ICU Day:: 3 Hospital Day:: 3 Resuscitation Status: Full Code Medical Power of Sales Support Administrator: : Lisa Events in the past 12 to 24 Hours:: 12.12.05: Patient has been seizure-free since admission. He was restarted on his oral Keppra. It is difficult to ascertain whether he has been taking his medications accurately. 06/22/19: Patient admitted from the emergency room with encephalopathy postictal state after prolonged status epilepticus. He was also started on a Cardene drip because of significant hypertension. He has had no further seizures. Review of systems relevant to events:: Patient's blood pressure has improved and he is off Cardene. This afternoon he had a slight increase without any evidence to support seizure or alcohol with drawal. He has been started on oral and PRN anti-hypertensives. We have not started his SATURNION inhibitor because of his renal failure. Review of systems relevant to events:: Patient has had no difficulty breathing. No chest pain. No headache or visual changes. Nursing has not noted any mental status changes or seizures. No evidence of withdrawal phenomena Reason for ICU Addmission:: Seizure with hypertension - Medications: Vasopressors:: Cardene off Physical Exam Vital Signs: Temp Pulse Resp BP Pulse Ox 99.6 F 64 11 L 130/91 H 100 06/23/19 12:00 06/23/19 12:00 06/23/19 14:00 06/23/19 13:10 06/23/19 14:00 Intake & Output 06/22/19 06/23/19 06/24/19 06:59 06:59 06:59 Intake Total 6008 2132.8 Output Total 670 2275 250 Balance 5338 -142.2 -250 Weight 78 kg 79.4 kg Weight/Height Weight 79.4 kg Height 5 ft 10 in General appearance: PRESENT: no acute distress, cooperative, well-developed, well-nourished Exam: Pleasant nontoxic smiling unkempt 33-year-old black male no active distress awake alert oriented x3 Head exam: PRESENT: atraumatic, normocephalic Eye exam: PRESENT: conjunctival injection, conjunctiva pink, EOMI, PERRLA. ABSENT: nystagmus, scleral icterus Ear exam: PRESENT: normal external ear exam Mouth exam: PRESENT: moist, neck supple, tongue midline Teeth exam: PRESENT: dental caries, poor dentation, other - Teeth missing (incisor) present on admission Neck exam: ABSENT: carotid bruit, JVD, lymphadenopathy, thyromegaly Respiratory exam: PRESENT: clear to auscultation ector. ABSENT: rales, rhonchi, wheezes Cardiovascular exam: PRESENT: RRR. ABSENT: diastolic murmur, rubs, systolic murmur Pulses: PRESENT: +1 pedal pulses bilateral GI/Abdominal exam: PRESENT: normal bowel sounds, soft. ABSENT: distended, guarding, mass, organolmegaly, rebound, tenderness Rectal exam: PRESENT: deferred Gentrourinary exam: ABSENT: ecchymosis, lesions, scrotal swelling Extremities exam: PRESENT: full ROM. ABSENT: pedal edema, tenderness Musculoskeletal exam: PRESENT: ambulatory, normal inspection, other - Soft- tissue mass left posterior thigh. ABSENT: deformity, dislocation Neurological exam: PRESENT: alert, awake, oriented to person, oriented to place, oriented to time, oriented to situation, CN II-XII grossly intact. ABSENT: motor sensory deficit Psychiatric exam: PRESENT: appropriate affect, normal mood Focused psych exam: ABSENT: pressured speech, psychomotor agitation, restlessness Skin exam: PRESENT: dry, intact, normal color, warm. ABSENT: cyanosis, mottled, pallor, petechiae, rash Tubes/Lines: ABSENT: Endotracheal Tube, Chest Tube, Central Line, Arterial Catheter, Dialysis catheter, Peg Tube, Nasogastic Tube, Other Laboratory/Radiographs Laboratory Results: 06/23/19 03:50 06/23/19 03:50 06/22/19 06/22/19 06/22/19 18:32 18:32 19:50 WBC RBC Hgb Hct MCV MCH MCHC RDW Plt Count Seg Neutrophils % Sodium Potassium Chloride Carbon Dioxide Anion Gap BUN Creatinine Est GFR ( Amer) Glucose Lactic Acid Calcium Phosphorus Magnesium Total Bilirubin AST Alkaline Phosphatase Ammonia < 8.7 L Total Protein Albumin TSH 0.55 Urine Color YELLOW Urine Appearance CLEAR Urine pH 7.0 Ur Specific [place] 1.009 Urine Protein NEGATIVE Urine Glucose (UA) NEGATIVE Urine Ketones NEGATIVE Urine Blood NEGATIVE Urine Nitrite NEGATIVE Ur Leukocyte Esterase NEGATIVE Urine WBC (Auto) 0 Urine RBC (Auto) 0 06/22/19 06/23/19 06/23/19 22:00 03:50 03:50 WBC 6.4 RBC 4.40 Hgb 13.6 Hct 40.0 MCV 91 MCH 31.0 MCHC 34.1 RDW 14.1 H Plt Count 187 Seg Neutrophils % 60.0 Sodium 139.4 Potassium 3.5 L Chloride 106 Carbon Dioxide 26 Anion Gap 7 BUN 6 L Creatinine 0.92 Est GFR ( Amer) > 60 Glucose 102 Lactic Acid Calcium 9.0 Phosphorus Magnesium Total Bilirubin 0.7 AST 31 Alkaline Phosphatase 77 Ammonia 8.9 L Total Protein 6.9 Albumin 3.6 TSH Urine Color Urine Appearance Urine pH Ur Specific [place] Urine Protein Urine Glucose (UA) Urine Ketones Urine Blood Urine Nitrite Ur Leukocyte Esterase Urine WBC (Auto) Urine RBC (Auto) 06/23/19 06/23/19 03:50 03:50 WBC RBC Hgb Hct MCV MCH MCHC RDW Plt Count Seg Neutrophils % Sodium 141.0 Potassium 3.6 Chloride 107 Carbon Dioxide 28 Anion Gap 6 BUN 5 L Creatinine 0.97 Est GFR ( Amer) > 60 Glucose 94 Lactic Acid 0.7 Calcium 9.1 Phosphorus 2.9 Magnesium 2.2 Total Bilirubin AST Alkaline Phosphatase Ammonia Total Protein Albumin TSH Urine Color Urine Appearance Urine pH Ur Specific [place] Urine Protein Urine Glucose (UA) Urine Ketones Urine Blood Urine Nitrite Ur Leukocyte Esterase Urine WBC (Auto) Urine RBC (Auto) 06/21/19 06/21/19 06/21/19 08:53 17:27 17:27 Creatine Kinase 622 H Troponin I 0.022 0.519 06/21/19 06/22/19 06/22/19 18:16 04:10 21:26 Creatine Kinase 323 H Troponin I 0.428 0.127 Impressions: Humerus X-Ray 06/21/19 10:39 IMPRESSION: NEGATIVE STUDY OF THE RIGHT HUMERUS. NO RADIOGRAPHIC EVIDENCE OF ACUTE INJURY. Head CT 06/21/19 16:12 IMPRESSION: NORMAL BRAIN CT WITHOUT CONTRAST. EVIDENCE OF ACUTE STROKE: NO. Chest X-Ray 06/22/19 00:00 IMPRESSION: The tip of the central venous line is in the superior vena cava. copyright 2010 [employer]- All Rights Reserved All labs, radiographs, diagnostic studies and EKGs were personally reviewed: Yes In addition, reports of radiographic and diagnostic studies were read: Yes Assessment and Plan - Diagnosis (1) Hypertensive urgency Is this a current diagnosis for this admission?: Yes Plan: Off cardene. D/C B Lyly and Norvasc. Start chlorthalidone and ACEI (2) Status epilepticus, generalized convulsive Is this a current diagnosis for this admission?: Yes Plan: Resolved. Suspect medicine non-compliance. Placed back on 1000 mg BiD (3) Lactic acidosis Is this a current diagnosis for this admission?: Yes Plan: Resolved. Secondary to seizures (4) Acute kidney failure Qualifiers: Acute renal failure type: with acute renal cortical necrosis Qualified Code(s): N17.1 - Acute kidney failure with acute cortical necrosis Is this a current diagnosis for this admission?: Yes Plan: Resolved. Stop IVF, Watch GFR on ACEI and chlorthalidone (5) Encephalopathy acute Is this a current diagnosis for this admission?: Yes Plan: Resolved. Has history of TBI. Neurologic status at baseline. Right arm has been intermittently weak. Patient states weakness has improved. XRay of humerus is negative. Will xray right shoulder (6) Delirium due to another medical condition, acute, hypoactive Is this a current diagnosis for this admission?: Yes Plan: Resolved. Watch for ETOH withdrawl (7) Alcohol abuse Is this a current diagnosis for this admission?: Yes Plan: No active withdraw. (8) Tobacco abuse Is this a current diagnosis for this admission?: Yes Plan: Nicotine patch , smoking cessation counseling (9) Rhabdomyolysis Qualifiers: Rhabdomyolysis type: traumatic Encounter type: initial encounter Qualified Code(s): T79.6XXA - Traumatic ischemia of muscle, initial encounter Is this a current diagnosis for this admission?: Yes Plan: Resolved (10) Mass of soft tissue of left lower extremity Is this a current diagnosis for this admission?: Yes Plan: Suspect lipoma. Will need outpatient surgical referral. Present prior to admission Plan Summary: Patient's blood pressure has improved. Started him on his home regimen and ad ded chlorthalidone. We try to ascertain whether his seizures and blood pressure issues are related t o medical noncompliance. He is difficult to obtain a history from. He has persistent weakness of the right shoulder for which he states is normal for him. Is to be restriction at the shoulder joint and will order an x-ray to assure no anatomical dysfunction. Patient is suitable for downgrade from ICU status. Would recommend 24 to 36 hours of inpatient evaluation to assure that his blood pressure is stable. Need to be vigilant to watch for alcohol withdrawal. He shows no asterixis or tremor. We will increase diet, DC IV fluids, and follow hemodynamics. Will need outpatient surgical follow-up for soft tissue mass of his left leg which appears to be a lipoma. Critical Time Critical Time (minutes): 0 - [id number] Level of Care: MEDICAL Anticipated discharge: Home Within: within 36 hours -: 1. The care of a critical patient is a dynamic process. This note is a community service representative synopsis but static in nature. The timeframe for treatments given in order is not necessary the actual time these treatments may have been done. 2. This patient requires critical care secondary to ongoing requirements for therapy not offered or safe outside the critical care environment. Transfer to a lower level of care with altered life or limb morbidity and mortality. 3. Multidisciplinary rounds completed. 4. ABCDE bundle addressed.
[2019-06-23] MEDS ORDERED: HYDRALAZINE HCL INJ/PF 20 MG/1 ML SDV IV ONE (16:00)
--- NOTE | 2019-06-23 16:47 | RADIOLOGY REPORT (SQ) ---
EXAM DESCRIPTION: SHOULDER LEFT 2 OR MORE VIEWS COMPLETED DATE/TIME: 06/23/2019 3:19 pm REASON FOR STUDY: shoulder pain with restriction post seizure COMPARISON: None. NUMBER OF VIEWS: Three views. TECHNIQUE: Internal rotation, external rotation, and Y view images acquired of the left shoulder. LIMITATIONS: None. FINDINGS: MINERALIZATION: Normal. BONES: No acute fracture. No worrisome bone lesions. JOINTS: No dislocation. VISUALIZED LUNGS AND RIBS: No pneumothorax. No rib fracture. SOFT TISSUES: No radiopaque foreign body. OTHER: No other significant finding. IMPRESSION: NEGATIVE STUDY OF THE LEFT SHOULDER. NO RADIOGRAPHIC EVIDENCE OF ACUTE INJURY. TECHNICAL DOCUMENTATION: JOB ID: [id number] [employer]- All Rights Reserved Reading location - IP/workstation name: [email or web address]
--- NOTE | 2019-06-23 19:16 | EKG REPORT ---
SEVERITY:- ABNORMAL ECG - SINUS RHYTHM PROBABLE LEFT ATRIAL ABNORMALITY PROBABLE LEFT VENTRICULAR HYPERTROPHY : Confirmed by: Maddy Marx MD 23-Jun-2019 19:15:13
[2019-06-24] MEDS: LEVETIRACETAM 500 MG TABLET PO SCH (09:22)
[2019-06-24] MEDS: FOLIC ACID 1 MG TABLET PO SCH (09:22)
[2019-06-24] MEDS: THIAMINE HCL 100 MG TABLET PO SCH (09:22)
[2019-06-24] MEDS: LISINOPRIL 10 MG TABLET PO SCH (09:23)
[2019-06-24] MEDS: CHLORTHALIDONE 25 MG TABLET PO SCH (09:23)
[2019-06-24] MEDS: ENOXAPARIN SODIUM INJ 40 MG/0.4 ML DISP.SYRIN SUBCUT SCH (09:24)
--- NOTE | 2019-06-24 12:15 | PDOC CRITICAL CARE PROG REPORT ---
General Date:: 06/24/19 ICU Day:: 3 Hospital Day:: 3 Resuscitation Status: Full Code Medical Power of Tactical Debriefer Officer: : Lisa Events in the past 12 to 24 Hours:: The patient was started on oral antihypertensives and was weaned off Cardene. He has had no seizures, no headaches,. He is anxious and requesting to go home. Review of systems relevant to events:: No documented seizures. No headache. Right arm movement is significantly improved. No evidence clinically for withdrawal symptoms. Patient has no subjective withdrawal symptoms. Reason for ICU Addmission:: Seizure with hypertension - Medications: Medications reviewed and adjusted accordingly: Yes Vasopressors:: None Physical Exam Vital Signs: Temp Pulse Resp BP Pulse Ox 98.9 F 90 17 130/91 H 99 06/23/19 21:40 06/23/19 14:00 06/23/19 14:00 06/23/19 14:00 06/23/19 14:00 Intake & Output 06/23/19 06/24/19 06/25/19 06:59 06:59 06:59 Intake Total 2132.8 0 Output Total 2275 1025 Balance -142.2 -1025 Weight 79.4 kg 79.1 kg Weight/Height Weight 79.1 kg Height 5 ft 10 in General appearance: PRESENT: no acute distress, cooperative, disheveled, well- developed, well-nourished Exam: Pleasant nontoxic older appearing 33-year-old black male no acute distress awake alert oriented x3. All vitals evaluated and reviewed in the past 24 hours. Head exam: PRESENT: atraumatic, normocephalic Eye exam: PRESENT: conjunctival injection, conjunctiva pink, EOMI, PERRLA. ABSENT: nystagmus, scleral icterus Mouth exam: PRESENT: moist, neck supple, other - No hematoma, no bleeding at previous central line site Teeth exam: PRESENT: poor dentation, other - loss of teeth present prior to admission Neck exam: ABSENT: carotid bruit, JVD, lymphadenopathy, meningismus, thyromegaly Respiratory exam: PRESENT: clear to auscultation ector, unlabored. ABSENT: rales, rhonchi, tachypnea, wheezes Cardiovascular exam: PRESENT: RRR, +S1, +S2. ABSENT: diastolic murmur, rubs, systolic murmur Pulses: PRESENT: +1 pedal pulses bilateral Vascular exam: PRESENT: normal capillary refill. ABSENT: pallor GI/Abdominal exam: PRESENT: normal bowel sounds, soft. ABSENT: ascites, distended, guarding, mass, organolmegaly, rebound, tenderness Rectal exam: PRESENT: deferred Gentrourinary exam: ABSENT: indwelling catheter Extremities exam: ABSENT: pedal edema, tenderness Musculoskeletal exam: PRESENT: ambulatory. ABSENT: deformity, dislocation Neurological exam: PRESENT: alert, awake, oriented to person, oriented to place, oriented to time, oriented to situation, CN II-XII grossly intact. ABSENT: ataxia, motor sensory deficit Psychiatric exam: PRESENT: appropriate affect, normal mood. ABSENT: agitated, anxious Focused psych exam: ABSENT: pressured speech, psychomotor agitation, restlessness Skin exam: PRESENT: dry, intact, normal color, warm. ABSENT: cyanosis, mottled, petechiae, rash Tubes/Lines: ABSENT: Endotracheal Tube, Chest Tube, Central Line, Arterial Catheter, Dialysis catheter, Peg Tube, Nasogastic Tube, Other Laboratory/Radiographs Laboratory Results: 06/23/19 03:50 06/23/19 03:50 06/21/19 06/21/19 06/21/19 08:53 17:27 17:27 Creatine Kinase 622 H Troponin I 0.022 0.519 06/21/19 06/22/19 06/22/19 18:16 04:10 21:26 Creatine Kinase 323 H Troponin I 0.428 0.127 Impressions: Humerus X-Ray 06/21/19 10:39 IMPRESSION: NEGATIVE STUDY OF THE RIGHT HUMERUS. NO RADIOGRAPHIC EVIDENCE OF ACUTE INJURY. Head CT 06/21/19 16:12 IMPRESSION: NORMAL BRAIN CT WITHOUT CONTRAST. EVIDENCE OF ACUTE STROKE: NO. Chest X-Ray 06/22/19 00:00 IMPRESSION: The tip of the central venous line is in the superior vena cava. copyright 2011 [employer]- All Rights Reserved Shoulder X-Ray 06/23/19 00:00 IMPRESSION: NEGATIVE STUDY OF THE LEFT SHOULDER. NO RADIOGRAPHIC EVIDENCE OF ACUTE INJURY. All labs, radiographs, diagnostic studies and EKGs were personally reviewed: Yes In addition, reports of radiographic and diagnostic studies were read: Yes Assessment and Plan - Diagnosis (1) Hypertensive urgency Is this a current diagnosis for this admission?: Yes Plan: Resolved. Improved on chlorthalidone and ACEI (2) Status epilepticus, generalized convulsive Is this a current diagnosis for this admission?: Yes Plan: Resolved. Suspect ssecondary to medicine non-compliance. Placed back on Keppra 1000 mg BiD (3) Lactic acidosis Is this a current diagnosis for this admission?: Yes Plan: Resolved. Secondary to seizures (4) Acute kidney failure Qualifiers: Acute renal failure type: with acute renal cortical necrosis Qualified Co de(s): N17.1 - Acute kidney failure with acute cortical necrosis Is this a current diagnosis for this admission?: Yes Plan: Resolved. Stop IVF, Watch GFR on ACEI and chlorthalidone (5) Encephalopathy acute Is this a current diagnosis for this admission?: Yes Plan: Resolved. Has history of TBI. Neurologic status at baseline. Right arm has been intermittently weak but improved. Patient states weakness has improved. XRay of humerus is negative. Xray right shoulder is negative (6) Delirium due to another medical condition, acute, hypoactive Is this a current diagnosis for this admission?: Yes Plan: Resolved. Watch for ETOH withdrawl (7) Alcohol abuse Is this a current diagnosis for this admission?: Yes Plan: No active withdraw. (8) Tobacco abuse Is this a current diagnosis for this admission?: Yes Plan: Nicotine patch , smoking cessation counseling (9) Rhabdomyolysis Qualifiers: Rhabdomyolysis type: traumatic Encounter type: initial encounter Qualified Code(s): T79.6XXA - Traumatic ischemia of muscle, initial encounter Is this a current diagnosis for this admission?: Yes Plan: Resolved (10) Mass of soft tissue of left lower extremity Is this a current diagnosis for this admission?: Yes Plan: Suspect lipoma. Will need outpatient surgical referral. Present prior to admission Plan Summary: 06.24.19: Patient's blood pressure has stabilized and he is currently on oral therapy. He has had no further seizures. Our preference would be that the patient be maintained in the hospital for 24 hours with oral therapy however he is adamant about going home. We feel that this would be safe however we are concerned about medical noncompliance and he has a high risk of returning given his multiple ED admissions for the same reasons. I have made referrals to neurology and for PCP follow-up We will place him on chlorthalidone and on his SATURNINO inhibitor and have encouraged him to maintain these medications. We have warned him about the risk of stroke. We have counseled him about stopping smoking and alcohol. Have made referrals for both alcohol and tobacco cessation programs. He is at risk for stroke and complications from his hypertension, epilepsy, alcohol and tobacco related disorders. 06.23.19:Patient's blood pressure has improved. Started him on his home regimen and added chlorthalidone. We try to ascertain whether his seizures and blood pressure issues are related to medical noncompliance. He is difficult to obtain a history from. He has persistent weakness of the right shoulder for which he states is normal for him. Is to be restriction at the shoulder joint and will order an x-ray to assure no anatomical dysfunction. Patient is suitable for downgrade from ICU status. Would recommend 24 to 36 hours of inpatient evaluation to assure that his blood pressure is stable. Need to be vigilant to watch for alcohol withdrawal. He shows no asterixis or tremor. We will increase diet, DC IV fluids, and follow hemodynamics. Will need outpatient surgical follow-up for soft tissue mass of his left leg which appears to be a lipoma. Critical Time Critical Time (minutes): 0 - [id number] Level of Care: MEDICAL Anticipated discharge: Home -: 1. The care of a critical patient is a dynamic process. This note is a customer loyalty representative synopsis but static in nature. The timeframe for treatments given in order is not necessary the actual time these treatments may have been done. 2. This patient requires critical care secondary to ongoing requirements for therapy not offered or safe outside the critical care environment. Transfer to a lower level of care with altered life or limb morbidity and mortality. 3. Multidisciplinary rounds completed. 4. ABCDE bundle addressed.
--- NOTE | 2019-06-24 12:23 | PDOC DISCHARGE SUMMARY ---
Impression - Admit/DC Date/PCP Admission Date/Primary Care Provider: 06/21/19 15:48 No primary Discharge Date: 06/24/19 - Discharge Diagnosis (1) Hypertensive urgency Is this a current diagnosis for this admission?: Yes (2) Status epilepticus, generalized convulsive Is this a current diagnosis for this admission?: Yes (3) Lactic acidosis Is this a current diagnosis for this admission?: Yes (4) Acute kidney failure Is this a current diagnosis for this admission?: Yes (5) Encephalopathy acute Is this a current diagnosis for this admission?: Yes (6) Delirium due to another medical condition, acute, hypoactive Is this a current diagnosis for this admission?: Yes (7) Alcohol abuse Is this a current diagnosis for this admission?: Yes (8) Tobacco abuse Is this a current diagnosis for this admission?: Yes (9) Rhabdomyolysis Is this a current diagnosis for this admission?: Yes (10) Mass of soft tissue of left lower extremity Is this a current diagnosis for this admission?: Yes (11) Noncompliance w/medication treatment due to intermit use of medication Is this a current diagnosis for this admission?: Yes - Additional Information Resuscitation Status: Full Code Discharge Diet: Cardiac Discharge Activity: Balance Activity w/Rest, Slowly Increase Activity Home Medications: Folic Acid [Folvite 1 mg Tablet] 1 mg PO DAILY 06/21/19 Levetiracetam [Keppra] 1,000 mg PO Q12 06/21/19 Lisinopril [Prinivil 40 mg Tablet] 40 mg PO DAILY 06/21/19 Thiamine HCl [Thiamine 100 mg Tablet] 100 mg PO DAILY 06/21/19 History of Present Illiness History of Present Illness: 33-year-old black male with known history of seizure disorder since childhood, traumatic brain injury, with significant alcohol abuse disorder. Admitted multiple times and in fact this admission is liability claims representative of previous admission except for severe lactic acidosis and prolonged alteration of mental status. I was able to speak with the emergency room staff and the patient's Lisa Stout phone #[phone] According to the the patient had his typical beer binge late last evening. He has not been through any withdrawal patterns. She states that he awoke in his normal state but had a seizure that lasted less than 3 minutes. He had a very short-lived postictal state and then had a short seizure. After this he remained seizure-free walking and talking acting normal. Approximately 1 and half hours after the first seizure he had another prolonged seizure. EMS was called he was given Versed. He was noted to be hypotensive in the emergency room and received 3 L of fluid. He also had a significant lactic acidosis and bicarbonate was low as well. He did awaken in the emergency room and was somewhat agitated. He did complain of right shoulder discomfort examination was unremarkable and x-ray was unremarkable as well. ED staff c onfirms that he was in his normal state however he became agitated and gave him more Ativan. Evaluated patient in the emergency room however he was too lethargic to provide any history or complaints. His heart rate was 117 with a blood pressure of 186/130 saturation 99% breathing at 18 breaths/min. Cardene drip was started. He was arousable and would follow commands but extremely lethargic. His exam following was not consistent. Glascow coma scale on my initial evaluation was 2-2-6 intermittent. He required multiple medications and had no available IV access. His gave consent over the phone Hospital Course Hospital Course: Patient was transferred to the ICU for neurologic and hemodynamic stabilization. His overall status improved. Developed significant worsening of his hypertension requiring Cardene drip on admission which improved with oral medications. His renal failure also improved. He had x-rays of his shoulder in concern for dislocation and/or fracture both of which were negative. 19: Patient's blood pressure has stabilized and he is currently on oral therapy. He has had no further seizures. Our preference would be that the patient be maintained in the hospital for 24 hours with oral therapy however he is adamant about going home. We feel that this would be safe however we are concerned about medical noncompliance and he has a high risk of returning given his multiple ED admissions for the same reasons. I have made referrals to neurology and for PCP follow-up We will place him on chlorthalidone and on his SATURNINO inhibitor and have encouraged him to maintain these medications. We have warned him about the risk of stroke. We have counseled him about stopping smoking and alcohol. Have made referrals for both alcohol and tobacco cessation programs. He is at risk for stroke and complications from his hypertension, epilepsy, alcohol and tobacco related disorders. 06.23.19:Patient's blood pressure has improved. Started him on his home regimen and added chlorthalidone. We try to ascertain whether his seizures and blood pressure issues are related to medical noncompliance. He is difficult to obtain a history from. He has persistent weakness of the right shoulder for which he states is normal for him. Is to be restriction at the shoulder joint and will order an x-ray to assure no anatomical dysfunction. Patient is suitable for downgrade from ICU status. Would recommend 24 to 36 hours of inpatient evaluation to assure that his blood pressure is stable. Need to be vigilant to watch for alcohol withdrawal. He shows no asterixis or tremor. We will increase diet, DC IV fluids, and follow hemodynamics. Will need outpatient surgical follow-up for soft tissue mass of his left leg which appears to be a lipoma. Physical Exam Vital Signs: Temp Pulse Resp BP Pulse Ox 97.4 F 83 14 134/93 H 97 06/24/19 08:00 06/24/19 08:00 06/24/19 08:00 06/24/19 08:00 06/24/19 08:00 Intake & Output 06/23/19 06/24/19 06/25/19 06:59 06:59 06:59 Intake Total 2132.8 0 Output Total 2275 1025 Balance -142.2 -1025 Weight 79.4 kg 79.1 kg Exam: Please see today's note Results Laboratory Results: WBC 6.4 10^3/uL (4.0-10.5) 06/23/19 03:50 RBC 4.40 10^6/uL (4.35-5.55) 06/23/19 03:50 Hgb 13.6 g/dL (13.5-17.0) 06/23/19 03:50 Hct 40.0 % (37.9-51.0) 06/23/19 03:50 MCV 91 fl (80-97) 06/23/19 03:50 MCH 31.0 pg (27.0-33.4) 06/23/19 03:50 MCHC 34.1 g/dL (32.0-36.0) 06/23/19 03:50 RDW 14.1 % (11.5-14.0) H 06/23/19 03:50 Plt Count 187 10^3/uL (150-450) 06/23/19 03:50 Lymph % (Auto) 24.3 % (13-45) 06/23/19 03:50 Burt % (Auto) 14.9 % (3-13) H 06/23/19 03:50 Eos % (Auto) 0.3 % (0-6) 06/23/19 03:50 Baso % (Auto) 0.5 % (0-2) 06/23/19 03:50 Absolute Neuts (auto) 3.9 10^3/uL (1.7-8.2) 06/23/19 03:50 Absolute Lymphs (auto) 1.6 10^3/uL (0.5-4.7) 06/23/19 03:50 Absolute Monos (auto) 1.0 10^3/uL (0.1-1.4) 06/23/19 03:50 Absolute Eos (auto) 0.0 10^3/uL (0.0-0.6) 06/23/19 03:50 Absolute Basos (auto) 0.0 10^3/uL (0.0-0.2) 06/23/19 03:50 Total Counted 100 06/21/19 11:09 Seg Neutrophils % 60.0 % (42-78) 06/23/19 03:50 Seg Neuts % (Manual) 80 % (42-78) H 06/21/19 11:09 Band Neutrophils % 3 % (3-5) 06/21/19 11:09 Lymphocytes % (Manual) 10 % (13-45) L 06/21/19 11:09 Monocytes % (Manual) 6 % (3-13) 06/21/19 11:09 Eosinophils % (Manual) 0 % (0-6) 06/21/19 11:09 Basophils % (Manual) 1 % (0-2) 06/21/19 11:09 Abs Neuts (Manual) 19.3 10^3/uL (1.7-8.2) H 06/21/19 11:09 Abs Lymphs (Manual) 2.3 10^3/uL (0.5-4.7) 06/21/19 11:09 Abs Monocytes (Manual) 1.4 10^3/uL (0.1-1.4) 06/21/19 11:09 Absolute Eos (Manual) 0.0 10^3/uL (0.0-0.6) 06/21/19 11:09 Abs Basophils (Manual) 0.2 10^3/uL (0.0-0.2) 06/21/19 11:09 Toxic Vacuolation PRESENT 06/21/19 11:09 Platelet Estimate Cancelled 06/22/19 04:10 Platelet Comment ADEQUATE 06/21/19 11:09 Polychromasia SLIGHT 06/21/19 11:09 Anisocytosis SLIGHT 06/21/19 11:09 PT 18.2 SEC (11.4-15.4) H 06/21/19 08:53 INR 1.50 06/21/19 08:53 Carbonic Acid 1.16 mmol/L (1.05-1.35) 06/21/19 14:10 HCO3/H2CO3 Ratio 17:1 06/21/19 14:10 ABG pH 7.34 (7.35-7.45) L 06/21/19 14:10 ABG pCO2 38.4 mmHg (35-45) 06/21/19 14:10 ABG pO2 77.1 mmHg (80-100) L 06/21/19 14:10 ABG HCO3 20.3 mmol/L (20-24) 06/21/19 14:10 ABG Total CO2 21.5 mmol/L (23-27) L 06/21/19 14:10 ABG O2 Saturation 94.8 % (94-98) 06/21/19 14:10 ABG Base Excess -4.9 mmol/L 06/21/19 14:10 VBG pH Cancelled 06/21/19 09:30 VBG pCO2 Cancelled 06/21/19 09:30 VBG HCO3 Cancelled 06/21/19 09:30 VBG Base Excess Cancelled 06/21/19 09:30 FiO2 ROOM AIR 06/21/19 14:10 Sodium 141.0 mmol/L (137-145) 06/23/19 03:50 Potassium 3.6 mmol/L (3.6-5.0) 06/23/19 03:50 Chloride 107 mmol/L (98-107) 06/23/19 03:50 Carbon Dioxide 28 mmol/L (22-30) 06/23/19 03:50 Anion Gap 6 (5-19) 06/23/19 03:50 BUN 5 mg/dL (7-20) L 06/23/19 03:50 Creatinine 0.97 mg/dL (0.52-1.25) 06/23/19 03:50 Est GFR ( Amer) > 60 (>60) 06/23/19 03:50 Est GFR (Non-Af Amer) Cancelled 06/21/19 08:53 Est GFR (MDRD) Non-Af > 60 (>60) 06/23/19 03:50 Glucose 94 mg/dL (75-110) 06/23/19 03:50 Hemoglobin A1c % 5.8 % (4.7-6.0) 06/22/19 05:43 Lactic Acid 0.7 mmol/L (0.7-2.1) 06/23/19 03:50 Lactic Acid (Sepsis) 3.3 mmol/L (0.7-2.1) H 06/21/19 14:41 Calcium 9.1 mg/dL (8.4-10.2) 06/23/19 03:50 Ionized Calcium Matthew 1.09 mmol/L (1.14-1.30) L 06/21/19 18:16 Phosphorus 2.9 mg/dL (2.5-4.5) 06/23/19 03:50 Magnesium 2.2 mg/dL (1.6-2.3) 06/23/19 03:50 Total Bilirubin 0.7 mg/dL (0.2-1.3) 06/22/19 22:00 Direct Bilirubin 0.2 mg/dL (0.0-0.4) 06/22/19 22:00 Neonat Total Bilirubin Not Reportable 06/22/19 22:00 Neonat Direct Bilirubin Not Reportable 06/22/19 22:00 Neonat Indirect Bili Not Reportable 06/22/19 22:00 AST 31 U/L (17-59) 06/22/19 22:00 ALT 16 U/L (<50) 06/22/19 22:00 Alkaline Phosphatase 77 U/L (38-126) 06/22/19 22:00 Ammonia 8.9 umol/L (9-33) L 06/23/19 03:50 Creatine Kinase 323 U/L (55-170) H 06/22/19 21:26 Troponin I 0.127 ng/mL 06/22/19 04:10 Total Protein 6.9 g/dL (6.3-8.2) 06/22/19 22:00 Albumin 3.6 g/dL (3.5-5.0) 06/22/19 22:00 EGFR Cancelled 06/21/19 08:53 TSH 0.55 uIU/mL (0.47-4.68) 06/22/19 18:32 PTH Intact 85.2 pg/mL (10.0-65.0) H 06/21/19 17:27 Urine Color YELLOW 06/22/19 19:50 Urine Appearance CLEAR 06/22/19 19:50 Urine pH 7.0 (5.0-9.0) 06/22/19 19:50 Ur Specific Casar 1.009 06/22/19 19:50 Urine Protein NEGATIVE mg/dL (NEGATIVE) 06/22/19 19:50 Urine Glucose (UA) NEGATIVE mg/dL (NEGATIVE) 06/22/19 19:50 Urine Ketones NEGATIVE mg/dL (NEGATIVE) 06/22/19 19:50 Urine Blood NEGATIVE (NEGATIVE) 06/22/19 19:50 Urine Nitrite NEGATIVE (NEGATIVE) 06/22/19 19:50 Urine Nitrite (Reflex) NEGATIVE (NEGATIVE) 06/21/19 13:40 Urine Bilirubin NEGATIVE (NEGATIVE) 06/22/19 19:50 Urine Urobilinogen NEGATIVE mg/dL (<2.0) 06/22/19 19:50 Ur Leukocyte Esterase NEGATIVE (NEGATIVE) 06/22/19 19:50 Leukocyte Esterase Rfl NEGATIVE (NEGATIVE) 06/21/19 13:40 Urine WBC (Auto) 0 /HPF 06/22/19 19:50 Urine RBC (Auto) 0 /HPF 06/22/19 19:50 U Hyaline Cast (Auto) 17 /LPF 06/21/19 13:40 Urine WBC (Reflex) 1 /HPF 06/21/19 13:40 Squamous Epi Cells Auto 2 /HPF 06/21/19 13:40 Urine Mucus (Auto) RARE /LPF 06/22/19 19:50 Urine Ascorbic Acid NEGATIVE (NEGATIVE) 06/22/19 19:50 Urine Opiates Screen NEGATIVE 06/21/19 13:40 Urine Methadone Screen NEGATIVE 06/21/19 13:40 Ur Barbiturates Screen NEGATIVE 06/21/19 13:40 Ur Phencyclidine Scrn NEGATIVE 06/21/19 13:40 Ur Amphetamines Screen NEGATIVE 06/21/19 13:40 U Benzodiazepines Scrn UNCONFIRMED POSITIVE 06/21/19 13:40 Urine Cocaine Screen NEGATIVE 06/21/19 13:40 U Marijuana (THC) Screen NEGATIVE 06/21/19 13:40 Serum Alcohol 17 mg/dL (NONE DETECTED) 06/21/19 11:09 Slides for Path Review Cancelled 06/22/19 04:10 06/21/19 06/21/19 06/21/19 08:53 17:27 18:16 Troponin I 0.022 0.519 0.428 06/22/19 04:10 Troponin I 0.127 EKG Comments: Normalization of T waves with reduction in Bp Impressions: Chest X-Ray 06/21/19 00:00 IMPRESSION: Right internal jugular catheter placement. Chest X-Ray 06/21/19 09:22 IMPRESSION: NO ACUTE RADIOGRAPHIC FINDING IN THE CHEST. Humerus X-Ray 06/21/19 10:39 IMPRESSION: NEGATIVE STUDY OF THE RIGHT HUMERUS. NO RADIOGRAPHIC EVIDENCE OF ACUTE INJURY. Head CT 06/21/19 16:12 IMPRESSION: NORMAL BRAIN CT WITHOUT CONTRAST. EVIDENCE OF ACUTE STROKE: NO. Chest X-Ray 06/22/19 00:00 IMPRESSION: The tip of the central venous line is in the superior vena cava. copyright 2011 [employer]- All Rights Reserved Shoulder X-Ray 06/23/19 00:00 IMPRESSION: NEGATIVE STUDY OF THE LEFT SHOULDER. NO RADIOGRAPHIC EVIDENCE OF ACUTE INJURY. Plan Health Concerns: Tobacco and Alcohol abuse Non-compliance with anti-hypertensive medications Non-compliance with Antiepileptics Plan of Treatment: Continue Keppra Encourage compliance with anti-hypertensives Stop smoking and seek alcohol withdraw/cessation therapy for both Follow up with consultants Critical Time: 19 - [id number] Level of Care: MEDICAL Stroke Is this a Stroke Patient?: No Acute Heart Failure - Is this a Heart Failure Patient?: No
[2019-06-24 12:45] VITALS: BP 132/89
== END 2019-06-24 14:31 | disposition home or self-care (01) | DRG 100 ==
LOC: ER 08:40 → EH 15:48 → ICU 23:49
PROVIDERS: ADMIT Internal Medicine; ATTEND Internal Medicine
PROC: 02HV33Z Insertion of Infusion Device into Superior Vena Cava, Percutaneous Approach (ICD-10-PCS; principal; 2019-06-21)
DX: G40.901 Epilepsy, unspecified, not intractable, with status epilepticus (principal); N17.1 Acute kidney failure with acute cortical necrosis; G93.40 Encephalopathy, unspecified; E87.2 Acidosis; F05 Delirium due to known physiological condition; M62.82 Rhabdomyolysis; I95.9 Hypotension, unspecified; I16.0 Hypertensive urgency; F10.10 Alcohol abuse, uncomplicated; F17.200 Nicotine dependence, unspecified, uncomplicated; I10 Essential (primary) hypertension; R22.42 Localized swelling, mass and lump, left lower limb; R41.82 Altered mental status, unspecified; R00.0 Tachycardia, unspecified; Z91.14 Patient's other noncompliance with medication regimen; Z87.820 Personal history of traumatic brain injury; Z71.41 Alcohol abuse counseling and surveillance of alcoholic; Z71.6 Tobacco abuse counseling; Z88.6 Allergy status to analgesic agent
CPT/HCPCS: 36415; 70450; 71045; 80048; 80053; 80307; 81001; 82140; 82330; 82550; 82803; 83036; 83605; 83735; 83970; 84100; 84443; 84484; 85025; 85610; 87040; 87070; 93005; 93010; 93306; 96361; 96365; 99239; 99291; 99292; C1751; J0360; J1650; J1953; J2060; J3411; J3490; J7030; J7040; J7050; J7060; J7120

== ENCOUNTER 2019-07-20 19:36 | Emergency (ER) | payer MEDICARE, MEDICAID ==
[2019-07-20] MEDS ORDERED: LISINOPRIL 10 MG TABLET PO ONE (21:33)
[2019-07-20 21:50] LABS: ABSOLUTE BASOPHILS # (AUTO) 0.1 10^3/uL (0.0-0.2); ABSOLUTE MONOCYTES (AUTO) 0.8 10^3/uL (0.1-1.4); ABSOLUTE NEUT (AUTO) 5.4 10^3/uL (1.7-8.2); BASOPHILS % (AUTO) 0.9 % (0-2); EOSINOPHILS % (AUTO) 0.3 % (0-6); HEMATOCRIT 44.1 % (37.9-51.0); HEMOGLOBIN 15.5 g/dL (13.5-17.0); LYMPHOCYTES % (AUTO) 23.7 % (13-45); MEAN CORPUSCULAR HEMOGLOBIN 31.8 pg (27.0-33.4); MEAN CORPUSCULAR HGB CONC 35.1 g/dL (32.0-36.0); MEAN CORPUSCULAR VOLUME 91 fl (80-97); MONOCYTES % (AUTO) 9.6 % (3-13); PLATELET COUNT 185 10^3/uL (150-450); RED BLOOD COUNT 4.86 10^6/uL (4.35-5.55); RED CELL DISTRIBUTION WIDTH 13.9 % (11.5-14.0); SEGMENTED NEUTROPHILS % (AUTO) 65.5 % (42-78); TOTAL CELLS COUNTED % (AUTO) 100 %; WHITE BLOOD COUNT 8.3 10^3/uL (4.0-10.5)
[2019-07-20 22:15] LABS: ALBUMIN 4.7 g/dL (3.5-5.0); ALKALINE PHOSPHATASE 147 U/L (38-126); ANION GAP 12 (5-19); ASPARTATE AMINO TRANSFERASE 41 U/L (17-59); BILIRUBIN,DIRECT 0.3 mg/dL (0.0-0.4); BILIRUBIN,TOTAL 0.8 mg/dL (0.2-1.3); BLOOD UREA NITROGEN 13 mg/dL (7-20); CALCIUM 9.8 mg/dL (8.4-10.2); CARBON DIOXIDE 25 mmol/L (22-30); CHLORIDE 102 mmol/L (98-107); GLUCOSE 108 mg/dL (75-110); POTASSIUM 3.6 mmol/L (3.6-5.0); TOTAL PROTEIN 8.4 g/dL (6.3-8.2)
[2019-07-20 22:26] LABS: ALCOHOL < 10 mg/dL (NONE DETECTED)
--- NOTE | 2019-07-20 23:20 | RADIOLOGY REPORT (SQ) ---
CT HEAD WITHOUT IV CONTRAST EXAM DATE: 07/20/2019 9:31 PM [employer]INEER HISTORY: AMS, alcoholic, seizure. COMPARISON: 06/21/2019 TECHNIQUE: CT scan of the brain without IV contrast. This exam was performed according to our departmental dose-optimization program, which includes automated exposure control, adjustment of the mA and/or kV according to patient size and/or use of iterative reconstruction technique. FINDINGS: The ventricles, cisterns, and sulci are age-appropriate. No evidence of acute infarction, intracranial hemorrhage, extra-axial fluid collection, or midline shift. No air-fluid levels are seen in the paranasal sinuses to suggest acute sinusitis. No depressed skull fracture. There is a moderate-sized left frontal scalp hematoma. IMPRESSION: No acute intracranial hemorrhage. Left frontal scalp hematoma.
[2019-07-21 01:15] LABS: APPEARANCE,URINE SLIGHTLY-CLOUDY; BILIRUBIN,URINE NEGATIVE (NEGATIVE); COLOR,URINE YELLOW; GLUCOSE, URINE NEGATIVE (NEGATIVE); KETONES,URINE 20 mg/dL (NEGATIVE); LEUKOCYTE ESTERASE,URINE NEGATIVE (NEGATIVE); NITRITE,URINE NEGATIVE (NEGATIVE); PROTEIN,URINE 30 mg/dL (NEGATIVE); UROBILINOGEN,URINE NEGATIVE mg/dL (<2.0)
[2019-07-21 01:28] LABS: URINE AMPHETAMINES SCREEN NEGATIVE; URINE BARBITURATES SCREEN NEGATIVE; URINE BENZODIAZEPINES SCREEN NEGATIVE; URINE COCAINE SCREEN NEGATIVE; URINE MARIJUANA (THC) SCREEN NEGATIVE; URINE METHADONE SCREEN NEGATIVE; URINE PHENCYCLIDINE SCREEN NEGATIVE
--- NOTE | 2019-07-21 01:56 | ER Document Report ---
ED General - General Chief Complaint: Headache Stated Complaint: HEADACHE Time Seen by Provider: 07/20/19 20:56 TRAVEL OUTSIDE OF THE [place] IN LAST 30 DAYS: No - HPI Notes: Patient is a 34-year-old male with a known history of seizure disorder who is brought to the emergency department for evaluation. Evidently patient's called EMS, states he had a seizure, also stated that he had been "drinking for 7 days straight." The patient denies this. He states he has a mild headache, but notes this is because his blood pressure is high. He is supposed to be taking lisinopril, has not picked up his prescription. He states he can get that tomorrow. He denies drinking alcohol. States he has been taking his Keppra. He states that he is not sure why he is here. He does have a mild headache, will not give me a numerical rating, but states that is not out of the ordinary for him. - Related Data Allergies/Adverse Reactions: hydrocodone [From Vicodin] Allergy (Verified 10/07/18 13:35) Home Medications: keppra, lisinopril, chlorthalidone Past Medical History - General Information source: Patient, [facility] Records - Social History Smoking Status: Current Every Day Smoker Frequency of alcohol use: Heavy Family History: None, Reviewed & Not Pertinent Patient has suicidal ideation: No Patient has homicidal ideation: No - Past Medical History Cardiac Medical History: Reports: Hx Hypertension Neurological Medical History: Reports: Hx Seizures Renal/ Medical History: Denies: Hx Peritoneal Dialysis Psychiatric Medical History: Denies: Hx Depression Traumatic Medical History: 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 - Immunizations Immunizations up to date: No Hx Diphtheria, Pertussis, Tetanus Vaccination: Yes Review of Systems - Review of Systems Constitutional: No symptoms reported EENT: No symptoms reported Cardiovascular: No symptoms reported Respiratory: No symptoms reported Gastrointestinal: No symptoms reported Genitourinary: No symptoms reported Musculoskeletal: No symptoms reported Skin: No symptoms reported Neurological/Psychological: No symptoms reported Physical Exam - Vital signs Vitals: Temp Pulse Resp BP Pulse Ox 98.8 F 98 15 174/120 H 97 07/20/19 20:27 07/20/19 20:27 07/20/19 20:27 07/20/19 20:27 07/20/19 20:27 - Notes Notes: Vital signs reviewed, please refer to chart. Head is normocephalic. He has some mild tenderness to palpation over the left frontal region. No orbital step-off, extraocular movements are intact. Pupils equal round, reactive to light. Oral mucosa is moist. He has extensive deformity to the tongue consistent with history of bite injury, but I do not appreciate any fresh wounds or bleeding. Neck is supple without meningismus. Heart is regular rate and rhythm. Lungs are clear to auscultation bilaterally. Abdomen is soft, nontender, normoactive bowel sounds throughout. Extremities without cyanosis, clubbing. Posterior calves are nontender. Peripheral pulses are equal. Skin is warm and dry. Patient is drowsy, GCS of 14, but awakens to verbal stimuli. Cranial nerves II to XII are grossly intact without focal neurological deficits. Strength is +5-5 bilateral upper and lower extremities. Reflexes are symmetrical, sensation is intact. Intact [id number], rapid alternating movements, [id number]. Course - Re-evaluation Re-evalutation: 07/21/19 01:53 Patient presents to the emergency department for evaluation. He is a known history of seizure disorder. The patient himself denies much in the way of complaints. His vital signs here were unremarkable and remained that way. He was given his dose of lisinopril. His Keppra level is pending at this time. His blood alcohol level was negative. He remained stable throughout the course of his stay. He is strongly encouraged to coal picker his prescription for lisinopril. His CT scan of his head did reveal a left frontal hematoma but no other acute intracranial injury. He had been drowsy, so I find it likely that he did have a seizure, but he did not have any seizure activity here. He is to follow-up closely with primary care, continue his home medications as prescribed, and return to the ED with worsening or new concerning symptoms of any sort. 07/21/19 01:55 - Vital Signs Vital signs: Temp Pulse Resp BP Pulse Ox 98.8 F 98 15 117/81 97 07/20/19 20:27 07/20/19 20:27 07/20/19 20:27 07/21/19 01:07/20/19 20:27 - Laboratory Result Diagrams: 07/20/19 21:40 07/20/19 21:40 Laboratory results interpreted by me: 07/20/19 07/21/19 21:40 00:55 Magnesium 2.7 H Alkaline Phosphatase 147 H Total Protein 8.4 H Urine Protein 30 H Urine Ketones 20 H Discharge - Discharge Clinical Impression: Seizure, Hypertension Condition: Stable Disposition: HOME, SELF-CARE Instructions: Headache (OM), Seizure, Known Epileptic (OM), Head Injury Precautions (OM) Additional Instructions: Rest. Take your home medications as prescribed, being sure to fill your lisinopril prescription tomorrow. Follow-up with primary care in 1 to 2 weeks. Return to the emergency department with worsening or new concerning symptoms of any sort.
[2019-07-21 02:36] VITALS: BP 111/81
== END 2019-07-21 02:26 | disposition home or self-care (01) ==
LOC: ER 19:36
DX: G40.909 Epilepsy, unspecified, not intractable, without status epilepticus (principal); I10 Essential (primary) hypertension; F17.200 Nicotine dependence, unspecified, uncomplicated; Z88.6 Allergy status to analgesic agent
CPT/HCPCS: 99284; 36415; 80177; 80307 ×2; 83735; 85025; 80053; 81001; 70450; A9270

== ENCOUNTER 2019-08-11 03:45 | Inpatient (IN) | payer MEDICARE, MEDICAID ==
[2019-08-11] MEDS ORDERED: LEVETIRACETAM 1000 MG/NACL-ISO 1,000 MG/100 ML RTUPB IV ONE ×3 (03:55→05:15)
[2019-08-11] MEDS ORDERED: LORAZEPAM INJ 2 MG/1 ML VIAL IV ONE (04:07)
[2019-08-11 04:41] LABS: ALBUMIN 5.2 g/dL (3.5-5.0); ALKALINE PHOSPHATASE 123 U/L (38-126); ASPARTATE AMINO TRANSFERASE 44 U/L (17-59); BILIRUBIN,TOTAL 0.4 mg/dL (0.2-1.3); BLOOD UREA NITROGEN 10 mg/dL (7-20); CALCIUM 9.9 mg/dL (8.4-10.2); GLUCOSE 126 mg/dL (75-110); POTASSIUM 3.7 mmol/L (3.6-5.0); TOTAL PROTEIN 8.6 g/dL (6.3-8.2)
[2019-08-11 04:46] LABS: CHLORIDE 102 mmol/L (98-107)
[2019-08-11 04:49] LABS: APPEARANCE,URINE CLEAR; BILIRUBIN,URINE NEGATIVE (NEGATIVE); COLOR,URINE STRAW; GLUCOSE, URINE NEGATIVE (NEGATIVE); KETONES,URINE TRACE mg/dL (NEGATIVE); LEUKOCYTE ESTERASE,URINE NEGATIVE (NEGATIVE); NITRITE,URINE NEGATIVE (NEGATIVE); PROTEIN,URINE 100 mg/dL (NEGATIVE); URINE SPECIFIC GRAVITY 1.012; UROBILINOGEN,URINE NEGATIVE mg/dL (<2.0)
[2019-08-11 04:52] LABS: ALCOHOL < 10 mg/dL (NONE DETECTED)
[2019-08-11 04:55] LABS: ANION GAP 33 (5-19)
[2019-08-11 04:56] LABS: CARBON DIOXIDE 8 mmol/L (22-30)
[2019-08-11 05:09] LABS: URINE AMPHETAMINES SCREEN NEGATIVE; URINE BARBITURATES SCREEN NEGATIVE; URINE MARIJUANA (THC) SCREEN NEGATIVE; URINE METHADONE SCREEN NEGATIVE; URINE PHENCYCLIDINE SCREEN NEGATIVE
[2019-08-11 05:11] LABS: URINE BENZODIAZEPINES SCREEN UNCONFIRMED POSITIVE; URINE COCAINE SCREEN UNCONFIRMED POSITIVE
[2019-08-11 05:22] LABS: ARTERIAL BLOOD FIO2 40%; ARTERIAL BLOOD H2CO3 1.16 mmol/L (1.05-1.35); ARTERIAL BLOOD HCO3 17.9 mmol/L (20-24); ARTERIAL BLOOD O2 SATURATION 93.8 % (94-98); ARTERIAL BLOOD PCO2 38.5 mmHg (35-45); ARTERIAL BLOOD PH 7.29 (7.35-7.45); ARTERIAL BLOOD PO2 76.2 mmHg (80-100); ARTERIAL BLOOD TOTAL CO2 19.1 mmol/L (23-27)
[2019-08-11] MEDS ORDERED: FENTANYL CITRATE INJ/PF 100 MCG/2 ML AMPUL IV ONE (05:32)
--- NOTE | 2019-08-11 05:54 | ER Document Report ---
ED General - General Chief Complaint: Seizure Stated Complaint: POSSIBLE SEIZURE TRAVEL OUTSIDE OF THE [place] IN LAST 30 DAYS: No - HPI Notes: Mr. Stout is a 34-year-old male with longstanding history of seizure disorder, alcohol abuse and noncompliance who is brought in by EMS at this time with multiple [id number]-tg-mgid seizures without regaining consciousness. They were unable to obtain IV access in the field and gave the patient IM Versed. Patient was still seizing on arrival here. No further history was obtainable from the patient. - Related Data Allergies/Adverse Reactions: hydrocodone [From Vicodin] Allergy (Verified 10/07/18 13:35) Home Medications: has been off keppra for over a month due to money Past Medical History - General Information source: Emergency Med Personnel, [facility] Records Cannot obtain history due to: Altered mental status - Social History Smoking Status: Current Some Day Smoker Chew tobacco use (# tins/day): No Frequency of alcohol use: None Family History: None, Reviewed & Not Pertinent Patient has suicidal ideation: No Patient has homicidal ideation: No - Past Medical History Cardiac Medical History: Reports: Hx Hypertension Neurological Medical History: Reports: Hx Seizures Renal/ Medical History: Denies: Hx Peritoneal Dialysis Psychiatric Medical History: Denies: Hx Depression Traumatic Medical History: 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 - Immunizations Immunizations up to date: No Hx Diphtheria, Pertussis, Tetanus Vaccination: Yes Review of Systems - Review of Systems -: Yes ROS unobtainable due to patient's medical condition Physical Exam - Vital signs Vitals: Resp Pulse Ox 26 H 87 L 08/11/19 03:48 08/11/19 03:48 - Notes Notes: GENERAL: Male patient of approximately stated age actively seizing on arrival here. SKIN: Good turgor no rashes. HEAD: Normocephalic atraumatic. EYES: Eyes deviated to the left side. Pupils dilated equal and sluggishly reactive to light. EARS: CANALS AND TMS CLEAR. NOSE: Nasal trumpet present in left nare with white mucus extruding from this. MOUTH: Moist mucosa. Thick white secretions in mouth. Tongue abraded. Extremely poor dentition with advanced decay and multiple missing teeth. No stridor or edema. No drooling. NECK: No masses or thyromegaly. CHEST: Breathing spontaneously with breath sounds clear bilaterally. HEART: Tachycardic regular rhythm. No murmur gallop or rub. ABDOMEN: Soft nontender without masses, organomegaly. GENITALIA: Normal male incontinent of urine. EXTREMITIES: No edema. No calf tenderness. Cap refill less than 1.5 seconds. Dorsalis pedis and posterior tibial pulses 3+ and symmetrical. NEUROLOGICAL: Tonic-clonic seizures present Course - Re-evaluation Re-evalutation: 08/11/19 05:55 Difficult intubation requiring assistance of anesthesia service. Airway subsequently successfully controlled and seizure activity terminated with administration of IV Ativan and Keppra. 08/11/19 05:58 Mynor Fung NP will evaluate the patient for admission to the intensive care unit at this time. - Vital Signs Vital signs: Temp Pulse Resp BP Pulse Ox 98.6 F 24 H 218/141 H 96 08/11/19 05:31 08/11/19 05:31 08/11/19 05:31 08/11/19 05:31 - Laboratory Result Diagrams: 08/11/19 03:57 08/11/19 03:57 Laboratory results interpreted by me: 08/11/19 08/11/19 08/11/19 03:57 04:36 05:05 ABG pH 7.29 L ABG pO2 76.2 L ABG HCO3 17.9 L ABG Total CO2 19.1 L ABG O2 Saturation 93.8 L Carbon Dioxide 8 L* Anion Gap 33 H Creatinine 1.68 H Est GFR ( Amer) 57 L Est GFR (MDRD) Non-Af 47 L Glucose 126 H Magnesium 2.9 H Total Protein 8.6 H Albumin 5.2 H Urine Protein 100 H Urine Ketones TRACE H Urine Blood MODERATE H Procedures - Intubation Orotracheal Airway evaluation: Copious secretions, Large tongue, Loose teeth, Other - Brownlee Mallampati Classification: Class 2 Medications: Etomidate, Succinylcholine Intubation method: Orotracheal - Multiple attempts at intubation with glide scope and Andrew 4 blade without success. Anesthesia was subsequently brought in to assist with control of airway. Critical Care Note - Critical Care Note Total time excluding time spent on procedures (mins): 35 Comments: Peripheral IV established and IV Ativan and Keppra administered. Airway control required at this time with intubation. Discharge - Discharge Clinical Impression: Status epilepticus Condition: Critical Disposition: ADMITTED INPATIENT Admitting Provider: Allison (Cosmetic Dentist) Unit Admitted: ICU
[2019-08-11] MEDS ORDERED: MIDAZOLAM 2 MG/2 ML INJ ONE (05:59)
--- NOTE | 2019-08-11 06:03 | RADIOLOGY REPORT (SQ) ---
EXAM DESCRIPTION: XR CHEST 1 VIEW COMPLETED DATE/TME: 08/11/2019 04:25 CLINICAL HISTORY: 34 years, Male, post intubation COMPARISON: 06/22/2019 chest NUMBER OF VIEWS: 1 TECHNIQUE: Portable chest LIMITATIONS: None. FINDINGS: The heart size is normal. Endotracheal tube with the tip 3.2 cm above the jason. Enteric tube, with the tip extending into the upper abdomen. Lungs are clear. No pneumothorax IMPRESSION: Endotracheal and enteric tubes are in place. Lungs are clear copyright 2011 [employer]- All Rights Reserved
--- NOTE | 2019-08-11 06:06 | RADIOLOGY REPORT (SQ) ---
EXAM DESCRIPTION: CT HEAD WITHOUT IV CONTRAST COMPLETED DATE/TME: 08/11/2019 04:26 CLINICAL HISTORY: 34 years, Male, seizure COMPARISON: 07/20/2019 CT TECHNIQUE: 220 Images stored on PACS. All CT scanners at this facility use dose modulation, iterative reconstruction, and/or weight based dosing when appropriate to reduce radiation dose to as low as reasonably achievable (ALARA). [facility]: Dose Right [facility]: CareDose [facility]: Dose Right [facility]: Teradose 4D [facility]: [employer] LIMITATIONS: None. FINDINGS: Endotracheal and enteric tubes are partially visualized. The globes are intact. The paranasal sinuses and mastoid air cells are well aerated. There is no displaced or depressed skull fracture. There is no intra or extra-axial hemorrhage. Small residual left frontal scalp hematoma. CT is limited for evaluation of acute infarct. No CT evidence for large or territorial acute infarct. No mass or midline shift IMPRESSION: Small residual left frontal scalp hematoma. Endotracheal and enteric tubes are in place TECHNICAL DOCUMENTATION: Quality ID # [id number]: Final reports with documentation of one or more dose reduction techniques (e.g., Automated exposure control, adjustment of the mA and/or kV according to patient size, use of iterative reconstruction technique) copyright 2011 [employer]- All Rights Reserved
[2019-08-11] MEDS ORDERED: MIDAZOLAM 2 MG/2 ML INJ IV ONE (06:11)
[2019-08-11] MEDS ORDERED: RINGERS SOLUTION,LACTATED 1,000 ML IV ONE (06:19)
[2019-08-11] MEDS ORDERED: RINGERS SOLUTION,LACTATED 1,000 ML IV PRN (06:19)
[2019-08-11] MEDS: PROPOFOL 1,000 MG/100 ML INFUS..BTL IV PRN ×5 (06:20→18:59)
[2019-08-11 06:25] LABS: INTERNATIONAL RATION (INR) 1.24; PROTHROMBIN TIME 15.7 SEC (11.4-15.4)
[2019-08-11 06:34] LABS: HEMATOCRIT 43.2 % (37.9-51.0); HEMOGLOBIN 14.7 g/dL (13.5-17.0); MEAN CORPUSCULAR HEMOGLOBIN 31.3 pg (27.0-33.4); MEAN CORPUSCULAR VOLUME 92 fl (80-97); PLATELET COUNT 242 10^3/uL (150-450); RED BLOOD COUNT 4.69 10^6/uL (4.35-5.55); RED CELL DISTRIBUTION WIDTH 13.7 % (11.5-14.0); WHITE BLOOD COUNT 15.4 10^3/uL (4.0-10.5)
[2019-08-11 06:54] LABS: ABSOLUTE LYMPHOCYTES# (MANUAL) 1.1 10^3/uL (0.5-4.7); ABSOLUTE MONOCYTES # (MANUAL) 0.6 10^3/uL (0.1-1.4); BASOPHILS % (MANUAL) 0 % (0-2); EOSINOPHILS % (MANUAL) 1 % (0-6); LYMPHOCYTES % (MANUAL) 7 % (13-45); MONOCYTES % (MANUAL) 4 % (3-13); SEGMENTED NEUTROPHILS % (MAN) 88 % (42-78); TOTAL CELLS COUNTED 100
[2019-08-11 06:55] LABS: PLATELET COMMENT ADEQUATE; RBC MORPHOLOGY COMMENT NORMO-CYTIC/CHROMIC
--- NOTE | 2019-08-11 07:56 | EKG REPORT ---
SEVERITY:- ABNORMAL ECG - SINUS TACHYCARDIA LEFT ATRIAL ABNORMALITY LEFT VENTRICULAR HYPERTROPHY BORDERLINE PROLONGED QT INTERVAL : Confirmed by: Raghu Bird MD 11-Aug-2019 07:55:38
[2019-08-11] MEDS ORDERED: INFLUENZA QUAD (6MOS+) 2019-20 VAC 0.5 ML SYR IM ONE (08:51)
--- NOTE | 2019-08-11 09:07 | CRITICAL CARE ADMISSION REPORT ---
HPI Date:: 08/11/19 Time:: 05:45 Reason for ICU Reason:: On mechanically assisted ventilator HPI: Mr. Stout is a 34-year-old male with a past medical history of seizure disorder for which he is known to be noncompliant with his medication, alcohol abuse, and hypertension whom reportedly had [id number] seizures starting at home and continued en route per EMS despite intramuscular Midazolam. It is reported per EMS that the patient has not taken his Keppra in approximately 1 month due to financial reasons. The patient was intubated in the emergency department and has been tachycardic as well as hypertensive since arrival, noting that he is also positive for cocaine on his toxicology. Patient also noted to be hypovolemic with an BERRY. Mr. Stout will be admitted to ICU for management of the mechanical ventilator, hypertensive urgency likely from cocaine into xication, hydration, and monitoring his acute kidney injury. History obtained from:: ER physician and medical record - Diagnosis/Plan (1) Encounter for weaning from ventilator Is this a current diagnosis for this admission?: Yes Plan: Continue current ventilator settings at this time. No need for repeat ABG or CXR at this time. ER physician suspects patient may have aspirated which may explain coarse bibasilar sounds and may see sequelae from aspiration in upcoming 48 hrs. No need for antibiotic therapy at this time. (2) Seizure Is this a current diagnosis for this admission?: Yes Plan: Continue Keppra 1g BID which is home dose. Obtain EEG. Seizure precautions. Needs education prior to discharge about importance of medication compliance. Affordability of medications needs further investigation to ensure compliance. (3) History of alcohol use Is this a current diagnosis for this admission?: Yes Plan: Monitor for alcohol withdrawal since current status unknown as to last drink and level normal on admission. Cessation counseling prior to discharge. (4) Cocaine abuse with intoxication Is this a current diagnosis for this admission?: Yes Plan: Treat HTN and tachycardia with Propofol/supplemental Benzodiazepines for now until cocaine metabolizes out of system. Avoid anti-HTN therapy while cocaine metabolites still active. Needs cocaine cessation counseling prior to discharge. (5) Acute kidney injury Is this a current diagnosis for this admission?: Yes Plan: Administer 1 liter LR bolus and initiate maintenance IV fluids at 150 ml/hr. Repeat BMP later today. Check CK level and repeat later today as well, monitoring for rhabdomyolysis. Pierre placed for strict I&O. (6) Dehydration Is this a current diagnosis for this admission?: Yes Plan: Hydrate with IV fluids as above. (7) Encephalopathy acute Is this a current diagnosis for this admission?: Yes Plan: Multifactorial due to seizure as well as cocaine intoxication. Reassess mental status as cocaine metabolizes and Keppra therapy continues. EEG as above to r/o subclinical seizure. Will obtain CBC to evaluate for leukocytosis. (8) Hypertensive urgency Is this a current diagnosis for this admission?: Yes Plan: Suspect due to acute cocaine intoxication. Treat with Propofol/supplemental Benzos for now with reassessment. Short term goal SBP <180 at this time and may be changed later today. Resume home BP meds Lisinopril and Chlothalidone when clinically appropriate. (9) Metabolic acidosis Is this a current diagnosis for this admission?: Yes Plan: Check lactic acid. Suspect acidemia from hypovolemia and anticipate pH will improve with hydration. (10) Noncompliance w/medication treatment due to intermit use of medication Is this a current diagnosis for this admission?: Yes Plan: Investigation by speaking with patient and his family when present or more clinically appropriate to determine if there is some assistance, recommendations, or resources that may be provided. (11) Tobacco abuse Is this a current diagnosis for this admission?: Yes Plan: Clarify status with patient and monitor need for nicotine patch. No patch at this time due to hypertensive urgency. Past Medical History Past Medical History: Limited medical Hx obtained from previous admission as patient is unable to provide information and there is no family present at this time. Cardiac Medical History: Reports: Hypertension Neurological Medical History: Reports: Seizures Traumatic Medical History: Reports: Traumatic Brain Injury Social/Family History - Social History Lives with: Other - unknown, but sounds like family called EMS Smoking Status: Smoker,Current Status Unk - appears to be current daily smoker according to medical record from June 2019 Frequency of Alcohol Use: Occasional - per medical record but reviewing medical record sounds like patient may drink regularly; needs clarification Hx Recreational Drug Use: Yes Drugs: Cocaine - positive on current admission toxicology Hx Prescription Drug Abuse: No - Family History Family History: Other - unable to determine at this time - Medication/Allergies Allergies/Adverse Reactions: hydrocodone [From Vicodin] Allergy (Verified 10/07/18 13:35) Review of Systems ROS unobtainable: Due to endotracheal tube - and patient inability to follow simple commands. No family present. Physical Exam Vital Signs: Temp Pulse Resp BP Pulse Ox 98.5 F 15 189/136 H 97 08/11/19 05:16 08/11/19 05:16 08/11/19 05:16 08/11/19 05:16 Intake & Output 08/09/19 08/10/19 08/11/19 06:59 06:59 06:59 Intake Total 100 Balance 100 Weight 80.8 kg Weight/Height Weight 80.8 kg Height 5 ft 9 in General appearance: PRESENT: no acute distress, well-nourished Head exam: PRESENT: atraumatic, normocephalic Eye exam: PRESENT: other - conjunctiva pink, sclera white, PERRL and 2 mm brisk reaction bilaterally Ear exam: PRESENT: normal external ear exam Mouth exam: PRESENT: neck supple, other - intubated, no blood noted in oropharynx Neck exam: ABSENT: carotid bruit, JVD, lymphadenopathy, tracheal deviation Respiratory exam: PRESENT: crackles - coarse bilateral bases. ABSENT: accessory muscle use, tachypnea, wheezes Cardiovascular exam: PRESENT: +S1, +S2, tachycardia - sinus tachycardia Pulses: PRESENT: normal carotid pulses, normal radial pulses, +2 pedal pulses bilateral Vascular exam: PRESENT: normal capillary refill GI/Abdominal exam: PRESENT: hypoactive bowel sounds, soft. ABSENT: distended, Heard's sign Rectal exam: PRESENT: deferred Gentrourinary exam: PRESENT: indwelling catheter - placed in ED with concentrated appearing urine. ABSENT: scrotal swelling, urethral discharge Extremities exam: ABSENT: clubbing, joint swelling, pedal edema Musculoskeletal exam: PRESENT: full ROM - passive, normal inspection. ABSENT: deformity Neurological exam: PRESENT: other - Intubated. Not following commands, opening eyes to noxious stimuli, or attempting to verbalize. Psychiatric exam: PRESENT: other - unable to assess Skin exam: PRESENT: dry, intact, normal color, warm, other - currently moist from urinary incontinence due to seizures on arrival per RN. ABSENT: abrasion, cyanosis, erythema, jaundice, mottled, pallor, rash, skin tears Tubes/Lines: PRESENT: Endotracheal Tube, Other - Pierre, OG tube Laboratory/Radiographs Laboratory Results: 08/11/19 03:57 08/11/19 03:57 08/11/19 08/11/19 08/11/19 03:57 03:57 04:36 WBC Cancelled RBC Cancelled Hgb Cancelled Hct Cancelled MCV Cancelled MCH Cancelled MCHC Cancelled RDW Cancelled Plt Count Cancelled Seg Neutrophils % Cancelled Carbonic Acid HCO3/H2CO3 Ratio ABG pH ABG pCO2 ABG pO2 ABG HCO3 ABG O2 Saturation ABG Base Excess FiO2 Sodium 142.6 Potassium 3.7 Chloride 102 Carbon Dioxide 8 L* Anion Gap 33 H BUN 10 Creatinine 1.68 H Est GFR ( Amer) 57 L Glucose 126 H Calcium 9.9 Magnesium 2.9 H Total Bilirubin 0.4 AST 44 Alkaline Phosphatase 123 Total Protein 8.6 H Albumin 5.2 H Urine Color STRAW Urine Appearance CLEAR Urine pH 5.0 Ur Specific [place] 1.012 Urine Protein 100 H Urine Glucose (UA) NEGATIVE Urine Ketones TRACE H Urine Blood MODERATE H Urine Nitrite NEGATIVE Ur Leukocyte Esterase NEGATIVE Urine WBC (Auto) 0 Urine RBC (Auto) 1 08/11/19 05:05 WBC RBC Hgb Hct MCV MCH MCHC RDW Plt Count Seg Neutrophils % Carbonic Acid 1.16 HCO3/H2CO3 Ratio 15:1 ABG pH 7.29 L ABG pCO2 38.5 ABG pO2 76.2 L ABG HCO3 17.9 L ABG O2 Saturation 93.8 L ABG Base Excess -8.0 FiO2 40% Sodium Potassium Chloride Carbon Dioxide Anion Gap BUN Creatinine Est GFR ( Amer) Glucose Calcium Magnesium Total Bilirubin AST Alkaline Phosphatase Total Protein Albumin Urine Color Urine Appearance Urine pH Ur Specific [place] Urine Protein Urine Glucose (UA) Urine Ketones Urine Blood Urine Nitrite Ur Leukocyte Esterase Urine WBC (Auto) Urine RBC (Auto) EKG: No evidence of cardiac ischemia/infarction, sinus tachycardia present. All labs, radiographs, diagnostic studies and EKGs were personally reviewed: Yes Critical Time Critical Time (minutes): 70 -: The care of a critically ill patient is dynamic. This note represents a static moment in the admission process. Orders and treatments may be given simultaneously and urgently, and time is not corporate sales representative of the treatment process. This patient requires Critical Care secondary to life threatening organ or limb dysfunction. Without Critical Care services, the patient is at risk for increas ed mortality and morbidity.
[2019-08-11] MEDS ORDERED: SUCCINYLCHOLINE CHLORIDE INJ 200 MG/10 ML VIAL ONE (11:11)
[2019-08-11] MEDS ORDERED: ETOMIDATE INJ/PF 20 MG/10 ML SDV IV ONE (11:11)
[2019-08-11 13:24] LABS: ANION GAP 13 (5-19); BLOOD UREA NITROGEN 10 mg/dL (7-20); CALCIUM 9.4 mg/dL (8.4-10.2); CHLORIDE 106 mmol/L (98-107); CREATINE KINASE 794 U/L (55-170); POTASSIUM 3.2 mmol/L (3.6-5.0); TRIGLYCERIDES 93 mg/dL (<150)
[2019-08-11 13:32] LABS: GLUCOSE 54 mg/dL (75-110)
[2019-08-11] MEDS ORDERED: DEXTROSE 50%-WATER 25 GM/50 ML DISP.SYRIN IV ONE ×2 (13:33→18:38)
[2019-08-11 13:44] LABS: CARBON DIOXIDE 21 mmol/L (22-30)
[2019-08-11] MEDS: HEPARIN SOD (PORCINE) 5,000 UNIT/ML 1 ML VIAL SUBCUT SCH ×2 (14:30→21:49)
[2019-08-11] MEDS: FAMOTIDINE INJ/PF 20 MG/2 ML SDV IV SCH ×2 (14:30→21:49)
[2019-08-11] MEDS ORDERED: DEXTROSE 5%-LACTATED RINGERS 1,000 ML IV ONE (16:55)
--- NOTE | 2019-08-11 17:08 | NEURO WORKBENCH EEG REPORT ---
EEG Report Patient: Vannesa Stout ID: [id number] Referring Doctor: Mynor Fung DOS: 08/11/2019 Medications: Porcine, diprivan RTU History This is a 34 year old man with a history of traumatic brain injury, epilepsy, hypertension who is intubated. This EEG was requested for seizures. EEG Interpretation This EEG was recorded in the comatose state with the patient intubated. The background was fairly monotonous and disorganized with higher amplitude activity anteriorly in the mostly alpha and beta range with some theta. There was also lower amplitude activity posteriorly. These appeared somewhat consistent with a spindle coma pattern. There was no reactivity to passive eye opening/closing by the technologist. There was no noted posterior dominant rhythm. Photic stimulation resulted in no significant changes. There were occasional bilateral independent, R>L, temporal and frontal-central sharp waves. There were several brief runs (~1-2 seconds) of bifrontal ~6-8Hz sharply contoured waveforms. There were no clinical correlations. These are most consistent with BIRDS (brief potentially ictal rhythmic discharges). Toward the end of the EEG there was fast activity that appeared myogenic in nature starting in the left temporal region and evolving to bitemporal and then diffusely with a brief, acute pause of ~1-2 seconds. Duration was over 3 minutes until the mining engineering technologist halted the EEG recording. There was no clinical correlation nor movement noted on the video. The EKG showed a regular rhythm. EEG Classification BIRDs Sharp waves, occasional, bilateral independent, temporal, frontal-central, mostly right temporal Spindle coma Disorganized EEG Impression This EEG is severely abnormal. There were occasional multifocal sharp waves (most right temporal) suggesting possible epileptogenic foci. BIRDs were present which suggest potential ictal activity and are associated with increased risk of seizures. The left temporal activity that spread diffusely was most consistent with muscle artifact and not a definitive seizure. But treatment with antiepileptic medication is recommended given the increased risk in this patient. The spindle coma may be seen with varying etiologies. Depending on etiology, prognosis varies but can be favorable. Followup EEG may be considered based on clinical outcome following treatment. INTERPRETING NEUROLOGIST: Zari Evangelista MD, FRCPC Board Certified in Neurology, with special qualification in Child Neurology, and in Clinical Neurophysiology [facility]
[2019-08-11] MEDS ORDERED: LORAZEPAM INJ 2 MG/1 ML VIAL IV SCH (17:45)
[2019-08-11] MEDS: LORAZEPAM INJ 2 MG/1 ML VIAL IV PRN (18:30)
[2019-08-11] MEDS ORDERED: PHENYTOIN SODIUM INJ/PF 250 MG/5 ML SDV IV ONE (18:30)
[2019-08-11] MEDS: LEVETIRACETAM 1000 MG/NACL-ISO 1,000 MG/100 ML RTUPB IV SCH ×2 (18:45→21:49)
[2019-08-11] MEDS ORDERED: (PENDING PHARMACY ID) (Levetiracetam [Keppra] 1,000 MG) PO SCH (22:00)
[2019-08-11] MEDS ORDERED: DEXMEDETOMIDINE IN 0.9 % NACL 400 MCG/100 ML RTUPB IV PRN (23:13)
[2019-08-11] MEDS ORDERED: DEXMEDETOMIDINE IN 0.9 % NACL 400 MCG/100 ML RTUPB IV ONE (23:19)
[2019-08-12 04:25] LABS: ARTERIAL BLOOD BASE EXCESS -3.7 mmol/L; ARTERIAL BLOOD H2CO3 0.93 mmol/L (1.05-1.35); ARTERIAL BLOOD HCO3 19.7 mmol/L (20-24); ARTERIAL BLOOD O2 SATURATION 97.5 % (94-98); ARTERIAL BLOOD PH 7.42 (7.35-7.45); ARTERIAL BLOOD PO2 95.7 mmHg (80-100); ARTERIAL BLOOD TOTAL CO2 20.6 mmol/L (23-27)
[2019-08-12 04:28] LABS: ARTERIAL BLOOD FIO2 30%
[2019-08-12] MEDS: HEPARIN SOD (PORCINE) 5,000 UNIT/ML 1 ML VIAL SUBCUT SCH ×3 (05:09→21:47)
[2019-08-12] MEDS: DEXTROSE 5%-LACTATED RINGERS 1,000 ML IV PRN ×3 (05:23→19:44)
[2019-08-12] MEDS: LORAZEPAM INJ 2 MG/1 ML VIAL IV PRN (07:33)
--- NOTE | 2019-08-12 08:55 | PDOC CRITICAL CARE PROG REPORT ---
General Date:: 08/12/19 ICU Day:: 2 Ventilator Day:: 2 Hospital Day:: 2 Resuscitation Status: Full Code Events in the past 12 to 24 Hours:: Probable cocain WD not seizures. Answered yes or no questions appropriately over night. Occasionally highly agitated. Review of systems relevant to events:: Neuro Reason for ICU Addmission:: On mechanically assisted ventilator - Medications: Medications reviewed and adjusted accordingly: Yes Vasopressors:: None Sedation:: Diprivan Physical Exam Vital Signs: Temp Pulse Resp BP Pulse Ox 99.7 F 70 15 103/83 100 08/12/19 07:53 08/12/19 07:53 08/12/19 07:53 08/12/19 07:53 08/12/19 07:53 Intake & Output 08/11/19 08/12/19 08/13/19 06:59 06:59 06:59 Intake Total 206 1627 Output Total 3125 25 Balance 206 -1498 -25 Weight 80.8 kg 75.9 kg Weight/Height Weight 75.9 kg Height 5 ft 9 in General appearance: PRESENT: no acute distress, well-developed, well-nourished Head exam: PRESENT: atraumatic, normocephalic Eye exam: PRESENT: PERRLA Ear exam: PRESENT: normal external ear exam Mouth exam: PRESENT: moist, tongue midline Respiratory exam: PRESENT: clear to auscultation ector. ABSENT: rales, rhonchi, wheezes Cardiovascular exam: PRESENT: RRR. ABSENT: diastolic murmur, rubs, systolic murmur Vascular exam: PRESENT: normal capillary refill GI/Abdominal exam: PRESENT: normal bowel sounds, soft. ABSENT: distended, guarding, mass, organolmegaly, rebound, tenderness Rectal exam: PRESENT: deferred Gentrourinary exam: PRESENT: indwelling catheter Extremities exam: PRESENT: other - R arm swollen more than L. Difficult IV to obtain. Probable infiltrate. Low risk for dvt in subclavian ar axillary. Musculoskeletal exam: PRESENT: normal inspection Neurological exam: PRESENT: altered, other - Sedated but has been appropriate. Skin exam: PRESENT: dry, intact, warm. ABSENT: cyanosis, rash Tubes/Lines: PRESENT: Endotracheal Tube, Nasogastic Tube Laboratory/Radiographs Laboratory Results: 08/11/19 06:15 08/11/19 12:49 08/11/19 08/11/19 08/12/19 12:49 12:49 04:15 Carbonic Acid 0.93 L HCO3/H2CO3 Ratio 21:1 ABG pH 7.42 ABG pCO2 31.0 L ABG pO2 95.7 ABG HCO3 19.7 L ABG O2 Saturation 97.5 ABG Base Excess -3.7 FiO2 30% Sodium 140.4 Potassium 3.2 L Chloride 106 Carbon Dioxide 21 L D Anion Gap 13 BUN 10 Creatinine 1.24 Est GFR ( Amer) > 60 Glucose 54 L Lactic Acid 1.9 Calcium 9.4 Triglycerides 93 08/11/19 08/11/19 03:07 12:49 Creatine Kinase 448 H 794 H Impressions: Head CT 08/11/19 04:26 IMPRESSION: Small residual left frontal scalp hematoma. Endotracheal and enteric tubes are in place TECHNICAL DOCUMENTATION: Quality ID # [id number]: Final reports with documentation of one or more dose reduction techniques (e.g., Automated exposure control, adjustment of the mA and/or kV according to patient size, use of iterative reconstruction technique) copyright 2011 [employer]- All Rights Reserved All labs, radiographs, diagnostic studies and EKGs were personally reviewed: Yes In addition, reports of radiographic and diagnostic studies were read: Yes Assessment and Plan - Diagnosis (1) Status epilepticus, generalized convulsive Is this a current diagnosis for this admission?: Yes Plan: This is the most serious problem. He receive extra keppra,ativa and one dose of dilantin yesterday. Howeve he had woken up enough to respond to simple questions with a thumps up or down sign. We will check additional EEG but with this information he is acting more like cocaine withdrawal. (2) Acute respiratory failure Qualifiers: Respiratory failure complication: unspecified whether with hypoxia or hypercapnia Qualified Code(s): J96.00 - Acute respiratory failure, unspecified whether with hypoxia or hypercapnia Is this a current diagnosis for this admission?: Yes Plan: Intubated for airway protection and use of high dose sedation. Would like to obtain EEG, PICC line for iv access as his are poor and his US guided R basilic IV has infiltrated and then work towards extubation. (3) Cocaine abuse with intoxication Is this a current diagnosis for this admission?: Yes Plan: This lowered his seizure threshold and may be responsible for his EEG appeaarance. (4) Alcohol abuse Is this a current diagnosis for this admission?: Yes Plan: This is common in cocaine abuse. We do not no the extent of his drinking at this time. (5) Noncompliance w/medication treatment due to intermit use of medication Is this a current diagnosis for this admission?: Yes Plan: Lack of keppra and cocaine is probable cause of seizures. (6) Seizure Is this a current diagnosis for this admission?: Yes Plan: No obvious seizures since admission. Possibility of subclinical seizures prompted the EEG. (7) Infiltration of peripherally inserted central catheter (PICC) Qualifiers: Encounter type: initial encounter Qualified Code(s): T82.898A - Other s pecified complication of vascular prosthetic devices, implants and grafts, initial encounter Is this a current diagnosis for this admission?: Yes Plan: He has no reason for a clot in his R arm but with IV difficulty certainly an infiltrate is more likely. Plan Summary: Obtain EEG, PICC then hopefully extubate. Critical Time Critical Time (minutes): 40 Level of Care: ICU Anticipated discharge: Home Within: within 72 hours -: 1. The care of a critical patient is a dynamic process. This note is a sales and merchandising representative synopsis but static in nature. The timeframe for treatments given in order is not necessarily the actual time these treatments may have been done. 2. This patient requires critical care secondary to ongoing requirements for therapy not offered or safe outside the critical care environment. Transfer to a lower level of care will result in altered life or limb morbidity and mortality. 3. Multidisciplinary rounds completed. 4. ABCDE bundle addressed.
--- NOTE | 2019-08-12 09:03 | RADIOLOGY REPORT (SQ) ---
EXAM DESCRIPTION: CHEST SINGLE VIEW COMPLETED DATE/TIME: 08/12/2019 5:19 am REASON FOR STUDY: respiratory failure; r/o infiltrate COMPARISON: 08/11/2019 EXAM PARAMETERS: NUMBER OF VIEWS: One view. TECHNIQUE: Single frontal radiographic view of the chest acquired. RADIATION DOSE: NA LIMITATIONS: None. FINDINGS: LUNGS AND PLEURA: No opacities, masses or pneumothorax. No pleural effusion. MEDIASTINUM AND HILAR STRUCTURES: No masses. Contour normal. HEART AND VASCULAR STRUCTURES: Heart normal in size. Normal vasculature. BONES: No acute findings. HARDWARE: Endotracheal tube has been retracted now 6 cm above the jason. Esophagogastric tube tip a nd side-hole are below the GE junction out of the field of view. OTHER: No other significant finding. IMPRESSION: 1. No acute cardiopulmonary disease. 2. Endotracheal tube has been retracted to the upper trachea now 6 cm above the jason. Recommend ad vancing 2-3 cm. TECHNICAL DOCUMENTATION: JOB ID: [id number] [employer]- All Rights Reserved Reading location - IP/workstation name: [email or web address]
[2019-08-12] MEDS ORDERED: (PENDING PHARMACY ID) (Lisinopril [Zestril] 40 MG) PO SCH (10:00)
[2019-08-12] MEDS: LISINOPRIL 10 MG TABLET PO SCH (10:39)
[2019-08-12] MEDS: FAMOTIDINE INJ/PF 20 MG/2 ML SDV IV SCH ×2 (10:39→21:47)
[2019-08-12] MEDS: LEVETIRACETAM 500 MG TABLET PO SCH ×2 (10:41→21:46)
--- NOTE | 2019-08-12 14:36 | NEURO WORKBENCH EEG REPORT ---
EEG Report Patient: Vannesa Stout ID: [id number] Referring Doctor: Mynor Fung Date: 08/12/2019 Reason for study: Evaluate Epileptiform activity Medications: Keppra, Precedex, Famotidine, Porcine, Lisinopril, Ativan History: This is a 34 year old male with a history of traumatic brain injury, epilepsy, and hypertension who is intubated in the ICU. An EEG done on 08/11/2019 showed multifocal sharp waves, spindle coma, and BIRDs. EEG Interpretation This EEG was recorded in the ICU and the patient is intubated. There were no apparent spontaneous eye openings or closings, but the military technician manually opened and closed the patients eyes multiple times. There is no posterior dominant rhythm present. The backgound EEG shows predominantly diffuse polymorphic low amplitude delta activity with intermixed low amplitude beta activity activity. The background is typically a monotonous alternating pattern with periods of global amplitude attenuation alternating with periods of frontally predominant higher amplitude beta activity (spindles). This EEG background is consistent with spindle coma (not a burst-suppression pattern). There were no obvious asymmetries in amplitude or frequencies. Photic stimulation was done and photic driving was not noted. The EEG is at times reactive after stimuli showing briefly a more continuous pattern of superimposed faster frequency EEG activity (theta and alpha frequency) than the typical spindle coma background. Reactivity was noted after the patient coughed and rarely with stimulation by the tech. There were several convincing bi-temporal sharp waves, and more frequent poorly formed sharply contoured waveforms in the right temporal region. There were multiple (approximately ten) Brief Potentially Ictal Rhythmic Discharges also known as B(I)RDs characterized by bi-frontal sharply contoured rhythmic activity typically 10-12 Hz that was higher amplitude than the background activity (approximately 2-4 times higher) and typically lasting about 1 second or less. There were no clinical or subclinical seizures. The EKG showed a regular rhythm with rates typically in the 60-70 range. EEG Impression This is a markedly abnormal EEG and consistent with diffuse cerebral dysfunction which is non-specific for etiology. A spindle coma pattern may be seen in patients with head injury which may be consistent with the patients reported history of traumatic brain injury if this is the reason for the patients current hospitalization (not sure if this is acute or a remote history). Spindle coma has also been reported in the setting of acute cerebral anoxia, viral encephalitis, thalamic or brainstem lesions, subarachnoid hemorrhage, and drug intoxication (not an exhaustive differential). Todays study did show some reactivity to stimulation, while the prior days EEG did not. There were persistent bi-temporal sharp waves on todays EEG which is suggestive of potentially bi-temporal epileptogenic foci. I did not appreciate any marked reduction in the frequency of these compared to the prior days study, but they do seem more convincingly confined to the bi-temporal areas. There were persistent Brief Potentially Ictal Rhythmic Discharges also known as B(I)RDs noted on todays study, which appear more frequent than on the prior days EEG. It is noted that the patient has been started on Keppra, and checking serum drug levels may be of interest. INTERPRETING NEUROLOGIST: Lucas Singer MD Board certified by the [place] [employer] in Neurology, Clinical Neurophysiology, and Sleep Medicine [facility]
[2019-08-13] MEDS: HEPARIN SOD (PORCINE) 5,000 UNIT/ML 1 ML VIAL SUBCUT SCH (05:19)
[2019-08-13 05:38] LABS: ABSOLUTE BASOPHILS # (AUTO) 0.1 10^3/uL (0.0-0.2); ABSOLUTE LYMPHOCYTES (AUTO) 1.9 10^3/uL (0.5-4.7); ABSOLUTE MONOCYTES (AUTO) 0.9 10^3/uL (0.1-1.4); ABSOLUTE NEUT (AUTO) 3.3 10^3/uL (1.7-8.2); EOSINOPHILS % (AUTO) 0.4 % (0-6); HEMATOCRIT 41.4 % (37.9-51.0); HEMOGLOBIN 14.2 g/dL (13.5-17.0); LYMPHOCYTES % (AUTO) 31.3 % (13-45); MEAN CORPUSCULAR HEMOGLOBIN 31.5 pg (27.0-33.4); MEAN CORPUSCULAR HGB CONC 34.3 g/dL (32.0-36.0); MEAN CORPUSCULAR VOLUME 92 fl (80-97); MONOCYTES % (AUTO) 14.1 % (3-13); PLATELET COUNT 207 10^3/uL (150-450); RED BLOOD COUNT 4.51 10^6/uL (4.35-5.55); RED CELL DISTRIBUTION WIDTH 13.6 % (11.5-14.0); SEGMENTED NEUTROPHILS % (AUTO) 53.2 % (42-78); TOTAL CELLS COUNTED % (AUTO) 100 %; WHITE BLOOD COUNT 6.2 10^3/uL (4.0-10.5)
[2019-08-13 05:57] LABS: ANION GAP 10 (5-19); BLOOD UREA NITROGEN 8 mg/dL (7-20); CALCIUM 8.9 mg/dL (8.4-10.2); CARBON DIOXIDE 23 mmol/L (22-30); CHLORIDE 111 mmol/L (98-107); GLUCOSE 76 mg/dL (75-110); POTASSIUM 3.3 mmol/L (3.6-5.0)
[2019-08-13 08:39] VITALS: BP 144/106
[2019-08-13] MEDS: LEVETIRACETAM 500 MG TABLET PO SCH (09:17)
[2019-08-13] MEDS: LISINOPRIL 10 MG TABLET PO SCH (09:18)
--- NOTE | 2019-08-13 09:26 | PDOC DISCHARGE SUMMARY ---
Impression - Admit/DC Date/PCP Admission Date/Primary Care Provider: 08/11/19 06:24 Discharge Date: 08/13/19 - Discharge Diagnosis (1) Status epilepticus, generalized convulsive Is this a current diagnosis for this admission?: Yes (2) Cocaine abuse with intoxication Is this a current diagnosis for this admission?: Yes (3) Alcohol abuse Is this a current diagnosis for this admission?: Yes (4) Noncompliance w/medication treatment due to intermit use of medication Is this a current diagnosis for this admission?: Yes (5) Seizure Is this a current diagnosis for this admission?: Yes (6) Infiltration of peripherally inserted central catheter (PICC) Is this a current diagnosis for this admission?: Yes - Assessment Summary: This patient is a 34 yo man with a long hx of substance abuse. He tested positive for cocaine, had a seizure. Cocaine can lower seizure threshold. Intubated for airway protection as his first GCS was lower than 9. He eventually woke up enough to be extubated. Since then he has been ambulatory, eating a regular diet, back on keppra as he has a hx of non-compliance. Said to have a hx of alcohol abuse. Unknown if alcohol is a primary or secondary issue to cope with cocaine or vice versa. His Cr was elevated to 1.7 about .4 above normal not enough to qualify for ARF but certainly for BERRY. At this point he is stable for discharge home. We will make sure he has keppra available. He had an EEG suggestive of continued seizure prompting loading with dilantin, extra 1gm of keppra and a second EEG showed resolved and my suspicion is this was cocaine WD as he is fully neurologically intact at discharge. His IV access was difficult to obtain. A PICC was suggested while he was vented but no one was available for consent. He had a large infiltration on his R arm that nearly completely resolved by discharge. - Additional Information Resuscitation Status: Full Code Discharge Diet: As Tolerated Discharge Activity: Activity As Tolerated Home Medications: Levetiracetam [Keppra] 1,000 mg PO Q12 08/11/19 Lisinopril [Zestril] 40 mg PO DAILY 08/11/19 History of Present Illiness History of Present Illness: AMADOR CHAVEZ is a 34 year old male Hospital Course Hospital Course: See previous note. Extubated no further seizures and discharge making sure he had access to [facility]. Physical Exam Vital Signs: Temp Pulse Resp BP Pulse Ox 98.3 F 85 21 H 144/106 H 97 08/13/19 08:00 08/13/19 08:00 08/13/19 08:00 08/13/19 08:00 08/13/19 08:00 Intake & Output 08/12/19 08/13/19 08/14/19 06:59 06:59 06:59 Intake Total 1627 2912 Output Total 3125 777 Balance -1498 2135 Weight 75.9 kg 78.4 kg General appearance: PRESENT: no acute distress, well-developed, well-nourished Head exam: PRESENT: atraumatic, normocephalic Eye exam: PRESENT: conjunctiva pink, EOMI, PERRLA. ABSENT: scleral icterus Ear exam: PRESENT: normal external ear exam Mouth exam: PRESENT: moist, tongue midline Respiratory exam: PRESENT: clear to auscultation ector. ABSENT: rales, rhonchi, wheezes Cardiovascular exam: PRESENT: RRR. ABSENT: diastolic murmur, rubs, systolic murmur Vascular exam: PRESENT: normal capillary refill GI/Abdominal exam: PRESENT: normal bowel sounds, soft. ABSENT: distended, guarding, mass, organolmegaly, rebound, tenderness Rectal exam: PRESENT: deferred Extremities exam: PRESENT: full ROM. ABSENT: calf tenderness, clubbing, pedal edema Neurological exam: PRESENT: alert, awake, oriented to person, oriented to place, oriented to time, oriented to situation, CN II-XII grossly intact. ABSENT: m otor sensory deficit Skin exam: PRESENT: dry, intact, warm. ABSENT: cyanosis, rash Results Laboratory Results: WBC 6.2 10^3/uL (4.0-10.5) 08/13/19 04:46 RBC 4.51 10^6/uL (4.35-5.55) 08/13/19 04:46 Hgb 14.2 g/dL (13.5-17.0) 08/13/19 04:46 Hct 41.4 % (37.9-51.0) 08/13/19 04:46 MCV 92 fl (80-97) 08/13/19 04:46 MCH 31.5 pg (27.0-33.4) 08/13/19 04:46 MCHC 34.3 g/dL (32.0-36.0) 08/13/19 04:46 RDW 13.6 % (11.5-14.0) 08/13/19 04:46 Plt Count 207 10^3/uL (150-450) 08/13/19 04:46 Lymph % (Auto) 31.3 % (13-45) 08/13/19 04:46 [place] % (Auto) 14.1 % (3-13) H 08/13/19 04:46 Eos % (Auto) 0.4 % (0-6) 08/13/19 04:46 Baso % (Auto) 1.0 % (0-2) 08/13/19 04:46 Absolute Neuts (auto) 3.3 10^3/uL (1.7-8.2) 08/13/19 04:46 Absolute Lymphs (auto) 1.9 10^3/uL (0.5-4.7) 08/13/19 04:46 Absolute Monos (auto) 0.9 10^3/uL (0.1-1.4) 08/13/19 04:46 Absolute Eos (auto) 0.0 10^3/uL (0.0-0.6) 08/13/19 04:46 Absolute Basos (auto) 0.1 10^3/uL (0.0-0.2) 08/13/19 04:46 Total Counted 100 08/11/19 06:15 Seg Neutrophils % 53.2 % (42-78) 08/13/19 04:46 Seg Neuts % (Manual) 88 % (42-78) H 08/11/19 06:15 Lymphocytes % (Manual) 7 % (13-45) L 08/11/19 06:15 Monocytes % (Manual) 4 % (3-13) 08/11/19 06:15 Eosinophils % (Manual) 1 % (0-6) 08/11/19 06:15 Basophils % (Manual) 0 % (0-2) 08/11/19 06:15 Abs Neuts (Manual) 13.6 10^3/uL (1.7-8.2) H 08/11/19 06:15 Abs Lymphs (Manual) 1.1 10^3/uL (0.5-4.7) 08/11/19 06:15 Abs Monocytes (Manual) 0.6 10^3/uL (0.1-1.4) 08/11/19 06:15 Absolute Eos (Manual) 0.2 10^3/uL (0.0-0.6) 08/11/19 06:15 Abs Basophils (Manual) 0.0 10^3/uL (0.0-0.2) 08/11/19 06:15 Platelet Estimate Cancelled 08/11/19 03:57 Platelet Comment ADEQUATE 08/11/19 06:15 RBC Morph Comment NORMO-CYTIC/CHROMIC 08/11/19 06:15 PT 15.7 SEC (11.4-15.4) H 08/11/19 03:07 INR 1.24 08/11/19 03:07 Carbonic Acid 0.93 mmol/L (1.05-1.35) L 08/12/19 04:15 HCO3/H2CO3 Ratio 21:1 08/12/19 04:15 ABG pH 7.42 (7.35-7.45) 08/12/19 04:15 ABG pCO2 31.0 mmHg (35-45) L 08/12/19 04:15 ABG pO2 95.7 mmHg (80-100) 08/12/19 04:15 ABG HCO3 19.7 mmol/L (20-24) L 08/12/19 04:15 ABG Total CO2 20.6 mmol/L (23-27) L 08/12/19 04:15 ABG O2 Saturation 97.5 % (94-98) 08/12/19 04:15 ABG Base Excess -3.7 mmol/L 08/12/19 04:15 FiO2 30% 08/12/19 04:15 Sodium 144.4 mmol/L (137-145) 08/13/19 04:46 Potassium 3.3 mmol/L (3.6-5.0) L 08/13/19 04:46 Chloride 111 mmol/L (98-107) H 08/13/19 04:46 Carbon Dioxide 23 mmol/L (22-30) 08/13/19 04:46 Anion Gap 10 (5-19) 08/13/19 04:46 BUN 8 mg/dL (7-20) 08/13/19 04:46 Creatinine 1.21 mg/dL (0.52-1.25) 08/13/19 04:46 Est GFR ( Amer) > 60 (>60) 08/13/19 04:46 Est GFR (MDRD) Non-Af > 60 (>60) 08/13/19 04:46 Glucose 76 mg/dL (75-110) 08/13/19 04:46 POC Glucose 87 mg/dL (70-110) 08/12/19 18:57 Lactic Acid 1.9 mmol/L (0.7-2.1) 08/11/19 12:49 Calcium 8.9 mg/dL (8.4-10.2) 08/13/19 04:46 Magnesium 2.9 mg/dL (1.6-2.3) H 08/11/19 03:57 Total Bilirubin 0.4 mg/dL (0.2-1.3) 08/11/19 03:57 Direct Bilirubin 0.0 mg/dL (0.0-0.4) 08/11/19 03:57 Neonat Total Bilirubin Not Reportable 08/11/19 03:57 Neonat Direct Bilirubin Not Reportable 08/11/19 03:57 Neonat Indirect Bili Not Reportable 08/11/19 03:57 AST 44 U/L (17-59) 08/11/19 03:57 ALT 24 U/L (<50) 08/11/19 03:57 Alkaline Phosphatase 123 U/L (38-126) 08/11/19 03:57 Creatine Kinase 794 U/L (55-170) H 08/11/19 12:49 Total Protein 8.6 g/dL (6.3-8.2) H 08/11/19 03:57 Albumin 5.2 g/dL (3.5-5.0) H 08/11/19 03:57 Triglycerides 93 mg/dL (<150) 08/11/19 12:49 Urine Color STRAW 08/11/19 04:36 Urine Appearance CLEAR 08/11/19 04:36 Urine pH 5.0 (5.0-9.0) 08/11/19 04:36 Ur Specific [place] 1.012 08/11/19 04:36 Urine Protein 100 mg/dL (NEGATIVE) H 08/11/19 04:36 Urine Glucose (UA) NEGATIVE mg/dL (NEGATIVE) 08/11/19 04:36 Urine Ketones TRACE mg/dL (NEGATIVE) H 08/11/19 04:36 Urine Blood MODERATE (NEGATIVE) H 08/11/19 04:36 Urine Nitrite NEGATIVE (NEGATIVE) 08/11/19 04:36 Urine Bilirubin NEGATIVE (NEGATIVE) 08/11/19 04:36 Urine Urobilinogen NEGATIVE mg/dL (<2.0) 08/11/19 04:36 Ur Leukocyte Esterase NEGATIVE (NEGATIVE) 08/11/19 04:36 Urine WBC (Auto) 0 /HPF 08/11/19 04:36 Urine RBC (Auto) 1 /HPF 08/11/19 04:36 U Hyaline Cast (Auto) 3 /LPF 08/11/19 04:36 Urine Mucus (Auto) RARE /LPF 08/11/19 04:36 Urine Ascorbic Acid NEGATIVE (NEGATIVE) 08/11/19 04:36 Urine Opiates Screen NEGATIVE 08/11/19 04:36 Urine Methadone Screen NEGATIVE 08/11/19 04:36 Ur Barbiturates Screen NEGATIVE 08/11/19 04:36 Ur Phencyclidine Scrn NEGATIVE 08/11/19 04:36 Ur Amphetamines Screen NEGATIVE 08/11/19 04:36 U Benzodiazepines Scrn UNCONFIRMED POSITIVE 08/11/19 04:36 Urine Cocaine Screen UNCONFIRMED POSITIVE 08/11/19 04:36 U Marijuana (THC) Screen NEGATIVE 08/11/19 04:36 Serum Alcohol < 10 mg/dL (NONE DETECTED) 08/11/19 03:57 Slides for Path Review Cancelled 08/11/19 03:57 EKG Comments: NSR with no ectopy noted or ischemia. Impressions: Chest X-Ray 08/11/19 04:25 IMPRESSION: Endotracheal and enteric tubes are in place. Lungs are clear copyright 2010 [employer]- All Rights Reserved Head CT 08/11/19 04:26 IMPRESSION: Small residual left frontal scalp hematoma. Endotracheal and enteric tubes are in place TECHNICAL DOCUMENTATION: Quality ID # [id number]: Final reports with documentation of one or more dose reduction techniques (e.g., Automated exposure control, adjustment of the mA and/or kV according to patient size, use of iterative reconstruction technique) copyright 2011 [employer]- All Rights Reserved Chest X-Ray 08/12/19 00:00 IMPRESSION: 1. No acute cardiopulmonary disease. 2. Endotracheal tube has been retracted to the upper trachea now 6 cm above the jason. Recommend advancing 2-3 cm. Plan Health Concerns: Continued non-compliance and substance abuse. Does not want rehab. Plan of Treatment: Home to return to previous medications. Goals: Sobriety Critical Time: 35 Level of Care: MEDICAL Stroke Is this a Stroke Patient?: No Acute Heart Failure - Is this a Heart Failure Patient?: No
== END 2019-08-13 10:30 | disposition home or self-care (01) | DRG 100 ==
LOC: ER 03:45 → EH 06:24 → ICU 07:51
PROVIDERS: ADMIT Anesthesiology; ATTEND Anesthesiology
PROC: 0BH17EZ Insertion of Endotracheal Airway into Trachea, Via Natural or Artificial Opening (ICD-10-PCS; principal; 2019-08-11)
PROC: 5A1945Z Respiratory Ventilation, 24-96 Consecutive Hours (ICD-10-PCS; 2019-08-11)
DX: G40.401 Other generalized epilepsy and epileptic syndromes, not intractable, with status epilepticus (principal); G92 Toxic encephalopathy; F14.23 Cocaine dependence with withdrawal; N17.9 Acute kidney failure, unspecified; E87.2 Acidosis; I16.0 Hypertensive urgency; I10 Essential (primary) hypertension; T42.6X6A Underdosing of other antiepileptic and sedative-hypnotic drugs, initial encounter; Z91.120 Patient's intentional underdosing of medication regimen due to financial hardship; E86.1 Hypovolemia; R40.2430 Glasgow coma scale score 3-8, unspecified time; F17.200 Nicotine dependence, unspecified, uncomplicated; Z87.820 Personal history of traumatic brain injury; S00.03XA Contusion of scalp, initial encounter; X58.XXXA Exposure to other specified factors, initial encounter; E86.0 Dehydration; Z88.5 Allergy status to narcotic agent; F10.10 Alcohol abuse, uncomplicated; Z78.1 Physical restraint status
CPT/HCPCS: 31500; 36415; 70450; 71045; 80048; 80053; 80307; 81001; 82550; 82803; 82962; 83605; 83735; 84478; 85025; 85610; 93005; 93010; 94002; 94003; 95819; 96365; 96375; 96376; 99239; 99291; J0330; J1165; J1644; J1953; J2060; J2250; J2704; J3010; J3490; J7120; J7121; S0028

== ENCOUNTER 2019-08-24 05:27 | Emergency (ER) | payer MEDICARE, OTHER ==
[2019-08-24 06:30] LABS: ALBUMIN 4.1 g/dL (3.5-5.0); ALKALINE PHOSPHATASE 85 U/L (38-126); ANION GAP 13 (5-19); ASPARTATE AMINO TRANSFERASE 30 U/L (17-59); BILIRUBIN,DIRECT 0.3 mg/dL (0.0-0.4); BILIRUBIN,TOTAL 0.4 mg/dL (0.2-1.3); BLOOD UREA NITROGEN 10 mg/dL (7-20); CALCIUM 9.3 mg/dL (8.4-10.2); CARBON DIOXIDE 24 mmol/L (22-30); CHLORIDE 105 mmol/L (98-107); GLUCOSE 98 mg/dL (75-110); POTASSIUM 3.6 mmol/L (3.6-5.0); TOTAL PROTEIN 7.6 g/dL (6.3-8.2)
[2019-08-24 06:33] LABS: ALCOHOL < 10 mg/dL (NONE DETECTED)
[2019-08-24] MEDS ORDERED: NORMAL SALINE 1000 ML 1,000 ML IV ONE (06:39)
[2019-08-24 07:04] LABS: ABSOLUTE BASOPHILS # (AUTO) 0.1 10^3/uL (0.0-0.2); ABSOLUTE EOSINOPHILS # (AUTO) 0.1 10^3/uL (0.0-0.6); ABSOLUTE LYMPHOCYTES (AUTO) 1.2 10^3/uL (0.5-4.7); ABSOLUTE MONOCYTES (AUTO) 0.6 10^3/uL (0.1-1.4); ABSOLUTE NEUT (AUTO) 5.2 10^3/uL (1.7-8.2); EOSINOPHILS % (AUTO) 1.5 % (0-6); HEMATOCRIT 40.8 % (37.9-51.0); LYMPHOCYTES % (AUTO) 16.4 % (13-45); MEAN CORPUSCULAR HEMOGLOBIN 31.6 pg (27.0-33.4); MEAN CORPUSCULAR HGB CONC 34.2 g/dL (32.0-36.0); MEAN CORPUSCULAR VOLUME 92 fl (80-97); RED BLOOD COUNT 4.42 10^6/uL (4.35-5.55); RED CELL DISTRIBUTION WIDTH 13.6 % (11.5-14.0); SEGMENTED NEUTROPHILS % (AUTO) 73.1 % (42-78); TOTAL CELLS COUNTED % (AUTO) 100 %; WHITE BLOOD COUNT 7.1 10^3/uL (4.0-10.5)
[2019-08-24] MEDS ORDERED: METOPROLOL TARTRATE PF/INJ 5 MG/5 ML SDV IV ONE (07:18)
--- NOTE | 2019-08-24 07:30 | RADIOLOGY REPORT (SQ) ---
EXAM DESCRIPTION: CT HEAD WITHOUT IV CONTRAST COMPLETED DATE/TME: 08/24/2019 06:38 CLINICAL HISTORY: sz/ams COMPARISON: 08/11/2019 TECHNIQUE: Axial CT of the head obtained from the skull apex to the skull base without contrast. FINDINGS: No acute intracranial hemorrhage identified. No mass, mass effect, shift of the midline, abnormal extra-axial fluid collection or CT evidence of acute ischemic change identified. The ventricular system is unremarkable. No acute abnormalities of the supratentorial white matter, basal ganglia, cerebellum, or brainstem. The visualized paranasal sinuses and the mastoids are clear. Contusion in the left frontal scalp subcutaneous soft tissues. No skull fracture identified. Visualized orbits and globes are unremarkable. IMPRESSION: 1. No acute intracranial abnormality identified. This exam was performed according to our departmental dose-optimization program, which includes automated exposure control, adjustment of the mA and/or kV according to patient size and/or use of iterative reconstruction technique.
--- NOTE | 2019-08-24 07:33 | RADIOLOGY REPORT (SQ) ---
EXAM DESCRIPTION: CT CERVICAL SPINE WITHOUT IV CONTRAST COMPLETED DATE/TME: 08/24/2019 06:38 CLINICAL HISTORY: sz/ams. Neck pain. COMPARISON: 11/24/2017 TECHNIQUE: Axial CT of the cervical spine obtained without contrast. FINDINGS: Reversal of the cervical lordosis may be secondary to patient positioning or altered muscle tone. The atlantoaxial, atlantodental, and occipitoatlantal intervals are preserved. No fracture identified. Vertebral body height preserved. Prevertebral soft tissues are unremarkable. Mild loss of intervertebral disc height at C4/5 and C5/6 with endplate spondylosis, uncovertebral spurring, and facet arthropathy. Visualized skull base is intact. No fracture of the visualized facial bones. Visualized mastoid air cells and paranasal sinuses are well aerated. Visualized thyroid is unremarkable. No cervical lymphadenopathy. No pneumothorax in the visualized lung apices. IMPRESSION: 1. No acute fracture or subluxation of the cervical spine. 2. Multilevel degenerative change of the spine. This exam was performed according to our departmental dose-optimization program, which includes automated exposure control, adjustment of the mA and/or kV according to patient size and/or use of iterative reconstruction technique.
[2019-08-24 07:38] LABS: PLATELET COUNT 258 10^3/uL (150-450)
[2019-08-24 07:59] LABS: APPEARANCE,URINE CLEAR; BILIRUBIN,URINE NEGATIVE (NEGATIVE); COLOR,URINE STRAW; GLUCOSE, URINE NEGATIVE (NEGATIVE); KETONES,URINE NEGATIVE (NEGATIVE); LEUKOCYTE ESTERASE,URINE NEGATIVE (NEGATIVE); NITRITE,URINE NEGATIVE (NEGATIVE); PROTEIN,URINE NEGATIVE (NEGATIVE); URINE SPECIFIC GRAVITY 1.013; UROBILINOGEN,URINE NEGATIVE mg/dL (<2.0)
[2019-08-24] MEDS ORDERED: LEVETIRACETAM 1000 MG/NACL-ISO 1,000 MG/100 ML RTUPB IV ONE (08:07)
[2019-08-24] MEDS ORDERED: NITROGLYCERIN 2% OINTMENT 1 GM PACKET TP ONE (08:24)
[2019-08-24 08:36] LABS: URINE AMPHETAMINES SCREEN NEGATIVE; URINE BARBITURATES SCREEN NEGATIVE; URINE BENZODIAZEPINES SCREEN NEGATIVE; URINE MARIJUANA (THC) SCREEN NEGATIVE; URINE METHADONE SCREEN NEGATIVE; URINE PHENCYCLIDINE SCREEN NEGATIVE
[2019-08-24 08:42] LABS: URINE COCAINE SCREEN UNCONFIRMED POSITIVE
[2019-08-24] MEDS ORDERED: CLONIDINE HCL 0.2 MG TABLET PO ONE (10:13)
--- NOTE | 2019-08-24 16:30 | ER Document Report ---
ED General - General Chief Complaint: Seizure Stated Complaint: DECREASED LOC Time Seen by Provider: 08/24/19 06:36 Mode of Arrival: Medic Information source: Emergency Med Personnel TRAVEL OUTSIDE OF THE [place] IN LAST 30 DAYS: No - HPI Notes: Patient is brought in by EMS from home secondary to seizures. EMS states they found the patient postictal with some low saturations were patient was placed on oxygen on the right here. Patient was never conversant with them. Patient has a long history of numerous visits to the emergency department for seizures and uncontrolled hypertension as well as alcohol and drug abuse. Apparently patient hit his head at home per emergency medicine personnel during the seizure. Patient is unable to give me any history. Patient symptoms are currently constant. They are severe. Nothing appears to make them better or worse. His main symptoms are decreased responsiveness postictal. And apparent intoxication. - Related Data Allergies/Adverse Reactions: hydrocodone [From Vicodin] Allergy (Verified 08/24/19 05:58) Past Medical History - General Information source: [facility] Records - Social History Smoking Status: Current Every Day Smoker Frequency of alcohol use: Heavy Drug Abuse: Cocaine Family History: Reviewed & Not Pertinent, Other - unable to determine at this time Patient has suicidal ideation: No Patient has homicidal ideation: No - Past Medical History Cardiac Medical History: Reports: Hx Hypertension Neurological Medical History: Reports: Hx Seizures Renal/ Medical History: Denies: Hx Peritoneal Dialysis Psychiatric Medical History: Denies: Hx Depression Traumatic Medical History: 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 - Immunizations Immunizations up to date: No Hx Diphtheria, Pertussis, Tetanus Vaccination: Yes Review of Systems - Review of Systems -: Yes ROS unobtainable due to patient's medical condition - Patient is postictal and will not answer questions Physical Exam - Vital signs Vitals: Temp Pulse Resp BP Pulse Ox 98 F 87 18 199/136 H 89 L 08/24/19 05:28 08/24/19 05:28 08/24/19 05:28 08/24/19 05:28 08/24/19 05:28 Interpretation: Hypertensive, Hypoxic - General General appearance: Alert, Lethargic In distress: None - HEENT Head: Normocephalic, Atraumatic Eyes: Normal Pupils: PERRL - Respiratory Respiratory status: No respiratory distress Chest status: Nontender Breath sounds: Normal Chest palpation: Normal - Cardiovascular Rhythm: Tachycardia Heart sounds: Normal auscultation Murmur: No - Abdominal Inspection: Normal Distension: No distension Bowel sounds: Normal Tenderness: Nontender Organomegaly: No organomegaly - Back Back: Normal, Nontender - Extremities General upper extremity: Normal inspection, Nontender, Normal color, Normal ROM, Normal temperature General lower extremity: Normal inspection, Nontender, Normal color, Normal ROM, Normal temperature, Normal weight bearing. No: Julissa's sign - Neurological Neuro grossly intact: Yes Cognition: Confused Orientation: Disoriented to place, Disoriented to time Bertin Coma Scale Eye Opening: To Pain Bertin Coma Scale Verbal: Confused Bertin Coma Scale Motor: Obeys Commands Bertin Coma Scale Total: 12 Speech: Normal Motor strength normal: LUE, RUE, LLE, RLE Sensory: Normal - Psychological Associated symptoms: Normal mood, Psychomotor depression, Uncooperative - Skin Skin Temperature: Warm Skin Moisture: Dry Skin Color: Normal Course - Re-evaluation Re-evalutation: 08/24/19 16:28 Patient arrived postictal and hypertensive. He was treated with metoprolol and clonidine. He has had a significant reduction of his blood pressure at this time. He apparently is noncompliant with his medications and states he does not currently have a prescription for any. I will give him a prescription for Keppra and for amlodipine. Patient was loaded with Keppra here. Patient is positive for cocaine once again today. At this time patient is no longer tachycardic. His saturations are good. Patient is awake alert and very conversant. He states he wants to go home. At this time I do not feel that the patient would benefit from further treatment in the hospital. - Vital Signs Vital signs: Temp Pulse Resp BP Pulse Ox 98 F 87 18 157/76 H 97 08/24/19 05:28 08/24/19 05:28 08/24/19 14:30 08/24/19 14:30 08/24/19 12:30 - Laboratory Result Diagrams: 08/24/19 05:54 08/24/19 05:54 - Diagnostic Test Radiology reviewed: Image reviewed, Reports reviewed Discharge - Discharge Clinical Impression: Uncontrolled hypertension, Cocaine abuse, Seizure, Cocaine abuse with intoxi cation Altered mental status Qualifiers: Altered mental status type: disorientation Qualified Code(s): R41.0 - Disorientation, unspecified Condition: Stable Disposition: HOME, SELF-CARE Instructions: High Blood Pressure, Requiring Treatment ([facility]), Cocaine Abuse ([facility]) Additional Instructions: Please take your medicines as prescribed. Prescriptions: Levetiracetam [Keppra 500 mg Tablet] 500 mg PO Q12 #60 tablet Amlodipine Besylate [Norvasc 10 mg Tablet] 10 mg PO DAILY #30 tablet Referrals: [facility] [Provider Group] - Follow up in 3-5 days
[2019-08-24] MEDS ORDERED: AMLODIPINE BESYLATE 10 MG TABLET PO ONE (16:34)
[2019-08-24 17:02] VITALS: BP 147/58
== END 2019-08-24 17:00 | disposition home or self-care (01) ==
LOC: ER 05:27
DX: F14.129 Cocaine abuse with intoxication, unspecified (principal); R41.0 Disorientation, unspecified; R56.9 Unspecified convulsions; I10 Essential (primary) hypertension; F17.200 Nicotine dependence, unspecified, uncomplicated
CPT/HCPCS: 99284; 96361; 96375; 96365; 36415; 82962; 80307 ×2; 83735; 85025; 80053; 81001; 70450; 72125; A9270 ×3; J3490; J7030; J1953

== ENCOUNTER 2019-09-18 11:41 | Inpatient (IN) | payer MEDICARE, OTHER ==
[2019-09-18] MEDS ORDERED: NITROGLYCERIN/D5W 50 MG/250 ML RTUINJ IV ONE (11:46)
[2019-09-18 11:57] LABS: HEMATOCRIT 47.2 % (37.9-51.0); HEMOGLOBIN 15.4 g/dL (13.5-17.0); MEAN CORPUSCULAR HGB CONC 32.5 g/dL (32.0-36.0); MEAN CORPUSCULAR VOLUME 95 fl (80-97); PLATELET COUNT 291 10^3/uL (150-450); RED BLOOD COUNT 4.95 10^6/uL (4.35-5.55); RED CELL DISTRIBUTION WIDTH 13.7 % (11.5-14.0); WHITE BLOOD COUNT 13.4 10^3/uL (4.0-10.5)
[2019-09-18] MEDS ORDERED: PROPOFOL 1,000 MG/100 ML INFUS..BTL IV PRN (11:58)
--- NOTE | 2019-09-18 12:13 | ER Document Report ---
ED Seizure - General Chief Complaint: Seizure Stated Complaint: POSSIBLE SEIZURE Mode of Arrival: Medic Information source: Emergency Med Personnel - HPI Patient complains to provider of: History of seizures Number of episodes: 9 Severity: Severe - pt with h/o seizures non-compliant with meds with h/o 9 tonic-clonic seizures since earlier this am. EMS notified - pt in status epilepticus, intubated with RSI protocol and transported here for further eval uation. BP 225/162 in the field - Related Data Allergies/Adverse Reactions: hydrocodone [From Vicodin] Allergy (Verified 08/24/19 05:58) Past Medical History - General Information source: Emergency Med Personnel - Social History Smoking Status: Unknown if Ever Smoked Family History: Reviewed & Not Pertinent, Other - unable to determine at this time - Past Medical History Cardiac Medical History: Reports: Hx Hypertension Neurological Medical History: Reports: Hx Seizures Renal/ Medical History: Denies: Hx Peritoneal Dialysis Psychiatric Medical History: Denies: Hx Depression Traumatic Medical History: 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 - Immunizations Immunizations up to date: No Hx Diphtheria, Pertussis, Tetanus Vaccination: Yes Review of Systems - Review of Systems Constitutional: No symptoms reported EENT: No symptoms reported Cardiovascular: No symptoms reported Respiratory: No symptoms reported Gastrointestinal: No symptoms reported Neurological/Psychological: See HPI, Seizure -: Yes All other systems reviewed and negative Physical Exam - Vital signs Vitals: Resp Pulse Ox 26 H 94 09/18/19 11:43 09/18/19 11:43 - General General appearance: Unresponsive, Other - intubated - HEENT Head: Normocephalic Pupils: Pinpoint Mouth/Lips: Normal Pharynx: Normal - Respiratory Respiratory status: Other - pt. intubated -- bagged per RT Breath sounds: Normal - Cardiovascular Rhythm: Regular, Tachycardia Heart sounds: Normal auscultation Murmur: No - Abdominal Inspection: Normal Distension: No distension Course - Re-evaluation Re-evalutation: 09/18/19 13:43 Pt. remains intubated on propofol drip. He has been given keppra, labetalol, and ativan with improvements in his HR and BP. He has not had any tonic-clonic seizure activity in the ED. I will call the android programmer for adimssion - Vital Signs Vital signs: Temp Pulse Resp BP Pulse Ox 100.5 F H 16 148/114 H 100 09/18/19 13:35 09/18/19 13:35 09/18/19 13:35 09/18/19 13:35 - Laboratory Result Diagrams: 09/18/19 11:07 09/18/19 11:07 Laboratory results interpreted by me: 09/18/19 09/18/19 09/18/19 11:07 12:01 12:30 WBC 13.4 H Seg Neuts % (Manual) 89 H Lymphocytes % (Manual) 4 L Abs Neuts (Manual) 11.9 H ABG pH ABG pO2 ABG HCO3 ABG Total CO2 ABG O2 Saturation Lactic Acid 3.0 H Urine Protein 100 H Urine Glucose (UA) 50 H Urine Ketones TRACE H Urine Blood MODERATE H 09/18/19 13:07 WBC Seg Neuts % (Manual) Lymphocytes % (Manual) Abs Neuts (Manual) ABG pH 7.26 L ABG pO2 166.4 H ABG HCO3 15.8 L ABG Total CO2 16.9 L ABG O2 Saturation 98.9 H Lactic Acid Urine Protein Urine Glucose (UA) Urine Ketones Urine Blood - Diagnostic Test Radiology reviewed: Reports reviewed - CT-head- no acute change; CXR - ETT in good position. Neg PTX, PNA - EKG Interpretation by Me EKG shows normal: Sinus rhythm Rate: Tachycardia - sinus tach without acute change Critical Care Note - Critical Care Note Total time excluding time spent on procedures (mins): 30 Discharge - Discharge Clinical Impression: Status epilepticus Condition: Serious Disposition: ADMITTED INPATIENT Admitting Provider: Allison (Motor Vehicle Dispatcher) Unit Admitted: ICU
--- NOTE | 2019-09-18 12:14 | RADIOLOGY REPORT (SQ) ---
EXAM DESCRIPTION: CHEST SINGLE VIEW COMPLETED DATE/TIME: 09/18/2019 12:03 pm REASON FOR STUDY: seizure COMPARISON: 08/12/2019. EXAM PARAMETERS: NUMBER OF VIEWS: One view. TECHNIQUE: Single frontal radiographic view of the chest acquired. RADIATION DOSE: NA LIMITATIONS: None. FINDINGS: LUNGS AND PLEURA: Faint linear densities in the right lung base. Otherwise clear. MEDIASTINUM AND HILAR STRUCTURES: No masses. Contour normal. HEART AND VASCULAR STRUCTURES: Heart upper limits of normal in size. Normal vasculature. BONES: No acute findings. HARDWARE: Endotracheal tube, tip located 3 cm proximal to the jason. OTHER: No other significant finding. IMPRESSION: ENDOTRACHEAL TUBE APPEARS IN SATISFACTORY POSITION. ATELECTASIS IN THE RIGHT LUNG BASE. TECHNICAL DOCUMENTATION: JOB ID: [id number] 2010 [employer]- All Rights Reserved Reading location - IP/workstation name: [email or web address]
[2019-09-18 12:21] LABS: ABSOLUTE LYMPHOCYTES# (MANUAL) 0.5 10^3/uL (0.5-4.7); ABSOLUTE MONOCYTES # (MANUAL) 0.8 10^3/uL (0.1-1.4); BASOPHILS % (MANUAL) 1 % (0-2); EOSINOPHILS % (MANUAL) 0 % (0-6); LYMPHOCYTES % (MANUAL) 4 % (13-45); MONOCYTES % (MANUAL) 6 % (3-13); SEGMENTED NEUTROPHILS % (MAN) 89 % (42-78); TOTAL CELLS COUNTED 100
[2019-09-18 12:22] LABS: PLATELET COMMENT ADEQUATE
--- NOTE | 2019-09-18 12:30 | RADIOLOGY REPORT (SQ) ---
EXAM DESCRIPTION: CT HEAD WITHOUT COMPLETED DATE/TIME: 09/18/2019 12:18 pm REASON FOR STUDY: seizure COMPARISON: 08/24/2019. TECHNIQUE: Axial images acquired through the brain without intravenous contrast. Images reviewed wi th bone, brain and subdural windows. Additional sagittal and coronal reconstructions were generated. Images stored on PACS. All CT scanners at this facility use dose modulation, iterative reconstruction, and/or weight based d osing when appropriate to reduce radiation dose to as low as reasonably achievable (ALARA). [facility]: Dose Right [facility]: CareDose [facility]: Dose Right [facility]: Teradose 4D [facility]: [employer] RADIATION DOSE: CT Rad equipment meets quality standard of care and radiation dose reduction techniq ues were employed. CTDIvol: 53.2 mGy. DLP: 1044 mGy-cm. mGy. LIMITATIONS: None. FINDINGS: VENTRICLES: Normal size and contour. CEREBRUM: No masses. No hemorrhage. No midline shift. No evidence for acute infarction. Normal gra y/white matter differentiation. No areas of low density in the white matter. CEREBELLUM: No masses. No hemorrhage. No alteration of density. No evidence for acute infarction. EXTRAAXIAL SPACES: No fluid collections. No masses. ORBITS AND GLOBE: No intra- or extraconal masses. Normal contour of globe without masses. CALVARIUM: No fracture. PARANASAL SINUSES: No fluid or mucosal thickening. SOFT TISSUES: No mass or hematoma. OTHER: No other significant finding. IMPRESSION: NORMAL BRAIN CT WITHOUT CONTRAST. EVIDENCE OF ACUTE STROKE: NO. COMMENT: Quality ID # [id number]: Final reports with documentation of one or more dose reduction techniques (e.g., Automated exposure control, adjustment of the mA and/or kV according to patient size, use of iterative reconstruction technique) TECHNICAL DOCUMENTATION: JOB ID: [id number] 2010 [employer]- All Rights Reserved Reading location - IP/workstation name: [email or web address]
[2019-09-18 12:40] LABS: URINE AMPHETAMINES SCREEN NEGATIVE; URINE BARBITURATES SCREEN NEGATIVE; URINE MARIJUANA (THC) SCREEN NEGATIVE; URINE METHADONE SCREEN NEGATIVE; URINE PHENCYCLIDINE SCREEN NEGATIVE
[2019-09-18] MEDS ORDERED: LEVETIRACETAM 1000 MG/NACL-ISO 1,000 MG/100 ML RTUPB IV ONE (12:40)
[2019-09-18 12:41] LABS: URINE BENZODIAZEPINES SCREEN UNCONFIRMED POSITIVE; URINE COCAINE SCREEN UNCONFIRMED POSITIVE
[2019-09-18 12:42] LABS: APPEARANCE,URINE SLIGHTLY-CLOUDY; BILIRUBIN,URINE NEGATIVE (NEGATIVE); COLOR,URINE STRAW; GLUCOSE, URINE 50 mg/dL (NEGATIVE); KETONES,URINE TRACE mg/dL (NEGATIVE); LEUKOCYTE ESTERASE,URINE NEGATIVE (NEGATIVE); NITRITE,URINE NEGATIVE (NEGATIVE); PROTEIN,URINE 100 mg/dL (NEGATIVE); URINE SPECIFIC GRAVITY 1.015; UROBILINOGEN,URINE NEGATIVE mg/dL (<2.0)
[2019-09-18] MEDS ORDERED: LABETALOL HCL INJ 20 MG/4 ML DISP.SYRIN IV ONE (12:45)
[2019-09-18] MEDS ORDERED: LORAZEPAM INJ 2 MG/1 ML VIAL IV ONE (12:49)
[2019-09-18] MEDS ORDERED: NITROGLYCERIN/D5W 50 MG/250 ML RTUINJ IV PRN (12:53)
[2019-09-18 13:26] LABS: ARTERIAL BLOOD BASE EXCESS -10.4 mmol/L; ARTERIAL BLOOD FIO2 90%; ARTERIAL BLOOD H2CO3 1.09 mmol/L (1.05-1.35); ARTERIAL BLOOD HCO3 15.8 mmol/L (20-24); ARTERIAL BLOOD O2 SATURATION 98.9 % (94-98); ARTERIAL BLOOD PCO2 36.3 mmHg (35-45); ARTERIAL BLOOD PH 7.26 (7.35-7.45); ARTERIAL BLOOD PO2 166.4 mmHg (80-100); ARTERIAL BLOOD TOTAL CO2 16.9 mmol/L (23-27)
--- NOTE | 2019-09-18 14:19 | CRITICAL CARE ADMISSION REPORT ---
HPI Date:: 09/18/19 Time:: 11:30 Reason for ICU Reason:: Intubated after multiple seizures. HPI: This patient is a 34 yo man with a known seizure disorder who is non-compliant with keppra and abuses narcotics and cocaine further lowering his seizure threshold. He had several seizures today and was intubated for airway protection in the field and seizing on ED presentation. Seizures have stopped with IV keppra, ativan and propofol. He will be admitted to the ICU and extubated when awake. History obtained from:: Jeanie arizmendi and ED MD. - Diagnosis/Plan (1) Status epilepticus, generalized convulsive Is this a current diagnosis for this admission?: Yes Plan: Continue IV keppra, PRN ativan and propofol. (2) Cocaine abuse with intoxication Is this a current diagnosis for this admission?: Yes Plan: Lowers seizure threshold, use PRN ativan. (3) Encounter for weaning from ventilator Is this a current diagnosis for this admission?: Yes Plan: No lung pathology, no obvious aspiration. Extubate when awake. - . Plan Summary: Extubate when awake. Past Medical History Cardiac Medical History: Reports: Hypertension Neurological Medical History: Reports: Seizures Psychiatric Medical History: Denies: Depression Traumatic Medical History: Reports: Traumatic Brain Injury Social/Family History - Social History Smoking Status: Unknown if Ever Smoked Frequency of Alcohol Use: Occasional - per medical record but reviewing medical record sounds like patient may drink regularly; needs clarification Hx Recreational Drug Use: Yes Drugs: Cocaine - positive on current admission toxicology Hx Prescription Drug Abuse: No - Medication/Allergies Home Medications: No Home Medications 09/18/19 Allergies/Adverse Reactions: hydrocodone [From Vicodin] Allergy (Verified 08/24/19 05:58) Review of Systems ROS unobtainable: Due to endotracheal tube, Due to mental status Physical Exam Vital Signs: Temp Pulse Resp BP Pulse Ox 100.7 F H 14 149/115 H 100 09/18/19 13:50 09/18/19 13:50 09/18/19 13:50 09/18/19 13:50 Intake & Output 09/17/19 09/18/19 09/19/19 06:59 06:59 06:59 Intake Total 100 Balance 100 Weight 71.6 kg Weight/Height Weight 71.6 kg Height 5 ft 11 in General appearance: PRESENT: no acute distress Head exam: PRESENT: atraumatic, normocephalic Eye exam: PRESENT: conjunctiva pink, EOMI, PERRLA. ABSENT: scleral icterus Ear exam: PRESENT: normal external ear exam Mouth exam: PRESENT: moist, tongue midline Respiratory exam: PRESENT: clear to auscultation ector. ABSENT: rales, rhonchi, wheezes Cardiovascular exam: PRESENT: RRR. ABSENT: diastolic murmur, rubs, systolic mur mur Vascular exam: PRESENT: normal capillary refill GI/Abdominal exam: PRESENT: normal bowel sounds, soft. ABSENT: distended, guarding, mass, organolmegaly, rebound, tenderness Rectal exam: PRESENT: deferred Extremities exam: PRESENT: full ROM. ABSENT: calf tenderness, clubbing, pedal edema Musculoskeletal exam: PRESENT: normal inspection Neurological exam: PRESENT: other - Sedated Skin exam: PRESENT: dry, intact, warm. ABSENT: cyanosis, rash Tubes/Lines: PRESENT: Endotracheal Tube Laboratory/Radiographs Laboratory Results: 09/18/19 11:07 09/18/19 12:30 09/18/19 09/18/19 09/18/19 11:07 11:07 12:01 WBC 13.4 H RBC 4.95 Hgb 15.4 Hct 47.2 MCV 95 MCH 31.0 MCHC 32.5 RDW 13.7 Plt Count 291 Seg Neutrophils % Not Reportable Carbonic Acid HCO3/H2CO3 Ratio ABG pH ABG pCO2 ABG pO2 ABG HCO3 ABG O2 Saturation ABG Base Excess FiO2 Sodium Cancelled Potassium Cancelled Chloride Cancelled Carbon Dioxide Cancelled Anion Gap Cancelled BUN Cancelled Creatinine Cancelled Est GFR ( Amer) Cancelled Est GFR (Non-Af Amer) Cancelled Glucose Cancelled Lactic Acid Calcium Cancelled Magnesium Cancelled Total Bilirubin Cancelled AST Cancelled Alkaline Phosphatase Cancelled Total Protein Cancelled Albumin Cancelled Urine Color STRAW Urine Appearance SLIGHTLY-CLOUDY Urine pH 5.0 Ur Specific Orange 1.015 Urine Protein 100 H Urine Glucose (UA) 50 H Urine Ketones TRACE H Urine Blood MODERATE H Urine Nitrite NEGATIVE Ur Leukocyte Esterase NEGATIVE Urine WBC (Auto) 1 Urine RBC (Auto) 0 09/18/19 09/18/19 09/18/19 12:30 12:30 13:07 WBC RBC Hgb Hct MCV MCH MCHC RDW Plt Count Seg Neutrophils % Carbonic Acid 1.09 HCO3/H2CO3 Ratio 14:1 ABG pH 7.26 L ABG pCO2 36.3 ABG pO2 166.4 H ABG HCO3 15.8 L ABG O2 Saturation 98.9 H ABG Base Excess -10.4 FiO2 90% Sodium Cancelled Potassium Cancelled Chloride Cancelled Carbon Dioxide Cancelled Anion Gap Cancelled BUN Cancelled Creatinine Cancelled Est GFR ( Amer) Cancelled Est GFR (Non-Af Amer) Cancelled Glucose Cancelled Lactic Acid 3.0 H Calcium Cancelled Magnesium Cancelled Total Bilirubin Cancelled AST Cancelled Alkaline Phosphatase Cancelled Total Protein Cancelled Albumin Cancelled Urine Color Urine Appearance Urine pH Ur Specific Orange Urine Protein Urine Glucose (UA) Urine Ketones Urine Blood Urine Nitrite Ur Leukocyte Esterase Urine WBC (Auto) Urine RBC (Auto) Impressions: Chest X-Ray 09/18/19 11:51 IMPRESSION: ENDOTRACHEAL TUBE APPEARS IN SATISFACTORY POSITION. ATELECTASIS IN THE RIGHT LUNG BASE. Head CT 09/18/19 11:51 IMPRESSION: NORMAL BRAIN CT WITHOUT CONTRAST. EVIDENCE OF ACUTE STROKE: NO. EKG: NSR All labs, radiographs, diagnostic studies and EKGs were personally reviewed: Yes In addition, reports of radiographic and diagnostic studies were read: Yes Critical Time Critical Time (minutes): 40 -: The care of a critically ill patient is dynamic. This note represents a static moment in the admission process. Orders and treatments may be given si multaneously and urgently, and time is not sales representative supervisor of the treatment process. This patient requires Critical Care secondary to life threatening organ or limb dysfunction. Without Critical Care services, the patient is at risk for increased mortality and morbidity.
[2019-09-18] MEDS ORDERED: IPRATROPIUM/ALBUTEROL 0.5-2.5 MG/3 ML AMPUL NEB PRN (14:20)
[2019-09-18] MEDS ORDERED: ACETAMINOPHEN 325 MG TABLET PO PRN (14:20)
[2019-09-18] MEDS ORDERED: PHARMACY COMMUNICATION ORDER MC NR (14:30)
[2019-09-18] MEDS ORDERED: PANTOPRAZOLE SODIUM 40 MG TABLET.DR PO SCH (14:30)
[2019-09-18 14:45] LABS: ALBUMIN 4.8 g/dL (3.5-5.0); ALKALINE PHOSPHATASE 115 U/L (38-126); ANION GAP 13 (5-19); ASPARTATE AMINO TRANSFERASE 28 U/L (17-59); BILIRUBIN,TOTAL 0.3 mg/dL (0.2-1.3); BLOOD UREA NITROGEN 12 mg/dL (7-20); CALCIUM 9.2 mg/dL (8.4-10.2); CARBON DIOXIDE 19 mmol/L (22-30); CHLORIDE 109 mmol/L (98-107); GLUCOSE 83 mg/dL (75-110); POTASSIUM 4.5 mmol/L (3.6-5.0); TOTAL PROTEIN 8.4 g/dL (6.3-8.2)
[2019-09-18 14:47] LABS: ALCOHOL < 10 mg/dL (NONE DETECTED)
[2019-09-18] MEDS ORDERED: ACETAMINOPHEN 325 MG TABLET NG PRN (15:00)
[2019-09-18] MEDS ORDERED: ACETAMINOPHEN 325 MG SUPP.RECT PR ONE (15:20)
--- NOTE | 2019-09-18 16:19 | EKG REPORT ---
SEVERITY:- OTHERWISE NORMAL ECG - SINUS TACHYCARDIA ATRIAL PREMATURE COMPLEX : Confirmed by: Maddy Marx MD 18-Sep-2019 16:18:28
[2019-09-18] MEDS: LORAZEPAM INJ 2 MG/1 ML VIAL IV PRN (16:34)
--- NOTE | 2019-09-18 18:45 | RADIOLOGY REPORT (SQ) ---
EXAM DESCRIPTION: KUB/ABDOMEN (SINGLE VIEW) COMPLETED DATE/TIME: 09/18/2019 5:44 pm REASON FOR STUDY: Check Placement of NG Tube COMPARISON: None. NUMBER OF VIEWS: One view. TECHNIQUE: Supine radiographic image of the abdomen acquired. LIMITATIONS: None. FINDINGS: BOWEL GAS PATTERN: Normal bowel gas pattern. No dilated loops. CALCIFICATIONS: No suspicious calcifications. SOFT TISSUES: No gross mass or suggestion of organomegaly. HARDWARE: Subdiaphragmatic course and enteric tube with the tip projecting over the left upper abdome n over the region of the stomach. BONES: No acute fracture. No worrisome bone lesions. OTHER: No other significant finding. IMPRESSION: Enteric tube projecting over the left upper abdomen over the region of the stomach. TECHNICAL DOCUMENTATION: JOB ID: [id number] 2010 [facility]- All Rights Reserved Reading location - IP/workstation name: [email or web address]
[2019-09-18] MEDS: PROPOFOL 1,000 MG/100 ML INFUS..BTL IV PRN (18:52)
[2019-09-18] MEDS: ENOXAPARIN SODIUM INJ 40 MG/0.4 ML DISP.SYRIN SUBCUT SCH (18:52)
[2019-09-18] MEDS: NORMAL SALINE 1000 ML 1,000 ML IV PRN (18:53)
[2019-09-18] MEDS ORDERED: LEVETIRACETAM RTU 1000 MG/NACL-ISO 100 ML IV SCH (22:00)
[2019-09-18] MEDS ORDERED: LEVETIRACETAM 1,000 MG in NORMAL SALINE 100 ML IV SCH (22:00)
[2019-09-19] MEDS: PROPOFOL 1,000 MG/100 ML INFUS..BTL IV PRN ×4 (00:12→22:46)
[2019-09-19] MEDS: NORMAL SALINE 1000 ML 1,000 ML IV PRN ×2 (01:56→10:45)
[2019-09-19 04:30] LABS: ABSOLUTE BASOPHILS # (AUTO) 0.1 10^3/uL (0.0-0.2); ABSOLUTE LYMPHOCYTES (AUTO) 2.3 10^3/uL (0.5-4.7); ABSOLUTE MONOCYTES (AUTO) 1.6 10^3/uL (0.1-1.4); ABSOLUTE NEUT (AUTO) 10.3 10^3/uL (1.7-8.2); BASOPHILS % (AUTO) 0.9 % (0-2); EOSINOPHILS % (AUTO) 0.2 % (0-6); HEMATOCRIT 42.7 % (37.9-51.0); HEMOGLOBIN 14.5 g/dL (13.5-17.0); LYMPHOCYTES % (AUTO) 15.9 % (13-45); MEAN CORPUSCULAR HEMOGLOBIN 31.5 pg (27.0-33.4); MEAN CORPUSCULAR HGB CONC 34.1 g/dL (32.0-36.0); MEAN CORPUSCULAR VOLUME 92 fl (80-97); MONOCYTES % (AUTO) 11.3 % (3-13); PLATELET COUNT 216 10^3/uL (150-450); RED BLOOD COUNT 4.62 10^6/uL (4.35-5.55); RED CELL DISTRIBUTION WIDTH 13.4 % (11.5-14.0); SEGMENTED NEUTROPHILS % (AUTO) 71.7 % (42-78); TOTAL CELLS COUNTED % (AUTO) 100 %; WHITE BLOOD COUNT 14.4 10^3/uL (4.0-10.5)
[2019-09-19 04:53] LABS: ALBUMIN 3.8 g/dL (3.5-5.0); ALKALINE PHOSPHATASE 86 U/L (38-126); ANION GAP 8 (5-19); ASPARTATE AMINO TRANSFERASE 29 U/L (17-59); BILIRUBIN,DIRECT 0.1 mg/dL (0.0-0.4); BILIRUBIN,TOTAL 0.4 mg/dL (0.2-1.3); BLOOD UREA NITROGEN 16 mg/dL (7-20); CALCIUM 8.8 mg/dL (8.4-10.2); CARBON DIOXIDE 20 mmol/L (22-30); CHLORIDE 115 mmol/L (98-107); GLUCOSE 73 mg/dL (75-110); POTASSIUM 4.2 mmol/L (3.6-5.0)
[2019-09-19] MEDS: PANTOPRAZOLE SODIUM 40 MG PACKET.DR NG SCH (06:00)
[2019-09-19] MEDS ORDERED: INFLUENZA QUAD (6MOS+) 2019-20 VAC 0.5 ML SYR IM ONE (10:00)
[2019-09-19] MEDS: ENOXAPARIN SODIUM INJ 40 MG/0.4 ML DISP.SYRIN SUBCUT SCH (10:44)
[2019-09-19] MEDS: PIPERACILLIN SODIUM/TAZOBACTAM 4.5 GM in NORMAL SALINE 100 ML IV SCH ×2 (11:13→17:24)
[2019-09-19] MEDS: LEVETIRACETAM 1000 MG/NACL-ISO 1,000 MG/100 ML RTUPB IV SCH ×2 (11:13→22:16)
[2019-09-19] MEDS: IPRATROPIUM/ALBUTEROL 0.5-2.5 MG/3 ML AMPUL NEB SCH ×2 (13:55→20:48)
[2019-09-19] MEDS ORDERED: PIPERACILLIN/TAZOBACTAM 4.5 GM VIAL IV SCH (14:00)
--- NOTE | 2019-09-19 17:22 | PDOC CRITICAL CARE PROG REPORT ---
General Date:: 09/19/19 ICU Day:: 2 Ventilator Day:: 2 Hospital Day:: 2 Resuscitation Status: Full Code Events in the past 12 to 24 Hours:: Remains intubated. Seizures controlled with Keppra and propofol. Heavily sedated. Postictal? On propofol for sedation. On nitroglycerin infusion. Blood cultures isolating gram-negative rods in the interim. WBC rising, 14.2 Review of systems relevant to events:: Neurologic Reason for ICU Addmission:: Intubated after multiple seizures. - Medications: Medications reviewed and adjusted accordingly: Yes Vasopressors:: None Sedation:: Propofol Physical Exam Vital Signs: Temp Pulse Resp BP Pulse Ox 97.2 F 88 14 131/89 H 99 09/19/19 06:00 09/19/19 06:00 09/19/19 08:00 09/19/19 07:58 09/19/19 08:00 Intake & Output 09/18/19 09/19/19 09/20/19 06:59 06:59 06:59 Intake Total 1975 61 Output Total 1148 80 Balance 827 -19 Weight 69.1 kg Weight/Height Weight 69.1 kg Height 1.8 m General appearance: PRESENT: no acute distress, well-developed, well-nourished Eye exam: PRESENT: conjunctiva pink, EOMI, PERRLA. ABSENT: scleral icterus Mouth exam: PRESENT: moist, tongue midline, other - ET tube in situ Neck exam: ABSENT: carotid bruit, JVD, lymphadenopathy, thyromegaly Respiratory exam: PRESENT: clear to auscultation ector. ABSENT: rales, rhonchi, wheezes Cardiovascular exam: PRESENT: RRR. ABSENT: diastolic murmur, rubs, systolic murmur Pulses: PRESENT: normal dorsalis pedis pul GI/Abdominal exam: PRESENT: normal bowel sounds, soft. ABSENT: distended, guarding, mass, organolmegaly, rebound, tenderness Extremities exam: ABSENT: calf tenderness, clubbing, pedal edema Musculoskeletal exam: PRESENT: normal inspection - Facial symmetry. Spontaneous respirations intact. Doll's eyes intact. No Babinski. Skin exam: PRESENT: dry, intact, warm. ABSENT: cyanosis, rash Tubes/Lines: PRESENT: Endotracheal Tube - Pierre Laboratory/Radiographs Laboratory Results: 09/19/19 04:05 09/19/19 04:05 09/18/19 09/18/19 09/18/19 11:07 11:07 12:01 WBC 13.4 H RBC 4.95 Hgb 15.4 Hct 47.2 MCV 95 MCH 31.0 MCHC 32.5 RDW 13.7 Plt Count 291 Seg Neutrophils % Not Reportable Carbonic Acid HCO3/H2CO3 Ratio ABG pH ABG pCO2 ABG pO2 ABG HCO3 ABG O2 Saturation ABG Base Excess FiO2 Sodium Cancelled Potassium Cancelled Chloride Cancelled Carbon Dioxide Cancelled Anion Gap Cancelled BUN Cancelled Creatinine Cancelled Est GFR ( Amer) Cancelled Est GFR (Non-Af Amer) Cancelled Glucose Cancelled Lactic Acid Calcium Cancelled Magnesium Cancelled Total Bilirubin Cancelled AST Cancelled Alkaline Phosphatase Cancelled Total Protein Cancelled Albumin Cancelled Urine Color STRAW Urine Appearance SLIGHTLY-CLOUDY Urine pH 5.0 Ur Specific [place] 1.015 Urine Protein 100 H Urine Glucose (UA) 50 H Urine Ketones TRACE H Urine Blood MODERATE H Urine Nitrite NEGATIVE Ur Leukocyte Esterase NEGATIVE Urine WBC (Auto) 1 Urine RBC (Auto) 0 09/18/19 09/18/19 09/18/19 12:30 12:30 13:07 WBC RBC Hgb Hct MCV MCH MCHC RDW Plt Count Seg Neutrophils % Carbonic Acid 1.09 HCO3/H2CO3 Ratio 14:1 ABG pH 7.26 L ABG pCO2 36.3 ABG pO2 166.4 H ABG HCO3 15.8 L ABG O2 Saturation 98.9 H ABG Base Excess -10.4 FiO2 90% Sodium Cancelled Potassium Cancelled Chloride Cancelled Carbon Dioxide Cancelled Anion Gap Cancelled BUN Cancelled Creatinine Cancelled Est GFR ( Amer) Cancelled Est GFR (Non-Af Amer) Cancelled Glucose Cancelled Lactic Acid 3.0 H Calcium Cancelled Magnesium Cancelled Total Bilirubin Cancelled AST Cancelled Alkaline Phosphatase Cancelled Total Protein Cancelled Albumin Cancelled Urine Color Urine Appearance Urine pH Ur Specific [place] Urine Protein Urine Glucose (UA) Urine Ketones Urine Blood Urine Nitrite Ur Leukocyte Esterase Urine WBC (Auto) Urine RBC (Auto) 09/18/19 09/19/19 09/19/19 13:45 04:05 04:05 WBC 14.4 H RBC 4.62 Hgb 14.5 Hct 42.7 MCV 92 MCH 31.5 MCHC 34.1 RDW 13.4 Plt Count 216 Seg Neutrophils % 71.7 Carbonic Acid HCO3/H2CO3 Ratio ABG pH ABG pCO2 ABG pO2 ABG HCO3 ABG O2 Saturation ABG Base Excess FiO2 Sodium 140.8 143.3 Potassium 4.5 4.2 Chloride 109 H 115 H Carbon Dioxide 19 L 20 L Anion Gap 13 8 BUN 12 16 Creatinine 1.51 H 1.60 H Est GFR ( Amer) > 60 > 60 Est GFR (Non-Af Amer) Glucose 83 73 L Lactic Acid Calcium 9.2 8.8 Magnesium 2.8 H Total Bilirubin 0.3 0.4 AST 28 29 Alkaline Phosphatase 115 86 Total Protein 8.4 H 7.0 Albumin 4.8 3.8 Urine Color Urine Appearance Urine pH Ur Specific [place] Urine Protein Urine Glucose (UA) Urine Ketones Urine Blood Urine Nitrite Ur Leukocyte Esterase Urine WBC (Auto) Urine RBC (Auto) Impressions: Chest X-Ray 09/18/19 11:51 IMPRESSION: ENDOTRACHEAL TUBE APPEARS IN SATISFACTORY POSITION. ATELECTASIS IN THE RIGHT LUNG BASE. Head CT 09/18/19 11:51 IMPRESSION: NORMAL BRAIN CT WITHOUT CONTRAST. EVIDENCE OF ACUTE STROKE: NO. KUB X-Ray 09/18/19 14:22 IMPRESSION: Enteric tube projecting over the left upper abdomen over the region of the stomach. All labs, radiographs, diagnostic studies and EKGs were personally reviewed: Yes In addition, reports of radiographic and diagnostic studies were read: Yes Assessment and Plan - Diagnosis (1) Endotracheally intubated Is this a current diagnosis for this admission?: Yes Plan: Sedation vacation. Anticipate liberation from mechanical ventilatory support within the next 24 hours. (2) Gram-negative bacteremia Is this a current diagnosis for this admission?: Yes Plan: Trach aspirate for Gram stain, C/S. Start Zosyn for gram-negative coverage and coverage for aspiration pneumonia. (3) Acute kidney injury Is this a current diagnosis for this admission?: Yes (4) Status epilepticus, generalized convulsive Is this a current diagnosis for this admission?: Yes Plan: Controlled with Keppra. No new history of nonadherence to prescribed therapy. (5) Cocaine abuse with intoxication Is this a current diagnosis for this admission?: Yes (6) Aspiration pneumonia Qualifiers: Aspiration pneumonia type: unspecified Laterality: right Lung location: lower lobe of lung Qualified Code(s): J69.0 - Pneumonitis due to inhalation of food and vomit Is this a current diagnosis for this admission?: Yes Plan: Start Zosyn. Critical Time Critical Time (minutes): 45 Level of Care: ICU -: 1. The care of a critical patient is a dynamic process. This note is a customer development representative synopsis but static in nature. The timeframe for treatments gi jose in order is not necessarily the actual time these treatments may have been done. 2. This patient requires critical care secondary to ongoing requirements for therapy not offered or safe outside the critical care environment. Transfer to a lower level of care will result in altered life or limb morbidity and mortality. 3. Multidisciplinary rounds completed. 4. ABCDE bundle addressed.
[2019-09-19 20:17] LABS: ARTERIAL BLOOD BASE EXCESS -5.6 mmol/L; ARTERIAL BLOOD HCO3 20.1 mmol/L (20-24); ARTERIAL BLOOD O2 SATURATION 98.1 % (94-98); ARTERIAL BLOOD PH 7.32 (7.35-7.45); ARTERIAL BLOOD PO2 121.5 mmHg (80-100); ARTERIAL BLOOD TOTAL CO2 21.3 mmol/L (23-27)
[2019-09-19 20:19] LABS: ARTERIAL BLOOD FIO2 30%
[2019-09-19] MEDS: FAMOTIDINE INJ/PF 20 MG/2 ML SDV IV SCH (22:16)
[2019-09-19] MEDS ORDERED: DEXTROSE 50%-WATER 25 GM/50 ML DISP.SYRIN IV ONE (23:33)
[2019-09-20] MEDS: PIPERACILLIN SODIUM/TAZOBACTAM 4.5 GM in NORMAL SALINE 100 ML IV SCH ×3 (01:31→18:19)
[2019-09-20] MEDS: IPRATROPIUM/ALBUTEROL 0.5-2.5 MG/3 ML AMPUL NEB SCH ×4 (02:09→21:22)
[2019-09-20] MEDS: NORMAL SALINE 1000 ML 1,000 ML IV PRN ×3 (03:22→18:19)
[2019-09-20] MEDS: PROPOFOL 1,000 MG/100 ML INFUS..BTL IV PRN (03:49)
[2019-09-20 04:03] LABS: ABSOLUTE BASOPHILS # (AUTO) 0.1 10^3/uL (0.0-0.2); ABSOLUTE LYMPHOCYTES (AUTO) 1.4 10^3/uL (0.5-4.7); ABSOLUTE MONOCYTES (AUTO) 0.8 10^3/uL (0.1-1.4); ABSOLUTE NEUT (AUTO) 3.2 10^3/uL (1.7-8.2); EOSINOPHILS % (AUTO) 0.4 % (0-6); HEMATOCRIT 38.4 % (37.9-51.0); HEMOGLOBIN 12.7 g/dL (13.5-17.0); LYMPHOCYTES % (AUTO) 25.5 % (13-45); MEAN CORPUSCULAR HEMOGLOBIN 30.6 pg (27.0-33.4); MEAN CORPUSCULAR HGB CONC 33.2 g/dL (32.0-36.0); MEAN CORPUSCULAR VOLUME 92 fl (80-97); MONOCYTES % (AUTO) 15.1 % (3-13); PLATELET COUNT 200 10^3/uL (150-450); RED BLOOD COUNT 4.16 10^6/uL (4.35-5.55); RED CELL DISTRIBUTION WIDTH 13.5 % (11.5-14.0); TOTAL CELLS COUNTED % (AUTO) 100 %; WHITE BLOOD COUNT 5.5 10^3/uL (4.0-10.5)
[2019-09-20] MEDS: PANTOPRAZOLE SODIUM 40 MG PACKET.DR NG SCH (05:01)
[2019-09-20 06:25] LABS: ANION GAP 10 (5-19); BLOOD UREA NITROGEN 12 mg/dL (7-20); CALCIUM 8.4 mg/dL (8.4-10.2); CARBON DIOXIDE 18 mmol/L (22-30); CHLORIDE 114 mmol/L (98-107); GLUCOSE 115 mg/dL (75-110); POTASSIUM 3.8 mmol/L (3.6-5.0)
[2019-09-20 08:18] LABS: ARTERIAL BLOOD BASE EXCESS -3.8 mmol/L; ARTERIAL BLOOD H2CO3 1.16 mmol/L (1.05-1.35); ARTERIAL BLOOD HCO3 21.3 mmol/L (20-24); ARTERIAL BLOOD O2 SATURATION 98.6 % (94-98); ARTERIAL BLOOD PCO2 38.6 mmHg (35-45); ARTERIAL BLOOD PH 7.36 (7.35-7.45); ARTERIAL BLOOD PO2 132.8 mmHg (80-100); ARTERIAL BLOOD TOTAL CO2 22.5 mmol/L (23-27)
[2019-09-20 08:22] LABS: ARTERIAL BLOOD FIO2 30%
--- NOTE | 2019-09-20 08:36 | RADIOLOGY REPORT (SQ) ---
EXAM DESCRIPTION: CHEST SINGLE VIEW COMPLETED DATE/TIME: 09/20/2019 5:41 am REASON FOR STUDY: aspiration pneumonia COMPARISON: 09/18/2019. EXAM PARAMETERS: NUMBER OF VIEWS: One view. TECHNIQUE: Single frontal radiographic view of the chest acquired. RADIATION DOSE: NA LIMITATIONS: None. FINDINGS: LUNGS AND PLEURA: Improved aeration. No opacities, masses or pneumothorax. No pleural eff usion. MEDIASTINUM AND HILAR STRUCTURES: No masses. Contour normal. HEART AND VASCULAR STRUCTURES: Heart normal in size. Normal vasculature. BONES: No acute findings. HARDWARE: Endotracheal tube and nasogastric tube. OTHER: No other significant finding. IMPRESSION: IMPROVED AERATION. NO ACUTE RADIOGRAPHIC FINDING IN THE CHEST. TECHNICAL DOCUMENTATION: JOB ID: [id number] 2010 [employer]- All Rights Reserved Reading location - IP/workstation name: [email or web address]
[2019-09-20] MEDS: ENOXAPARIN SODIUM INJ 40 MG/0.4 ML DISP.SYRIN SUBCUT SCH (09:52)
[2019-09-20] MEDS: FAMOTIDINE INJ/PF 20 MG/2 ML SDV IV SCH ×2 (09:53→21:56)
[2019-09-20] MEDS: LEVETIRACETAM 1000 MG/NACL-ISO 1,000 MG/100 ML RTUPB IV SCH ×2 (09:53→21:56)
--- NOTE | 2019-09-20 13:52 | PDOC CRITICAL CARE PROG REPORT ---
General Date:: 09/20/19 ICU Day:: 3 Ventilator Day:: 3 Hospital Day:: 3 Resuscitation Status: Full Code Events in the past 12 to 24 Hours:: Remains intubated. Currently on sedation vacation. No seizures reported inthe interim. On PSV. Breathing comfortably. Opens eyes to voice but does NOT follow commands yet. Blood cultures isolating gram-negative rods in the interim. Started on Zosyn yesterday. Blood cultures siolated GNR and GPC/clusters (not MRSA). WBC rising, 14.4-->5.5 Review of systems relevant to events:: Neurologic Reason for ICU Addmission:: Intubated after multiple seizures. - Medications: Medications reviewed and adjusted accordingly: Yes Vasopressors:: None Sedation:: Propofol Physical Exam Vital Signs: Temp Pulse Resp BP Pulse Ox 99.3 F 87 14 127/77 H 100 09/20/19 05:12 09/20/19 07:56 09/20/19 07:56 09/20/19 05:16 09/20/19 07:56 Intake & Output 09/19/19 09/20/19 09/21/19 06:59 06:59 06:59 Intake Total 1975 2195 Output Total 1148 1310 Balance 827 885 Weight 69.1 kg 71.9 kg Weight/Height Weight 71.9 kg Height 1.8 m General appearance: PRESENT: no acute distress, well-developed, well-nourished Head exam: PRESENT: atraumatic, normocephalic Eye exam: PRESENT: conjunctiva pink, EOMI, PERRLA. ABSENT: scleral icterus Mouth exam: PRESENT: moist, tongue midline, other - ET tube in situ Neck exam: ABSENT: carotid bruit, JVD, lymphadenopathy, thyromegaly Respiratory exam: PRESENT: clear to auscultation ector. ABSENT: rales, rhonchi, wheezes Cardiovascular exam: PRESENT: RRR. ABSENT: diastolic murmur, rubs, systolic murmur Pulses: PRESENT: normal dorsalis pedis pul Extremities exam: PRESENT: full ROM. ABSENT: calf tenderness, clubbing, pedal edema Musculoskeletal exam: PRESENT: normal inspection Neurological exam: PRESENT: awake, reflexes normal, CN II-XII grossly intact. ABSENT: motor sensory deficit Tubes/Lines: PRESENT: Endotracheal Tube, Other - Pierre; orogastric tube. Laboratory/Radiographs Laboratory Results: 09/20/19 03:55 09/20/19 05:39 09/19/19 09/20/19 09/20/19 20:05 03:55 03:55 WBC 5.5 RBC 4.16 L Hgb 12.7 L Hct 38.4 MCV 92 MCH 30.6 MCHC 33.2 RDW 13.5 Plt Count 200 Seg Neutrophils % 58.0 Carbonic Acid 1.20 HCO3/H2CO3 Ratio 16:1 ABG pH 7.32 L ABG pCO2 40.0 ABG pO2 121.5 H ABG HCO3 20.1 ABG O2 Saturation 98.1 H ABG Base Excess -5.6 FiO2 30% Sodium Cancelled Potassium Cancelled Chloride Cancelled Carbon Dioxide Cancelled Anion Gap Cancelled BUN Cancelled Creatinine Cancelled Est GFR ( Amer) Cancelled Est GFR (Non-Af Amer) Cancelled Glucose Cancelled Calcium Cancelled Magnesium Cancelled 09/20/19 05:39 WBC RBC Hgb Hct MCV MCH MCHC RDW Plt Count Seg Neutrophils % Carbonic Acid HCO3/H2CO3 Ratio ABG pH ABG pCO2 ABG pO2 ABG HCO3 ABG O2 Saturation ABG Base Excess FiO2 Sodium 141.5 Potassium 3.8 Chloride 114 H Carbon Dioxide 18 L Anion Gap 10 BUN 12 Creatinine 1.23 Est GFR ( Amer) > 60 Est GFR (Non-Af Amer) Glucose 115 H Calcium 8.4 Magnesium 2.2 09/18/19 12:30 Blood Blood Culture (PCR) - Final Staphylococcus Species Impressions: Head CT 09/18/19 11:51 IMPRESSION: NORMAL BRAIN CT WITHOUT CONTRAST. EVIDENCE OF ACUTE STROKE: NO. KUB X-Ray 09/18/19 14:22 IMPRESSION: Enteric tube projecting over the left upper abdomen over the region of the stomach. All labs, radiographs, diagnostic studies and EKGs were personally reviewed: Yes In addition, reports of radiographic and diagnostic studies were read: Yes Assessment and Plan - Diagnosis (1) Endotracheally intubated Is this a current diagnosis for this admission?: Yes Plan: Sedation vacation. Continue pressure support trial. Check ABG. Anticipate liberation from mechanical ventilatory support today. (2) Gram-negative bacteremia Is this a current diagnosis for this admission?: Yes Plan: Continue Zosyn for gram-negative coverage and coverage for aspiration pneumonia. (3) Acute kidney injury Is this a current diagnosis for this admission?: Yes (4) Status epilepticus, generalized convulsive Is this a current diagnosis for this admission?: Yes Plan: Controlled with Keppra. Known history of nonadherence to prescribed therapy. (5) Cocaine abuse with intoxication Is this a current diagnosis for this admission?: Yes (6) Aspiration pneumonia Qualifiers: Aspiration pneumonia type: unspecified Laterality: right Lung location: lower lobe of lung Qualified Code(s): J69.0 - Pneumonitis due to inhalation of food and vomit Is this a current diagnosis for this admission?: Yes Critical Time Critical Time (minutes): 60 Level of Care: ICU -: 1. The care of a critical patient is a dynamic process. This note is a customer service representative synopsis but static in nature. The timeframe for treatments given in order is not necessarily the actual time these treatments may have been done. 2. This patient requires critical care secondary to ongoing requirements for therapy not offered or safe outside the critical care environment. Transfer to a lower level of care will result in altered life or limb morbidity and mortality. 3. Multidisciplinary rounds completed. 4. ABCDE bundle addressed.
[2019-09-21] MEDS: PIPERACILLIN SODIUM/TAZOBACTAM 4.5 GM in NORMAL SALINE 100 ML IV SCH (01:52)
[2019-09-21] MEDS: IPRATROPIUM/ALBUTEROL 0.5-2.5 MG/3 ML AMPUL NEB SCH ×4 (02:16→19:55)
[2019-09-21] MEDS: NORMAL SALINE 1000 ML 1,000 ML IV PRN (03:42)
[2019-09-21 04:01] LABS: ABSOLUTE EOSINOPHILS # (AUTO) 0.1 10^3/uL (0.0-0.6); ABSOLUTE LYMPHOCYTES (AUTO) 1.2 10^3/uL (0.5-4.7); ABSOLUTE MONOCYTES (AUTO) 0.7 10^3/uL (0.1-1.4); ABSOLUTE NEUT (AUTO) 2.1 10^3/uL (1.7-8.2); BASOPHILS % (AUTO) 0.8 % (0-2); EOSINOPHILS % (AUTO) 1.8 % (0-6); HEMATOCRIT 34.4 % (37.9-51.0); HEMOGLOBIN 11.9 g/dL (13.5-17.0); LYMPHOCYTES % (AUTO) 30.1 % (13-45); MEAN CORPUSCULAR HEMOGLOBIN 31.4 pg (27.0-33.4); MEAN CORPUSCULAR HGB CONC 34.4 g/dL (32.0-36.0); MEAN CORPUSCULAR VOLUME 91 fl (80-97); MONOCYTES % (AUTO) 16.7 % (3-13); PLATELET COUNT 203 10^3/uL (150-450); RED BLOOD COUNT 3.78 10^6/uL (4.35-5.55); RED CELL DISTRIBUTION WIDTH 12.9 % (11.5-14.0); SEGMENTED NEUTROPHILS % (AUTO) 50.6 % (42-78); TOTAL CELLS COUNTED % (AUTO) 100 %; WHITE BLOOD COUNT 4.1 10^3/uL (4.0-10.5)
[2019-09-21 04:13] LABS: ALKALINE PHOSPHATASE 59 U/L (38-126); ANION GAP 7 (5-19); ASPARTATE AMINO TRANSFERASE 14 U/L (17-59); BILIRUBIN,TOTAL 0.9 mg/dL (0.2-1.3); BLOOD UREA NITROGEN 6 mg/dL (7-20); CALCIUM 8.4 mg/dL (8.4-10.2); CARBON DIOXIDE 21 mmol/L (22-30); CHLORIDE 112 mmol/L (98-107); GLUCOSE 73 mg/dL (75-110); POTASSIUM 3.8 mmol/L (3.6-5.0); TOTAL PROTEIN 5.8 g/dL (6.3-8.2)
[2019-09-21] MEDS ORDERED: NORMAL SALINE 1000 ML 1,000 ML IV PRN (07:52)
[2019-09-21] MEDS: LEVETIRACETAM 1000 MG/NACL-ISO 1,000 MG/100 ML RTUPB IV SCH (10:14)
[2019-09-21] MEDS: FAMOTIDINE INJ/PF 20 MG/2 ML SDV IV SCH (10:15)
[2019-09-21] MEDS: ENOXAPARIN SODIUM INJ 40 MG/0.4 ML DISP.SYRIN SUBCUT SCH (10:15)
[2019-09-21] MEDS: PIPERACILLIN SODIUM/TAZOBACTAM 3.375 GM in NORMAL SALINE 100 ML IV SCH ×3 (11:49→21:15)
[2019-09-21] MEDS ORDERED: ENALAPRILAT DIHYDRATE INJ/PF 1.25 MG/1 ML SDV IV ONE ×2 (16:00→16:30)
[2019-09-21] MEDS ORDERED: HYDRALAZINE HCL INJ/PF 20 MG/1 ML SDV IV ONE (17:15)
--- NOTE | 2019-09-21 18:02 | PDOC CRITICAL CARE PROG REPORT ---
General Date:: 09/21/19 ICU Day:: 4 Hospital Day:: 4 Resuscitation Status: Full Code Events in the past 12 to 24 Hours:: Successfully extubated in the interim. No seizures reported in the interim. Perseverating on wanting to go home. Reports that he knows he is supposed to take medications to control seizures. Unclear on his level of adherence. He is aware that he is in the hospital; however, he has no idea that it is because he has had seizure activity. On Zosyn for blood cultures that isolated GNR and GPC/clusters (not MRSA). WBC count has normalized while on Zosyn. Of note trach aspirate obtained on 09/19/2019 is isolating gram-positive cocci in clusters (original Gram stain was polymicrobial: GPC/pairs and clusters, GPRs, GNR, 4+ PMNs). Blood culture results are compatible with coagulase-negative Staphylococcus. Final identification from blood culture and respiratory culture still pending. Review of systems relevant to events:: Neurologic, respiratory Reason for ICU Addmission:: Intubated after multiple seizures. - Medications: Medications reviewed and adjusted accordingly: Yes Vasopressors:: None Sedation:: None Physical Exam Vital Signs: Temp Pulse Resp BP Pulse Ox 99.3 F 89 14 158/112 H 99 09/21/19 06:00 09/21/19 06:00 09/21/19 06:00 09/21/19 06:00 09/21/19 06:00 Intake & Output 09/20/19 09/21/19 09/22/19 06:59 06:59 06:59 Intake Total 2195 4346 Output Total 1310 2285 Balance 885 2061 Weight 71.9 kg 76.7 kg Weight/Height Weight 76.7 kg Height 1.8 m General appearance: PRESENT: no acute distress, well-developed, well-nourished Head exam: PRESENT: atraumatic, normocephalic Eye exam: PRESENT: conjunctiva pink, EOMI, PERRLA. ABSENT: scleral icterus Mouth exam: PRESENT: moist, tongue midline Neck exam: ABSENT: carotid bruit, JVD, lymphadenopathy, thyromegaly Respiratory exam: PRESENT: clear to auscultation ector. ABSENT: rales, rhonchi, wheezes Cardiovascular exam: PRESENT: RRR. ABSENT: diastolic murmur, rubs, systolic murmur Pulses: PRESENT: normal dorsalis pedis pul GI/Abdominal exam: PRESENT: normal bowel sounds, soft. ABSENT: distended, guarding, mass, organolmegaly, rebound, tenderness Extremities exam: PRESENT: full ROM. ABSENT: calf tenderness, clubbing, pedal edema Musculoskeletal exam: PRESENT: normal inspection Neurological exam: PRESENT: alert, awake, oriented to person, oriented to place, CN II-XII grossly intact. ABSENT: oriented to time, oriented to situation, motor sensory deficit Laboratory/Radiographs Laboratory Results: 09/21/19 03:53 09/21/19 03:53 09/20/19 09/21/19 09/21/19 08:00 03:53 03:53 WBC 4.1 RBC 3.78 L Hgb 11.9 L Hct 34.4 L MCV 91 MCH 31.4 MCHC 34.4 RDW 12.9 Plt Count 203 Seg Neutrophils % 50.6 Carbonic Acid 1.16 HCO3/H2CO3 Ratio 18:1 ABG pH 7.36 ABG pCO2 38.6 ABG pO2 132.8 H ABG HCO3 21.3 ABG O2 Saturation 98.6 H ABG Base Excess -3.8 FiO2 30% Sodium 139.6 Potassium 3.8 Chloride 112 H Carbon Dioxide 21 L Anion Gap 7 BUN 6 L Creatinine 0.94 Est GFR ( Amer) > 60 Glucose 73 L Calcium 8.4 Magnesium 1.9 Total Bilirubin 0.9 AST 14 L Alkaline Phosphatase 59 Total Protein 5.8 L Albumin 3.0 L 09/18/19 12:30 Blood Blood Culture (PCR) - Final Staphylococcus Species Impressions: Head CT 09/18/19 11:51 IMPRESSION: NORMAL BRAIN CT WITHOUT CONTRAST. EVIDENCE OF ACUTE STROKE: NO. KUB X-Ray 09/18/19 14:22 IMPRESSION: Enteric tube projecting over the left upper abdomen over the region of the stomach. Chest X-Ray 09/20/19 05:00 IMPRESSION: IMPROVED AERATION. NO ACUTE RADIOGRAPHIC FINDING IN THE CHEST. All labs, radiographs, diagnostic studies and EKGs were personally reviewed: Yes In addition, reports of radiographic and diagnostic studies were read: Yes Assessment and Plan - Diagnosis (1) Endotracheally intubated Is this a current diagnosis for this admission?: Yes Plan: Successfully extubated 09/20/2019 (2) Gram-negative bacteremia Is this a current diagnosis for this admission?: Yes Plan: Continue Zosyn for gram-negative coverage and coverage for aspiration pneumonia until final bacterial identification completed. He may be able to change to Augmentin p.o. He will need a total of 7 days of coverage. (3) Acute kidney injury Is this a current diagnosis for this admission?: Yes Plan: Resolved (4) Status epilepticus, generalized convulsive Is this a current diagnosis for this admission?: Yes Plan: Controlled with Keppra. Known history of nonadherence to prescribed therapy. (5) Cocaine abuse with intoxication Is this a current diagnosis for this admission?: Yes (6) Aspiration pneumonia Qualifiers: Aspiration pneumonia type: unspecified Laterality: right Lung location: lower lobe of lung Qualified Code(s): J69.0 - Pneumonitis due to inhalation of food and vomit Is this a current diagnosis for this admission?: Yes Plan: Continue Zosyn for now Plan Summary: DISPOSITION: This patient is OK for transfer to the floor. Critical Time Critical Time (minutes): 45 Level of Care: ICU -: 1. The care of a critical patient is a dynamic process. This note is a patient representative synopsis but static in nature. The timeframe for treatments given in order is not necessarily the actual time these treatments may have been done. 2. This patient requires critical care secondary to ongoing requirements for therapy not offered or safe outside the critical care environment. Transfer to a lower level of care will result in altered life or limb morbidity and mortality. 3. Multidisciplinary rounds completed. 4. ABCDE bundle addressed.
[2019-09-21] MEDS: LEVETIRACETAM 500 MG TABLET PO SCH (21:15)
[2019-09-21] MEDS: FAMOTIDINE 20 MG TABLET PO SCH (21:15)
[2019-09-21] MEDS: LORAZEPAM INJ 2 MG/1 ML VIAL IV PRN (21:16)
[2019-09-22] MEDS: PIPERACILLIN SODIUM/TAZOBACTAM 3.375 GM in NORMAL SALINE 100 ML IV SCH ×4 (02:12→17:44)
[2019-09-22] MEDS: IPRATROPIUM/ALBUTEROL 0.5-2.5 MG/3 ML AMPUL NEB SCH ×4 (02:39→19:29)
[2019-09-22] MEDS ORDERED: NIFEDIPINE 30 MG TAB.ER.24 PO ONE (03:00)
[2019-09-22] MEDS ORDERED: ZIPRASIDONE MESYLATE INJ/PF 20 MG SDV IM ONE (10:30)
--- NOTE | 2019-09-22 11:39 | PDOC PROGRESS REPORT ---
Subjective Progress Note for:: 09/22/19 Reason For Visit: STATUS EPILLEPTICUS, INTUBATED 09/22/2019 Patient admitted for noncompliance, drug abuse, seizure disorder Physical Exam Vital Signs: Temp Pulse Resp BP Pulse Ox 98.0 F 95 18 152/100 H 98 09/22/19 10:08 09/22/19 10:08 09/22/19 10:08 09/22/19 10:08 09/22/19 10:08 Intake & Output 09/21/19 09/22/19 09/23/19 06:59 06:59 06:59 Intake Total 4346 1120 Output Total 2285 1050 Balance 2060 70 Weight 76.7 kg 75.1 kg General appearance: PRESENT: mild distress, other - Patient is slow to respond, makes eye contact with staring Respiratory exam: PRESENT: clear to auscultation ector. ABSENT: rales, rhonchi, wheezes Cardiovascular exam: PRESENT: RRR. ABSENT: diastolic murmur, rubs, systolic murmur Neurological exam: PRESENT: altered, other - Patient will not answer questions Psychiatric exam: PRESENT: unusual affect - Patient's demeanor is very aggressive and threatening Results Laboratory Results: 09/21/19 03:53 09/21/19 03:53 09/18/19 12:30 Blood Blood Culture (PCR) - Final Staphylococcus Species Impressions: Head CT 09/18/19 11:51 IMPRESSION: NORMAL BRAIN CT WITHOUT CONTRAST. EVIDENCE OF ACUTE STROKE: NO. KUB X-Ray 09/18/19 14:22 IMPRESSION: Enteric tube projecting over the left upper abdomen over the region of the stomach. Chest X-Ray 09/20/19 05:00 IMPRESSION: IMPROVED AERATION. NO ACUTE RADIOGRAPHIC FINDING IN THE CHEST. Assessment and Plan - Diagnosis (1) Altered mental status Qualifiers: Altered mental status type: disorientation Qualified Code(s): R41.0 - Disorientation, unspecified Is this a current diagnosis for this admission?: Yes (2) Cocaine abuse with intoxication Is this a current diagnosis for this admission?: Yes (3) Encephalopathy acute Is this a current diagnosis for this admission?: Yes (4) Rhabdomyolysis Qualifiers: Rhabdomyolysis type: non-traumatic Qualified Code(s): M62.82 - Rhabdomyolysis Is this a current diagnosis for this admission?: Yes (5) Seizure Is this a current diagnosis for this admission?: Yes (6) Bacteremia Is this a current diagnosis for this admission?: Yes (7) Aspiration pneumonia Qualifiers: Aspiration pneumonia type: unspecified Laterality: right Lung location: lower lobe of lung Qualified Code(s): J69.0 - Pneumonitis due to inhalation of food and vomit Is this a current diagnosis for this admission?: Yes Plan: Continue Zosyn for now - Plan Summary Summary: 09/22/2019 Patient was transferred out of the ICU yesterday to the floor This morning temperature is 98 pulse is 95 blood pressure 152/100 White count is still normal 4.1, H&H is stable Chemistry panel is normal Glucose normal Keppra level is pending Patient's affect today is very flat and aggressive appearing. Patient is staring and will not answer questions. Had to have Ativan last night and Geodon this morning, he was attempting to get out of bed attempting to leave the room and would not listen to the nurses. Security needed to be called Keppra dosage is thousand milligrams every 12 hours Is also currently on IV Zosyn every 6 hours Other medications include Prinivil 40 mg daily and Procardia XL 30 mg daily - Time Time Spent with patient: 35 or more minutes
[2019-09-22] MEDS: FAMOTIDINE 20 MG TABLET PO SCH ×2 (12:02→21:08)
[2019-09-22] MEDS: LISINOPRIL 10 MG TABLET PO SCH ×2 (12:21→12:29)
[2019-09-22] MEDS: LEVETIRACETAM 500 MG TABLET PO SCH ×2 (12:21→12:29)
[2019-09-22] MEDS: ENOXAPARIN SODIUM INJ 40 MG/0.4 ML DISP.SYRIN SUBCUT SCH (12:22)
[2019-09-22] MEDS ORDERED: ENALAPRILAT DIHYDRATE INJ/PF 1.25 MG/1 ML SDV IV ONE ×2 (15:15→17:30)
[2019-09-22] MEDS: ENALAPRILAT DIHYDRATE INJ/PF 1.25 MG/1 ML SDV IV SCH (17:18)
[2019-09-22] MEDS: LORAZEPAM INJ 2 MG/1 ML VIAL IV PRN (17:52)
[2019-09-22] MEDS: LEVETIRACETAM 1000 MG/NACL-ISO 1,000 MG/100 ML RTUPB IV SCH (21:09)
[2019-09-23] MEDS: ENALAPRILAT DIHYDRATE INJ/PF 1.25 MG/1 ML SDV IV SCH ×6 (00:20→18:34)
[2019-09-23] MEDS: PIPERACILLIN SODIUM/TAZOBACTAM 3.375 GM in NORMAL SALINE 100 ML IV SCH ×6 (00:31→18:36)
[2019-09-23] MEDS: LORAZEPAM INJ 2 MG/1 ML VIAL IV PRN ×2 (01:04→06:55)
[2019-09-23] MEDS: IPRATROPIUM/ALBUTEROL 0.5-2.5 MG/3 ML AMPUL NEB SCH ×4 (01:35→19:26)
[2019-09-23] MEDS: FAMOTIDINE 20 MG TABLET PO SCH ×2 (09:07→21:07)
[2019-09-23] MEDS: NIFEDIPINE 30 MG TAB.ER.24 PO SCH (09:07)
[2019-09-23] MEDS: LISINOPRIL 10 MG TABLET PO SCH (09:07)
[2019-09-23] MEDS: ENOXAPARIN SODIUM INJ 40 MG/0.4 ML DISP.SYRIN SUBCUT SCH (09:07)
[2019-09-23] MEDS: LEVETIRACETAM 1000 MG/NACL-ISO 1,000 MG/100 ML RTUPB IV SCH ×2 (09:08→21:07)
[2019-09-23] MEDS ORDERED: HALOPERIDOL LACTATE INJ 5 MG/1 ML VIAL ONE (13:24)
--- NOTE | 2019-09-23 13:57 | PDOC PROGRESS REPORT ---
Subjective Progress Note for:: 09/23/19 Reason For Visit: STATUS EPILLEPTICUS 09/23/2019 Patient was admitted for substance abuse, seizure disorder, patient noncompliance Physical Exam Vital Signs: Temp Pulse Resp BP Pulse Ox 97.7 F 88 18 139/99 H 97 09/23/19 07:31 09/23/19 08:41 09/23/19 08:41 09/23/19 07:31 09/23/19 08:41 Intake & Output 09/22/19 09/23/19 09/24/19 06:59 06:59 06:59 Intake Total 1120 1217 100 Output Total 1050 450 Balance 70 767 100 Weight 75.1 kg 77.3 kg General appearance: PRESENT: disheveled, thin, other - Patient having episodes of psychotic behavior Respiratory exam: PRESENT: clear to auscultation ector. ABSENT: rales, rhonchi, wheezes Cardiovascular exam: PRESENT: RRR. ABSENT: diastolic murmur, rubs, systolic murmur Neurological exam: PRESENT: awake Psychiatric exam: PRESENT: agitated, unusual affect Results Laboratory Results: 09/21/19 03:53 09/21/19 03:53 09/18/19 12:30 Blood Blood Culture (PCR) - Final Staphylococcus Species 09/18/19 12:30 Blood Blood Culture - Final Acinetobacter Species Staphylococcus Epidermidis 09/19/19 09:00 Tracheal Aspirate Gram Stain - Final 09/19/19 09:00 Tracheal Aspirate Sputum Culture - Final Staphylococcus Aureus Haemophilus Influenzae Normal Fatimah Impressions: Head CT 09/18/19 11:51 IMPRESSION: NORMAL BRAIN CT WITHOUT CONTRAST. EVIDENCE OF ACUTE STROKE: NO. KUB X-Ray 09/18/19 14:22 IMPRESSION: Enteric tube projecting over the left upper abdomen over the region of the stomach. Chest X-Ray 09/20/19 05:00 IMPRESSION: IMPROVED AERATION. NO ACUTE RADIOGRAPHIC FINDING IN THE CHEST. Assessment and Plan - Diagnosis (1) Altered mental status Qualifiers: Altered mental status type: disorientation Qualified Code(s): R41.0 - Disorientation, unspecified Is this a current diagnosis for this admission?: Yes (2) Cocaine abuse with intoxication Is this a current diagnosis for this admission?: Yes (3) Encephalopathy acute Is this a current diagnosis for this admission?: Yes (4) Rhabdomyolysis Qualifiers: Rhabdomyolysis type: non-traumatic Qualified Code(s): M62.82 - Rhabdomyolysis Is this a current diagnosis for this admission?: Yes (5) Seizure Is this a current diagnosis for this admission?: Yes (6) Bacteremia Is this a current diagnosis for this admission?: Yes (7) Aspiration pneumonia Qualifiers: Aspiration pneumonia type: unspecified Laterality: right Lung location: lower lobe of lung Qualified Code(s): J69.0 - Pneumonitis due to inhalation of food and vomit Is this a current diagnosis for this admission?: Yes - Plan Summary Summary: 09/22/2019 Patient was transferred out of the ICU yesterday to the floor This morning temperature is 98 pulse is 95 blood pressure 152/100 White count is still normal 4.1, H&H is stable Chemistry panel is normal Glucose normal Keppra level is pending Patient's affect today is very flat and aggressive appearing. Patient is staring and will not answer questions. Had to have Ativan last night and Geodon this morning, he was attempting to get out of bed attempting to leave the room and would not listen to the nurses. Security needed to be called Keppra dosage is thousand milligrams every 12 hours Is also currently on IV Zosyn every 6 hours Other medications include Prinivil 40 mg daily and Procardia XL 30 mg daily 09/23/2019 Patient's blood pressures are being difficult to control because he is refusing to let the nurse give him IV medications as and refusing to take p.o.'s as well. When patient was admitted to the hospital his pressure was in triple digits up to as high as 265/167 Even with refusing medications his blood pressures are averaging around 150/105 Patient is becoming more psychotic withdrawn refusing to cooperate, not answering questions, not in touch with reality. In the last 15 minutes patient had eloped from his room in the hospital had wandered out into the front of the hospital and was walking in for lanes of traffic with his hospital gown on. Nursing staff as well as security and myself convinced the patient to come back into his room at which time he was given Haldol 5 mg IV and put in soft restraints. Patient was also given IV antihypertensive meds About 30 minutes prior I put in a consult for psychiatry to see the patient because of his bizarre behavior. This called them as well and notified them that this event had just occurred and that his consult was more of an urgent basis now because of his ability to understand what is in his best interest. I am going to put in stat labs just to make sure that there is no significant metabolic abnormalities, ever I doubt this to be the case. - Time Time Spent with patient: 35 or more minutes
[2019-09-23] MEDS ORDERED: HALOPERIDOL LACTATE INJ 5 MG/1 ML VIAL IV ONE (14:30)
--- NOTE | 2019-09-23 15:52 | PSYCHOLOGICAL NOTE ---
Psych Note - Psych Note Date seen by psych provider: 09/23/19 Time seen by psych provider: 14:20 - Attempted Psych Note: Reason for Consult: Bizarre Behavior There is reported concern the patient has been demonstrating bizarre behavior. Patient reportedly has been becoming more psychotic withdrawn refusing to cooperate, not answering questions, and not in touch with reality. Patient has a history of substance abuse and possible mental health. Consult was requested after the patient had eloped from his room in the hospital had wandered out into the front of the hospital and was walking in [address] of traffic with his hospital gown on. Nursing staff as well as security and attending physician convinced the patient to come back into his room at which time he was given Haldol 5 mg IV and put in soft restraints. Patient is current unable to engage in evaluation. A 24 hour petition for evaluation has been filled out due to concerns for the patient's behaviours. He is in need a psychiatric evaluation.
[2019-09-24] MEDS: LORAZEPAM INJ 2 MG/1 ML VIAL IV PRN (00:12)
[2019-09-24] MEDS: PIPERACILLIN SODIUM/TAZOBACTAM 3.375 GM in NORMAL SALINE 100 ML IV SCH ×3 (00:12→12:00)
[2019-09-24] MEDS: ENALAPRILAT DIHYDRATE INJ/PF 1.25 MG/1 ML SDV IV SCH ×2 (00:51→05:45)
[2019-09-24] MEDS: IPRATROPIUM/ALBUTEROL 0.5-2.5 MG/3 ML AMPUL NEB SCH ×3 (01:46→13:47)
[2019-09-24] MEDS: LEVETIRACETAM 1000 MG/NACL-ISO 1,000 MG/100 ML RTUPB IV SCH ×2 (09:54→10:00)
[2019-09-24] MEDS: LISINOPRIL 10 MG TABLET PO SCH (09:58)
[2019-09-24] MEDS: FAMOTIDINE 20 MG TABLET PO SCH ×2 (09:59→22:33)
[2019-09-24] MEDS: NIFEDIPINE 30 MG TAB.ER.24 PO SCH (09:59)
[2019-09-24] MEDS: ENOXAPARIN SODIUM INJ 40 MG/0.4 ML DISP.SYRIN SUBCUT SCH (10:00)
[2019-09-24] MEDS: LEVETIRACETAM 500 MG TABLET PO SCH ×2 (11:28→22:34)
[2019-09-24] MEDS: ENALAPRIL MALEATE 2.5 MG TABLET PO SCH ×2 (12:07→22:33)
[2019-09-24] MEDS ORDERED: IPRATROPIUM/ALBUTEROL 0.5-2.5 MG/3 ML AMPUL NEB PRN (13:43)
--- NOTE | 2019-09-24 14:05 | PDOC PROGRESS REPORT ---
Subjective Progress Note for:: 09/24/19 Reason For Visit: STATUS EPILLEPTICUS 09/24/2019 Patient was originally admitted for substance abuse, seizure disorder, patient noncompliance Physical Exam Vital Signs: Temp Pulse Resp BP Pulse Ox 98.2 F 79 18 180/120 H 99 09/24/19 12:00 09/24/19 12:00 09/24/19 12:00 09/24/19 12:00 09/24/19 12:00 Intake & Output 09/23/19 09/24/19 09/25/19 06:59 06:59 07:59 Intake Total 1217 840 Output Total 450 490 Balance 767 350 Weight 77.3 kg 72.8 kg General appearance: PRESENT: no acute distress, other - This morning psychologically patient appears to be a completely different person, pleasant and cooperative Respiratory exam: PRESENT: clear to auscultation ector. ABSENT: rales, rhonchi, wheezes Cardiovascular exam: PRESENT: RRR. ABSENT: diastolic murmur, rubs, systolic murmur Neurological exam: PRESENT: alert, awake, oriented to person, oriented to place, oriented to time, oriented to situation, CN II-XII grossly intact. ABSENT: motor sensory deficit Psychiatric exam: PRESENT: manic, unusual affect, other - Behavior today is almost manic whereas yesterday was very hostile and depressed Results Laboratory Results: 09/21/19 03:53 09/21/19 03:53 09/18/19 13:45 Blood Blood Culture - Final NO GROWTH IN 5 DAYS Impressions: Head CT 09/18/19 11:51 IMPRESSION: NORMAL BRAIN CT WITHOUT CONTRAST. EVIDENCE OF ACUTE STROKE: NO. KUB X-Ray 09/18/19 14:22 IMPRESSION: Enteric tube projecting over the left upper abdomen over the region of the stomach. Chest X-Ray 09/20/19 05:00 IMPRESSION: IMPROVED AERATION. NO ACUTE RADIOGRAPHIC FINDING IN THE CHEST. Assessment and Plan - Diagnosis (1) Altered mental status Qualifiers: Altered mental status type: disorientation Qualified Code(s): R41.0 - Disorientation, unspecified Is this a current diagnosis for this admission?: Yes (2) Cocaine abuse with intoxication Is this a current diagnosis for this admission?: Yes (3) Encephalopathy acute Is this a current diagnosis for this admission?: Yes (4) Rhabdomyolysis Qualifiers: Rhabdomyolysis type: non-traumatic Qualified Code(s): M62.82 - Rhabdomyolysis Is this a current diagnosis for this admission?: Yes (5) Seizure Is this a current diagnosis for this admission?: Yes (6) Bacteremia Is this a current diagnosis for this admission?: Yes (7) Aspiration pneumonia Qualifiers: Aspiration pneumonia type: unspecified Laterality: right Lung location: lower lobe of lung Qualified Code(s): J69.0 - Pneumonitis due to inhalation of food and vomit Is this a current diagnosis for this admission?: Yes - Plan Summary Summary: 09/22/2019 Patient was transferred out of the ICU yesterday to the floor This morning temperature is 98 pulse is 95 blood pressure 152/100 White count is still normal 4.1, H&H is stable Chemistry panel is normal Glucose normal Keppra level is pending Patient's affect today is very flat and aggressive appearing. Patient is staring and will not answer questions. Had to have Ativan last night and Geodon this morning, he was attempting to get out of bed attempting to leave the room and would not listen to the nurses. Security needed to be called Keppra dosage is thousand milligrams every 12 hours Is also currently on IV Zosyn every 6 hours Other medications include Prinivil 40 mg daily and Procardia XL 30 mg daily 09/23/2019 Patient's blood pressures are being difficult to control because he is refusing to let the nurse give him IV medications as and refusing to take p.o.'s as well. When patient was admitted to the hospital his pressure was in triple digits up to as high as 265/167 Even with refusing medications his blood pressures are averaging around 150/105 Patient is becoming more psychotic withdrawn refusing to cooperate, not answering questions, not in touch with reality. In the last 15 minutes patient had eloped from his room in the hospital had wandered out into the front of the hospital and was walking in for lanes of traffic with his hospital gown on. Nursing staff as well as security and myself convinced the patient to come back into his room at which time he was given Haldol 5 mg IV and put in soft restraints. Patient was also given IV antihypertensive meds About 30 minutes prior I put in a consult for psychiatry to see the patient because of his bizarre behavior. This called them as well and notified them that this event had just occurred and that his consult was more of an urgent basis now because of his ability to understand what is in his best interest. I am going to put in stat labs just to make sure that there is no significant metabolic abnormalities, ever I doubt this to be the case. 09/24/2019 Patient was seen by psychiatry yesterday unfortunately he was under the effects of his Haldol and lethargic They have returned early this morning and documentation is currently pending Patient is cooperative today and asking to go home I have spoken to his on the phone and she really does not want to take him home, said that she is unaware of where he was getting his illegal substances from, that he is very uncooperative at home Patient's blood pressures are all over the chart from a low of 126/97 to a high of 180/120. A lot of this has to do with patient refusing his p.o. medications and is having to try to give them to him IV. Also it is based upon his agitation level Keppra level is still pending Patient sputum is growing out staph aureus and H flu. Blood culture also growing out staph. Both of these organisms appear to be sensitive to cephalosporins as well as the fluoroquinolones, as well as sulfa Patient is currently on Zosyn but he has lost his IV site therefore I am going to order Keflex 500 mg 3 times daily, with a stop date of September 26 - Time Time Spent with patient: 25-34 minutes
--- NOTE | 2019-09-24 14:36 | PSYCHOLOGICAL NOTE ---
Psych Note - Psych Note Date seen by psych provider: 09/24/19 Time seen by psych provider: 08:22 - [id number] Psych Note: Reason For Consult: Bizarre Behavior Consent Permissions: Patient's , Lisa Patient has a history of substance abuse and possible mental health. Consult was requested after the patient had eloped from his room in the hospital had wandered out into the front of the hospital and was walking in 4 lanes of traffic with his hospital gown on (clinician notes patient only had one gown on and his backside was exposed to the weather and public). Patient reports he remembers everything that occurred yesterday and stated that he ran from the hospital because he was "scared." He denies that he saw anything specific only thought that he would get hurt if he stayed at the hospital. Patient reports that he would like to go home to his family today. He continued to disclose that he promises he will not leave again like yesterday. When clinician discussed the concerns of the patient ran out into traffic with only 1 gown on, which resulted in exposing his entire backside, patient laughed while hiding his face. He stated he did not even think about that when he walked out. Patient talked with clinician about his drug use and states he will not use cocaine anymore. Patient reports he has tried to stop before but ends up using again "because I wanted to republican." Clinician provided psychoeducation on the medical concerns with his cocaine use; ie lowers seizure thresh hold. Patient denies mental health history. When asked if he experiences any times where he sees or hears things that confuse or scare him, he stated "real dogs." He states his neighbor has a dog that has a growl that scares him. Patient reports he stopped taking his Keppra because he did not have the money to pickle processor his prescriptions. Behavioral health team contacted [facility]; see mental health note. Patient does not have any history of mental health diagnosis. Patient is alert and orientated to person, place, time and circumstance. Mood is euthymic with congruent affect as evidenced by laughing, smiling and openly engaging with clinician. Patient denies suicidal and homicidal ideation. Delusions are absent and behaviors congruent with an intact reality based presentation ie organized and linear thought process. Eye contact is well- maintained. Conversational speech is noted to have delays in responses and slower speech pattern. Intellectual abilities appear to be within the low average range (appears to have very concrete thought processes which could indicate lower intellectual abilities, neurodevelopmental disorders, TBI, neurodegenerative processes ect.). Attention and concentration are good. Insight, judgment, impulse control are fair. Medication recommendations per [facility]'s contracted psychiatrist Dr. Jaylon OLEA are as follows Haldol 5 mg IM every 6 hours as needed Cogentin 1 mg daily Impression\\plan:Patient is recommended for IVC. Patient is a substance abuser. While there is not a history of mental health, nursing home substance abuse can result in mental health diagnosis (ie. substance induced depression, psychosis, mood dysregulation etc). Patient's disclosure of being "scared" yesterday and today reporting "real dogs" when asked about hallucinations, supports the probability the patient his experiencing some form(s) of hallucinations. Patient has demonstrated behavior that is grossly irrational and inappropriate for the situation (ie walking out of the hospital and into traffic in only a hospital gown which resulted in stopping traffic and the patient's entire backside being exposed to the weather and public, when discussing this event patient laughed). At this time the patient is a danger to himself." Medication recommendations have been provided. Dr. Colvin was consulted to care management of this patient; attending physicians in agreement with recommendations and disposition.
[2019-09-24] MEDS ORDERED: HALOPERIDOL LACTATE INJ 5 MG/1 ML VIAL IM PRN (15:47)
[2019-09-24] MEDS ORDERED: BENZTROPINE MESYLATE 1 MG TABLET PO ONE ×2 (15:48→17:00)
[2019-09-24] MEDS: CEPHALEXIN 500 MG CAPSULE PO SCH (22:33)
[2019-09-25] MEDS: CEPHALEXIN 500 MG CAPSULE PO SCH ×3 (06:39→23:04)
[2019-09-25] MEDS: NIFEDIPINE 30 MG TAB.ER.24 PO SCH (09:20)
[2019-09-25] MEDS: ENALAPRIL MALEATE 2.5 MG TABLET PO SCH ×2 (09:20→23:05)
[2019-09-25] MEDS: LISINOPRIL 10 MG TABLET PO SCH (09:20)
[2019-09-25] MEDS: ENOXAPARIN SODIUM INJ 40 MG/0.4 ML DISP.SYRIN SUBCUT SCH (09:21)
[2019-09-25] MEDS: FAMOTIDINE 20 MG TABLET PO SCH ×2 (09:22→23:05)
--- NOTE | 2019-09-25 12:28 | PSYCHOLOGICAL NOTE ---
Psych Note - Psych Note Date seen by psych provider: 09/25/19 Time seen by psych provider: 13:15 - attempted Psych Note: Reason For Consult: Bizarre Behavior Consent Permissions: Patient's , Lisa Check in attempted with patient; he is currently sleeping. Attending nurse reports the patient had not slept all night and this is the first time he has finally slept. She continued to report she has had no concerns for the patient's behavior and confirms she will contact the behavioral health team if concerns arise. updated Medication recommendations per [facility]'s contracted psychiatrist Dr. Jaylon OLEA are as follows Haldol 5 mg twice daily Cogentin 1 mg daily Impression\\plan:Patient is recommended for continued IVC. Patient is a substance abuser. While there is not a history of mental health, custodial substance abuse can result in mental health diagnosis (ie. substance induced depression, psychosis, mood dysregulation etc). There are some concerns the patient has been experiencing some form(s) of hallucinations. Patient has demonstrated behavior that is grossly irrational and inappropriate for the situation (ie walking out of the hospital and into traffic in only a hospital gown which resulted in stopping traffic and the patient's entire backside being exposed to the weather and public, when discussing this event patient laughed). At this time the patient is a danger to himself." Updated Medication re commendations have been provided. Dr. Colvin was consulted to care management of this patient; attending physicians in agreement with recommendations and disposition.
--- NOTE | 2019-09-25 15:39 | PDOC PROGRESS REPORT ---
Subjective Progress Note for:: 09/25/19 Reason For Visit: STATUS EPILLEPTICUS 09/25/2019 Positive urine drug screen for marijuana and cocaine, seizure disorder, patient noncompliance. Patient also now has a psychiatric disorder requires IVC. Physical Exam Vital Signs: Temp Pulse Resp BP Pulse Ox 98.2 F 82 16 162/98 H 100 09/25/19 11:53 09/25/19 11:53 09/25/19 11:53 09/25/19 11:53 09/25/19 11:53 Intake & Output 09/24/19 09/25/19 09/26/19 05:59 06:59 06:59 Intake Total 360 Output Total Balance 360 Weight General appearance: PRESENT: no acute distress Respiratory exam: PRESENT: clear to auscultation ector. ABSENT: rales, rhonchi, wheezes Cardiovascular exam: PRESENT: RRR. ABSENT: diastolic murmur, rubs, systolic murmur Neurological exam: PRESENT: alert, awake, oriented to person, oriented to place, oriented to time, oriented to situation, CN II-XII grossly intact. ABSENT: motor sensory deficit Psychiatric exam: PRESENT: anxious, unusual affect Results Laboratory Results: 09/21/19 03:53 09/21/19 03:53 Impressions: Head CT 09/18/19 11:51 IMPRESSION: NORMAL BRAIN CT WITHOUT CONTRAST. EVIDENCE OF ACUTE STROKE: NO. KUB X-Ray 09/18/19 14:22 IMPRESSION: Enteric tube projecting over the left upper abdomen over the region of the stomach. Chest X-Ray 09/20/19 05:00 IMPRESSION: IMPROVED AERATION. NO ACUTE RADIOGRAPHIC FINDING IN THE CHEST. Assessment and Plan - Diagnosis (1) Altered mental status Qualifiers: Altered mental status type: disorientation Qualified Code(s): R41.0 - Disorientation, unspecified Is this a current diagnosis for this admission?: Yes (2) Cocaine abuse with intoxication Is this a current diagnosis for this admission?: Yes (3) Encephalopathy acute Is this a current diagnosis for this admission?: Yes (4) Rhabdomyolysis Qualifiers: Rhabdomyolysis type: non-traumatic Qualified Code(s): M62.82 - Rhabdomyolysis Is this a current diagnosis for this admission?: Yes (5) Seizure Is this a current diagnosis for this admission?: Yes (6) Bacteremia Is this a current diagnosis for this admission?: Yes (7) Aspiration pneumonia Qualifiers: Aspiration pneumonia type: unspecified Laterality: right Lung location: lower lobe of lung Qualified Code(s): J69.0 - Pneumonitis due to inhalation of food and vomit Is this a current diagnosis for this admission?: Yes (8) Psychiatric disorder Is this a current diagnosis for this admission?: Yes - Plan Summary Summary: 09/22/2019 Patient was transferred out of the ICU yesterday to the floor This morning temperature is 98 pulse is 95 blood pressure 152/100 White count is still normal 4.1, H&H is stable Chemistry panel is normal Glucose normal Keppra level is pending Patient's affect today is very flat and aggressive appearing. Patient is staring and will not answer questions. Had to have Ativan last night and Geodon this morning, he was attempting to get out of bed attempting to leave the room and would not listen to the nurses. Security needed to be called Keppra dosage is thousand milligrams every 12 hours Is also currently on IV Zosyn every 6 hours Other medications include Prinivil 40 mg daily and Procardia XL 30 mg daily 09/23/2019 Patient's blood pressures are being difficult to control because he is refusing to let the nurse give him IV medications as and refusing to take p.o.'s as well. When patient was admitted to the hospital his pressure was in triple digits up to as high as 265/167 Even with refusing medications his blood pressures are averaging around 150/105 Patient is becoming more psychotic withdrawn refusing to cooperate, not answering questions, not in touch with reality. In the last 15 minutes patient had eloped from his room in the hospital had wandered out into the front of the hospital and was walking in for lanes of traffic with his hospital gown on. Nursing staff as well as security and myself convinced the patient to come back into his room at which time he was given H aldol 5 mg IV and put in soft restraints. Patient was also given IV antihypertensive meds About 30 minutes prior I put in a consult for psychiatry to see the patient because of his bizarre behavior. This called them as well and notified them that this event had just occurred and that his consult was more of an urgent basis now because of his ability to understand what is in his best interest. I am going to put in stat labs just to make sure that there is no significant metabolic abnormalities, ever I doubt this to be the case. 09/24/2019 Patient was seen by psychiatry yesterday unfortunately he was under the effects of his Haldol and lethargic They have returned early this morning and documentation is currently pending Patient is cooperative today and asking to go home I have spoken to his on the phone and she really does not want to take him home, said that she is unaware of where he was getting his illegal substances from, that he is very uncooperative at home Patient's blood pressures are all over the chart from a low of 126/97 to a high of 180/120. A lot of this has to do with patient refusing his p.o. medications and is having to try to give them to him IV. Also it is based upon his agitation level Keppra level is still pending Patient sputum is growing out staph aureus and H flu. Blood culture also growing out staph. Both of these organisms appear to be sensitive to cephalosporins as well as the fluoroquinolones, as well as sulfa Patient is currently on Zosyn but he has lost his IV site therefore I am going to order Keflex 500 mg 3 times daily, with a stop date of September 26 09/25/2019 Temperature 98.6 pulse 84 blood pressure times is normal and at other times as in this morning 165/120. Earlier this morning his pressure was 133/74. Because of his elevated pressures I have increased his Procardia from 30 mg a day up to 60. We will continue to use Apresoline as needed. His Keppra level was subtherapeutic and I have also increased his Keppra 2000 mg in the morning and 1500 mg in the evening. Patient remains on his Cogentin scheduled daily and Haldol as needed. The best I can tell from reading the MAR he is not using his Haldol Presently this morning the patient was quite pleasant smiling and is asking to be discharge. Not confrontational or hostile or belligerent, and was even making good eye contact with me. Because of patient's behavior that was potentially harmful to himself and others he is now IVC. Patient could be discharged on his antihypertensives as well as his antibiotics, if a bed becomes available. - Time Time Spent with patient: 25-34 minutes
[2019-09-25] MEDS ORDERED: CLONIDINE HCL 0.1 MG TABLET PO PRN (16:28)
[2019-09-25] MEDS ORDERED: ZIPRASIDONE MESYLATE INJ/PF 20 MG SDV IM PRN (21:17)
[2019-09-25] MEDS ORDERED: HALOPERIDOL LACTATE INJ 5 MG/1 ML VIAL IM PRN (21:19)
--- NOTE | 2019-09-25 21:25 | Progress Note ---
Provider Note Provider Note: Called to the bedside. Patient was perched on the night stand. Multiple security personnel in place. Patient refused to come down. Was paranoid about people in his room. Refused to take his medicine. After unsuccessful attempts at calming the patient. I instructed security to restrain the patient in order to medicate him and apply soft restraints.
[2019-09-25] MEDS: BENZTROPINE MESYLATE 1 MG TABLET PO SCH (23:04)
[2019-09-25] MEDS: LEVETIRACETAM 500 MG TABLET PO SCH (23:04)
[2019-09-26] MEDS: CEPHALEXIN 500 MG CAPSULE PO SCH ×3 (05:55→21:37)
[2019-09-26] MEDS ORDERED: CLONIDINE HCL 0.1 MG TABLET PO PRN (09:00)
[2019-09-26] MEDS: ENOXAPARIN SODIUM INJ 40 MG/0.4 ML DISP.SYRIN SUBCUT SCH (10:28)
[2019-09-26] MEDS: NIFEDIPINE 30 MG TAB.ER.24 PO SCH (10:29)
[2019-09-26] MEDS: METOPROLOL TARTRATE 25 MG TABLET PO SCH ×2 (10:29→21:37)
[2019-09-26] MEDS: LEVETIRACETAM 500 MG TABLET PO SCH ×2 (10:30→21:36)
[2019-09-26] MEDS: LISINOPRIL 10 MG TABLET PO SCH (10:30)
[2019-09-26] MEDS: FAMOTIDINE 20 MG TABLET PO SCH ×2 (12:06→21:36)
[2019-09-26] MEDS: FUROSEMIDE INJ/PF 40 MG/4 ML SDV IV SCH ×2 (12:06→18:10)
--- NOTE | 2019-09-26 16:38 | PSYCHOLOGICAL NOTE ---
Psych Note - Psych Note Date seen by psych provider: 09/26/19 Time seen by psych provider: 12:50 Psych Note: Reason For Consult: Bizarre Behavior Consent Permissions: Patient's , Lisa Check in conducted with patient with at bedside. Patient was eating lunch and chatting with when clinician entered the room. Patient is oriented to person, place, time, date, and current president. Patient was able to provide the correct answer to 2+4, however was unable to provide the correct answer as to which month was 2 months ago. Patient's reports they "have been clean for 2 years." expressed concern that "a girl" had provided patient with a pill or cigarette laced with "something" to help with patient's reported migraine. reports patient has episodes of paranoia at home. states she will ensure follow up appointment to a mental health provider for substance abuse. states they occasionally drink wine. Patient reports " a seizure got me here." Patient reports last voluntary use of cocaine or other substance "been a while." Patient denies he has concerns for his safety. Patient expressed a desire to be discharged to his 's care. Patient's contacted clinician approximately and hour and a half after check in inquiring about discharge. was informed that no decision regarding discharge had been made by the team. Clinician notes 's slurred speech. Clinician staffed case with Dr. Richard who expressed some concerns with discharge given patient's behaviors. Dr. Richard shared that incident in which patient was found standing on the table beside his bed was suggestive of night terrors. Clinician explained that patient's presentation could be related to the seizures and/or chronic cocaine abuse. Additional toxicology screen was discussed and was declined. updated Medication recommendations per [facility]'s contracted psychiatrist Dr. Jaylon OLEA are as follows Haldol 5 mg twice daily Cogentin 1 mg daily Impression\\plan:Patient is recommended rescind of IVC and is cleared from acute psychiatric services. Patient is a substance abuser who would benefit from substance abuse treatment. While there is not a history of mental health, assisted substance abuse can result in mental health diagnosis (ie. substance induced depression, psychosis, mood dysregulation etc). There are some concerns the patient has been experiencing some form(s) of hallucinations. Patient's c urrent presentation could be a result of chronic cocaine abuse and/or seizure history. A substance abuse treatment recourse list with the options for [facility], [facility], and [facility] highlighted was placed in the patient's chart to be given to patient at discharge tomorrow. Dr. Colvin was consulted to care management of this patient; attending physicians in agreement with recommendations and disposition.
--- NOTE | 2019-09-26 16:44 | PDOC PROGRESS REPORT ---
Subjective Progress Note for:: 09/26/19 Reason For Visit: STATUS EPILLEPTICUS Physical Exam Vital Signs: Temp Pulse Resp BP Pulse Ox 98.6 F 78 16 136/97 H 97 09/26/19 11:16 09/26/19 11:16 09/26/19 11:16 09/26/19 11:16 09/26/19 11:16 Intake & Output 09/25/19 09/26/19 09/27/19 06:59 06:59 06:59 Intake Total 960 360 Output Total 1100 Balance -140 360 Weight 72.8 kg 72.8 kg General appearance: PRESENT: no acute distress, well-developed, well-nourished Respiratory exam: PRESENT: clear to auscultation ector. ABSENT: rales, rhonchi, wheezes Cardiovascular exam: PRESENT: RRR. ABSENT: diastolic murmur, rubs, systolic murmur Neurological exam: PRESENT: alert, awake, oriented to person, oriented to place, oriented to time, oriented to situation, CN II-XII grossly intact. ABSENT: motor sensory deficit Psychiatric exam: PRESENT: unusual affect - Patient is laughing and joking about his behavior last night. Patient describes what sounds like night terrors he says he wakes up sometimes at night and is very scared, and that is what happened last night Results Laboratory Results: 09/21/19 03:53 09/21/19 03:53 Impressions: Head CT 09/18/19 11:51 IMPRESSION: NORMAL BRAIN CT WITHOUT CONTRAST. EVIDENCE OF ACUTE STROKE: NO. KUB X-Ray 09/18/19 14:22 IMPRESSION: Enteric tube projecting over the left upper abdomen over the region of the stomach. Chest X-Ray 09/20/19 05:00 IMPRESSION: IMPROVED AERATION. NO ACUTE RADIOGRAPHIC FINDING IN THE CHEST. Assessment and Plan - Diagnosis (1) Altered mental status Qualifiers: Altered mental status type: disorientation Qualified Code(s): R41.0 - Disorientation, unspecified Is this a current diagnosis for this admission?: Yes (2) Cocaine abuse with intoxication Is this a current diagnosis for this admission?: Yes (3) Encephalopathy acute Is this a current diagnosis for this admission?: Yes (4) Rhabdomyolysis Qualifiers: Rhabdomyolysis type: non-traumatic Qualified Code(s): M62.82 - Rhabdomyolysis Is this a current diagnosis for this admission?: Yes (5) Seizure Is this a current diagnosis for this admission?: Yes (6) Bacteremia Is this a current diagnosis for this admission?: Yes (7) Aspiration pneumonia Qualifiers: Aspiration pneumonia type: unspecified Laterality: right Lung location: lower lobe of lung Qualified Code(s): J69.0 - Pneumonitis due to inhalation of food and vomit Is this a current diagnosis for this admission?: Yes (8) Psychiatric disorder Is this a current diagnosis for this admission?: Yes - Plan Summary Summary: 09/22/2019 Patient was transferred out of the ICU yesterday to the floor This morning temperature is 98 pulse is 95 blood pressure 152/100 White count is still normal 4.1, H&H is stable Chemistry panel is normal Glucose normal Keppra level is pending Patient's affect today is very flat and aggressive appearing. Patient is staring and will not answer questions. Had to have Ativan last night and Geodon this morning, he was attempting to get out of bed attempting to leave the room and would not listen to the nurses. Security needed to be called Keppra dosage is thousand milligrams every 12 hours Is also currently on IV Zosyn every 6 hours Other medications include Prinivil 40 mg daily and Procardia XL 30 mg daily 09/23/2019 Patient's blood pressures are being difficult to control because he is refusing to let the nurse give him IV medications as and refusing to take p.o.'s as well. When patient was admitted to the hospital his pressure was in triple digits up to as high as 265/167 Even with refusing medications his blood pressures are averaging around 150/105 Patient is becoming more psychotic withdrawn refusing to cooperate, not answering questions, not in touch with reality. In the last 15 minutes patient had eloped from his room in the hospital had wandered out into the front of the hospital and was walking in for lanes of traffic with his hospital gown on. Nursing staff as well as security and myself convinced the patient to come back into his room at which time he was given Haldol 5 mg IV and put in soft restraints. Patient was also given IV antihypertensive meds About 30 minutes prior I put in a consult for psychiatry to see the patient because of his bizarre behavior. This called them as well and notified them that this event had just occurred and that his consult was more of an urgent basis now because of his ability to understand what is in his best interest. I am going to put in stat labs just to make sure that there is no significant metabolic abnormalities, ever I doubt this to be the case. 09/24/2019 Patient was seen by psychiatry yesterday unfortunately he was under the effects of his Haldol and lethargic They have returned early this morning and documentation is currently pending Patient is cooperative today and asking to go home I have spoken to his on the phone and she really does not want to take him home, said that she is unaware of where he was getting his illegal substances from, that he is very uncooperative at home Patient's blood pressures are all over the chart from a low of 126/97 to a high of 180/120. A lot of this has to do with patient refusing his p.o. medications and is having to try to give them to him IV. Also it is based upon his agitation level Keppra level is still pending Patient sputum is growing out staph aureus and H flu. Blood culture also growing out staph. Both of these organisms appear to be sensitive to cephalosporins as well as the fluoroquinolones, as well as sulfa Patient is currently on Zosyn but he has lost his IV site therefore I am going to order Keflex 500 mg 3 times daily, with a stop date of September 26 09/25/2019 Temperature 98.6 pulse 84 blood pressure times is normal and at other times as in this morning 165/120. Earlier this morning his pressure was 133/74. Because of his elevated pressures I have increased his Procardia from 30 mg a day up to 60. We will continue to use Apresoline as needed. His Keppra level was subtherapeutic and I have also increased his Keppra 1000 mg in the morning and 1500 mg in the evening. Patient remains on his Cogentin scheduled daily and Haldol as needed. The best I can tell from reading the MAR he is not using his Haldol Presently this morning the patient was quite pleasant smiling and is asking to be discharge. Not confrontational or hostile or belligerent, and was even making good eye contact with me. Because of patient's behavior that was potentially harmful to himself and others he is now IVC. Patient could be discharged on his antihypertensives as well as his antibiotics, if a bed becomes available. 09/26/2019 It is approximately 1630 hrs. and I just received a call from psychiatry saying that they have rescinded his IVC papers and that they feel that he is safe to be discharged home and not a threat to himself or others. His behavior last night when he was up on the nightstand and had to be restrained by security and then medicated makes me uneasy to discharge him. Also placed in restraints. Especially since we do not really have a good treatment plan, medication plan. He will need to go home on his Keppra 1000 milligrams in the morning and 1500 mg in the evening Keflex 500 mg mg 3 times daily, the stop date on the 10/01/19 So was Cogentin 1 mg daily, as well as his blood pressure medications. It is my recommendation that the patient have at least a 24-hour period of not being restrained with soft restraints, and not having to have medication for his agitation and bizarre behavior. Patient is a known substance abuser. Patient was originally admitted to the ICU intubated for cocaine abuse and sei zure disorder. Ever since patient has been extubated and up on the floor he has had bizarre behavior. Possibly due to anoxia from his seizures, possibly due to ischemic changes secondary to his substance abuse, possibly underlying bipolar depression illness and/or other psychiatric illness such as paranoid schizophrenic. - Time Time Spent with patient: 35 or more minutes
[2019-09-26] MEDS: BENZTROPINE MESYLATE 1 MG TABLET PO SCH (21:36)
[2019-09-27] MEDS: FUROSEMIDE INJ/PF 40 MG/4 ML SDV IV SCH (06:04)
[2019-09-27] MEDS: CEPHALEXIN 500 MG CAPSULE PO SCH (06:04)
[2019-09-27] MEDS: NIFEDIPINE 30 MG TAB.ER.24 PO SCH (11:19)
[2019-09-27] MEDS: METOPROLOL TARTRATE 25 MG TABLET PO SCH (11:20)
[2019-09-27] MEDS: LEVETIRACETAM 500 MG TABLET PO SCH (11:20)
[2019-09-27] MEDS: LISINOPRIL 10 MG TABLET PO SCH (11:20)
[2019-09-27] MEDS: ENOXAPARIN SODIUM INJ 40 MG/0.4 ML DISP.SYRIN SUBCUT SCH (11:22)
[2019-09-27] MEDS: FAMOTIDINE 20 MG TABLET PO SCH (11:24)
[2019-09-27 13:15] VITALS: BP 126/97
--- NOTE | 2019-10-03 22:12 | PDOC DISCHARGE SUMMARY ---
Impression - Admit/DC Date/PCP Admission Date/Primary Care Provider: 09/18/19 14:37 Discharge Date: 09/27/19 - Additional Information Resuscitation Status: Full Code Discharge Diet: Regular Discharge Activity: Activity As Tolerated, Balance Activity w/Rest Referrals: GERA MADDEN PA-C [NO LOCAL MD] - (LEFT A MESSAGE FOR PROVIDER'S OFFICE TO [facility] PATIENT WITH A HOSPITAL FOLLOW UP APPT.) Prescriptions: Benztropine Mesylate [Cogentin 1 mg Tablet] 1 mg PO QHS #30 tablet Cephalexin Monohydrate [Keflex 500 mg Capsule] 500 mg PO Q8 #12 capsule Levetiracetam [Keppra 500 mg Tablet] 1,000 mg PO QAM #60 tablet Levetiracetam [Keppra 500 mg Tablet] 1,500 mg PO QHS #90 tablet Metoprolol Tartrate [Lopressor 25 mg Tablet] 25 mg PO Q12 #60 tablet Lisinopril [Prinivil 10 mg Tablet] 30 mg PO DAILY #90 tablet Nifedipine [Procardia XL 30 mg Tablet] 60 mg PO DAILY #60 tab.er.24 Home Medications: Acetaminophen [Tylenol 325 mg Tablet] 650 mg NG Q4HP PRN tablet 09/27/19 Benztropine Mesylate [Cogentin 1 mg Tablet] 1 mg PO QHS #30 tablet 09/27/19 Cephalexin Monohydrate [Keflex 500 mg Capsule] 500 mg PO Q8 #12 capsule 09/27/19 Levetiracetam [Keppra 500 mg Tablet] 1,000 mg PO QAM #60 tablet 09/27/19 Levetiracetam [Keppra 500 mg Tablet] 1,500 mg PO QHS #90 tablet 09/27/19 Lisinopril [Prinivil 10 mg Tablet] 30 mg PO DAILY #90 tablet 09/27/19 Metoprolol Tartrate [Lopressor 25 mg Tablet] 25 mg PO Q12 #60 tablet 09/27/19 Nifedipine [Procardia XL 30 mg Tablet] 60 mg PO DAILY #60 tab.er.24 09/27/19 History of Present Illiness History of Present Illness: Per H&P by Dr. Cooper: This patient is a 34 yo man with a known seizure disorder who is non-compliant with keppra and abuses narcotics and cocaine further lowering his seizure threshold. He had several seizures today and was intubated for airway protection in the field and seizing on ED presentation. Seizures have stopped with IV keppra, ativan and propofol. He will be admitted to the ICU and extubated when awake. Hospital Course Hospital Course: Patient was admitted to the ICU for status epilepticus and placed on IV Keppra, propofol, and PRN Ativan. He did require intubation for airway protection on 09/18/2019. He was placed on IV Zosyn due to concern for possible aspiration event during his seizure. Blood cultures additionally grew gram-positive cocci while in the ICU; for which he received Zosyn. His clinical condition and leukocytosis r apidly improved upon addition of antibiotic therapy. He was supported with IV fluids and nephrotoxic medications were able to do development of an acute kidney injury. Fortunately, respiratory status improved and he was successfully extubated on 09/21/2019. He was downgraded to medical floor and onto the hospitalist service on 09/22/2019. Upon arrival to the medical floor, the patient did begin to exhibit impulsive behaviors which temporarily required IV medications and soft limb restraints. Mental health services were consulted and subsequently recommended IVC status. Per their recommendations, the patient was placed on Cogentin and Haldol for mood stabilization. Health services rescinded his IVC on 09/26/2019. The patient was observed for an additional 24 hours. And although he continued to demonstrate odd behavior with a frequent euphoric effect and borderline paranoid behaviors, he did comply with nursing and medication recommendations, did not require as needed medications, or soft limb restraints. Therefore, he was discharged home, into the care of his . Strong recommendations that the patient follow-up with primary care provider and establish with a mental health provider. Patient would benefit from a counselor who specializes in substance abuse. Physical Exam Vital Signs: Temp Pulse Resp BP Pulse Ox 98.2 F 70 18 126/97 H 100 09/27/19 13:22 09/27/19 13:22 09/27/19 13:22 09/27/19 13:09/27/19 13:22 General appearance: PRESENT: no acute distress, cooperative, well-developed, well-nourished Head exam: PRESENT: atraumatic, normocephalic Eye exam: PRESENT: conjunctiva pink, EOMI, PERRLA. ABSENT: scleral icterus Mouth exam: PRESENT: moist, tongue midline Respiratory exam: PRESENT: clear to auscultation ector, symmetrical, unlabored. ABSENT: rales, rhonchi, wheezes Cardiovascular exam: PRESENT: RRR. ABSENT: diastolic murmur, rubs, systolic murmur Extremities exam: PRESENT: full ROM. ABSENT: calf tenderness, clubbing, pedal edema Musculoskeletal exam: PRESENT: ambulatory Neurological exam: PRESENT: alert, awake, oriented to person, oriented to place, oriented to time, oriented to situation, CN II-XII grossly intact. ABSENT: motor sensory deficit Psychiatric exam: PRESENT: normal mood, unusual affect. ABSENT: homicidal ideation, suicidal ideation Skin exam: PRESENT: dry, intact, warm. ABSENT: cyanosis, rash Results Laboratory Results: WBC 4.1 10^3/uL (4.0-10.5) 09/21/19 03:53 RBC 3.78 10^6/uL (4.35-5.55) L 09/21/19 03:53 Hgb 11.9 g/dL (13.5-17.0) L 09/21/19 03:53 Hct 34.4 % (37.9-51.0) L 09/21/19 03:53 MCV 91 fl (80-97) 09/21/19 03:53 MCH 31.4 pg (27.0-33.4) 09/21/19 03:53 MCHC 34.4 g/dL (32.0-36.0) 09/21/19 03:53 RDW 12.9 % (11.5-14.0) 09/21/19 03:53 Plt Count 203 10^3/uL (150-450) 09/21/19 03:53 Lymph % (Auto) 30.1 % (13-45) 09/21/19 03:53 [place] % (Auto) 16.7 % (3-13) H 09/21/19 03:53 Eos % (Auto) 1.8 % (0-6) 09/21/19 03:53 Baso % (Auto) 0.8 % (0-2) 09/21/19 03:53 Absolute Neuts (auto) 2.1 10^3/uL (1.7-8.2) 09/21/19 03:53 Absolute Lymphs (auto) 1.2 10^3/uL (0.5-4.7) 09/21/19 03:53 Absolute Monos (auto) 0.7 10^3/uL (0.1-1.4) 09/21/19 03:53 Absolute Eos (auto) 0.1 10^3/uL (0.0-0.6) 09/21/19 03:53 Absolute Basos (auto) 0.0 10^3/uL (0.0-0.2) 09/21/19 03:53 Total Counted 100 09/18/19 11:07 Seg Neutrophils % 50.6 % (42-78) 09/21/19 03:53 Seg Neuts % (Manual) 89 % (42-78) H 09/18/19 11:07 Lymphocytes % (Manual) 4 % (13-45) L 09/18/19 11:07 Monocytes % (Manual) 6 % (3-13) 09/18/19 11:07 Eosinophils % (Manual) 0 % (0-6) 09/18/19 11:07 Basophils % (Manual) 1 % (0-2) 09/18/19 11:07 Abs Neuts (Manual) 11.9 10^3/uL (1.7-8.2) H 09/18/19 11:07 Abs Lymphs (Manual) 0.5 10^3/uL (0.5-4.7) 09/18/19 11:07 Abs Monocytes (Manual) 0.8 10^3/uL (0.1-1.4) 09/18/19 11:07 Absolute Eos (Manual) 0.0 10^3/uL (0.0-0.6) 09/18/19 11:07 Abs Basophils (Manual) 0.1 10^3/uL (0.0-0.2) 09/18/19 11:07 Platelet Comment ADEQUATE 09/18/19 11:07 Carbonic Acid 1.16 mmol/L (1.05-1.35) 09/20/19 08:00 HCO3/H2CO3 Ratio 18:1 09/20/19 08:00 ABG pH 7.36 (7.35-7.45) 09/20/19 08:00 ABG pCO2 38.6 mmHg (35-45) 09/20/19 08:00 ABG pO2 132.8 mmHg (80-100) H 09/20/19 08:00 ABG HCO3 21.3 mmol/L (20-24) 09/20/19 08:00 ABG Total CO2 22.5 mmol/L (23-27) L 09/20/19 08:00 ABG O2 Saturation 98.6 % (94-98) H 09/20/19 08:00 ABG Base Excess -3.8 mmol/L 09/20/19 08:00 FiO2 30% 09/20/19 08:00 Sodium 139.6 mmol/L (137-145) 09/21/19 03:53 Potassium 3.8 mmol/L (3.6-5.0) 09/21/19 03:53 Chloride 112 mmol/L (98-107) H 09/21/19 03:53 Carbon Dioxide 21 mmol/L (22-30) L 09/21/19 03:53 Anion Gap 7 (5-19) 09/21/19 03:53 BUN 6 mg/dL (7-20) L 09/21/19 03:53 Creatinine 0.94 mg/dL (0.52-1.25) 09/21/19 03:53 Est GFR ( Amer) > 60 (>60) 09/21/19 03:53 Est GFR (Non-Af Amer) Cancelled 09/20/19 03:55 Est GFR (MDRD) Non-Af > 60 (>60) 09/21/19 03:53 Glucose 73 mg/dL (75-110) L 09/21/19 03:53 POC Glucose 100 mg/dL (70-110) 09/23/19 17:44 Lactic Acid 3.0 mmol/L (0.7-2.1) H 09/18/19 12:30 Calcium 8.4 mg/dL (8.4-10.2) 09/21/19 03:53 Magnesium 1.9 mg/dL (1.6-2.3) 09/21/19 03:53 Total Bilirubin 0.9 mg/dL (0.2-1.3) 09/21/19 03:53 Direct Bilirubin 0.0 mg/dL (0.0-0.4) 09/21/19 03:53 Neonat Total Bilirubin Not Reportable 09/21/19 03:53 Neonat Direct Bilirubin Not Reportable 09/21/19 03:53 Neonat Indirect Bili Not Reportable 09/21/19 03:53 AST 14 U/L (17-59) L 09/21/19 03:53 ALT 8 U/L (<50) 09/21/19 03:53 Alkaline Phosphatase 59 U/L (38-126) 09/21/19 03:53 Total Protein 5.8 g/dL (6.3-8.2) L 09/21/19 03:53 Albumin 3.0 g/dL (3.5-5.0) L 09/21/19 03:53 EGFR Cancelled 09/20/19 03:55 Urine Color STRAW 09/18/19 12:01 Urine Appearance SLIGHTLY-CLOUDY 09/18/19 12:01 Urine pH 5.0 (5.0-9.0) 09/18/19 12:01 Ur Specific [place] 1.015 09/18/19 12:01 Urine Protein 100 mg/dL (NEGATIVE) H 09/18/19 12:01 Urine Glucose (UA) 50 mg/dL (NEGATIVE) H 09/18/19 12:01 Urine Ketones TRACE mg/dL (NEGATIVE) H 09/18/19 12:01 Urine Blood MODERATE (NEGATIVE) H 09/18/19 12:01 Urine Nitrite NEGATIVE (NEGATIVE) 09/18/19 12:01 Urine Bilirubin NEGATIVE (NEGATIVE) 09/18/19 12:01 Urine Urobilinogen NEGATIVE mg/dL (<2.0) 09/18/19 12:01 Ur Leukocyte Esterase NEGATIVE (NEGATIVE) 09/18/19 12:01 Urine WBC (Auto) 1 /HPF 09/18/19 12:01 Urine RBC (Auto) 0 /HPF 09/18/19 12:01 U Hyaline Cast (Auto) 1 /LPF 09/18/19 12:01 Squamous Epi Cells Auto 1 /HPF 09/18/19 12:01 Urine Mucus (Auto) RARE /LPF 09/18/19 12:01 Urine Ascorbic Acid NEGATIVE (NEGATIVE) 09/18/19 12:01 Urine Opiates Screen NEGATIVE 09/18/19 12:01 Urine Methadone Screen NEGATIVE 09/18/19 12:01 Ur Barbiturates Screen NEGATIVE 09/18/19 12:01 Levetiracetam 6.6 ug/mL (10.0-40.0) L 09/22/19 11:16 Ur Phencyclidine Scrn NEGATIVE 09/18/19 12:01 Ur Amphetamines Screen NEGATIVE 09/18/19 12:01 U Benzodiazepines Scrn UNCONFIRMED POSITIVE 09/18/19 12:01 Urine Cocaine Screen UNCONFIRMED POSITIVE 09/18/19 12:01 U Marijuana (THC) Screen NEGATIVE 09/18/19 12:01 Serum Alcohol < 10 mg/dL (NONE DETECTED) 09/18/19 13:45 Impressions: Chest X-Ray 09/18/19 11:51 IMPRESSION: ENDOTRACHEAL TUBE APPEARS IN SATISFACTORY POSITION. ATELECTASIS IN THE RIGHT LUNG BASE. Head CT 09/18/19 11:51 IMPRESSION: NORMAL BRAIN CT WITHOUT CONTRAST. EVIDENCE OF ACUTE STROKE: NO. KUB X-Ray 09/18/19 14:22 IMPRESSION: Enteric tube projecting over the left upper abdomen over the region of the stomach. Chest X-Ray 09/20/19 05:00 IMPRESSION: IMPROVED AERATION. NO ACUTE RADIOGRAPHIC FINDING IN THE CHEST. Plan Plan of Treatment: Patient is discharged home in stable condition. He is instructed to follow-up with his primary care provider within 1 week. Follow-up with neurologist as scheduled. Follow-up with recommend referral to outpatient mental health services. Take your other medication as prescribed. Eat a heart healthy diet. Do NOT smoke. Return to emergency department as needed for concerning symptoms. Time Spent: Greater than 30 Minutes Stroke Is this a Stroke Patient?: No Acute Heart Failure - Is this a Heart Failure Patient?: No
== END 2019-09-27 13:38 | disposition home or self-care (01) | DRG 100 ==
LOC: ER 11:41 → EH 14:37 → ICU 17:14 → 5 09-21 17:41
PROVIDERS: ADMIT Internal Medicine Critical Care Medicine; ATTEND Internal Medicine Critical Care Medicine
PROC: 5A1945Z Respiratory Ventilation, 24-96 Consecutive Hours (ICD-10-PCS; principal; 2019-09-18)
PROC: 0BH17EZ Insertion of Endotracheal Airway into Trachea, Via Natural or Artificial Opening (ICD-10-PCS; 2019-09-18)
DX: G40.901 Epilepsy, unspecified, not intractable, with status epilepticus (principal); J69.0 Pneumonitis due to inhalation of food and vomit; N17.9 Acute kidney failure, unspecified; G93.40 Encephalopathy, unspecified; M62.82 Rhabdomyolysis; F14.129 Cocaine abuse with intoxication, unspecified; F19.10 Other psychoactive substance abuse, uncomplicated; I10 Essential (primary) hypertension; Z91.19 Patient's noncompliance with other medical treatment and regimen; Z87.820 Personal history of traumatic brain injury
CPT/HCPCS: 36415; 51702; 70450; 71045; 74018; 80048; 80053; 80177; 80307; 81001; 82803; 82962; 83605; 83735; 85025; 87040; 87070; 87077; 87150; 87186; 87205; 93005; 93010; 94002; 94003; 94640; 94799; 96365; 96375; 99291; J0360; J1630; J1650; J1953; J2060; J2543; J2704; J3486; J3490; J7030; J7050; J7620; S0028

== ENCOUNTER 2019-10-16 12:06 | Emergency (ER) | payer MEDICARE, MEDICAID ==
[2019-10-16] MEDS ORDERED: LEVETIRACETAM 1000 MG/NACL-ISO 1,000 MG/100 ML RTUPB IV ONE ×2 (12:20→12:37)
--- NOTE | 2019-10-16 12:32 | ER Document Report ---
ED Seizure - General Stated Complaint: SEIZURES Time Seen by Provider: 10/16/19 12:11 Mode of Arrival: Medic Information source: Transfer Record Cannot obtain history due to: Altered mental status Notes: Patient presents after having 2 witnessed seizures at home. Patient has a history of known seizure disorder and noncompliance with his antiepileptic medication. Patient also has a history of substance abuse including alcohol and cocaine. EMS not report any known fall or injury. Upon arrival to ER, patient did state that he had to urinate and has otherwise not responding to questionin g. - HPI Patient complains to provider of: History of seizures Current seizure medications: Keppra Preceding symptoms/context: Recent alcohol intake, Recent drug use Injuries: None Treatment CLOCK MAKER: No: Advanced airway - Related Data Allergies/Adverse Reactions: hydrocodone [From Vicodin] Allergy (Verified 10/16/19 16:14) Past Medical History - General Information source: Transfer Record - Social History Smoking Status: Unknown if Ever Smoked Frequency of alcohol use: Occasional Drug Abuse: Cocaine Lives with: Spouse/Significant other Family History: Reviewed & Not Pertinent, Other - unable to determine at this time - Past Medical History Cardiac Medical History: Reports: Hx Hypertension Neurological Medical History: Reports: Hx Seizures Renal/ Medical History: Denies: Hx Peritoneal Dialysis Psychiatric Medical History: Denies: Hx Depression Traumatic Medical History: 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 Surgical Hx: Negative - Immunizations Immunizations up to date: No Hx Diphtheria, Pertussis, Tetanus Vaccination: Yes Review of Systems - Review of Systems -: Yes ROS unobtainable due to patient's medical condition Physical Exam - Vital signs Vitals: Resp Pulse Ox 15 98 10/16/19 12:15 10/16/19 12:15 - General Notes: Resting with eyes closed, initially opened eyes when reporting he had to urinate - HEENT Head: Normocephalic. No: Atraumatic, Abrasions, Colon's sign, Ecchymosis, Tenderness Nasal: Normal Mouth/Lips: Normal Mucous membranes: Normal Neck: Normal, Supple - Respiratory Respiratory status: No respiratory distress Chest status: Nontender Breath sounds: Normal. No: Rales, Rhonchi, Stridor, Wheezing Chest palpation: Normal - Cardiovascular Rhythm: Regular Heart sounds: S1 appreciated, S2 appreciated - Abdominal Inspection: Normal - Extremities General upper extremity: Normal inspection, Nontender, Normal ROM General lower extremity: Normal inspection, Nontender, Normal ROM - Neurological Neuro grossly intact: Yes Orientation: AAOx4 [place] Coma Scale Eye Opening: Spontaneous [place] Coma Scale Verbal: Oriented [place] Coma Scale Motor: Obeys Commands [place] Coma Scale Total: 15 - Psychological Associated symptoms: Normal affect, Normal mood - Skin Skin Temperature: Warm Skin Moisture: Dry Skin Color: Normal Course - Re-evaluation Re-evalutation: 10/16/19 12:[address] Dhillon regarding patient presentation and plan to start IV Keppra, Dr. Dhillon advises not giving IV Keppra at this time and consulting with shellfish grower. 10/16/19 12:[address] Sanchez regarding patient presentation and known history of noncompliance and report of 2 seizures witnessed at home today by significant other. Advises giving loading dose of Keppra 1 g IV. 10/16/19 15:06 Patient resting with eyes closed, arouses easily to voice. Patient requesting food at this time. Patient mildly hypertensive although does state that he did not take his blood pressure medicine at home. 10/16/19 16:18 Patient will occasionally ask for food, and then when staff are at bedside patient refuses to answer without repeated questioning. Patient then responds and answers questions appropriately. Other staff states that this is typical behavior of patient who are familiar with him from his repeated visits for seizures. 10/16/19 16:[address] Dhillon regarding patient presentation diagnostic evaluation. Patient without any seizure activity here, recommends discharge at this time. Patient does have prescriptions for all of his blood pressure and antiepileptic medications that do appear to be filled earlier this month. 10/16/19 17:09 Patient with stable vital signs. No additional seizure activity here. 10/16/19 17:26 Patient provided the number for his [id number] at [phone]. [id number] was not there although his was there. states that patient has been noncompliant with his medication until through the excuse that he is blessed by God and does not need it. does state that he does have his medications there. - Vital Signs Vital signs: Temp Pulse Resp BP Pulse Ox 98.9 F 13 173/124 H 100 10/16/19 12:17 10/16/19 16:01 10/16/19 16:01 10/16/19 16:01 - Laboratory Result Diagrams: 10/16/19 12:21 10/16/19 12:21 Laboratory results interpreted by me: 10/16/19 10/16/19 10/16/19 12:21 12:21 12:21 Seg Neutrophils % 78.1 H Carbon Dioxide 16 L Creatinine 1.26 H Magnesium Urine Blood MODERATE H 10/16/19 12:21 Seg Neutrophils % Carbon Dioxide Creatinine Magnesium 2.8 H Urine Blood Labs- Entire Visit 10/16/19 10/16/19 10/16/19 12:21 12:21 12:21 WBC 5.2 RBC 4.41 Hgb 13.6 Hct 40.5 MCV 92 MCH 30.9 MCHC 33.6 RDW 13.4 Plt Count 212 Lymph % (Auto) 13.3 [place] % (Auto) 7.4 Eos % (Auto) 0.3 Baso % (Auto) 0.9 Absolute Neuts (auto) 4.1 Absolute Lymphs (auto) 0.7 Absolute Monos (auto) 0.4 Absolute Eos (auto) 0.0 Absolute Basos (auto) 0.0 Seg Neutrophils % 78.1 H VBG pH VBG pCO2 VBG HCO3 VBG Base Excess Sodium 138.5 Potassium 4.0 Chloride 105 Carbon Dioxide 16 L Anion Gap 18 BUN 8 Creatinine 1.26 H Est GFR ( Amer) > 60 Est GFR (MDRD) Non-Af > 60 Glucose 80 Calcium 9.4 Magnesium Total Bilirubin 0.4 Direct Bilirubin 0.3 Neonat Total Bilirubin Not Reportable Neonat Direct Bilirubin Not Reportable Neonat Indirect Bili Not Reportable AST 24 ALT 21 Alkaline Phosphatase 82 Total Protein 7.9 Albumin 4.5 Urine Color COLORLESS Urine Appearance CLEAR Urine pH 5.0 Ur Specific [place] 1.009 Urine Protein NEGATIVE Urine Glucose (UA) NEGATIVE Urine Ketones NEGATIVE Urine Blood MODERATE H Urine Nitrite NEGATIVE Urine Bilirubin NEGATIVE Urine Urobilinogen NEGATIVE Ur Leukocyte Esterase NEGATIVE Urine WBC (Auto) 0 Urine RBC (Auto) 0 U Hyaline Cast (Auto) 1 Urine Bacteria (Auto) TRACE Squamous Epi Cells Auto <1 Urine Mucus (Auto) RARE Urine Ascorbic Acid NEGATIVE Urine Opiates Screen Urine Methadone Screen Ur Barbiturates Screen Ur Phencyclidine Scrn Ur Amphetamines Screen U Benzodiazepines Scrn Urine Cocaine Screen U Marijuana (THC) Screen Serum Alcohol < 10 10/16/19 10/16/19 10/16/19 12:21 12:21 12:59 WBC RBC Hgb Hct MCV MCH MCHC RDW Plt Count Lymph % (Auto) [place] % (Auto) Eos % (Auto) Baso % (Auto) Absolute Neuts (auto) Absolute Lymphs (auto) Absolute Monos (auto) Absolute Eos (auto) Absolute Basos (auto) Seg Neutrophils % VBG pH 7.30 VBG pCO2 44.0 VBG HCO3 21.3 VBG Base Excess -5.0 Sodium Potassium Chloride Carbon Dioxide Anion Gap BUN Creatinine Est GFR ( Amer) Est GFR (MDRD) Non-Af Glucose Calcium Magnesium 2.8 H Total Bilirubin Direct Bilirubin Neonat Total Bilirubin Neonat Direct Bilirubin Neonat Indirect Bili AST ALT Alkaline Phosphatase Total Protein Albumin Urine Color Urine Appearance Urine pH Ur Specific [place] Urine Protein Urine Glucose (UA) Urine Ketones Urine Blood Urine Nitrite Urine Bilirubin Urine Urobilinogen Ur Leukocyte Esterase Urine WBC (Auto) Urine RBC (Auto) U Hyaline Cast (Auto) Urine Bacteria (Auto) Squamous Epi Cells Auto Urine Mucus (Auto) Urine Ascorbic Acid Urine Opiates Screen NEGATIVE Urine Methadone Screen NEGATIVE Ur Barbiturates Screen NEGATIVE Ur Phencyclidine Scrn NEGATIVE Ur Amphetamines Screen NEGATIVE U Benzodiazepines Scrn NEGATIVE Urine Cocaine Screen UNCONFIRMED POSITIVE U Marijuana (THC) Screen NEGATIVE Serum Alcohol - Diagnostic Test Radiology reviewed: Reports reviewed - EKG Interpretation by Me EKG shows normal: Sinus rhythm Rate: Normal Additional EKG results interpreted by me: 10/16/19 17:[address] elevation, QTc 458 Discharge - Discharge Clinical Impression: Seizure, Noncompliance, Cocaine abuse Condition: Stable Disposition: HOME, SELF-CARE Instructions: Cocaine Abuse ([facility]), Seizure, Known Epileptic ([facility]) Additional Instructions: Return immediately for any new or worsening symptoms Followup with your primary care provider, call tomorrow to make a followup appointment Take your blood pressure medication and your seizure medications at home as prescribed Avoid use of cocaine
[2019-10-16 12:36] LABS: ABSOLUTE LYMPHOCYTES (AUTO) 0.7 10^3/uL (0.5-4.7); ABSOLUTE MONOCYTES (AUTO) 0.4 10^3/uL (0.1-1.4); ABSOLUTE NEUT (AUTO) 4.1 10^3/uL (1.7-8.2); BASOPHILS % (AUTO) 0.9 % (0-2); EOSINOPHILS % (AUTO) 0.3 % (0-6); HEMATOCRIT 40.5 % (37.9-51.0); HEMOGLOBIN 13.6 g/dL (13.5-17.0); LYMPHOCYTES % (AUTO) 13.3 % (13-45); MEAN CORPUSCULAR HEMOGLOBIN 30.9 pg (27.0-33.4); MEAN CORPUSCULAR HGB CONC 33.6 g/dL (32.0-36.0); MEAN CORPUSCULAR VOLUME 92 fl (80-97); MONOCYTES % (AUTO) 7.4 % (3-13); PLATELET COUNT 212 10^3/uL (150-450); RED BLOOD COUNT 4.41 10^6/uL (4.35-5.55); RED CELL DISTRIBUTION WIDTH 13.4 % (11.5-14.0); SEGMENTED NEUTROPHILS % (AUTO) 78.1 % (42-78); TOTAL CELLS COUNTED % (AUTO) 100 %; WHITE BLOOD COUNT 5.2 10^3/uL (4.0-10.5)
[2019-10-16 12:41] LABS: APPEARANCE,URINE CLEAR; BILIRUBIN,URINE NEGATIVE (NEGATIVE); COLOR,URINE COLORLESS; GLUCOSE, URINE NEGATIVE (NEGATIVE); KETONES,URINE NEGATIVE (NEGATIVE); LEUKOCYTE ESTERASE,URINE NEGATIVE (NEGATIVE); NITRITE,URINE NEGATIVE (NEGATIVE); PROTEIN,URINE NEGATIVE (NEGATIVE); URINE SPECIFIC GRAVITY 1.009; UROBILINOGEN,URINE NEGATIVE mg/dL (<2.0)
[2019-10-16 12:54] LABS: ALBUMIN 4.5 g/dL (3.5-5.0); ALKALINE PHOSPHATASE 82 U/L (38-126); ANION GAP 18 (5-19); ASPARTATE AMINO TRANSFERASE 24 U/L (17-59); BILIRUBIN,DIRECT 0.3 mg/dL (0.0-0.4); BILIRUBIN,TOTAL 0.4 mg/dL (0.2-1.3); BLOOD UREA NITROGEN 8 mg/dL (7-20); CALCIUM 9.4 mg/dL (8.4-10.2); CARBON DIOXIDE 16 mmol/L (22-30); CHLORIDE 105 mmol/L (98-107); GLUCOSE 80 mg/dL (75-110); TOTAL PROTEIN 7.9 g/dL (6.3-8.2)
[2019-10-16 13:01] LABS: URINE AMPHETAMINES SCREEN NEGATIVE; URINE BARBITURATES SCREEN NEGATIVE; URINE BENZODIAZEPINES SCREEN NEGATIVE; URINE COCAINE SCREEN UNCONFIRMED POSITIVE; URINE MARIJUANA (THC) SCREEN NEGATIVE; URINE METHADONE SCREEN NEGATIVE; URINE PHENCYCLIDINE SCREEN NEGATIVE
[2019-10-16 13:09] LABS: ALCOHOL < 10 mg/dL (NONE DETECTED)
[2019-10-16 13:12] LABS: VENOUS BLOOD HCO3 21.3 mmol/L (20-32); VENOUS BLOOD PH 7.3 (7.30-7.42)
--- NOTE | 2019-10-16 13:57 | EKG REPORT ---
SEVERITY:- ABNORMAL ECG - SINUS RHYTHM LEFT ATRIAL ABNORMALITY : Confirmed by: Raghu Bird MD 16-Oct-2019 13:56:08
--- NOTE | 2019-10-16 14:03 | RADIOLOGY REPORT (SQ) ---
EXAM DESCRIPTION: CHEST SINGLE VIEW IMAGES COMPLETED DATE/TIME: 10/16/2019 1:43 pm REASON FOR STUDY: seizure, AMS COMPARISON: 09/20/2019 NUMBER OF VIEWS: One view. TECHNIQUE: Single frontal radiographic view of the chest acquired. LIMITATIONS: None. FINDINGS: LUNGS AND PLEURA: No opacities, masses or pneumothorax. No pleural effusion. MEDIASTINUM AND HILAR STRUCTURES: No masses. Contour normal. HEART AND VASCULAR STRUCTURES: Heart normal in size. Normal vasculature. BONES: No acute findings. HARDWARE: None in the chest. OTHER: No other significant finding. IMPRESSION: NO SIGNIFICANT RADIOGRAPHIC FINDING IN THE CHEST. TECHNICAL DOCUMENTATION: JOB ID: [id number] 2010 [employer]- All Rights Reserved Reading location - IP/workstation name: [email or web address]
--- NOTE | 2019-10-16 14:52 | RADIOLOGY REPORT (SQ) ---
EXAM DESCRIPTION: CT HEAD WITHOUT IMAGES COMPLETED DATE/TIME: 10/16/2019 2:42 pm REASON FOR STUDY: seizure, etoh use, AMS COMPARISON: 09/18/2019 TECHNIQUE: Axial images acquired through the brain without intravenous contrast. Images reviewed wi th bone, brain and subdural windows. Additional sagittal and coronal reconstructions were generated. Images stored on PACS. All CT scanners at this facility use dose modulation, iterative reconstruction, and/or weight based d osing when appropriate to reduce radiation dose to as low as reasonably achievable (ALARA). [facility]: Dose Right [facility]: CareDose [facility]: Dose Right [facility]: Teradose 4D [facility]: [employer] RADIATION DOSE: CT Rad equipment meets quality standard of care and radiation dose reduction techniq ues were employed. CTDIvol: 53.2 mGy. DLP: 1044 mGy-cm. mGy. LIMITATIONS: None. FINDINGS: VENTRICLES: Normal size and contour. CEREBRUM: No masses. No hemorrhage. No midline shift. No evidence for acute infarction. Normal gra y/white matter differentiation. No areas of low density in the white matter. CEREBELLUM: No masses. No hemorrhage. No alteration of density. No evidence for acute infarction. EXTRAAXIAL SPACES: No fluid collections. No masses. ORBITS AND GLOBE: No intra- or extraconal masses. Normal contour of globe without masses. CALVARIUM: No fracture. PARANASAL SINUSES: No fluid or mucosal thickening. SOFT TISSUES: Mild left frontal scalp soft tissue swelling/ hematoma. No underlying fracture. OTHER: No other significant finding. IMPRESSION: No acute intracranial abnormality. EVIDENCE OF ACUTE STROKE: NO. COMMENT: Quality ID # [id number]: Final reports with documentation of one or more dose reduction techniques (e.g., Automated exposure control, adjustment of the mA and/or kV according to patient size, use of iterative reconstruction technique) TECHNICAL DOCUMENTATION: JOB ID: [id number] 2010 [employer]- All Rights Reserved Reading location - IP/workstation name: [email or web address]
[2019-10-16] MEDS ORDERED: LISINOPRIL 10 MG TABLET PO ONE ×2 (15:05→15:12)
[2019-10-16 16:10] VITALS: BP 173/124
== END 2019-10-16 19:00 | disposition home or self-care (01) ==
LOC: ER 12:06
DX: G40.909 Epilepsy, unspecified, not intractable, without status epilepticus (principal); F14.10 Cocaine abuse, uncomplicated; I10 Essential (primary) hypertension; Z91.19 Patient's noncompliance with other medical treatment and regimen; Z88.6 Allergy status to analgesic agent; Z88.5 Allergy status to narcotic agent
CPT/HCPCS: 93005; 99285; 96365; 36415; 80177; 80307 ×2; 83735; 85025; 80053; 81001; 82803; 71045; 70450; 93010; A9270; J1953

== ENCOUNTER 2019-11-16 08:12 | Emergency (ER) | payer MEDICARE, MEDICAID ==
[2019-11-16] MEDS ORDERED: LEVETIRACETAM 1000 MG/NACL-ISO 1,000 MG/100 ML RTUPB IV ONE (08:31)
--- NOTE | 2019-11-16 08:35 | ER Document Report ---
ED Seizure - General Chief Complaint: Seizure Stated Complaint: POSSIBLE SEIZURE Time Seen by Provider: 11/16/19 08:19 Primary Care Provider: [facility] [Provider Group] - Follow up tomorrow [facility] [Provider Group] - Follow up as needed [facility] [Provider Group] - Follow up as needed Information source: Patient, Transfer Record Notes: Patient presents after having 2 witnessed seizures this morning. Seizures were about an hour apart with the last 1 just prior to arrival. Patient was in bed and the first seizure lasted for about a minute and there was no injury. Second seizure occurred when patient was sitting in a chair and there was no additional injury. observed seizure activity. called EMS informing them that he has a history of noncompliance. Patient has been seen numerous times in the past for similar presentation with noncompliance of medications. - HPI Patient complains to provider of: History of seizures Current seizure medications: Keppra Character of seizure: Generalized shaking Post-ictal symptoms: Confusion Injuries: None - Related Data Allergies/Adverse Reactions: hydrocodone [From Vicodin] Allergy (Verified 10/16/19 16:14) Past Medical History - General Information source: Transfer Record, PENDING SALE TO [facility] Records - Social History Smoking Status: Never Smoker Frequency of alcohol use: Occasional Drug Abuse: Cocaine Lives with: Family Family History: Reviewed & Not Pertinent, Other - unable to determine at this time - Past Medical History Cardiac Medical History: Reports: Hx Hypertension Neurological Medical History: Reports: Hx Seizures Renal/ Medical History: Denies: Hx Peritoneal Dialysis Psychiatric Medical History: Reports: Hx Anxiety, Hx Depression Traumatic Medical History: 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 Surgical Hx: Negative - Immunizations Immunizations up to date: No Hx Diphtheria, Pertussis, Tetanus Vaccination: Yes Review of Systems - Review of Systems -: Yes ROS unobtainable due to patient's medical condition Physical Exam - Vital signs Vitals: Temp 98.0 F 11/16/19 08:12 - General In distress: None Notes: Resting with eyes closed, postictal state - HEENT Head: Normocephalic, Atraumatic Nasal: Normal Mouth/Lips: Normal Neck: Normal, Supple - Respiratory Respiratory status: No respiratory distress Chest status: Nontender Breath sounds: Normal. No: Rales, Rhonchi, Stridor, Wheezing Chest palpation: Normal - Cardiovascular Rhythm: Regular Heart sounds: S1 appreciated, S2 appreciated - Abdominal Inspection: Normal Bowel sounds: Normal - Extremities General upper extremity: Normal inspection, Normal ROM General lower extremity: Normal inspection, Normal ROM - Neurological Neuro grossly intact: Yes Cognition: Normal [place] Coma Scale Eye Opening: Spontaneous [place] Coma Scale Verbal: Oriented [place] Coma Scale Motor: Obeys Commands [place] Coma Scale Total: 15 - Psychological Associated symptoms: Normal affect, Normal mood - Skin Skin Temperature: Warm Skin Moisture: Dry Skin Color: Normal Course - Re-evaluation Re-evalutation: 11/16/19 08:47 Patient with additional seizure just lasting a few seconds, Keppra had not been initiated, RN to obtain medication at this time. Dr. Cazares bedside, advises just given the Keppra and not given any Ativan at this time. 11/16/19 10:35 Dr Cazares advises obtaining head CT given patient's history of cocaine abuse in the past. 11/16/19 11:55 Patient resting with eyes closed, CT scan reviewed, no acute findings. 11/16/19 13:10 Patient arouses easily to voice. Will treat patient's hypertension at this time. 11/16/19 14:10 Patient seen at bedside states that he is ready to go home and wants to call his ride. Patient without any additional seizure activity. Patient states that he has been taking his medication although disputes this. Patient encouraged to follow-up with a primary doctor for further evaluation. Patient denies any complaints at this time. - Vital Signs Vital signs: Temp Pulse Resp BP Pulse Ox 98.0 F 72 17 170/124 H 100 11/16/19 08:12 11/16/19 08:36 11/16/19 10:01 11/16/19 10:00 11/16/19 10:01 - Laboratory Result Diagrams: 11/16/19 09:29 11/16/19 08:30 Laboratory results interpreted by me: 11/16/19 08:30 Carbon Dioxide 16 L Total Protein 8.7 H Albumin 5.2 H Labs- Entire Visit 11/16/19 11/16/19 11/16/19 08:30 08:30 09:29 WBC Cancelled 7.1 RBC Cancelled 5.35 Hgb Cancelled 16.6 Hct Cancelled 49.1 MCV Cancelled 92 MCH Cancelled 31.1 MCHC Cancelled 33.9 RDW Cancelled 13.8 Plt Count Cancelled 195 Lymph % (Auto) Cancelled 16.8 [place] % (Auto) Cancelled 9.4 Eos % (Auto) Cancelled 0.1 Baso % (Auto) Cancelled 0.9 Absolute Neuts (auto) Cancelled 5.2 Absolute Lymphs (auto) Cancelled 1.2 Absolute Monos (auto) Cancelled 0.7 Absolute Eos (auto) Cancelled 0.0 Absolute Basos (auto) Cancelled 0.1 Seg Neutrophils % Cancelled 72.8 Platelet Estimate Cancelled Sodium 138.9 Potassium 4.5 Chloride 104 Carbon Dioxide 16 L Anion Gap 19 BUN 10 Creatinine 1.08 Est GFR ( Amer) > 60 Est GFR (MDRD) Non-Af > 60 Glucose 95 Calcium 10.0 Total Bilirubin 0.6 Direct Bilirubin 0.0 Neonat Total Bilirubin Not Reportable Neonat Direct Bilirubin Not Reportable Neonat Indirect Bili Not Reportable AST 33 ALT 23 Alkaline Phosphatase 84 Total Protein 8.7 H Albumin 5.2 H Slides for Path Review Cancelled - Diagnostic Test Radiology reviewed: Reports reviewed - EKG Interpretation by Me EKG shows normal: Sinus rhythm When compared to previous EKG there are: No significant change Additional EKG results interpreted by me: 11/16/19 10:[address] elevation, QTc 461 Discharge - Discharge Clinical Impression: Seizure Hypertension Qualifiers: Hypertension type: unspecified Qualified Code(s): I10 - Essential (primary) hypertension Condition: Stable Disposition: HOME, SELF-CARE Instructions: High Blood Pressure, Requiring Treatment ([facility]), Seizure, Known Epileptic ([facility]) Additional Instructions: Return immediately for any new or worsening symptoms Followup with your primary care provider, call tomorrow to make a followup appointment Take your medications that you have at home as prescribed Referrals: [facility] [Provider Group] - Follow up as needed [facility] [Provider Group] - Follow up as needed [facility] [Provider Group] - Follow up tomorrow
[2019-11-16 09:09] LABS: ALBUMIN 5.2 g/dL (3.5-5.0); ALKALINE PHOSPHATASE 84 U/L (38-126); ANION GAP 19 (5-19); ASPARTATE AMINO TRANSFERASE 33 U/L (17-59); BILIRUBIN,TOTAL 0.6 mg/dL (0.2-1.3); BLOOD UREA NITROGEN 10 mg/dL (7-20); CARBON DIOXIDE 16 mmol/L (22-30); CHLORIDE 104 mmol/L (98-107); GLUCOSE 95 mg/dL (75-110); POTASSIUM 4.5 mmol/L (3.6-5.0); TOTAL PROTEIN 8.7 g/dL (6.3-8.2)
[2019-11-16 09:45] LABS: ABSOLUTE BASOPHILS # (AUTO) 0.1 10^3/uL (0.0-0.2); ABSOLUTE LYMPHOCYTES (AUTO) 1.2 10^3/uL (0.5-4.7); ABSOLUTE MONOCYTES (AUTO) 0.7 10^3/uL (0.1-1.4); ABSOLUTE NEUT (AUTO) 5.2 10^3/uL (1.7-8.2); BASOPHILS % (AUTO) 0.9 % (0-2); EOSINOPHILS % (AUTO) 0.1 % (0-6); HEMATOCRIT 49.1 % (37.9-51.0); HEMOGLOBIN 16.6 g/dL (13.5-17.0); LYMPHOCYTES % (AUTO) 16.8 % (13-45); MEAN CORPUSCULAR HEMOGLOBIN 31.1 pg (27.0-33.4); MEAN CORPUSCULAR HGB CONC 33.9 g/dL (32.0-36.0); MEAN CORPUSCULAR VOLUME 92 fl (80-97); MONOCYTES % (AUTO) 9.4 % (3-13); PLATELET COUNT 195 10^3/uL (150-450); RED BLOOD COUNT 5.35 10^6/uL (4.35-5.55); RED CELL DISTRIBUTION WIDTH 13.8 % (11.5-14.0); SEGMENTED NEUTROPHILS % (AUTO) 72.8 % (42-78); TOTAL CELLS COUNTED % (AUTO) 100 %; WHITE BLOOD COUNT 7.1 10^3/uL (4.0-10.5)
[2019-11-16 10:06] VITALS: BP 170/124
--- NOTE | 2019-11-16 11:10 | RADIOLOGY REPORT (SQ) ---
EXAM DESCRIPTION: CT HEAD WITHOUT IMAGES COMPLETED DATE/TIME: 11/16/2019 10:55 am REASON FOR STUDY: seizure, hx subs abuse COMPARISON: None. TECHNIQUE: Axial images acquired through the brain without intravenous contrast. Images reviewed wi th bone, brain and subdural windows. Additional sagittal and coronal reconstructions were generated. Images stored on PACS. All CT scanners at this facility use dose modulation, iterative reconstruction, and/or weight based d osing when appropriate to reduce radiation dose to as low as reasonably achievable (ALARA). [facility]: Dose Right [facility]: CareDose [facility]: Dose Right [facility]: Teradose 4D [facility]: [employer] RADIATION DOSE: CT Rad equipment meets quality standard of care and radiation dose reduction techniq ues were employed. CTDIvol: 53.2 mGy. DLP: 1177 mGy-cm. mGy. LIMITATIONS: None. FINDINGS: VENTRICLES: Normal size and contour. CEREBRUM: No masses. No hemorrhage. No midline shift. No evidence for acute infarction. Normal gra y/white matter differentiation. No areas of low density in the white matter. CEREBELLUM: No masses. No hemorrhage. No alteration of density. No evidence for acute infarction. EXTRAAXIAL SPACES: No fluid collections. No masses. ORBITS AND GLOBE: No intra- or extraconal masses. Normal contour of globe without masses. CALVARIUM: No fracture. PARANASAL SINUSES: No fluid or mucosal thickening. SOFT TISSUES: No mass or hematoma. OTHER: No other significant finding. IMPRESSION: NORMAL BRAIN CT WITHOUT CONTRAST. EVIDENCE OF ACUTE STROKE: NO. COMMENT: Quality ID # [id number]: Final reports with documentation of one or more dose reduction techniques (e.g., Automated exposure control, adjustment of the mA and/or kV according to patient size, use of iterative reconstruction technique) TECHNICAL DOCUMENTATION: JOB ID: [id number] 2010 [employer]- All Rights Reserved Reading location - IP/workstation name: [email or web address]
[2019-11-16] MEDS ORDERED: LISINOPRIL 10 MG TABLET PO ONE (13:06)
[2019-11-16] MEDS ORDERED: NIFEDIPINE 30 MG TAB.ER.24 PO ONE (13:08)
--- NOTE | 2019-11-16 22:05 | EKG REPORT ---
SEVERITY:- ABNORMAL ECG - SINUS RHYTHM BIATRIAL ABNORMALITIES LEFT VENTRICULAR HYPERTROPHY : Confirmed by: Maddy Marx MD 16-Nov-2019 22:04:42
== END 2019-11-16 14:45 | disposition home or self-care (01) ==
LOC: ER 08:12
DX: G40.909 Epilepsy, unspecified, not intractable, without status epilepticus (principal); I10 Essential (primary) hypertension; Z91.14 Patient's other noncompliance with medication regimen
CPT/HCPCS: 93005; 99285; 36415; 80177; 85025; 80053; 70450; 93010; A9270 ×2; J1953

== ENCOUNTER 2019-12-04 11:27 | Emergency (ER) | payer MEDICARE, MEDICAID ==
[2019-12-04] MEDS ORDERED: LEVETIRACETAM 1000 MG/NACL-ISO 1,000 MG/100 ML RTUPB IV ONE (11:35)
[2019-12-04] MEDS ORDERED: NORMAL SALINE 1000 ML 1,000 ML IV ONE ×2 (11:35→14:05)
[2019-12-04 11:52] LABS: ABSOLUTE BASOPHILS # (AUTO) 0.1 10^3/uL (0.0-0.2); ABSOLUTE LYMPHOCYTES (AUTO) 3.9 10^3/uL (0.5-4.7); ABSOLUTE MONOCYTES (AUTO) 0.9 10^3/uL (0.1-1.4); ABSOLUTE NEUT (AUTO) 3.4 10^3/uL (1.7-8.2); EOSINOPHILS % (AUTO) 0.2 % (0-6); HEMATOCRIT 48.1 % (37.9-51.0); HEMOGLOBIN 16.1 g/dL (13.5-17.0); LYMPHOCYTES % (AUTO) 46.7 % (13-45); MEAN CORPUSCULAR HEMOGLOBIN 30.8 pg (27.0-33.4); MEAN CORPUSCULAR HGB CONC 33.4 g/dL (32.0-36.0); MEAN CORPUSCULAR VOLUME 92 fl (80-97); MONOCYTES % (AUTO) 10.8 % (3-13); PLATELET COUNT 246 10^3/uL (150-450); RED BLOOD COUNT 5.21 10^6/uL (4.35-5.55); RED CELL DISTRIBUTION WIDTH 13.9 % (11.5-14.0); SEGMENTED NEUTROPHILS % (AUTO) 41.3 % (42-78); TOTAL CELLS COUNTED % (AUTO) 100 %; WHITE BLOOD COUNT 8.3 10^3/uL (4.0-10.5)
[2019-12-04 12:12] LABS: ALBUMIN 5.5 g/dL (3.5-5.0); ALKALINE PHOSPHATASE 117 U/L (38-126); ASPARTATE AMINO TRANSFERASE 27 U/L (17-59); BILIRUBIN,TOTAL 0.5 mg/dL (0.2-1.3); BLOOD UREA NITROGEN 11 mg/dL (7-20); CALCIUM 11.4 mg/dL (8.4-10.2); CHLORIDE 106 mmol/L (98-107); CREATINE KINASE 193 U/L (55-170); GLUCOSE 127 mg/dL (75-110); POTASSIUM 4.2 mmol/L (3.6-5.0); TOTAL PROTEIN 9.3 g/dL (6.3-8.2)
[2019-12-04 12:17] LABS: CARBON DIOXIDE 11 mmol/L (22-30)
[2019-12-04 12:18] LABS: ANION GAP 29 (5-19)
--- NOTE | 2019-12-04 12:24 | ER Document Report ---
Entered by HITESH KING SCRIBE 12/04/19 1131 Acting as scribe for:GINGER BYRNES MD ED Seizure - General Stated Complaint: ALTERED MENTAL STATUS Mode of Arrival: Ambulatory Information source: Patient Cannot obtain history due to: Altered mental status Notes: This 34 year old male patient with epilepsy and medical noncompliance presents to the emergency department today with complaints of seizures prior to arrival. Patient has been here multiple times for seizures as he habitually does not take his Keppra. Today EMS was called by family for altered mental status and the patient was found to be postictal. - Related Data Allergies/Adverse Reactions: hydrocodone [From Vicodin] Allergy (Verified 12/04/19 11:47) Past Medical History - General Information source: Patient, [facility] Records Cannot obtain history due to: Altered mental status - Social History Smoking Status: Current Every Day Smoker Cigarette use (# per day): Yes Frequency of alcohol use: None Drug Abuse: None Lives with: Family Family History: Reviewed & Not Pertinent, Other - unable to determine at this time - Past Medical History Cardiac Medical History: Reports: Hx Hypertension Neurological Medical History: Reports: Hx Seizures Psychiatric Medical History: Reports: Hx Anxiety, Hx Depression Traumatic Medical History: 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 Surgical Hx: Negative - Immunizations Immunizations up to date: No Hx Diphtheria, Pertussis, Tetanus Vaccination: Yes Review of Systems - Review of Systems -: Yes ROS unobtainable due to patient's medical condition Constitutional: No symptoms reported EENT: No symptoms reported Cardiovascular: No symptoms reported Respiratory: No symptoms reported Gastrointestinal: No symptoms reported Genitourinary: No symptoms reported Male Genitourinary: No symptoms reported Musculoskeletal: No symptoms reported Skin: No symptoms reported Hematologic/Lymphatic: No symptoms reported Neurological/Psychological: See HPI, Seizure -: Yes All other systems reviewed and negative Physical Exam - Vital signs Vitals: Temp 97.8 F 12/04/19 11:27 - Notes Notes: Physical Exam: General: Alert, responds to noxious stimuli. Clinching teeth but not currently seizing. HEENT: Normocephalic. Atraumatic. PERRL. Extraocular movements intact. Oropharynx clear. Neck: Supple. Non-tender. Respiratory: Respiratory rate of 24. Breathing quite deeply with diffuse rhonchi. Cardiovascular: Regular rate and rhythm. Abdominal: Normal Inspection. Non-tender. No distension. Normal Bowel Sounds. Back: No gross abnormalities. Extremities: Moves all four extremities. Upper extremities: Normal inspection. Normal ROM. Lower extremities: Normal inspection. No edema. Normal ROM. Neurological: Normal cognition. AAOx4. Normal speech. Psychological: Normal affect. Normal Mood. Skin: Warm. Dry. Normal color. Course - Re-evaluation Re-evalutation: 12/04/19 13:59 Patient did not want to wake up or respond to me. He had been sleeping for quite some time. Ammonia capsule was refused and he did wake up sit up look around and complained about the ammonia capsule. He did receive 1000 mg dose of Keppra. Since he likely will not take another dose when he gets home today, we will give him another 500 mg and then discharge him home. I did not CT his head, he has had 15 head CTs in the past [address] scans of his head about 3 weeks ago and about 7 weeks ago. - Vital Signs Vital signs: Temp Pulse Resp BP Pulse Ox 97.8 F 15 167/103 H 98 12/04/19 11:27 12/04/19 13:15 12/04/19 13:15 12/04/19 13:15 - Laboratory Result Diagrams: 12/04/19 11:35 12/04/19 11:35 Laboratory results interpreted by me: 12/04/19 12/04/19 11:35 11:35 Lymph % (Auto) 46.7 H Seg Neutrophils % 41.3 L Sodium 145.8 H Carbon Dioxide 11 L Anion Gap 29 H Creatinine 1.45 H Est GFR (MDRD) Non-Af 55 L Glucose 127 H Calcium 11.4 H Creatine Kinase 193 H Total Protein 9.3 H Albumin 5.5 H - Diagnostic Test Radiology reviewed: Image reviewed, Reports reviewed - Chest x-ray is unremarkable. - EKG Interpretation by Me EKG shows normal: Sinus rhythm, [place], QRS Complexes, ST-T Waves. abnormal: I ntervals - Borderline prolonged QT interval Rate: Normal - 82 Rhythm: NSR Voltage: Consistant with LVH P Waves: LAE Discharge - Discharge Clinical Impression: Seizure, Noncompliance w/medication treatment due to intermit use of medication Hypertension Qualifiers: Hypertension type: essential hypertension Qualified Code(s): I10 - Essential (primary) hypertension Condition: Stable Disposition: HOME, SELF-CARE Additional Instructions: Seizure, Known Epileptic You have had a seizure. Seizures may "break through" in an epileptic due to stress of infection or injury, a change in blood chemistry, or drug and alcohol use. Another common cause is failure to take medication as prescribed. Your doctor has evaluated your situation for the likely cause of this seizure. It is important that you follow his advice concerning any medication changes and follow-up care. Further testing of anti-seizure medication levels in your blood may be necessary. If you have a driver retraining instructor's license, it's important that you DO NOT DRIVE until given permission by your physician. This seizure must be reported to the driver retraining instructor's license bureau. Call the doctor or return if seizures recur, or if new or unusual symptoms arise -- such as severe headache, confusion, excessive sleepiness, local weakness or numbness, neck stiffness, or fever. You have been to the emergency room several times in the last 2 years for seizures because you are unwilling to take your medication. I am concerned that on one of these episodes you may become severely injured or . Your blood pressure is also usually quite elevated when you come to the emergency room for seizures. I suspect that you are not taking your blood pressure medication or your seizure medication regularly. It is very important that you take your medications, or have a family member give you your medications every day as it is prescribed. Follow-up with your primary care provider or your neurologist for further evaluation of your recurring seizures. RETURN TO THE EMERGENCY ROOM IF ANY NEW OR WORSENING SYMPTOMS. I personally performed the services described in the documentation, reviewed and edited the documentation which was dictated to the scribe in my presence, and it accurately records my words and actions.
--- NOTE | 2019-12-04 12:33 | RADIOLOGY REPORT (SQ) ---
320 EXAM DESCRIPTION: CHEST SINGLE VIEW IMAGES COMPLETED DATE/TIME: 12/04/2019 11:09 am REASON FOR STUDY: Post ictal seizure COMPARISON: 10/16/2019 EXAM PARAMETERS: NUMBER OF VIEWS: One view. TECHNIQUE: Single frontal radiographic view of the chest acquired. RADIATION DOSE: NA LIMITATIONS: None. FINDINGS: LUNGS AND PLEURA: No opacities, masses or pneumothorax. No pleural effusion. MEDIASTINUM AND HILAR STRUCTURES: No masses. Contour normal. HEART AND VASCULAR STRUCTURES: Heart normal in size. Normal vasculature. BONES: No acute findings. HARDWARE: None in the chest. OTHER: No other significant finding. IMPRESSION: NO ACUTE RADIOGRAPHIC FINDING IN THE CHEST. TECHNICAL DOCUMENTATION: JOB ID: [id number] 2010 [employer]- All Rights Reserved Reading location - IP/workstation name: [email or web address]
[2019-12-04] MEDS ORDERED: AMMONIA INHALANTS 10 AMPUL/BOX IH ONE ×2 (13:58→14:00)
[2019-12-04] MEDS ORDERED: LEVETIRACETAM 500 MG/NACL-ISO 500 MG/100 ML RTUPB IV ONE (14:01)
[2019-12-04 15:12] LABS: APPEARANCE,URINE CLEAR; BILIRUBIN,URINE NEGATIVE (NEGATIVE); COLOR,URINE STRAW; GLUCOSE, URINE NEGATIVE (NEGATIVE); KETONES,URINE NEGATIVE (NEGATIVE); LEUKOCYTE ESTERASE,URINE NEGATIVE (NEGATIVE); NITRITE,URINE NEGATIVE (NEGATIVE); PROTEIN,URINE 30 mg/dL (NEGATIVE); URINE SPECIFIC GRAVITY 1.011; UROBILINOGEN,URINE NEGATIVE mg/dL (<2.0)
[2019-12-04 15:23] LABS: URINE AMPHETAMINES SCREEN NEGATIVE; URINE BARBITURATES SCREEN NEGATIVE; URINE BENZODIAZEPINES SCREEN NEGATIVE; URINE MARIJUANA (THC) SCREEN NEGATIVE; URINE METHADONE SCREEN NEGATIVE; URINE PHENCYCLIDINE SCREEN NEGATIVE
[2019-12-04 15:24] LABS: URINE COCAINE SCREEN UNCONFIRMED POSITIVE
--- NOTE | 2019-12-04 17:43 | RADIOLOGY REPORT (SQ) ---
EXAM DESCRIPTION: CT HEAD WITHOUT IMAGES COMPLETED DATE/TIME: 12/04/2019 4:21 pm REASON FOR STUDY: seizure, cocaine abuse COMPARISON: 11/16/2019. TECHNIQUE: Axial images acquired through the brain without intravenous contrast. Images reviewed wi th bone, brain and subdural windows. Additional sagittal and coronal reconstructions were generated. Images stored on PACS. All CT scanners at this facility use dose modulation, iterative reconstruction, and/or weight based d osing when appropriate to reduce radiation dose to as low as reasonably achievable (ALARA). [facility]: Dose Right [facility]: CareDose [facility]: Dose Right [facility]: Teradose 4D [facility]: [place] RADIATION DOSE: CT Rad equipment meets quality standard of care and radiation dose reduction techniq ues were employed. CTDIvol: 53.2 mGy. DLP: 1044 mGy-cm. mGy. LIMITATIONS: None. FINDINGS: VENTRICLES: Normal size and contour. CEREBRUM: No masses. No hemorrhage. No midline shift. No evidence for acute infarction. Normal gra y/white matter differentiation. No areas of low density in the white matter. CEREBELLUM: No masses. No hemorrhage. No alteration of density. No evidence for acute infarction. EXTRAAXIAL SPACES: No fluid collections. No masses. ORBITS AND GLOBE: No intra- or extraconal masses. Normal contour of globe without masses. CALVARIUM: No fracture. PARANASAL SINUSES: No fluid or mucosal thickening. SOFT TISSUES: No mass or hematoma. OTHER: No other significant finding. IMPRESSION: No acute intracranial hemorrhage, mass, or evidence of acute territorial infarct. EVIDENCE OF ACUTE STROKE: NO. COMMENT: Quality ID # [id number]: Final reports with documentation of one or more dose reduction techniques (e.g., Automated exposure control, adjustment of the mA and/or kV according to patient size, use of iterative reconstruction technique) TECHNICAL DOCUMENTATION: JOB ID: [id number] 2010 [employer]- All Rights Reserved Reading location - IP/workstation name: [email or web address]
[2019-12-04] MEDS ORDERED: CLONIDINE HCL 0.1 MG TABLET PO ONE (19:23)
[2019-12-04 20:25] VITALS: BP 154/107
--- NOTE | 2019-12-04 22:19 | EKG REPORT ---
SEVERITY:- ABNORMAL ECG - SINUS RHYTHM DENNIS, CONSIDER BIATRIAL ABNORMALITIES LEFT VENTRICULAR HYPERTROPHY BORDERLINE PROLONGED QT INTERVAL : Confirmed by: Katie Pérez 04-Dec-2019 22:18:12
== END 2019-12-04 20:26 | disposition home or self-care (01) ==
LOC: ER 11:27
DX: R56.9 Unspecified convulsions (principal); Z91.14 Patient's other noncompliance with medication regimen; I10 Essential (primary) hypertension; R41.82 Altered mental status, unspecified; Z88.8 Allergy status to other drugs, medicaments and biological substances; F17.210 Nicotine dependence, cigarettes, uncomplicated; F41.9 Anxiety disorder, unspecified; F32.9 Major depressive disorder, single episode, unspecified
CPT/HCPCS: 93005; 96376; 99284; 96361; 96374; 36415; 82550; 85025; 80053; 81001; 80307; 71045; 70450; 93010; A9270 ×2; J7030; J1953 ×2; J3490

== ENCOUNTER 2019-12-20 06:59 | Emergency (ER) | payer MEDICARE, MEDICAID ==
[2019-12-20] MEDS ORDERED: NORMAL SALINE 1000 ML 1,000 ML IV ONE (07:23)
[2019-12-20] MEDS ORDERED: LEVETIRACETAM 1000 MG/NACL-ISO 1,000 MG/100 ML RTUPB IV ONE (07:23)
--- NOTE | 2019-12-20 07:32 | ER Document Report ---
Entered by HITESH KING SCRIBE 12/20/19 0717 Acting as scribe for:GINGER BYRNES MD ED Seizure - General Stated Complaint: SEIZURE Time Seen by Provider: 12/20/19 07:06 Mode of Arrival: Ambulatory Information source: Patient Notes: This 34 year old male patient presents to the emergency department today for complaints of a seizure. Patient is seen in this emergency department for seizu res quite regularly as he rarely takes his keppra. His keppra levels are usually undectable here. Patient is postictal currently so history is limited. - Related Data Allergies/Adverse Reactions: hydrocodone [From Vicodin] Allergy (Verified 12/04/19 11:47) Past Medical History - Social History Smoking Status: Current Every Day Smoker Cigarette use (# per day): Yes Frequency of alcohol use: Occasional Drug Abuse: Cocaine Lives with: Family Family History: Reviewed & Not Pertinent, Other - unable to determine at this time - Past Medical History Cardiac Medical History: Reports: Hx Hypertension Neurological Medical History: Reports: Hx Seizures Psychiatric Medical History: Reports: Hx Anxiety, Hx Depression Traumatic Medical History: 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 Surgical Hx: Negative - Immunizations Immunizations up to date: No Hx Diphtheria, Pertussis, Tetanus Vaccination: Yes Review of Systems - Review of Systems -: Yes ROS unobtainable due to patient's medical condition Physical Exam - Vital signs Vitals: Resp BP Pulse Ox 18 149/107 H 95 12/20/19 07:04 12/20/19 07:04 12/20/19 07:04 Interpretation: Normal - General General appearance: Lethargic - Patient is postictal, lethargic minimally responsive to noxious stimulus, not conversing. In distress: None - HEENT Head: Normocephalic, Atraumatic Eyes: Normal Pupils: PERRL - Respiratory Respiratory status: No respiratory distress Breath sounds: Normal Chest palpation: Normal - Cardiovascular Rhythm: Regular Heart sounds: Normal auscultation Murmur: No - Abdominal Inspection: Normal Bowel sounds: Normal Tenderness: Nontender - Back Back: Normal - Extremities General upper extremity: Normal inspection General lower extremity: Normal inspection - Neurological Notes: On initial exam, the patient is postictal and only responds to noxious stimulus. - Psychological Associated symptoms: Other - Cannot evaluate at this time as the patient is postictal - Skin Skin Temperature: Warm Skin Moisture: Dry Skin Color: Normal Course - Re-evaluation Re-evalutation: 12/20/19 07:58 Less than 10 minutes after I initially saw the patient and ordered a loading dose of Keppra IV, he had a grand mal seizure that was terminated with Ativan IV. 12/20/19 12:23 The patient has been difficult to wake up at this point. Ammonia capsule was used and he did wake up and then told the nurse that he was not going to wake up that he was going to go back to sleep. He is stable for discharge at this time. He will be encouraged to take his seizure medication, however he is not likely to follow through given the excessive number of visits to the emergency room with sub-therapeutic Keppra levels. - Vital Signs Vital signs: Temp Pulse Resp BP Pulse Ox 98.6 F 12 154/123 H 100 12/20/19 07:18 12/20/19 11:01 12/20/19 12:01 12/20/19 12:01 - Laboratory Result Diagrams: 12/20/19 07:10 12/20/19 07:10 Laboratory results interpreted by me: 12/20/19 12/20/19 07:10 07:15 Carbon Dioxide 19 L Glucose 72 L Urine Protein 30 H - EKG Interpretation by Sc EKG shows normal: Sinus rhythm, [place], Intervals, QRS Complexes. abnormal: ST-T Waves - ST elevation, probable normal early repolarization pattern Rate: Normal - 79 Rhythm: NSR Voltage: Consistant with LVH Discharge - Discharge Clinical Impression: Seizure, Cocaine abuse Condition: Stable Disposition: HOME, SELF-CARE Additional Instructions: Seizure, Known Epileptic You have had a seizure. Seizures may "break through" in an epileptic due to stress of infection or injury, a change in blood chemistry, or drug and alcohol use. Another common cause is failure to take medication as prescribed. Your doctor has evaluated your situation for the likely cause of this seizure. It is important that you follow his advice concerning any medication changes and follow-up care. Further testing of anti-seizure medication levels in your blood may be necessary. If you have a special events driver's license, it's important that you DO NOT DRIVE until given permission by your physician. This seizure must be reported to the special events driver's license bureau. Call the doctor or return if seizures recur, or if new or unusual symptoms arise -- such as severe headache, confusion, excessive sleepiness, local weakness or numbness, neck stiffness, or fever. Cocaine Abuse Cocaine causes many dangerous medical problems. Problems can occur even with "usual" amounts. Cocaine affects judgement, creating a sense of invulnerability. Cocaine users often make bad decisions that seem "great" at the time. Most cocaine users eventually will be hurt by bad job performance, damaged personal relations, crime, and unsafe sexual practices. Toxic effects of cocaine can include seizures, hallucinations, delusions, high blood pressure, heart damage, or sudden . There's always the risk of a "bad batch." But heart attacks, brain hemorrhages, or cardiac arrest can occur unpredictably even with "normal" use. Injection of cocaine is risky for abscesses, endocarditis (heart infection), pneumonia, and AIDS. Withdrawal from cocaine often causes anxiety and drug cravings. Some users become paranoid and psychotic. Many treatment programs are available, but you must make the decision to quit. Medication can be prescribed to control the symptoms of cocaine toxicity (beta blockers or benzodiazepines). Withdrawal symptoms may require tranquilizers. Please take your Keppra as it is prescribed, and stop using cocaine. Follow-up with your primary care provider. RETURN TO THE EMERGENCY ROOM IF ANY NEW OR WORSENING SYMPTOMS. I personally performed the services described in the documentation, reviewed and edited the documentation which was dictated to the scribe in my presence, and it accurately records my words and actions.
[2019-12-20 07:35] LABS: ABSOLUTE BASOPHILS # (AUTO) 0.1 10^3/uL (0.0-0.2); ABSOLUTE EOSINOPHILS # (AUTO) 0.1 10^3/uL (0.0-0.6); ABSOLUTE LYMPHOCYTES (AUTO) 2.3 10^3/uL (0.5-4.7); ABSOLUTE MONOCYTES (AUTO) 0.7 10^3/uL (0.1-1.4); ABSOLUTE NEUT (AUTO) 2.8 10^3/uL (1.7-8.2); BASOPHILS % (AUTO) 1.1 % (0-2); EOSINOPHILS % (AUTO) 1.4 % (0-6); HEMATOCRIT 43.5 % (37.9-51.0); HEMOGLOBIN 14.7 g/dL (13.5-17.0); LYMPHOCYTES % (AUTO) 39.3 % (13-45); MEAN CORPUSCULAR HEMOGLOBIN 30.4 pg (27.0-33.4); MEAN CORPUSCULAR HGB CONC 33.9 g/dL (32.0-36.0); MEAN CORPUSCULAR VOLUME 90 fl (80-97); MONOCYTES % (AUTO) 11.9 % (3-13); PLATELET COUNT 209 10^3/uL (150-450); RED BLOOD COUNT 4.84 10^6/uL (4.35-5.55); RED CELL DISTRIBUTION WIDTH 13.8 % (11.5-14.0); SEGMENTED NEUTROPHILS % (AUTO) 46.3 % (42-78); TOTAL CELLS COUNTED % (AUTO) 100 %
[2019-12-20] MEDS ORDERED: LORAZEPAM INJ 2 MG/1 ML VIAL IV ONE (07:37)
[2019-12-20 07:47] LABS: ALBUMIN 4.4 g/dL (3.5-5.0); ALKALINE PHOSPHATASE 81 U/L (38-126); ANION GAP 12 (5-19); ASPARTATE AMINO TRANSFERASE 30 U/L (17-59); BILIRUBIN,TOTAL 0.3 mg/dL (0.2-1.3); BLOOD UREA NITROGEN 15 mg/dL (7-20); CALCIUM 9.3 mg/dL (8.4-10.2); CARBON DIOXIDE 19 mmol/L (22-30); CHLORIDE 106 mmol/L (98-107); CREATINE KINASE 137 U/L (55-170); GLUCOSE 72 mg/dL (75-110); POTASSIUM 4.2 mmol/L (3.6-5.0); TOTAL PROTEIN 7.9 g/dL (6.3-8.2)
[2019-12-20 08:02] LABS: APPEARANCE,URINE CLEAR; BILIRUBIN,URINE NEGATIVE (NEGATIVE); COLOR,URINE YELLOW; GLUCOSE, URINE NEGATIVE (NEGATIVE); KETONES,URINE NEGATIVE (NEGATIVE); LEUKOCYTE ESTERASE,URINE NEGATIVE (NEGATIVE); NITRITE,URINE NEGATIVE (NEGATIVE); PROTEIN,URINE 30 mg/dL (NEGATIVE); UROBILINOGEN,URINE NEGATIVE mg/dL (<2.0)
[2019-12-20 08:12] LABS: URINE AMPHETAMINES SCREEN NEGATIVE; URINE BARBITURATES SCREEN NEGATIVE; URINE BENZODIAZEPINES SCREEN NEGATIVE; URINE MARIJUANA (THC) SCREEN NEGATIVE; URINE METHADONE SCREEN NEGATIVE; URINE PHENCYCLIDINE SCREEN NEGATIVE
[2019-12-20 08:15] LABS: URINE COCAINE SCREEN UNCONFIRMED POSITIVE
[2019-12-20] MEDS ORDERED: AMMONIA INHALANTS 10 AMPUL/BOX IH ONE (12:17)
[2019-12-20 14:24] VITALS: BP 157/107
--- NOTE | 2019-12-20 19:43 | EKG REPORT ---
SEVERITY:- ABNORMAL ECG - SINUS RHYTHM LEFT VENTRICULAR HYPERTROPHY ST ELEV, PROBABLE NORMAL EARLY REPOL PATTERN : Confirmed by: Katie Pérez 20-Dec-2019 19:42:24
== END 2019-12-20 16:23 | disposition home or self-care (01) ==
LOC: ER 06:59
DX: R56.9 Unspecified convulsions (principal); F14.10 Cocaine abuse, uncomplicated; F17.210 Nicotine dependence, cigarettes, uncomplicated; I10 Essential (primary) hypertension; Z88.6 Allergy status to analgesic agent
CPT/HCPCS: 93005; 99285; 96361; 96374; 96375; 36415; 80177; 82550; 85025; 80053; 81001; 84484; 80307; 93010; A9270; J2060; J7030; J1953; J3490

== ENCOUNTER 2020-01-01 16:45 | Emergency (ER) | payer MEDICARE, MEDICAID ==
[2020-01-01] MEDS ORDERED: LORAZEPAM INJ 2 MG/1 ML VIAL IV ONE (16:57)
[2020-01-01] MEDS ORDERED: LEVETIRACETAM 1000 MG/NACL-ISO 1,000 MG/100 ML RTUPB IV ONE (17:02)
[2020-01-01 17:11] LABS: ABSOLUTE BASOPHILS # (AUTO) 0.1 10^3/uL (0.0-0.2); ABSOLUTE LYMPHOCYTES (AUTO) 2.2 10^3/uL (0.5-4.7); ABSOLUTE MONOCYTES (AUTO) 0.8 10^3/uL (0.1-1.4); ABSOLUTE NEUT (AUTO) 3.6 10^3/uL (1.7-8.2); BASOPHILS % (AUTO) 0.9 % (0-2); EOSINOPHILS % (AUTO) 0.3 % (0-6); HEMOGLOBIN 15.4 g/dL (13.5-17.0); LYMPHOCYTES % (AUTO) 32.9 % (13-45); MEAN CORPUSCULAR HEMOGLOBIN 30.6 pg (27.0-33.4); MEAN CORPUSCULAR HGB CONC 34.2 g/dL (32.0-36.0); MEAN CORPUSCULAR VOLUME 90 fl (80-97); MONOCYTES % (AUTO) 12.1 % (3-13); PLATELET COUNT 209 10^3/uL (150-450); RED BLOOD COUNT 5.02 10^6/uL (4.35-5.55); RED CELL DISTRIBUTION WIDTH 13.9 % (11.5-14.0); SEGMENTED NEUTROPHILS % (AUTO) 53.8 % (42-78); TOTAL CELLS COUNTED % (AUTO) 100 %; WHITE BLOOD COUNT 6.8 10^3/uL (4.0-10.5)
--- NOTE | 2020-01-01 17:13 | ER Document Report ---
ED Seizure <RISA MEDINA - Last Filed: 01/01/20 19:39> <JESS ZAVALA Prasanth - Last Filed: 01/02/20 00:40> - General Chief Complaint: Probable Seizure Stated Complaint: SEIZURE Time Seen by Provider: 01/01/20 16:58 Notes: CHIEF COMPLAINT: Seizure HPI: Unable to obtain history from the patient, actively seizing. Emergently called to the room by nursing for an active seizure. Patient was apparently brought in by EMS for a seizure. EMS did not give patient any medications or anticonvulsants on route. Patient apparently has a longstanding history of seizures also a longstanding history of noncompliance with his medications. Patient also with a longstanding history of cocaine and drug abuse. ROS: Unable to obtain secondary to patient condition and acuity MEDICATIONS: I agree with the patient medications as charted by the RN. ALLERGIES: I agree with the allergies as charted by the RN. PAST MEDICAL HISTORY/PAST SURGICAL HISTORY: Reviewed and agree as charted by RN. SOCIAL HISTORY: Reviewed and agree as charted by RN. FAMILY HISTORY: No significant familial comorbid conditions directly related to patient complaint EXAM: Limited examination secondary to active seizure in patient acuity and condition Reviewed vital signs as charted by RN. CONSTITUTIONAL: Somewhat limited by patient acuity and condition, active seizure HEAD: Normocephalic; atraumatic EYES: Conjunctivae clear, sclerae non-icteric ENT: normal nose; no rhinorrhea; moist mucous membranes; small bite to the anterior right lower lip CARD: Tachycardic; no murmurs, no clicks, no rubs, no gallops; symmetric distal pulses RESP: Normal chest excursion without splinting or tachypnea; breath sounds clear and equal bilaterally; no wheezes, no rhonchi, no rales, pulse oximetry 98% on room air not hypoxic ABD/GI: Normal bowel sounds; non-distended; soft no palpable organomegaly or masses. BACK: The back appears normal EXT: no cyanosis, no effusions, no edema SKIN: Normal color for age and race; warm; dry; good turgor; no acute lesions n oted NEURO: Moves all extremities equally PSYCH: The patient's mood and manner are postictal MDM: 34-year-old male having an active seizure with history of seizures, unable to obtain history or cooperation during exam, emergently called to the room by nursing. 2 mg Ativan given patient was tachycardic with a heart rate of 135 seizure lasted approximately a minute. Heart rate improved to 94 after Ativan. Patient never stopped breathing. Pulse oximetry 9697% on room air not hypoxic. On review of the patient chart he appears to be cocaine positive for marijuana positive the majority of his visits here. He has a history of noncompliance and supposed to be on Keppra. Will give patient loading dose of Keppra here. Will obtain screening labs and monitor patient (RISA MEDINA) - Related Data Allergies/Adverse Reactions: hydrocodone [From Vicodin] Allergy (Verified 12/04/19 11:47) Past Medical History - Social History Family History: Reviewed & Not Pertinent, Other - unable to determine at this time - Past Medical History Cardiac Medical History: Reports: Hx Hypertension Neurological Medical History: Reports: Hx Seizures Renal/ Medical History: Denies: Hx Peritoneal Dialysis Psychiatric Medical History: Reports: Hx Anxiety, Hx Depression Traumatic Medical History: 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 - Immunizations Immunizations up to date: No Hx Diphtheria, Pertussis, Tetanus Vaccination: Yes <RISA MEDINA - Last Filed: 01/01/20 19:39> - Social History Smoking Status: Unknown if Ever Smoked <JESS ZAVALA - Last Filed: 01/02/20 00:40> Physical Exam - Vital signs Vitals: Resp BP Pulse Ox 14 137/98 H 96 01/01/20 16:47 01/01/20 16:47 01/01/20 16:47 Course - Laboratory Result Diagrams: 01/01/20 16:55 01/01/20 16:55 <RISA MEDINA - Last Filed: 01/01/20 19:39> - Laboratory Result Diagrams: 01/01/20 16:55 01/01/20 16:55 <JESS ZAVLAA - Last Filed: 01/02/20 00:40> - Re-evaluation Re-evalutation: 01/01/20 18:50 Patient is sleeping at this time with a heart rate of 90 no distress no seizures 01/01/20 19:17 Patient is still only minimally arousable, he is in a sinus rhythm of 92 on the monitor but he is moderately hypertensive with a diastolic blood pressure of 112. As he is only minimally arousable still with sternal rub and is refusing to open his eyes will give hydralazine IV to help with the blood pressure as he has a history of being noncompliant with all of his medications including his Keppra which is likely why he presents multiple times with seizures he is likely not taking his blood pressure medications as well 01/01/20 19:39 I discussed the IV hydralazine ordered with the nurse who is caring for the patient. Patient is still breathing on his own, maintaining an oxygen saturation of 100% on room air. Heart rate is 99. Blood pressure is 158/114 but awaiting hydralazine. Patient is not responsive enough to tolerate oral medications at this time. Report will be given oncoming shift to follow and disposition (RISA MEDINA) 01/01/20 20:09 Patient signed out to me at shift change by outgoing provider listed above. I have evaluated the patient myself at this time. He is sleeping in the room, appears to be resting comfortably. He has no convulsive movements at this time. He is on the monitor with improved blood pressure down to 159/104. Pending laboratory results we will continue to monitor. 01/02/20 00:37 Patient's laboratory results have returned, no acute findings to warrant continued care or monitoring here in the emergency department. Patient has woke several times asking for nursing care. He is alert and oriented. He is stable and appropriate for discharge and outpatient follow-up. Counseled him regarding the importance of outpatient follow-up advised that he return here any ER immediately with any new, persistent or worsening symptoms. Patient has had no further seizure episodes here during his stay from time of signout until discharge. 01/02/20 00:38 (JESS ZAVALA) - Vital Signs Vital signs: Temp Pulse Resp BP Pulse Ox 97.8 F 18 148/100 H 100 01/01/20 17:31 01/02/20 00:01 01/02/20 00:01 01/02/20 00:01 - Laboratory Laboratory results interpreted by me: 01/01/20 16:55 Sodium 136.4 L Carbon Dioxide 18 L Magnesium 2.6 H Total Protein 8.4 H Discharge <RISA MEDINA - Last Filed: 01/01/20 19:39> <JESS ZAVALA - Last Filed: 01/02/20 00:40> - Discharge Clinical Impression: Noncompliance, Seizure, Cocaine abuse Condition: Stable Disposition: HOME, SELF-CARE Instructions: Seizure, Known Epileptic ([facility]), Cocaine Abuse ([facility]) Additional Instructions: Please take your medicines as prescribed. Please discontinue illicit drug use. Please follow-up with your regular doctor in the morning for reevaluation and your neurologist. Please return here or any ER immediately with any new, persistent or worsening symptoms. Forms: Elevated Blood Pressure
[2020-01-01 17:28] LABS: ALBUMIN 4.8 g/dL (3.5-5.0); ALKALINE PHOSPHATASE 91 U/L (38-126); ANION GAP 16 (5-19); ASPARTATE AMINO TRANSFERASE 30 U/L (17-59); BILIRUBIN,TOTAL 0.4 mg/dL (0.2-1.3); BLOOD UREA NITROGEN 16 mg/dL (7-20); CARBON DIOXIDE 18 mmol/L (22-30); CHLORIDE 102 mmol/L (98-107); GLUCOSE 82 mg/dL (75-110); POTASSIUM 4.4 mmol/L (3.6-5.0); TOTAL PROTEIN 8.4 g/dL (6.3-8.2)
[2020-01-01 17:34] LABS: ALCOHOL < 10 mg/dL (NONE DETECTED)
--- NOTE | 2020-01-01 17:59 | RADIOLOGY REPORT (SQ) ---
EXAM DESCRIPTION: CHEST SINGLE VIEW IMAGES COMPLETED DATE/TIME: 01/01/2020 5:49 pm REASON FOR STUDY: seizure COMPARISON: 12/04/2019 TECHNIQUE: Single frontal radiographic view of the chest acquired. NUMBER OF VIEWS: One view. LIMITATIONS: None. FINDINGS: LUNGS AND PLEURA: No pneumothorax. No consolidation or pleural effusion. MEDIASTINUM AND HILAR STRUCTURES: Stable. HEART AND VASCULAR STRUCTURES: Stable. BONES: No acute findings. HARDWARE: None in the chest. OTHER: No other significant finding. IMPRESSION: NO ACUTE FINDINGS. TECHNICAL DOCUMENTATION: JOB ID: [id number] 2010 [employer] All Rights Reserved Reading location - IP/workstation name: [email or web address]
[2020-01-01] MEDS ORDERED: HYDRALAZINE HCL INJ/PF 20 MG/1 ML SDV IV ONE (19:17)
[2020-01-01 22:26] LABS: APPEARANCE,URINE SLIGHTLY-CLOUDY; BILIRUBIN,URINE NEGATIVE (NEGATIVE); COLOR,URINE STRAW; GLUCOSE, URINE NEGATIVE (NEGATIVE); KETONES,URINE NEGATIVE (NEGATIVE); LEUKOCYTE ESTERASE,URINE NEGATIVE (NEGATIVE); NITRITE,URINE NEGATIVE (NEGATIVE); PROTEIN,URINE NEGATIVE (NEGATIVE); UROBILINOGEN,URINE NEGATIVE mg/dL (<2.0)
[2020-01-01 22:41] LABS: URINE AMPHETAMINES SCREEN NEGATIVE; URINE BARBITURATES SCREEN NEGATIVE; URINE BENZODIAZEPINES SCREEN NEGATIVE; URINE COCAINE SCREEN UNCONFIRMED POSITIVE; URINE MARIJUANA (THC) SCREEN NEGATIVE; URINE METHADONE SCREEN NEGATIVE; URINE PHENCYCLIDINE SCREEN NEGATIVE
--- NOTE | 2020-01-01 22:43 | EKG REPORT ---
SEVERITY:- ABNORMAL ECG - SINUS TACHYCARDIA LEFT VENTRICULAR HYPERTROPHY PROLONGED QT INTERVAL : Confirmed by: Maddy Marx MD 01-Jan-2020 22:43:10
[2020-01-02 00:57] VITALS: BP 145/119
== END 2020-01-02 01:05 | disposition home or self-care (01) ==
LOC: ER 16:45
DX: R56.9 Unspecified convulsions (principal); F14.10 Cocaine abuse, uncomplicated; Z91.19 Patient's noncompliance with other medical treatment and regimen; S01.551A Open bite of lip, initial encounter; X58.XXXA Exposure to other specified factors, initial encounter; I10 Essential (primary) hypertension; R00.0 Tachycardia, unspecified; Z88.6 Allergy status to analgesic agent; Z88.5 Allergy status to narcotic agent
CPT/HCPCS: 93005; 99284; 96375; 96365; 36415; 80307 ×2; 83735; 85025; 80053; 81001; 71045; 93010; J0360; J2060; J1953

== ENCOUNTER 2020-01-14 15:31 | Emergency (ER) | payer MEDICARE, MEDICAID ==
--- NOTE | 2020-01-14 15:44 | ER Document Report ---
ED General - General Chief Complaint: Probable Seizure Stated Complaint: POSSIBLE SEIZURE Time Seen by Provider: 01/14/20 15:39 Mode of Arrival: Medic Information source: Emergency Med Personnel Notes: 34-year-old black male arrives from home via EMS. He has a long history of seizures and his history goes back to at least once a month since 2011 on computer records. Patient reports he knows who he is and why he is here. EMS report called transport team because of active seizures at home. He was last seen this month x 2. Patient actively had a seizure witnessed by staff at 1556 and he was given IV Ativan 1 mg and was written for Dilantin 1 g IV. Patient was seen by Dr. Dhillon early in December and was found to have a very negligible Keppra level. TRAVEL OUTSIDE OF THE [place] IN LAST 30 DAYS: No - HPI Onset: Just prior to arrival Onset/Duration: Sudden, Better Quality of pain: No pain Severity: None Pain Level: Denies Associated symptoms: None Exacerbated by: Denies Relieved by: Denies Similar symptoms previously: Yes Recently seen / treated by doctor: Yes - Related Data Allergies/Adverse Reactions: hydrocodone [From Vicodin] Allergy (Verified 01/14/20 17:26) Past Medical History - General Information source: Patient, Emergency Med Personnel - Social History Smoking Status: Current Every Day Smoker Cigarette use (# per day): Yes Chew tobacco use (# tins/day): No Smoking Education Provided: Yes Frequency of alcohol use: Occasional Drug Abuse: Cocaine Lives with: Family Family History: Reviewed & Not Pertinent, Other - unable to determine at this time Patient has suicidal ideation: No Patient has homicidal ideation: No - Past Medical History Cardiac Medical History: Reports: Hx Hypertension Neurological Medical History: Reports: Hx Seizures Renal/ Medical History: Denies: Hx Peritoneal Dialysis Psychiatric Medical History: Reports: Hx Anxiety, Hx Depression Traumatic Medical History: 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 - Immunizations Immunizations up to date: No Hx Diphtheria, Pertussis, Tetanus Vaccination: Yes Review of Systems - Review of Systems Constitutional: See HPI, Weakness EENT: No symptoms reported Cardiovascular: No symptoms reported Respiratory: No symptoms reported Gastrointestinal: No symptoms reported Genitourinary: No symptoms reported Male Genitourinary: No symptoms reported Musculoskeletal: No symptoms reported Skin: No symptoms reported Hematologic/Lymphatic: No symptoms reported Neurological/Psychological: See HPI, Seizure, Lost consciousness Physical Exam - Vital signs Vitals: Resp Pulse Ox 17 98 01/14/20 15:40 01/14/20 15:40 Interpretation: Hypertensive - General General appearance: Lethargic - HEENT Head: Normocephalic, Atraumatic Eyes: Normal Pupils: PERRL Pharynx: Normal Neck: Normal - Respiratory Respiratory status: No respiratory distress Chest status: Nontender Breath sounds: Normal Chest palpation: Normal Course - Vital Signs Vital signs: Temp Pulse Resp BP Pulse Ox 99.2 F 83 27 H 144/121 H 97 01/14/20 16:41 01/14/20 16:41 01/14/20 17:01 01/14/20 17:01 01/14/20 17:01 - Laboratory Result Diagrams: 01/14/20 16:13 01/14/20 16:13 Laboratory results interpreted by me: 01/14/20 01/14/20 01/14/20 16:13 16:13 16:13 WBC 11.4 H RDW 14.6 H Absolute Lymphs (auto) 5.0 H Chloride 108 H Carbon Dioxide 8 L* Anion Gap 26 H Creatinine 1.28 H Glucose 112 H Magnesium 2.5 H Total Protein 8.6 H Carbamazepine < 2.4 L Critical Care Note - Critical Care Note Total time excluding time spent on procedures (mins): 90 Discharge - Discharge Clinical Impression: Seizure, Cocaine abuse with intoxication Condition: Fair Disposition: HOME, SELF-CARE Additional Instructions: Follow-up with personal doctor return to ER for emergencies and avoid using cocaine or other mind altering drugs and be sure to take your seizure medication so you will not be coming back to the ER by ambulance..
[2020-01-14] MEDS ORDERED: PHENYTOIN SODIUM INJ/PF 100 MG/2 ML SDV IV ONE (15:46)
[2020-01-14] MEDS ORDERED: LORAZEPAM INJ 2 MG/1 ML VIAL IV ONE (15:56)
[2020-01-14 17:11] LABS: ABSOLUTE BASOPHILS # (AUTO) 0.1 10^3/uL (0.0-0.2); ABSOLUTE EOSINOPHILS # (AUTO) 0.1 10^3/uL (0.0-0.6); ABSOLUTE MONOCYTES (AUTO) 1.3 10^3/uL (0.1-1.4); LYMPHOCYTES % (AUTO) 43.9 % (13-45); TOTAL CELLS COUNTED % (AUTO) 100 %
[2020-01-14 17:19] LABS: BASOPHILS % (AUTO) 0.7 % (0-2); EOSINOPHILS % (AUTO) 0.8 % (0-6); HEMATOCRIT 47.1 % (37.9-51.0); HEMOGLOBIN 15.4 g/dL (13.5-17.0); MEAN CORPUSCULAR HEMOGLOBIN 30.7 pg (27.0-33.4); MEAN CORPUSCULAR HGB CONC 32.6 g/dL (32.0-36.0); MEAN CORPUSCULAR VOLUME 94 fl (80-97); PLATELET COUNT 263 10^3/uL (150-450); RED CELL DISTRIBUTION WIDTH 14.6 % (11.5-14.0); SEGMENTED NEUTROPHILS % (AUTO) 43.6 % (42-78); WHITE BLOOD COUNT 11.4 10^3/uL (4.0-10.5)
[2020-01-14 17:21] LABS: ALBUMIN 4.9 g/dL (3.5-5.0); ALKALINE PHOSPHATASE 92 U/L (38-126); ASPARTATE AMINO TRANSFERASE 29 U/L (17-59); BILIRUBIN,TOTAL 0.3 mg/dL (0.2-1.3); BLOOD UREA NITROGEN 12 mg/dL (7-20); CALCIUM 10.1 mg/dL (8.4-10.2); GLUCOSE 112 mg/dL (75-110); POTASSIUM 3.9 mmol/L (3.6-5.0); TOTAL PROTEIN 8.6 g/dL (6.3-8.2)
[2020-01-14 17:24] LABS: APPEARANCE,URINE CLEAR; BILIRUBIN,URINE NEGATIVE (NEGATIVE); COLOR,URINE YELLOW; GLUCOSE, URINE NEGATIVE (NEGATIVE); KETONES,URINE NEGATIVE (NEGATIVE); LEUKOCYTE ESTERASE,URINE NEGATIVE (NEGATIVE); NITRITE,URINE NEGATIVE (NEGATIVE); PROTEIN,URINE NEGATIVE (NEGATIVE); URINE SPECIFIC GRAVITY 1.013; UROBILINOGEN,URINE NEGATIVE mg/dL (<2.0)
[2020-01-14 17:25] LABS: CHLORIDE 108 mmol/L (98-107)
[2020-01-14 17:34] LABS: URINE AMPHETAMINES SCREEN NEGATIVE; URINE BARBITURATES SCREEN NEGATIVE; URINE BENZODIAZEPINES SCREEN NEGATIVE; URINE COCAINE SCREEN UNCONFIRMED POSITIVE; URINE MARIJUANA (THC) SCREEN NEGATIVE; URINE METHADONE SCREEN NEGATIVE; URINE PHENCYCLIDINE SCREEN NEGATIVE
[2020-01-14 17:40] LABS: ALCOHOL < 10 mg/dL (NONE DETECTED)
[2020-01-14 17:41] LABS: ANION GAP 26 (5-19); CARBON DIOXIDE 8 mmol/L (22-30)
[2020-01-14] MEDS ORDERED: NORMAL SALINE 1000 ML 1,000 ML IV ONE (20:55)
[2020-01-14] MEDS ORDERED: ACETAMINOPHEN 325 MG TABLET PO ONE (20:56)
--- NOTE | 2020-01-14 20:59 | ER Document Report ---
Doctor's Note Notes: 01/14/20 20:57 Nurse approach this MD stating that she was getting ready to discharge this patient. Nurse informed this MD that the patient's temperature was 102.1 and if I was "okay with this" in terms of discharging the patient. This MD reviewed the record and saw that the patient CO2 is 8 and his earlier recorded temp erature is 99.2. At this point I am not okay with discharging the patient and have ordered some repeat labs, a bag of fluids and will evaluate the patient my self. 01/14/20 23:56 Patient was reevaluated by this MD at 2345 hrs. Patient is sleeping but easily arousable. He appears to be in no acute distress his appearance is nontoxic, his heart rate is 85 his SPO2 is 99% on room air blood pressure is 132/91. Patient's repeat lab work shows a change in his CO2 from 8-24 with a slight increase in his white count from 11.4-14.4. His CPK is 393. His current temperature is 100.4. All questions were answered prior to discharge. Emergency signs and symptoms, reasons to return to the emergency department discussed with patient.
[2020-01-14 22:04] LABS: ABSOLUTE BASOPHILS # (AUTO) 0.1 10^3/uL (0.0-0.2); ABSOLUTE LYMPHOCYTES (AUTO) 1.5 10^3/uL (0.5-4.7); ABSOLUTE MONOCYTES (AUTO) 1.4 10^3/uL (0.1-1.4); ABSOLUTE NEUT (AUTO) 11.4 10^3/uL (1.7-8.2); BASOPHILS % (AUTO) 0.6 % (0-2); HEMATOCRIT 43.4 % (37.9-51.0); HEMOGLOBIN 14.7 g/dL (13.5-17.0); LYMPHOCYTES % (AUTO) 10.4 % (13-45); MEAN CORPUSCULAR HGB CONC 33.8 g/dL (32.0-36.0); PLATELET COUNT 243 10^3/uL (150-450); RED CELL DISTRIBUTION WIDTH 14.1 % (11.5-14.0); TOTAL CELLS COUNTED % (AUTO) 100 %; WHITE BLOOD COUNT 14.4 10^3/uL (4.0-10.5)
[2020-01-14 22:05] LABS: MEAN CORPUSCULAR VOLUME 89 fl (80-97)
[2020-01-14 22:23] LABS: ALBUMIN 4.4 g/dL (3.5-5.0); ALKALINE PHOSPHATASE 101 U/L (38-126); ANION GAP 7 (5-19); ASPARTATE AMINO TRANSFERASE 27 U/L (17-59); BILIRUBIN,TOTAL 0.5 mg/dL (0.2-1.3); BLOOD UREA NITROGEN 11 mg/dL (7-20); CALCIUM 9.2 mg/dL (8.4-10.2); CHLORIDE 105 mmol/L (98-107); CREATINE KINASE 330 U/L (55-170); GLUCOSE 107 mg/dL (75-110); POTASSIUM 3.7 mmol/L (3.6-5.0); TOTAL PROTEIN 8.1 g/dL (6.3-8.2)
[2020-01-14] MEDS ORDERED: IBUPROFEN 600 MG TABLET PO ONE (22:29)
[2020-01-14 22:45] LABS: CARBON DIOXIDE 24 mmol/L (22-30)
[2020-01-15 01:09] VITALS: BP 144/92
== END 2020-01-15 01:15 | disposition home or self-care (01) ==
LOC: ER 15:31
DX: G40.909 Epilepsy, unspecified, not intractable, without status epilepticus (principal); F14.129 Cocaine abuse with intoxication, unspecified; R53.1 Weakness; R50.9 Fever, unspecified; F17.210 Nicotine dependence, cigarettes, uncomplicated; I10 Essential (primary) hypertension; Z87.820 Personal history of traumatic brain injury
CPT/HCPCS: 99284; 96361; 96374; 96375; 36415; 80307 ×2; 82550; 83735; 80156; 85025; 87070; 80053; 81001; A9270 ×2; J2060; J1165; J7030

== ENCOUNTER 2020-01-27 11:21 | Emergency (ER) | payer MEDICARE, MEDICAID ==
[2020-01-27] MEDS ORDERED: LEVETIRACETAM 1000 MG/NACL-ISO 1,000 MG/100 ML RTUPB IV ONE (11:50)
[2020-01-27] MEDS ORDERED: NORMAL SALINE 1000 ML 1,000 ML IV ONE (11:50)
--- NOTE | 2020-01-27 11:59 | ER Document Report ---
ED General - General Chief Complaint: Probable Seizure Stated Complaint: SEIZURE Time Seen by Provider: 01/27/20 11:32 TRAVEL OUTSIDE OF THE [place] IN LAST 30 DAYS: No - HPI Notes: Patient is a 34-year-old male who presents to the emergency department for evaluation after an apparent seizure. His family found him postictal and called 911. He is well-known to the department, is frequently not compliant with his medications. The patient states to me that he has not had his medication in several days. He supposed to be taking Keppra and lisinopril. Otherwise he denies any pain. States he wants to just to be left alone. - Related Data Allergies/Adverse Reactions: hydrocodone [From Vicodin] Allergy (Verified 01/14/20 17:26) Home Medications: Keppra, lisinorpil Past Medical History - General Information source: Patient - Social History Smoking Status: Current Every Day Smoker Frequency of alcohol use: Heavy Drug Abuse: Cocaine, Other Family History: Reviewed & Not Pertinent, Other - unable to determine at this time Patient has homicidal ideation: No - Past Medical History Cardiac Medical History: Reports: Hx Hypertension Neurological Medical History: Reports: Hx Seizures Renal/ Medical History: Denies: Hx Peritoneal Dialysis Psychiatric Medical History: Reports: Hx Anxiety, Hx Depression Traumatic Medical History: 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 - Immunizations Immunizations up to date: No Hx Diphtheria, Pertussis, Tetanus Vaccination: Yes Review of Systems - Review of Systems Neurological/Psychological: See HPI -: Yes All other systems reviewed and negative Physical Exam - Vital signs Vitals: Resp BP Pulse Ox 11 L 153/107 H 97 01/27/20 11:26 01/27/20 11:26 01/27/20 11:26 - Notes Notes: This is a 34-year-old male who appears his stated age, no acute distress. He is lying in the left lateral, right position on the bed. GCS 14, he will open his eyes to verbal stimulus. Head is normocephalic and appears atraumatic, pupils are equal round, reactive to light. Oral mucosa is moist. He has a superficial laceration noted to the right lateral mouth without active bleeding, some transudate of fluid noted. He also has scars on the inner aspect of the lower lip consistent with bite trauma, as well as a small hematoma noted to the right aspect of the tongue. Heart is regular rate and rhythm, lungs are clear to auscultation bilaterally. Abdomen is soft, seems nontender with normoactive bowel sounds. Extremities without cyanosis, clubbing. Posterior calves are non tender. Patient awakes to verbal stimuli, will answer questions intermittently. He has no gross facial asymmetry. He moves all 4 extremity spontaneously. Reflexes are symmetrical. Course - Re-evaluation Re-evalutation: 01/27/20 11:59 Patient presents to the emergency department for evaluation. He had a seizure order set placed, seizure precautions were initiated. I am trying to determine whether this patient's tetanus is up-to-date to see if this will need to be administered here in the emergency department. Otherwise, the patient has a history of noncompliance, and admits that he is run out of his medications. He is loaded with 1 dose of IV Keppra. Otherwise, patient currently stable, we will continue to monitor. 01/27/20 18:04 Patient was observed for some time here. He was very sleepy, but eventually woke up. He asked repeatedly for food. He admits he was not taking his medications. I will write him new prescriptions for lisinopril and Keppra. Otherwise repeat neurological exam was performed and it is entirely normal. Exam is as follows: Patient is awake, alert, oriented x3. Cranial nerves II - X II are grossly intact without focal neurological deficits. Strength is plus 5 out of 5 bilateral upper and lower extremities. Sensation is intact. Reflexes symmetrical. Intact [id number], rapid alternating movements, [id number]. We will discharge patient home. He is once again told to avoid using cocaine and to take his prescription medications as prescribed. Otherwise he should fo llow-up with neurology next week, return to the ED with worsening. - Vital Signs Vital signs: Temp Pulse Resp BP Pulse Ox 98.3 F 81 15 158/122 H 100 01/27/20 11:38 01/27/20 11:38 01/27/20 17:01 01/27/20 17:00 01/27/20 15:01 - Laboratory Result Diagrams: 01/27/20 12:05 01/27/20 12:05 Laboratory results interpreted by me: 01/27/20 01/27/20 01/27/20 12:05 12:05 14:54 Lymph % (Auto) 7.0 L Absolute Neuts (auto) 8.6 H Seg Neutrophils % 86.2 H Chloride 108 H Magnesium 2.6 H Urine Protein 30 H Urine Ketones TRACE H Urine Blood SMALL H Discharge - Discharge Clinical Impression: Seizure, Cocaine abuse, Noncompliance with medication regimen Condition: Stable Disposition: HOME, SELF-CARE Instructions: Seizure, Known Epileptic ([facility]), Cocaine Abuse ([facility]) Additional Instructions: Please stop using cocaine. Please start taking the medications you were prescribed. Follow-up with neurology and primary care next week. Return to the emergency department with worsening or new concerning symptoms of any sort.
[2020-01-27 12:25] LABS: ABSOLUTE LYMPHOCYTES (AUTO) 0.7 10^3/uL (0.5-4.7); ABSOLUTE MONOCYTES (AUTO) 0.6 10^3/uL (0.1-1.4); ABSOLUTE NEUT (AUTO) 8.6 10^3/uL (1.7-8.2); BASOPHILS % (AUTO) 0.3 % (0-2); EOSINOPHILS % (AUTO) 0.2 % (0-6); HEMATOCRIT 45.6 % (37.9-51.0); HEMOGLOBIN 15.4 g/dL (13.5-17.0); MEAN CORPUSCULAR HEMOGLOBIN 30.3 pg (27.0-33.4); MEAN CORPUSCULAR HGB CONC 33.7 g/dL (32.0-36.0); MEAN CORPUSCULAR VOLUME 90 fl (80-97); MONOCYTES % (AUTO) 6.3 % (3-13); PLATELET COUNT 275 10^3/uL (150-450); RED BLOOD COUNT 5.07 10^6/uL (4.35-5.55); RED CELL DISTRIBUTION WIDTH 13.9 % (11.5-14.0); SEGMENTED NEUTROPHILS % (AUTO) 86.2 % (42-78); TOTAL CELLS COUNTED % (AUTO) 100 %
[2020-01-27 12:41] LABS: ALBUMIN 4.5 g/dL (3.5-5.0); ALKALINE PHOSPHATASE 95 U/L (38-126); ANION GAP 8 (5-19); ASPARTATE AMINO TRANSFERASE 35 U/L (17-59); BILIRUBIN,TOTAL 0.4 mg/dL (0.2-1.3); BLOOD UREA NITROGEN 11 mg/dL (7-20); CALCIUM 9.1 mg/dL (8.4-10.2); CARBON DIOXIDE 23 mmol/L (22-30); CHLORIDE 108 mmol/L (98-107); GLUCOSE 103 mg/dL (75-110); POTASSIUM 3.8 mmol/L (3.6-5.0); TOTAL PROTEIN 8.1 g/dL (6.3-8.2)
[2020-01-27 12:42] LABS: ALCOHOL < 10 mg/dL (NONE DETECTED)
[2020-01-27 15:06] LABS: APPEARANCE,URINE CLEAR; BILIRUBIN,URINE NEGATIVE (NEGATIVE); COLOR,URINE STRAW; GLUCOSE, URINE NEGATIVE (NEGATIVE); KETONES,URINE TRACE mg/dL (NEGATIVE); LEUKOCYTE ESTERASE,URINE NEGATIVE (NEGATIVE); NITRITE,URINE NEGATIVE (NEGATIVE); PROTEIN,URINE 30 mg/dL (NEGATIVE); URINE SPECIFIC GRAVITY 1.012; UROBILINOGEN,URINE NEGATIVE mg/dL (<2.0)
[2020-01-27 15:25] LABS: URINE AMPHETAMINES SCREEN NEGATIVE; URINE BARBITURATES SCREEN NEGATIVE; URINE BENZODIAZEPINES SCREEN NEGATIVE; URINE MARIJUANA (THC) SCREEN NEGATIVE; URINE METHADONE SCREEN NEGATIVE; URINE PHENCYCLIDINE SCREEN NEGATIVE
[2020-01-27 15:26] LABS: URINE COCAINE SCREEN UNCONFIRMED POSITIVE
[2020-01-27 18:31] VITALS: BP 173/151
== END 2020-01-27 18:31 | disposition home or self-care (01) ==
LOC: ER 11:21
DX: R56.9 Unspecified convulsions (principal); F14.10 Cocaine abuse, uncomplicated; Z91.14 Patient's other noncompliance with medication regimen; Z79.899 Other long term (current) drug therapy; Z88.8 Allergy status to other drugs, medicaments and biological substances; F17.200 Nicotine dependence, unspecified, uncomplicated; I10 Essential (primary) hypertension
CPT/HCPCS: 99284; 96361; 96365; 36415; 80307 ×2; 83735; 85025; 80053; 81001; J7030; J1953

== ENCOUNTER 2020-02-14 16:22 | Emergency (ER) | payer MEDICARE, MEDICAID ==
[2020-02-14 16:49] LABS: ABSOLUTE BASOPHILS # (AUTO) 0.1 10^3/uL (0.0-0.2); ABSOLUTE EOSINOPHILS # (AUTO) 0.1 10^3/uL (0.0-0.6); ABSOLUTE MONOCYTES (AUTO) 0.6 10^3/uL (0.1-1.4); EOSINOPHILS % (AUTO) 1.5 % (0-6); MONOCYTES % (AUTO) 12.2 % (3-13); RED BLOOD COUNT 4.65 10^6/uL (4.35-5.55); TOTAL CELLS COUNTED % (AUTO) 100 %
[2020-02-14 17:00] LABS: ABSOLUTE LYMPHOCYTES (AUTO) 1.5 10^3/uL (0.5-4.7); ABSOLUTE NEUT (AUTO) 2.7 10^3/uL (1.7-8.2); BASOPHILS % (AUTO) 1.2 % (0-2); HEMATOCRIT 42.3 % (37.9-51.0); MEAN CORPUSCULAR HEMOGLOBIN 30.2 pg (27.0-33.4); MEAN CORPUSCULAR HGB CONC 33.2 g/dL (32.0-36.0); MEAN CORPUSCULAR VOLUME 91 fl (80-97); PLATELET COUNT 204 10^3/uL (150-450); RED CELL DISTRIBUTION WIDTH 13.8 % (11.5-14.0); SEGMENTED NEUTROPHILS % (AUTO) 54.1 % (42-78); WHITE BLOOD COUNT 4.9 10^3/uL (4.0-10.5)
[2020-02-14 17:08] LABS: ALBUMIN 3.9 g/dL (3.5-5.0); ALKALINE PHOSPHATASE 71 U/L (38-126); ANION GAP 10 (5-19); ASPARTATE AMINO TRANSFERASE 22 U/L (17-59); BILIRUBIN,TOTAL 0.4 mg/dL (0.2-1.3); BLOOD UREA NITROGEN 14 mg/dL (7-20); CALCIUM 9.2 mg/dL (8.4-10.2); CARBON DIOXIDE 22 mmol/L (22-30); CHLORIDE 107 mmol/L (98-107); GLUCOSE 125 mg/dL (75-110); POTASSIUM 3.8 mmol/L (3.6-5.0); TOTAL PROTEIN 7.1 g/dL (6.3-8.2)
[2020-02-14] MEDS ORDERED: LORAZEPAM INJ 2 MG/1 ML VIAL IM ONE (17:09)
[2020-02-14 17:10] LABS: ALCOHOL < 10 mg/dL (NONE DETECTED)
[2020-02-14] MEDS ORDERED: LEVETIRACETAM 1000 MG/NACL-ISO 1,000 MG/100 ML RTUPB IV ONE (17:18)
--- NOTE | 2020-02-14 17:32 | ER Document Report ---
ED General - General Chief Complaint: Seizure Stated Complaint: SEIZURE Time Seen by Provider: 02/14/20 17:12 TRAVEL OUTSIDE OF THE [place] IN LAST 30 DAYS: No - HPI Notes: Chief complaint: Seizure History of present illness: 34-year-old male well-known to this ED with chronic seizure disorder, alcohol abuse, cocaine abuse, hypertension and noncompliance with medications is brought in by EMS again today with episode of brief generalized seizure disorder. No trauma reported. Patient was mildly postictal on arrival proceeded to have another generalized tonic-clonic seizure. Physician information assistant had given Ativan 1 mg prior to my evaluation. Patient was postictal and not able to relate his own history at time I saw him. I have reviewed extensive old records from this facility on patient. He is supposed to be taking Keppra and lisinopril. - Related Data Allergies/Adverse Reactions: hydrocodone [From Vicodin] Allergy (Verified 02/14/20 16:36) Home Medications: keppra, lisinopril Past Medical History - General Information source: Emergency Med Personnel, [facility] - Social History Smoking Status: Current Some Day Smoker Frequency of alcohol use: Heavy Drug Abuse: Cocaine Family History: Reviewed & Not Pertinent, Other - unable to determine at this time Patient has homicidal ideation: No - Past Medical History Cardiac Medical History: Reports: Hx Hypertension Neurological Medical History: Reports: Hx Seizures Renal/ Medical History: Denies: Hx Peritoneal Dialysis Psychiatric Medical History: Reports: Hx Anxiety, Hx Depression Traumatic Medical History: 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 - Immunizations Immunizations up to date: No Hx Diphtheria, Pertussis, Tetanus Vaccination: Yes Review of Systems - Review of Systems -: Yes ROS unobtainable due to patient's medical condition Physical Exam - Vital signs Vitals: Resp Pulse Ox 24 H 97 02/14/20 16:24 02/14/20 16:24 - Notes Notes: GENERAL: Well-developed well-nourished male approximately reported age appearing postictal. SKIN: Good turgor no rashes. HEAD: Normocephalic atraumatic. EYES: PERRLA. EOMI. Conjunctivae and sclerae clear. EARS: CANALS AND TMS CLEAR. NOSE: CLEAR. MOUTH: Superficial abrasions of tongue. Moist mucosa. Good dentition. No stridor or edema. No drooling. NECK: Supple. No masses or thyromegaly. No adenopathy. Carotids 2+ without bruits. No JVD. BACK: Symmetrical without tenderness. CHEST: Respirations unlabored. Breath sounds clear and symmetrical. HEART: Regular rhythm. No murmur gallop or rub. ABDOMEN: Soft nontender without masses, organomegaly or rebound. Bowel sounds normally active. No bruits. GENITALIA: Deferred. EXTREMITIES: No edema. No calf tenderness. Cap refill less than 1.5 seconds. Dorsalis pedis and posterior tibial pulses 3+ and symmetrical. NEUROLOGICAL: Postictal. GCS 9 (E2+V2+M5) Cranial nerves II through XII intact. Moves extremities symmetrically in response to pain. 1+ ankle clonus bilaterally. PSYCHIATRIC: Appropriate affect. Course - Re-evaluation Re-evalutation: 02/15/20 02:53 Patient is well-known to this local ED. He came in with recurrent seizure and appears to be noncompliant with his prescribed Keppra. He slept for most of the shift here after getting some IV Ativan. His alcohol is less than 10. His urine was again positive for cocaine. Patient is subsequently awakened and says he is hungry. He is able to stand without assistance. We will write him up for discharge when his is able to come and get him and I have cautioned him against use of alcohol or cocaine. Also reemphasized need to take his medication as prescribed and I written him a new prescription for Keppra. - Vital Signs Vital signs: Temp Pulse Resp BP Pulse Ox 14 134/97 H 99 02/15/20 01:01 02/15/20 01:00 02/14/20 19:02 - Laboratory Result Diagrams: 02/14/20 16:30 02/14/20 16:30 Laboratory results interpreted by me: 02/14/20 02/14/20 02/14/20 16:30 17:30 18:30 VBG pCO2 33.9 L VBG HCO3 16.2 L Glucose 125 H Lactic Acid 13.6 H - EKG Interpretation by Me Additional EKG results interpreted by me: 02/14/20 18:37 Twelve-lead EKG from 1752 hrs. reviewed contemporaneously by me demonstrating normal sinus rhythm with a rate of 92 and a QRS axis of +69 degrees with a borderline prolongation of the QT interval at 476 ms. [place] and QRS intervals are normal. There are no acute ST/T wave changes. The tracing is compared to prior study from 01/01/2020 and is of similar appearance. Indication for current study: Seizure. Discharge - Discharge Clinical Impression: Seizure, Noncompliance, Cocaine abuse Condition: Stable Disposition: HOME, SELF-CARE Additional Instructions: Cocaine Abuse Cocaine causes many dangerous medical problems. Problems can occur even with "usual" amounts. Cocaine affects judgement, creating a sense of invulnerability. Cocaine users often make bad decisions that seem "great" at the time. Most cocaine users eventually will be hurt by bad job performance, damaged personal relations, crime, and unsafe sexual practices. Toxic effects of cocaine can include seizures, hallucinations, delusions, high blood pressure, heart damage, or sudden . There's always the risk of a "bad batch." But heart attacks, brain hemorrhages, or cardiac arrest can occur unpredictably even with "normal" use. Injection of cocaine is risky for abscesses, endocarditis (heart infection), pneumonia, and AIDS. Withdrawal from cocaine often causes anxiety and drug cravings. Some users become paranoid and psychotic. Many treatment programs are available, but you must make the decision to quit. Medication can be prescribed to control the symptoms of cocaine toxicity (beta blockers or benzodiazepines). Withdrawal symptoms may require tranquilizers.Seizure, Known Epileptic You have had a seizure. Seizures may "break through" in an epileptic due to stress of infection or injury, a change in blood chemistry, or drug and alcohol use. Another common cause is failure to take medication as prescribed. Your doctor has evaluated your situation for the likely cause of this seizure. It is important that you follow his advice concerning any medication changes and follow-up care. Further testing of anti-seizure medication levels in your blood may be necessary. If you have a medical driver's license, it's important that you DO NOT DRIVE until given permission by your physician. This seizure must be reported to the medical driver's license bureau. Call the doctor or return if seizures recur, or if new or unusual symptoms arise -- such as severe headache, confusion, excessive sleepiness, local weakness or numbness, neck stiffness, or fever. Prescriptions: Levetiracetam [Keppra 500 mg Tablet] 1,000 mg PO Q12 #60 tablet Referrals: [facility] [Provider Group] - Follow up as needed
[2020-02-14 18:40] LABS: VENOUS BLOOD BASE EXCESS -9.4 mmol/L; VENOUS BLOOD HCO3 16.2 mmol/L (20-32); VENOUS BLOOD PCO2 33.9 mmHg (35-63); VENOUS BLOOD PH 7.3 (7.30-7.42)
[2020-02-14] MEDS ORDERED: NORMAL SALINE 1000 ML 1,000 ML IV ONE (18:42)
--- NOTE | 2020-02-14 19:26 | RADIOLOGY REPORT (SQ) ---
EXAM DESCRIPTION: CHEST SINGLE VIEW IMAGES COMPLETED DATE/TIME: 02/14/2020 7:03 pm REASON FOR STUDY: seizure COMPARISON: 01/01/2020 EXAM PARAMETERS: NUMBER OF VIEWS: One view. TECHNIQUE: Single frontal radiographic view of the chest acquired. RADIATION DOSE: NA LIMITATIONS: None. FINDINGS: LUNGS AND PLEURA: No opacities, masses or pneumothorax. No pleural effusion. MEDIASTINUM AND HILAR STRUCTURES: No masses. Contour normal. HEART AND VASCULAR STRUCTURES: Heart normal in size. Normal vasculature. BONES: No acute findings. HARDWARE: None in the chest. OTHER: No other significant finding. IMPRESSION: NO ACUTE RADIOGRAPHIC FINDING IN THE CHEST. TECHNICAL DOCUMENTATION: JOB ID: [id number] 2010 [employer]- All Rights Reserved Reading location - IP/workstation name: [email or web address]
--- NOTE | 2020-02-14 19:40 | RADIOLOGY REPORT (SQ) ---
EXAM DESCRIPTION: CT HEAD WITHOUT IMAGES COMPLETED DATE/TIME: 02/14/2020 7:10 pm REASON FOR STUDY: Seizure COMPARISON: 12/04/2019 TECHNIQUE: Axial images acquired through the brain without intravenous contrast. Images reviewed wi th bone, brain and subdural windows. Additional sagittal and coronal reconstructions were generated. Images stored on PACS. All CT scanners at this facility use dose modulation, iterative reconstruction, and/or weight based d osing when appropriate to reduce radiation dose to as low as reasonably achievable (ALARA). [facility]: Dose Right [facility]: CareDose [facility]: Dose Right [facility]: Teradose 4D [facility]: [employer] RADIATION DOSE: CT Rad equipment meets quality standard of care and radiation dose reduction techniq ues were employed. CTDIvol: 55.2 mGy. DLP: 1084 mGy-cm. mGy. LIMITATIONS: None. FINDINGS: VENTRICLES: Normal size and contour. CEREBRUM: No masses. No hemorrhage. No midline shift. No evidence for acute infarction. Normal gra y/white matter differentiation. No areas of low density in the white matter. CEREBELLUM: No masses. No hemorrhage. No alteration of density. No evidence for acute infarction. EXTRAAXIAL SPACES: No fluid collections. No masses. ORBITS AND GLOBE: No intra- or extraconal masses. Normal contour of globe without masses. CALVARIUM: No fracture. PARANASAL SINUSES: No fluid or mucosal thickening. SOFT TISSUES: No mass or hematoma. OTHER: No other significant finding. IMPRESSION: NORMAL BRAIN CT WITHOUT CONTRAST. EVIDENCE OF ACUTE STROKE: NO. COMMENT: Quality ID # [id number]: Final reports with documentation of one or more dose reduction techniques (e.g., Automated exposure control, adjustment of the mA and/or kV according to patient size, use of iterative reconstruction technique) TECHNICAL DOCUMENTATION: JOB ID: [id number] 2010 [employer]- All Rights Reserved Reading location - IP/workstation name: [email or web address]
[2020-02-14 23:28] LABS: APPEARANCE,URINE CLEAR; BILIRUBIN,URINE NEGATIVE (NEGATIVE); COLOR,URINE STRAW; GLUCOSE, URINE NEGATIVE (NEGATIVE); KETONES,URINE NEGATIVE (NEGATIVE); PROTEIN,URINE NEGATIVE (NEGATIVE); URINE SPECIFIC GRAVITY 1.006; UROBILINOGEN,URINE NEGATIVE mg/dL (<2.0)
[2020-02-14 23:48] LABS: URINE AMPHETAMINES SCREEN NEGATIVE; URINE BARBITURATES SCREEN NEGATIVE; URINE BENZODIAZEPINES SCREEN NEGATIVE; URINE COCAINE SCREEN UNCONFIRMED POSITIVE; URINE MARIJUANA (THC) SCREEN NEGATIVE; URINE METHADONE SCREEN NEGATIVE; URINE PHENCYCLIDINE SCREEN NEGATIVE
[2020-02-15 02:48] VITALS: BP 134/97
[2020-02-15 03:05] LABS: VENOUS BLOOD BASE EXCESS -0.8 mmol/L; VENOUS BLOOD HCO3 26.3 mmol/L (20-32); VENOUS BLOOD PCO2 52.6 mmHg (35-63); VENOUS BLOOD PH 7.32 (7.30-7.42)
--- NOTE | 2020-02-15 08:39 | EKG REPORT ---
SEVERITY:- ABNORMAL ECG - SINUS RHYTHM LEFT VENTRICULAR HYPERTROPHY BORDERLINE PROLONGED QT INTERVAL : Confirmed by: Maddy Marx MD 15-Feb-2020 08:39:14
== END 2020-02-15 07:30 | disposition home or self-care (01) ==
LOC: ER 16:22
DX: G40.919 Epilepsy, unspecified, intractable, without status epilepticus (principal); F14.10 Cocaine abuse, uncomplicated; F10.10 Alcohol abuse, uncomplicated; S00.512A Abrasion of oral cavity, initial encounter; X58.XXXA Exposure to other specified factors, initial encounter; I10 Essential (primary) hypertension; Z91.14 Patient's other noncompliance with medication regimen; Z79.899 Other long term (current) drug therapy; Z88.6 Allergy status to analgesic agent; Z88.5 Allergy status to narcotic agent
CPT/HCPCS: 93005; 99285; 96372; 96361; 96365; 36415; 80307 ×2; 82550; 83605; 83735; 85025; 80053; 81001; 82803; 71045; 70450; 93010; J2060; J7030; J1953

== ENCOUNTER 2020-02-17 02:30 | Emergency (ER) | payer MEDICARE, MEDICAID ==
[2020-02-17 03:00] LABS: ABSOLUTE BASOPHILS # (AUTO) 0.1 10^3/uL (0.0-0.2); ABSOLUTE EOSINOPHILS # (AUTO) 0.1 10^3/uL (0.0-0.6); ABSOLUTE LYMPHOCYTES (AUTO) 1.3 10^3/uL (0.5-4.7); ABSOLUTE MONOCYTES (AUTO) 0.5 10^3/uL (0.1-1.4); ABSOLUTE NEUT (AUTO) 2.7 10^3/uL (1.7-8.2); BASOPHILS % (AUTO) 1.1 % (0-2); EOSINOPHILS % (AUTO) 1.4 % (0-6); HEMOGLOBIN 14.1 g/dL (13.5-17.0); LYMPHOCYTES % (AUTO) 28.3 % (13-45); MEAN CORPUSCULAR HEMOGLOBIN 30.6 pg (27.0-33.4); MEAN CORPUSCULAR HGB CONC 34.3 g/dL (32.0-36.0); MEAN CORPUSCULAR VOLUME 89 fl (80-97); PLATELET COUNT 213 10^3/uL (150-450); RED CELL DISTRIBUTION WIDTH 13.7 % (11.5-14.0); SEGMENTED NEUTROPHILS % (AUTO) 58.2 % (42-78); TOTAL CELLS COUNTED % (AUTO) 100 %; WHITE BLOOD COUNT 4.7 10^3/uL (4.0-10.5)
[2020-02-17 03:20] LABS: ALKALINE PHOSPHATASE 72 U/L (38-126); ANION GAP 6 (5-19); ASPARTATE AMINO TRANSFERASE 23 U/L (17-59); BILIRUBIN,TOTAL 0.3 mg/dL (0.2-1.3); BLOOD UREA NITROGEN 10 mg/dL (7-20); CALCIUM 9.4 mg/dL (8.4-10.2); CARBON DIOXIDE 26 mmol/L (22-30); CHLORIDE 111 mmol/L (98-107); GLUCOSE 107 mg/dL (75-110); POTASSIUM 3.6 mmol/L (3.6-5.0); TOTAL PROTEIN 7.3 g/dL (6.3-8.2)
[2020-02-17 03:23] LABS: ALCOHOL < 10 mg/dL (NONE DETECTED)
[2020-02-17] MEDS ORDERED: LEVETIRACETAM 1000 MG/NACL-ISO 1,000 MG/100 ML RTUPB IV ONE (03:37)
--- NOTE | 2020-02-17 03:40 | ER Document Report ---
ED Seizure - General Mode of Arrival: Medic Information source: Patient, Transfer Record - HPI Quality of pain: Achy Pain Level: 1 Continued on arrival to ED: Yes Can details of seizure be obtained/verified: Yes Episode witnessed (by whom): Yes - Spouse Current seizure medications: Keppra Post-ictal symptoms: Headache Injuries: LUE <CHRISTIE VELOZ - Last Filed: 02/17/20 08:17> <RISA SUNSHINE - Last Filed: 02/17/20 08:37> - General Chief Complaint: Seizure Stated Complaint: SEIZURE Time Seen by Provider: 02/17/20 03:30 Primary Care Provider: [facility] [Provider Group] - Follow up as needed Notes: Patient presents after having a witnessed seizure while he was laying in bed. Patient complains of left elbow tenderness. Patient denies falling out of his bed when he had a seizure. Patient denies any head injury. Patient has a history of hypertension as well as seizure disorder and is well-known to the department due to his medication noncompliance. Patient was seen here earlier this month and given a prescription for a month supply of his medications. Patient denies any recent illness. (CHRISTIE VELOZ) - Related Data Allergies/Adverse Reactions: hydrocodone [From Vicodin] Allergy (Verified 02/14/20 16:36) Past Medical History - General Information source: Patient, Transfer Record - Social History Smoking Status: Never Smoker Frequency of alcohol use: None Drug Abuse: None Lives with: Family Family History: Reviewed & Not Pertinent, Other - unable to determine at this time Patient has homicidal ideation: No - Past Medical History Cardiac Medical History: Reports: Hx Hypertension Neurological Medical History: Reports: Hx Seizures Renal/ Medical History: Denies: Hx Peritoneal Dialysis Psychiatric Medical History: Reports: Hx Anxiety, Hx Depression Traumatic Medical History: 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 Surgical Hx: Negative - Immunizations Immunizations up to date: No Hx Diphtheria, Pertussis, Tetanus Vaccination: Yes <CHRISTIE VELOZ - Last Filed: 02/17/20 08:17> Review of Systems - Review of Systems Constitutional: No symptoms reported. denies: Fever EENT: No symptoms reported Cardiovascular: No symptoms reported Respiratory: No symptoms reported Gastrointestinal: No symptoms reported. denies: Nausea, Vomiting Genitourinary: No symptoms reported Male Genitourinary: No symptoms reported Musculoskeletal: Joint pain - Left elbow Skin: No symptoms reported Hematologic/Lymphatic: No symptoms reported Neurological/Psychological: Seizure, Headaches <CHRISTIE VELOZ - Last Filed: 02/17/20 08:17> Physical Exam - General General appearance: Appears well In distress: None - HEENT Head: Normocephalic, Atraumatic Eyes: Normal Conjunctiva: Normal Nasal: Normal Mucous membranes: Normal Neck: Normal, Supple - Respiratory Respiratory status: No respiratory distress Chest status: Nontender Breath sounds: Normal. No: Rales, Rhonchi, Stridor, Wheezing Chest palpation: Normal - Cardiovascular Rhythm: Regular Heart sounds: S1 appreciated, S2 appreciated - Abdominal Inspection: Normal Distension: No distension Bowel sounds: Normal - Back Back: Normal, Nontender - Extremities General upper extremity: Normal inspection, Normal strength General lower extremity: Normal inspection, Normal strength Shoulder: Normal, Nontender Arm: Normal, Nontender Elbow: Tender - Left elbow tenderness, no obvious injury or swelling. No: Abrasion, Deformity, Dislocation, Ecchymosis, Instability, Joint effusion, Laceration, Limited ROM Forearm: Normal, Nontender Wrist: Normal, Nontender - Neurological Neuro grossly intact: Yes Cognition: Normal Eddy Coma Scale Eye Opening: Spontaneous Eddy Coma Scale Verbal: Oriented Bretin Coma Scale Motor: Obeys Commands Bertin Coma Scale Total: 15 - Skin Skin Temperature: Warm Skin Moisture: Dry Skin Color: Normal <CHRISTIE VELOZ - Last Filed: 02/17/20 08:17> - Vital signs Vitals: Pulse Ox 94 02/17/20 02:30 - General Notes: Resting with eyes closed, arouses to voice and answers questions appropriately (CHRISTIE VELOZ) Course - Laboratory Result Diagrams: 02/17/20 02:52 02/17/20 02:52 <CHRISTIE VELOZ - Last Filed: 02/17/20 08:17> - Laboratory Result Diagrams: 02/17/20 02:52 02/17/20 02:52 <RISA SUNSHINE - Last Filed: 02/17/20 08:37> - Re-evaluation Re-evalutation: 02/17/20 06:33 Patient sleeping, arouses easily to voice. Patient's blood pressure has trended down. 02/17/20 08:17 Report and handoff given to Risa Sunshine NP (CHRISTIE VELOZ) 02/17/20 08:36 Report was received on the patient. Patient is clinically sober. I did e valuate the patient. I did review the labs and records. I spoke with the patient at length. He is aware he has a prescription for Keppra at his pharmacy. He is ambulatory without gait disturbance. He is answering questions appropriately at this time and is calling for a ride. (RISA SUNSHINE) - Vital Signs Vital signs: Temp Pulse Resp BP Pulse Ox 98.6 F 15 121/98 H 98 02/17/20 02:31 02/17/20 07:30 02/17/20 07:30 02/17/20 05:30 - Laboratory Laboratory results interpreted by me: 02/17/20 02:52 Chloride 111 H Discharge <CHRISTIE VELOZ - Last Filed: 02/17/20 08:17> <RISA SUNSHINE - Last Filed: 02/17/20 08:37> - Discharge Clinical Impression: Seizure, Noncompliance, Left elbow pain Disposition: HOME, SELF-CARE Instructions: High Blood Pressure ([facility]), Seizure, Known Epileptic ([facility]) Additional Instructions: Take your medication as prescribed Follow-up with a primary doctor Return as needed for any new or worsening symptoms Prescriptions: Levetiracetam [Keppra 500 mg Tablet] 1,000 mg PO DAILY #60 tablet Lisinopril [Zestril] 30 mg PO DAILY #30 tablet Referrals: [facility] [Provider Group] - Follow up as needed
[2020-02-17] MEDS ORDERED: ACETAMINOPHEN 325 MG TABLET PO ONE (03:56)
[2020-02-17] MEDS ORDERED: LISINOPRIL 10 MG TABLET PO ONE (03:59)
--- NOTE | 2020-02-17 04:40 | RADIOLOGY REPORT (SQ) ---
CLINICAL INDICATION: elbow pain, hx seizure. . TECHNIQUE: 4 view(s) were obtained of the left elbow. COMPARISON: None. FINDINGS: No acute displaced fracture is identified of the elbow. Alignment appears anatomic. Joint spaces are within normal limits for age. No significant joint effusion. Surrounding soft tissues are unremarkable. IMPRESSION: No evidence of acute displaced fracture of the elbow.
[2020-02-17 08:41] VITALS: BP 125/96
--- NOTE | 2020-02-17 23:11 | EKG REPORT ---
SEVERITY:- ABNORMAL ECG - SINUS RHYTHM LEFT VENTRICULAR HYPERTROPHY : Confirmed by: Maddy Marx MD 17-Feb-2020 23:10:45
== END 2020-02-17 08:41 | disposition home or self-care (01) ==
LOC: ER 02:30
DX: R56.9 Unspecified convulsions (principal); M25.522 Pain in left elbow; R51 Headache; I10 Essential (primary) hypertension; Z91.14 Patient's other noncompliance with medication regimen
CPT/HCPCS: 93005; 99284; 96374; 36415; 82962; 80307; 83735; 85025; 80053; 73080; 93010; A9270 ×2; J1953

== ENCOUNTER 2020-02-29 06:02 | Emergency (ER) | payer MEDICARE, MEDICAID ==
[2020-02-29] MEDS ORDERED: LEVETIRACETAM 1000 MG/NACL-ISO 1,000 MG/100 ML RTUPB IV ONE (07:14)
[2020-02-29] MEDS ORDERED: NORMAL SALINE 1000 ML 1,000 ML IV ONE (07:17)
--- NOTE | 2020-02-29 07:26 | ER Document Report ---
Entered by HITESH KING SCRIBE 02/29/20 0713 Acting as scribe for:GINGER BYRNES MD ED Substance Abuse / Acc. OD - General Chief Complaint: Drug Abuse Stated Complaint: POSSIBLE ANXIETY ATTACK Time Seen by Provider: 02/29/20 06:49 Mode of Arrival: Medic Information source: Patient, Emergency Med Personnel, [facility] Records Notes: This 34-year-old male patient with a long history of seizures and noncompliance, chronic crack cocaine abuse, comes to the emergency room by EMS complaining of not feeling right. States he had tingling to his hands and feet. He does admit to smoking crack tonight. He was recently admitted to the hospital and discharged less than 2 days ago. TRAVEL OUTSIDE OF THE [place] IN LAST 30 DAYS: No - Related Data Allergies/Adverse Reactions: hydrocodone [From Vicodin] Allergy (Verified 02/14/20 16:36) Past Medical History - General Information source: Patient, [facility] Records - Social History Smoking Status: Current Every Day Smoker Cigarette use (# per day): Yes Chew tobacco use (# tins/day): No Frequency of alcohol use: Occasional Drug Abuse: Other - Crack cocaine Family History: Other - Unobtainable due to patient's current cognitive state Patient has homicidal ideation: No - Past Medical History Cardiac Medical History: Reports: Hx Hypertension Neurological Medical History: Reports: Hx Seizures Psychiatric Medical History: Reports: Hx Anxiety, Hx Depression Traumatic Medical History: 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 Surgical Hx: Negative - Immunizations Immunizations up to date: No Hx Diphtheria, Pertussis, Tetanus Vaccination: Yes Review of Systems - Review of Systems Constitutional: See HPI, Other - Crack cocaine abuse EENT: No symptoms reported Cardiovascular: No symptoms reported Respiratory: No symptoms reported Gastrointestinal: No symptoms reported Genitourinary: No symptoms reported Male Genitourinary: No symptoms reported Musculoskeletal: No symptoms reported Skin: No symptoms reported Hematologic/Lymphatic: No symptoms reported Neurological/Psychological: See HPI, Tingling - bilateral feet/hands -: Yes All other systems reviewed and negative Physical Exam - Vital signs Vitals: Temp 98.5 F 02/29/20 06:03 - Notes Notes: Physical Exam: General: Appears drowsy but will sit up and converse although he has mumbled speech that intermittently gets somewhat clear enough to understand. HEENT: Normocephalic. Atraumatic. PERRL. Extraocular movements intact. Oropharynx clear. Neck: Supple. Non-tender. Respiratory: No respiratory distress. Clear and equal breath sounds bilaterally. Cardiovascular: Regular rate and rhythm. Abdominal: Normal Inspection. Non-tender. No distension. Normal Bowel Sounds. Back: No gross abnormalities. Extremities: Moves all four extremities. Upper extremities: Normal inspection. Normal ROM. Lower extremities: Normal inspection. No edema. Normal ROM. Neurological: Cognition at baseline. AAOx4. Mumbled speech. Psychological: Normal affect. Normal Mood. Skin: Warm. Dry. Normal color. Course - Vital Signs Vital signs: Temp Pulse Resp BP Pulse Ox 98.4 F 15 169/119 H 99 02/29/20 06:12 02/29/20 08:01 02/29/20 08:01 02/29/20 08:01 - Laboratory Result Diagrams: 02/29/20 08:06 02/29/20 08:06 Laboratory results interpreted by me: 02/29/20 02/29/20 08:06 08:06 RBC 4.31 L Hgb 13.1 L Creatine Kinase 192 H - EKG Interpretation by Wi EKG shows normal: Sinus rhythm, White, Intervals, QRS Complexes, ST-T Waves Rate: Normal - 84 Rhythm: NSR Voltage: Consistent with [facility]H P Waves: LAE When compared to previous EKG there are: No significant change Discharge - Discharge Clinical Impression: Anxiety, Crack cocaine use, Seizure disorder, Noncompliance with medications Condition: Stable Disposition: HOME, SELF-CARE Additional Instructions: Your symptoms of tingling to your hands and feet suggest an anxiety type response, possibly to your crack cocaine use this evening. You should be sure to take your seizure medications and stop using drugs. Follow-up with your primary care provider if not feeling better. RETURN TO THE EMERGENCY ROOM IF ANY NEW OR WORSENING SYMPTOMS. I personally performed the services described in the documentation, reviewed and edited the documentation which was dictated to the scribe in my presence, and it accurately records my words and actions.
[2020-02-29 08:11] VITALS: BP 169/119
[2020-02-29 08:23] LABS: ABSOLUTE BASOPHILS # (AUTO) 0.1 10^3/uL (0.0-0.2); ABSOLUTE EOSINOPHILS # (AUTO) 0.1 10^3/uL (0.0-0.6); ABSOLUTE MONOCYTES (AUTO) 0.6 10^3/uL (0.1-1.4); ABSOLUTE NEUT (AUTO) 4.3 10^3/uL (1.7-8.2); EOSINOPHILS % (AUTO) 2.1 % (0-6); HEMATOCRIT 38.3 % (37.9-51.0); HEMOGLOBIN 13.1 g/dL (13.5-17.0); LYMPHOCYTES % (AUTO) 16.3 % (13-45); MEAN CORPUSCULAR HEMOGLOBIN 30.5 pg (27.0-33.4); MEAN CORPUSCULAR HGB CONC 34.3 g/dL (32.0-36.0); MEAN CORPUSCULAR VOLUME 89 fl (80-97); MONOCYTES % (AUTO) 10.3 % (3-13); PLATELET COUNT 199 10^3/uL (150-450); RED BLOOD COUNT 4.31 10^6/uL (4.35-5.55); RED CELL DISTRIBUTION WIDTH 13.9 % (11.5-14.0); SEGMENTED NEUTROPHILS % (AUTO) 70.3 % (42-78); TOTAL CELLS COUNTED % (AUTO) 100 %; WHITE BLOOD COUNT 6.1 10^3/uL (4.0-10.5)
[2020-02-29 08:29] LABS: APPEARANCE,URINE CLEAR; BILIRUBIN,URINE NEGATIVE (NEGATIVE); COLOR,URINE STRAW; GLUCOSE, URINE NEGATIVE (NEGATIVE); KETONES,URINE NEGATIVE (NEGATIVE); LEUKOCYTE ESTERASE,URINE NEGATIVE (NEGATIVE); NITRITE,URINE NEGATIVE (NEGATIVE); PROTEIN,URINE NEGATIVE (NEGATIVE); URINE SPECIFIC GRAVITY 1.009; UROBILINOGEN,URINE NEGATIVE mg/dL (<2.0)
[2020-02-29 08:49] LABS: ALBUMIN 3.9 g/dL (3.5-5.0); ALKALINE PHOSPHATASE 72 U/L (38-126); ASPARTATE AMINO TRANSFERASE 21 U/L (17-59); BILIRUBIN,TOTAL 0.4 mg/dL (0.2-1.3); BLOOD UREA NITROGEN 10 mg/dL (7-20); CALCIUM 9.2 mg/dL (8.4-10.2); CREATINE KINASE 192 U/L (55-170); GLUCOSE 92 mg/dL (75-110); POTASSIUM 3.6 mmol/L (3.6-5.0); TOTAL PROTEIN 7.1 g/dL (6.3-8.2)
[2020-02-29 08:55] LABS: CARBON DIOXIDE 29 mmol/L (22-30); CHLORIDE 105 mmol/L (98-107)
[2020-02-29 08:57] LABS: ANION GAP 5 (5-19)
--- NOTE | 2020-02-29 15:03 | EKG REPORT ---
SEVERITY:- ABNORMAL ECG - SINUS RHYTHM LEFT ATRIAL ABNORMALITY LEFT VENTRICULAR HYPERTROPHY : Confirmed by: Juan Claudio MD 29-Feb-2020 15:02:11
== END 2020-02-29 09:52 | disposition home or self-care (01) ==
LOC: ER 06:02
DX: G40.909 Epilepsy, unspecified, not intractable, without status epilepticus (principal); F14.10 Cocaine abuse, uncomplicated; F41.9 Anxiety disorder, unspecified; R20.0 Anesthesia of skin; Z91.19 Patient's noncompliance with other medical treatment and regimen; Z88.8 Allergy status to other drugs, medicaments and biological substances; F17.210 Nicotine dependence, cigarettes, uncomplicated; I10 Essential (primary) hypertension
CPT/HCPCS: 93005; 99283; 99284; 96365; 96366; 36415; 82550; 85025; 80053; 81001; 84484; 93010; A9270 ×2; J7030; J1953

== ENCOUNTER 2020-02-29 21:12 | Emergency (ER) | payer MEDICARE, MEDICAID ==
[2020-02-29] MEDS ORDERED: LISINOPRIL 10 MG TABLET PO ONE (22:14)
[2020-02-29] MEDS ORDERED: LEVETIRACETAM 500 MG TABLET PO ONE (22:14)
--- NOTE | 2020-02-29 22:19 | ER Document Report ---
ED General - General Chief Complaint: Numbness Stated Complaint: NUMBNESS LEFT ARM Primary Care Provider: BRENT BAKER MD [EMER[facility]] - Follow up as needed TRAVEL OUTSIDE OF THE [place] IN LAST 30 DAYS: No - HPI Notes: 34-year-old male history of hypertension, crack cocaine abuse, epilepsy presents with tremor in bilateral upper extremities. Patient says that this happens occasionally for unknown duration and wanted to get it checked out today. Patient endorses crack use today. Patient denies any history of alcohol abuse or dependence. One prior visit for alcohol abuse but no other mention on chart review corroborates this. Patient denies any trauma, seizure since discharge. Patient was seen in the ED and had blood work done this morning and was given a.m. dose of Keppra. Patient denies any numbness in contrast to triage complaint. Patient denies any chest pain, neck pain, headache, weakness, change in gait, change in vision or speech. - Related Data Allergies/Adverse Reactions: hydrocodone [From Vicodin] Allergy (Verified 02/14/20 16:36) Past Medical History - General Information source: Patient, [facility] Records - Social History Smoking Status: Unknown if Ever Smoked Family History: Reviewed & Not Pertinent - Past Medical History Cardiac Medical History: Reports: Hx Hypertension Neurological Medical History: Reports: Hx Seizures Renal/ Medical History: Denies: Hx Peritoneal Dialysis Psychiatric Medical History: Reports: Hx Anxiety, Hx Depression Traumatic Medical History: 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 - Immunizations Immunizations up to date: No Hx Diphtheria, Pertussis, Tetanus Vaccination: Yes Review of Systems - Review of Systems Notes: REVIEW OF SYSTEMS: CONSTITUTIONAL : Denies fever, chills, or sweats. EENT: Denies recent cold/sinus symptoms, denies throat pain CARDIOVASCULAR: Denies chest pain, GERTRUDE RESPIRATORY: Denies cough, denies shortness of breath. GASTROINTESTINAL: Denies abdominal pain, nausea/vomiting. GENITOURINARY: Denies difficulty urinating, painful urination. MUSCULOSKELETAL: Denies neck pain, back pain. SKIN: Denies rash or skin lesions. HEMATOLOGIC : Denies easy bruising or bleeding. LYMPHATIC: Denies swollen, enlarged glands. NEUROLOGICAL: Denies headache, denies change in gait. PSYCHIATRIC: Denies anxiety or stress or depression. Physical Exam - Vital signs Vitals: Resp Pulse Ox 16 100 02/29/20 21:14 02/29/20 21:14 - Notes Notes: PHYSICAL EXAMINATION: GENERAL: Well-appearing, well-nourished and in no acute distress. HEAD: Atraumatic, normocephalic. EYES: Pupils equal round and appropriate constriction, sclera anicteric, conjun ctiva are normal. ENT: nares patent, moist mucous membranes. NECK: Normal range of motion, supple without lymphadenopathy, no C-spine tenderness LUNGS: Breath sounds clear to auscultation bilaterally and equal. No wheezes rales or rhonchi. Normal respiratory rate and effort HEART: Regular rate and rhythm without murmurs ABDOMEN: Soft, nontender, no guarding, no masses, no CVAT EXTREMITIES: Normal range of motion, no pitting or edema. No cyanosis. NEUROLOGICAL: Awake, alert, conversing appropriately, moves all extremities spontaneously. 5 out of 5 strength in all extremities, normal sensation in all extremities, cranial nerves II through XII intact bilaterally, normal [id number]. Patient has mild resting tremor in bilateral upper extremities that extinguishes during [id number] without any psychomotor agitation, tongue fasciculations, or lower extremity tremors SKIN: Warm, Dry, normal turgor, no rashes or lesions noted. Course - Re-evaluation Re-evalutation: 02/29/20 22:21 Paresthesias in all extremities and tremor likely secondary to neurotoxic effects of cocaine. No objective neuro deficits. Patient had electrolytes checked earlier today which were normal, no indication to recheck currently. Patient presents with resting tremor that he has had chronically without any signs of benzo/barbiturate/alcohol withdrawal which is consistent with patient's history. Patient has not filled his seizure medications so nurses put in a social work consult to follow-up with him tomorrow. Patient says he has not filled them because he does not have a car. Will give dose of Keppra in ED and DC with PCP and neurology follow-up. Return precautions given which patient has demonstrated understanding of. Patient clinically sober and able to understand all instructions and give history. - Vital Signs Vital signs: Temp Pulse Resp BP Pulse Ox 98.3 F 80 17 160/120 H 100 02/29/20 22:11 02/29/20 22:39 02/29/20 23:00 02/29/20 22:01 02/29/20 23:00 Discharge - Discharge Clinical Impression: Tremor, Cocaine abuse Disposition: HOME, SELF-CARE Additional Instructions: Cocaine Abuse Cocaine causes many dangerous medical problems. Problems can occur even with "usual" amounts. Cocaine affects judgement, creating a sense of invulnerability. Cocaine users often make bad decisions that seem "great" at the time. Most cocaine users eventually will be hurt by bad job performance, damaged personal relations, crime, and unsafe sexual practices. Toxic effects of cocaine can include seizures, hallucinations, delusions, high blood pressure, heart damage, or sudden . There's always the risk of a "bad batch." But heart attacks, brain hemorrhages, or cardiac arrest can occur unpredictably even with "normal" use. Injection of cocaine is risky for abscesses, endocarditis (heart infection), pneumonia, and AIDS. Withdrawal from cocaine often causes anxiety and drug cravings. Some users become paranoid and psychotic. Many treatment programs are available, but you must make the decision to quit. Medication can be prescribed to control the symptoms of cocaine toxicity (beta blockers or benzodiazepines). Withdrawal symptoms may require tranquilizers. Follow-up with primary doctor and neurologist within 1 week. Take all medications as prescribed. Return to ED immediately if symptoms worsen. Follow-up at [place] for rehab if you are ready to stop using cocaine. Referrals: BRENT BAKER MD [EMER[facility]] - Follow up as needed
[2020-02-29 22:24] VITALS: BP 160/120
== END 2020-02-29 23:06 | disposition home or self-care (01) ==
LOC: ER 21:12
DX: G40.909 Epilepsy, unspecified, not intractable, without status epilepticus (principal); R25.1 Tremor, unspecified; F14.10 Cocaine abuse, uncomplicated; R20.0 Anesthesia of skin; I10 Essential (primary) hypertension; Z88.8 Allergy status to other drugs, medicaments and biological substances; Z79.899 Other long term (current) drug therapy
CPT/HCPCS: 99283; A9270 ×2

== ENCOUNTER 2020-03-05 06:21 | Emergency (ER) | payer MEDICARE, MEDICAID ==
[2020-03-05] MEDS ORDERED: LISINOPRIL 10 MG TABLET PO ONE (06:56)
[2020-03-05] MEDS ORDERED: LORAZEPAM 1 MG TABLET PO ONE (06:57)
[2020-03-05] MEDS ORDERED: LEVETIRACETAM 1000 MG/NACL-ISO 1,000 MG/100 ML RTUPB IV ONE (07:07)
--- NOTE | 2020-03-05 07:19 | ER Document Report ---
ED General - General Chief Complaint: Numbness of Arm Stated Complaint: ARMS TINGLING Time Seen by Provider: 03/05/20 06:29 TRAVEL OUTSIDE OF THE [place] IN LAST 30 DAYS: No - HPI Notes: Chief complaint: Paresthesias left hand History of present illness: 34-year-old male with history of seizure disorder, hypertension, cocaine abuse and noncompliance with medications was seen here recently with some paresthesias of the fingers primary provider. He tested positive for cocaine at that time and remembered he was not taking any of his medications. He has a normal neurologic exam and unremarkable labs and was discharged home. He says his symptoms well away completely. He awakened again this morning with tingling of the fingers. He initially said this was just left hand with no further questioning says it was actually both hands. It is now im proving although it has not completely resolved. He is evasive when asking about cocaine use at this time. He admits he is not taking his prescribed Keppra and lisinopril stating that he does not have a ride to get the drugstore to pick them up although the prescriptions waiting for him. Slight dull headache. No nausea vomiting. No difficulty with speech, eyesight or swallowing. No motor deficit reported. - Related Data Allergies/Adverse Reactions: hydrocodone [From Vicodin] Allergy (Verified 02/14/20 16:36) Past Medical History - General Information source: Patient, [facility] Records - Social History Smoking Status: Current Every Day Smoker Frequency of alcohol use: Social - Still has Drug Abuse: Cocaine Family History: Reviewed & Not Pertinent Patient has homicidal ideation: No - Past Medical History Cardiac Medical History: Reports: Hx Hypertension Neurological Medical History: Reports: Hx Seizures Renal/ Medical History: Denies: Hx Peritoneal Dialysis Psychiatric Medical History: Reports: Hx Anxiety, Hx Depression Traumatic Medical History: 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 - Immunizations Immunizations up to date: No Hx Diphtheria, Pertussis, Tetanus Vaccination: Yes Review of Systems - Review of Systems Notes: Constitutional: Negative for fever. HENT: Negative for sore throat. Eyes: Negative for visual changes. Cardiovascular: Negative for chest pain. Respiratory: Negative for shortness of breath. Gastrointestinal: Negative for abdominal pain, vomiting or diarrhea. Genitourinary: Negative for dysuria. Musculoskeletal: Negative for back pain. Skin: Negative for rash. Neurological: As per HPI. 10 point ROS negative except as marked above and in HPI. Physical Exam - Vital signs Vitals: Pulse Resp BP Pulse Ox 78 16 180/122 H 98 03/05/20 06:21 03/05/20 06:21 03/05/20 06:21 03/05/20 06:21 - Notes Notes: GENERAL: Male patient approximately stated age appearing in no acute distress. SKIN: Good turgor no rashes. HEAD: Normocephalic atraumatic. EYES: PERRLA. EOMI. Conjunctivae and sclerae clear. EARS: CANALS AND TMS CLEAR. NOSE: CLEAR. MOUTH: Moist mucosa. Good dentition. No stridor or edema. No drooling. NECK: Supple. No masses or thyromegaly. No adenopathy. Carotids 2+ without bruits. No JVD. BACK: Symmetrical without tenderness. CHEST: Respirations unlabored. Breath sounds clear and symmetrical. HEART: Regular rhythm. No murmur gallop or rub. ABDOMEN: Soft nontender without masses, organomegaly or rebound. Bowel sounds normally active. No bruits. GENITALIA: Deferred. EXTREMITIES: No edema. No calf tenderness. Cap refill less than 1.5 seconds. Dorsalis pedis and posterior tibial pulses 3+ and symmetrical. NEUROLOGICAL: GCS 15. Alert and oriented x3. Normal gait. Fluent speech. Cranial nerves II through XII intact. Sensorimotor and cerebellar normal. Normal tone. PSYCHIATRIC: Appropriate affect. Course - Re-evaluation Re-evalutation: 03/05/20 10:33 Patient was given a dose of IV Keppra here and also was given his prescribed dose of oral lisinopril. Blood pressure came down with this. Symptoms resolved. Head CT normal. His EKG was unremarkable. His CBC, comprehensive metabolic profile troponin were all normal. I think his primary problem here is noncompliance with prescribed medications. I spoke with her about this and asked if he like to talk with discharge planning team/child protective services social worker regarding potential assistance in getting his prescriptions filled. He initially said yes and then while I was engaged to critical care activities with a note the patient decided he wanted to sign out AMA. I believe he has capacity to make this decision and he has signed paperwork and left the department at this time. He has been strongly encouraged to get back on his prescribed medications. - Vital Signs Vital signs: Temp Pulse Resp BP Pulse Ox 98 F 78 11 L 143/115 H 100 03/05/20 06:32 03/05/20 06:34 03/05/20 10:16 03/05/20 10:16 03/05/20 10:16 - Laboratory Result Diagrams: 03/05/20 06:37 03/05/20 06:37 Laboratory results interpreted by me: 03/05/20 06:37 [place] % (Auto) 13.9 H - EKG Interpretation by Me Additional EKG results interpreted by me: 03/05/20 07:21 Twelve-lead EKG from 0718 hrs. reviewed contemporaneously by me showing normal sinus rhythm with a rate of 64. There is left atrial abnormality. QRS axis is normal at +4 degrees. Intervals are all normal. There are no acute ST/T wave changes present. The tracing is compared to a prior study dated 02/29/2020 and no significant interval changes are noted. Impression: Normal sinus rhythm with left atrial abnormality. Indication for current study: Hypertension. Discharge - Discharge Clinical Impression: Paresthesias, Essential hypertension, Seizure disorder, Noncompliance Disposition: AGAINST MEDICAL ADVICE
[2020-03-05 07:26] LABS: INTERNATIONAL RATION (INR) 1.18; PROTHROMBIN TIME 15.2 SEC (11.4-15.4)
[2020-03-05 07:27] LABS: PARTIAL THROMBOPLASTIN TIME 28.9 SEC (23.5-35.8)
[2020-03-05 07:32] LABS: ABSOLUTE BASOPHILS # (AUTO) 0.1 10^3/uL (0.0-0.2); ABSOLUTE EOSINOPHILS # (AUTO) 0.1 10^3/uL (0.0-0.6); ABSOLUTE LYMPHOCYTES (AUTO) 1.4 10^3/uL (0.5-4.7); ABSOLUTE MONOCYTES (AUTO) 0.6 10^3/uL (0.1-1.4); BASOPHILS % (AUTO) 1.5 % (0-2); EOSINOPHILS % (AUTO) 1.9 % (0-6); HEMATOCRIT 41.2 % (37.9-51.0); HEMOGLOBIN 13.8 g/dL (13.5-17.0); LYMPHOCYTES % (AUTO) 33.9 % (13-45); MEAN CORPUSCULAR HEMOGLOBIN 30.1 pg (27.0-33.4); MEAN CORPUSCULAR HGB CONC 33.4 g/dL (32.0-36.0); MEAN CORPUSCULAR VOLUME 90 fl (80-97); MONOCYTES % (AUTO) 13.9 % (3-13); PLATELET COUNT 235 10^3/uL (150-450); RED BLOOD COUNT 4.57 10^6/uL (4.35-5.55); RED CELL DISTRIBUTION WIDTH 13.8 % (11.5-14.0); SEGMENTED NEUTROPHILS % (AUTO) 48.8 % (42-78); TOTAL CELLS COUNTED % (AUTO) 100 %; WHITE BLOOD COUNT 4.2 10^3/uL (4.0-10.5)
--- NOTE | 2020-03-05 07:33 | RADIOLOGY REPORT (SQ) ---
EXAM DESCRIPTION: CT HEAD WITHOUT IV CONTRAST COMPLETED DATE/TME: 03/05/2020 06:58 CLINICAL HISTORY: 34 years, Male, bp elevation and paresthesias finger COMPARISON: 02/14/2020 TECHNIQUE: Axial CT images of the brain were obtained without contrast. Sagittal and coronal reformats were performed. [id number] Images stored on PACS. All CT scanners at this facility use dose modulation, iterative reconstruction, and/or weight based dosing when appropriate to reduce radiation dose to as low as reasonably achievable (ALARA). [facility]: Dose Right [facility]: CareDose [facility]: Dose Right [facility]: Teradose 4D [facility]: Wearable Intelligence LIMITATIONS: None. FINDINGS: There is no acute cortical infarct, hemorrhage, mass, edema, hydrocephalus, or extra-axial fluid collection. The sanchez-white matter differentiation is preserved. The paranasal sinuses and mastoid air cells are clear. There is no acute fracture. IMPRESSION: No acute intracranial abnormality. TECHNICAL DOCUMENTATION: Quality ID # [id number]: Final reports with documentation of one or more dose reduction techniques (e.g., Automated exposure control, adjustment of the mA and/or kV according to patient size, use of iterative reconstruction technique) copyright 2010 [employer]- All Rights Reserved
[2020-03-05 07:36] LABS: APPEARANCE,URINE CLEAR; BILIRUBIN,URINE NEGATIVE (NEGATIVE); COLOR,URINE COLORLESS; GLUCOSE, URINE NEGATIVE (NEGATIVE); KETONES,URINE NEGATIVE (NEGATIVE); PROTEIN,URINE NEGATIVE (NEGATIVE); URINE SPECIFIC GRAVITY 1.003; UROBILINOGEN,URINE NEGATIVE mg/dL (<2.0)
[2020-03-05 07:54] LABS: ALBUMIN 3.9 g/dL (3.5-5.0); ALKALINE PHOSPHATASE 69 U/L (38-126); ANION GAP 8 (5-19); ASPARTATE AMINO TRANSFERASE 17 U/L (17-59); BILIRUBIN,TOTAL 0.3 mg/dL (0.2-1.3); BLOOD UREA NITROGEN 11 mg/dL (7-20); CALCIUM 9.4 mg/dL (8.4-10.2); CARBON DIOXIDE 26 mmol/L (22-30); CHLORIDE 104 mmol/L (98-107); GLUCOSE 97 mg/dL (75-110); POTASSIUM 3.9 mmol/L (3.6-5.0); TOTAL PROTEIN 7.3 g/dL (6.3-8.2)
[2020-03-05 08:03] LABS: URINE AMPHETAMINES SCREEN NEGATIVE; URINE BARBITURATES SCREEN NEGATIVE; URINE BENZODIAZEPINES SCREEN NEGATIVE; URINE COCAINE SCREEN NEGATIVE; URINE MARIJUANA (THC) SCREEN NEGATIVE; URINE METHADONE SCREEN NEGATIVE; URINE PHENCYCLIDINE SCREEN NEGATIVE
[2020-03-05 08:11] LABS: ALCOHOL < 10 mg/dL (NONE DETECTED)
--- NOTE | 2020-03-05 08:19 | EKG REPORT ---
SEVERITY:- ABNORMAL ECG - SINUS RHYTHM LEFT ATRIAL ABNORMALITY : Confirmed by: Katie Pérez 05-Mar-2020 08:18:22
[2020-03-05] MEDS ORDERED: CLONIDINE HCL 0.1 MG TABLET PO ONE (09:43)
[2020-03-05 10:26] VITALS: BP 143/115
== END 2020-03-05 11:14 | disposition home or self-care (01) ==
LOC: ER 06:21
DX: R20.2 Paresthesia of skin (principal); I10 Essential (primary) hypertension; T46.4X6A Underdosing of angiotensin-converting-enzyme inhibitors, initial encounter; G40.909 Epilepsy, unspecified, not intractable, without status epilepticus; T42.6X6A Underdosing of other antiepileptic and sedative-hypnotic drugs, initial encounter; Z91.128 Patient's intentional underdosing of medication regimen for other reason; Z91.14 Patient's other noncompliance with medication regimen; F14.10 Cocaine abuse, uncomplicated; F17.200 Nicotine dependence, unspecified, uncomplicated; Z88.6 Allergy status to analgesic agent; Z88.5 Allergy status to narcotic agent; R51 Headache; Z53.20 Procedure and treatment not carried out because of patient's decision for unspecified reasons
CPT/HCPCS: 93005; 99285; 96365; 36415; 82962; 80307 ×2; 85025; 85610; 85730; 80053; 81001; 84484; 70450; 93010; A9270 ×3; J1953

== ENCOUNTER 2020-04-02 22:21 | Emergency (ER) | payer MEDICARE, MEDICAID ==
--- NOTE | 2020-04-02 23:14 | ER Document Report ---
ED Medical Screen (RME) - General Chief Complaint: Seizure Stated Complaint: POSSIBLE SEIZURE Time Seen by Provider: 04/02/20 23:06 Notes: Patient is a 34-year-old male, well-known to this emergency department who presents the emergency department after having a seizure. Patient's is on the phone and states that he had 2 shots of liquor tonight. Patient has a history of hypertension and seizures. States that he has been taking his m edications. States that he is "stressed." Denies any other substance abuse. Patient has history of cocaine use. Exam: Awake, alert, and oriented. I have greeted and performed a rapid initial assessment of this patient. A comprehensive ED assessment and evaluation of the patient, analysis of test results and completion of medical decision making process will be conducted by an additional ED providers. TRAVEL OUTSIDE OF THE [place] 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
[2020-04-02] MEDS ORDERED: LEVETIRACETAM 1000 MG/NACL-ISO 1,000 MG/100 ML RTUPB IV SCH (23:45)
--- NOTE | 2020-04-03 00:14 | ER Document Report ---
ED Seizure - General Chief Complaint: Seizure Stated Complaint: POSSIBLE SEIZURE Time Seen by Provider: 04/02/20 23:06 Mode of Arrival: Ambulatory Information source: Patient Notes: 34-year-old male well-known to the emergency room with a history of epilepsy as well as hypertension presents to the emergency room after having a seizure prior to arrival. Per his he had 2 shots of alcohol and then had a seizure. While patient was waiting in the lobby he had another seizure and was brought directly to his room. Patient is awake alert oriented at this time. Answers questions and answers questions appropriately. Told provider that he has not taken his medications cannot give a reason for not taking them. He is in no acute distress at this time. TRAVEL OUTSIDE OF THE [place] IN LAST 30 DAYS: No - Related Data Allergies/Adverse Reactions: hydrocodone [From Vicodin] Allergy (Verified 02/14/20 16:36) Home Medications: bp med qday. 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 GENERAL: Mild acute distress, non-toxic appearance. HEAD: Normal with no signs of head trauma. EYES: PERRLA, EOMI, conjunctiva normal, no discharge. EARS: Hearing grossly intact. NOSE: Normal. THROAT: Oropharynx is normal. NECK: Normal range of motion, no tenderness, supple, no lymphadenopathy, No adenopathy, no JVD. CHEST: Clear breath sounds bilaterally. No wheezes, rales, or rhonchi. CARDIAC: Regular rate and rhythm. S1 and S2, without murmurs, gallops, or rubs. VASCULAR: No Edema. Peripheral pulses normal and equal in all extremities. ABDOMEN: Normal and soft with no tenderness, no masses or pulsatile masses. No organomegaly. Positive bowel sounds x4. No CVA tenderness noted bilaterally. GASTROINTESTINAL: Bowel sounds normal GENITOURINARY: Normal, No tenderness LYMPATHTIC: No lymphadenopathy noted. MUSCULOSKELETAL: Good range of motion of all major joints. Extremities without clubbing, cyanosis or edema. NEUROLOGICAL: Alert and oriented x 3. No focal sensory or strength deficits. Speech normal. Follows commands appropriately. PSYCHIATRIC: Normal Affect, judgement and mood. SKIN: Normal appearance with no rashes or lesions. Course - Re-evaluation Re-evalutation: 04/03/20 00:52 Notified nursing staff that patient is actively having a seizure. IM Ativan was ordered as patient never received his IV and loading dose of Keppra that was ordered an hour and a half ago from triage. 04/03/20 04:26 Patient is resting arousable. No acute distress noted. Blood pressure remains elevated. Will give additional dose of of IV hydralazine and reevaluate. 04/03/20 04:27 04/03/20 05:19 Patient is sleeping but arousable. Answers questions appropriately. Ambulatory with a steady gait. Vital signs are stable. Counseled on importance of taking his medications as prescribed. Patient was given strict return to the emergency room guidelines. Return for any new or worsening symptoms. All questions were answered. Patient verbalized understanding and agrees with plan of care. 04/03/20 05:21 04/03/20 06:09 - Vital Signs Vital signs: Temp Pulse Resp BP Pulse Ox 98.7 F 75 15 149/98 H 100 04/02/20 22:42 04/02/20 23:19 04/03/20 05:15 04/03/20 05:15 04/03/20 02:32 - Laboratory Result Diagrams: 04/03/20 00:56 04/03/20 00:56 Laboratory results interpreted by me: 04/03/20 04/03/20 04/03/20 00:56 00:56 00:56 WBC 13.5 H RDW 14.1 H Absolute Lymphs (auto) 4.8 H Chloride 110 H Carbon Dioxide 11 L Anion Gap 24 H Glucose 112 H Urine Protein 100 H Urine Blood SMALL H - Diagnostic Test Radiology reviewed: Reports reviewed - EKG Interpretation by Me Rate: Tachycardia Additional EKG results interpreted by me: 04/03/20 00:26 EKG was interpreted by ER physician Dr. Poe No acute STEMI Sinus tachycardia Probable left atrial abnormality No ST wave abnormalities Unchanged from previous EKG of 03/05/2020 Discharge - Discharge Clinical Impression: Seizure Hypertension Qualifiers: Hypertension type: unspecified Qualified Code(s): I10 - Essential (primary) hypertension Condition: Stable Disposition: HOME, SELF-CARE Instructions: High Blood Pressure ([facility]), Seizure, Known Epileptic ([facility]) Additional Instructions: It is imperative that you take your medications as prescribed. Outpatient follow-up with primary care physician or with [facility]. Return to the emergency room for any new or worsening symptoms.
[2020-04-03] MEDS ORDERED: RINGERS SOLUTION,LACTATED 1,000 ML IV ONE (00:29)
[2020-04-03] MEDS ORDERED: HYDRALAZINE HCL INJ/PF 20 MG/1 ML SDV IV ONE (00:29)
[2020-04-03] MEDS ORDERED: LORAZEPAM INJ 2 MG/1 ML VIAL IV ONE (00:47)
[2020-04-03] MEDS ORDERED: LORAZEPAM INJ 2 MG/1 ML VIAL IM ONE (00:49)
--- NOTE | 2020-04-03 01:08 | RADIOLOGY REPORT (SQ) ---
EXAM DESCRIPTION: CT HEAD WITHOUT IV CONTRAST COMPLETED DATE/TME: 04/02/2020 23:49 CLINICAL HISTORY: 34 years Male seizure; high blood pressure; COMPARISON: 03/05/2020. TECHNIQUE: Contiguous axial CT images obtained through the brain without IV contrast. This exam was performed according to our department optimization program which includes automated exposure control, adjustment of the mA and/or kv according to patient size and/or use of iterative reconstruction technique. FINDINGS: The ventricles and sulci are within normal limits for the patient's age. No midline shift or mass effect. No masses identified. No acute intracranial hemorrhage. No fluid or significant mucosal thickening in the visualized paranasal sinuses. No depressed calvarial fractures. IMPRESSION: No acute intracranial abnormality is identified.
[2020-04-03 01:15] LABS: ABSOLUTE BASOPHILS # (AUTO) 0.1 10^3/uL (0.0-0.2); ABSOLUTE EOSINOPHILS # (AUTO) 0.1 10^3/uL (0.0-0.6); ABSOLUTE LYMPHOCYTES (AUTO) 4.8 10^3/uL (0.5-4.7); ABSOLUTE MONOCYTES (AUTO) 1.2 10^3/uL (0.1-1.4); ABSOLUTE NEUT (AUTO) 7.3 10^3/uL (1.7-8.2); BASOPHILS % (AUTO) 0.6 % (0-2); EOSINOPHILS % (AUTO) 0.6 % (0-6); HEMATOCRIT 45.8 % (37.9-51.0); LYMPHOCYTES % (AUTO) 35.4 % (13-45); MEAN CORPUSCULAR HEMOGLOBIN 30.2 pg (27.0-33.4); MEAN CORPUSCULAR HGB CONC 32.8 g/dL (32.0-36.0); MEAN CORPUSCULAR VOLUME 92 fl (80-97); PLATELET COUNT 201 10^3/uL (150-450); RED BLOOD COUNT 4.97 10^6/uL (4.35-5.55); RED CELL DISTRIBUTION WIDTH 14.1 % (11.5-14.0); SEGMENTED NEUTROPHILS % (AUTO) 54.4 % (42-78); TOTAL CELLS COUNTED % (AUTO) 100 %; WHITE BLOOD COUNT 13.5 10^3/uL (4.0-10.5)
[2020-04-03 01:39] LABS: APPEARANCE,URINE CLEAR; BILIRUBIN,URINE NEGATIVE (NEGATIVE); COLOR,URINE STRAW; GLUCOSE, URINE NEGATIVE (NEGATIVE); KETONES,URINE NEGATIVE (NEGATIVE); LEUKOCYTE ESTERASE,URINE NEGATIVE (NEGATIVE); NITRITE,URINE NEGATIVE (NEGATIVE); PROTEIN,URINE 100 mg/dL (NEGATIVE); URINE SPECIFIC GRAVITY 1.015; UROBILINOGEN,URINE NEGATIVE mg/dL (<2.0)
[2020-04-03 02:02] LABS: ALBUMIN 4.8 g/dL (3.5-5.0); ALKALINE PHOSPHATASE 83 U/L (38-126); ASPARTATE AMINO TRANSFERASE 31 U/L (17-59); BILIRUBIN,DIRECT 0.3 mg/dL (0.0-0.4); BILIRUBIN,TOTAL 0.4 mg/dL (0.2-1.3); BLOOD UREA NITROGEN 9 mg/dL (7-20); CALCIUM 9.7 mg/dL (8.4-10.2); GLUCOSE 112 mg/dL (75-110); POTASSIUM 3.9 mmol/L (3.6-5.0); TOTAL PROTEIN 8.1 g/dL (6.3-8.2)
[2020-04-03 02:07] LABS: CARBON DIOXIDE 11 mmol/L (22-30); CHLORIDE 110 mmol/L (98-107)
[2020-04-03 02:15] LABS: URINE AMPHETAMINES SCREEN NEGATIVE; URINE BARBITURATES SCREEN NEGATIVE; URINE BENZODIAZEPINES SCREEN NEGATIVE; URINE COCAINE SCREEN NEGATIVE; URINE MARIJUANA (THC) SCREEN NEGATIVE; URINE METHADONE SCREEN NEGATIVE; URINE PHENCYCLIDINE SCREEN NEGATIVE
[2020-04-03 02:16] LABS: ALCOHOL < 10 mg/dL (NONE DETECTED)
[2020-04-03 02:27] LABS: ANION GAP 24 (5-19)
[2020-04-03 05:21] VITALS: BP 149/98
--- NOTE | 2020-04-03 09:12 | EKG REPORT ---
SEVERITY:- ABNORMAL ECG - SINUS TACHYCARDIA FIRST DEGREE AV BLOCK PROBABLE LEFT ATRIAL ABNORMALITY : Confirmed by: Katie Pérez 03-Apr-2020 09:11:37
== END 2020-04-03 05:48 | disposition home or self-care (01) ==
LOC: ER 22:21
DX: G40.909 Epilepsy, unspecified, not intractable, without status epilepticus (principal); I10 Essential (primary) hypertension; T50.906A Underdosing of unspecified drugs, medicaments and biological substances, initial encounter; Z91.14 Patient's other noncompliance with medication regimen; R00.0 Tachycardia, unspecified; Z88.6 Allergy status to analgesic agent; Z88.5 Allergy status to narcotic agent
CPT/HCPCS: 93005; 99285; 96372; 96361; 96375; 96365; 36415; 80307 ×2; 85025; 80053; 81001; 70450; 93010; J0360; J2060; J7120; J1953

== ENCOUNTER 2020-05-03 05:42 | Emergency (ER) | payer MEDICARE, MEDICAID ==
--- NOTE | 2020-05-03 06:34 | ER Document Report ---
ED General - General Chief Complaint: seizures Stated Complaint: SEIZURES Time Seen by Provider: 05/03/20 06:34 TRAVEL OUTSIDE OF THE [place] IN LAST 30 DAYS: No - HPI Notes: 34-year-old male arrives via EMS for seizures. He has a history of seizures, typically noncompliant with treatment. He received 5 mg of Versed with EMS and is therefore sedate and not able to participate in exam currently. - Related Data Allergies/Adverse Reactions: hydrocodone [From Vicodin] Allergy (Verified 02/14/20 16:36) Past Medical History - Social History Smoking Status: Current Every Day Smoker Chew tobacco use (# tins/day): No Frequency of alcohol use: None Drug Abuse: None Family History: Reviewed & Not Pertinent Patient has homicidal ideation: No - Past Medical History Cardiac Medical History: Reports: Hx Hypertension Neurological Medical History: Reports: Hx Seizures Renal/ Medical History: Denies: Hx Peritoneal Dialysis Psychiatric Medical History: Reports: Hx Anxiety, Hx Depression Traumatic Medical History: 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 - Immunizations Immunizations up to date: No Hx Diphtheria, Pertussis, Tetanus Vaccination: Yes Review of Systems - Review of Systems -: Yes ROS unobtainable due to patient's medical condition Physical Exam - Vital signs Vitals: Temp Pulse Resp BP Pulse Ox 98.9 F 89 18 183/126 H 96 05/03/20 06:19 05/03/20 06:19 05/03/20 06:19 05/03/20 06:19 05/03/20 06:19 - General In distress: None - HEENT Head: Normocephalic, Atraumatic Pupils: PERRL - Respiratory Breath sounds: Normal - Cardiovascular Rhythm: Regular Heart sounds: Normal auscultation Pulses: Normal: Dorsalis pedis - Abdominal Distension: No distension - Extremities General upper extremity: Normal inspection General lower extremity: Normal inspection - Neurological Notes: Patient is sedated, his pupils are equal and reactive, he does spontaneously move all extremities and head in the bed though not able to follow commands at this time - Psychological Associated symptoms: Other - Unable to assess - Skin Skin Temperature: Warm Course - Re-evaluation Re-evalutation: 34-year-old male history seizures, noncompliant, drug abuse with multiple ED visits for same here for seizure. He received 5 mg IM Versed via EMS and is therefore sedate. He does spontaneously move all extremities, pupils are round and reactive, no obvious head trauma. Hemodynamically stable. Will load with 1 g Keppra IV. Check labs to assure that no electrolyte abnormality is present. Observe for return to baseline. 05/03/20 07:19 Glucose 167 via Accu-Chek 05/03/20 08:00 No leukocytosis or left shift. No acute anemia. Slight elevation of sodium and chloride. Bicarb low, likely reflecting seizure status, has had similar values in the past 05/03/20 08:43 Patient still quite sleepy, however he is able to change positions and bed. He additionally has been able to provide a urine sample. 05/03/20 09:47 Patient has tolerated p.o. fluids 05/03/20 11:02 Patient has ambulated without difficulty. There has been no further seizure- like activity while in the emergency department. He is stable for discharge at this time. - Vital Signs Vital signs: Temp Pulse Resp BP Pulse Ox 98.9 F 89 24 H 173/117 H 99 05/03/20 06:19 05/03/20 06:19 05/03/20 10:01 05/03/20 10:00 05/03/20 10:01 - Laboratory Result Diagrams: 05/03/20 06:02 05/03/20 06:02 Laboratory results interpreted by me: 05/03/20 05/03/20 05/03/20 06:02 06:02 06:57 RDW 14.1 H Seg Neuts % (Manual) 35 L Lymphocytes % (Manual) 51 H Abs Lymphs (Manual) 5.7 H Sodium 147.6 H Chloride 108 H Carbon Dioxide < 5 L* BUN 4 L Glucose 172 H POC Glucose 167 H Magnesium 2.5 H Total Protein 9.6 H Albumin 5.5 H Urine Protein Urine Glucose (UA) Urine Blood 05/03/20 08:23 RDW Seg Neuts % (Manual) Lymphocytes % (Manual) Abs Lymphs (Manual) Sodium Chloride Carbon Dioxide BUN Glucose POC Glucose Magnesium Total Protein Albumin Urine Protein 100 H Urine Glucose (UA) 50 H Urine Blood MODERATE H Discharge - Discharge Clinical Impression: Seizure Disposition: HOME, SELF-CARE Additional Instructions: Please establish with a primary care doctor, I have provided information for Dr. Mack. Please take your Keppra. Return to the emergency department for any concerning worsening symptoms. Referrals: CELESTINO MACK MD [ACTIVE STAFF] - Follow up as needed
[2020-05-03] MEDS ORDERED: LEVETIRACETAM 1000 MG/NACL-ISO 1,000 MG/100 ML RTUPB IV ONE (06:41)
[2020-05-03 07:23] LABS: HEMATOCRIT 50.1 % (37.9-51.0); HEMOGLOBIN 16.5 g/dL (13.5-17.0); MEAN CORPUSCULAR HEMOGLOBIN 30.9 pg (27.0-33.4); MEAN CORPUSCULAR HGB CONC 32.9 g/dL (32.0-36.0); MEAN CORPUSCULAR VOLUME 94 fl (80-97); PLATELET COUNT 216 10^3/uL (150-450); RED BLOOD COUNT 5.34 10^6/uL (4.35-5.55); RED CELL DISTRIBUTION WIDTH 14.1 % (11.5-14.0); WHITE BLOOD COUNT 10.4 10^3/uL (4.0-10.5)
[2020-05-03 07:28] LABS: ALBUMIN 5.5 g/dL (3.5-5.0); ALKALINE PHOSPHATASE 110 U/L (38-126); ASPARTATE AMINO TRANSFERASE 37 U/L (17-59); BILIRUBIN,DIRECT 0.4 mg/dL (0.0-0.4); BILIRUBIN,TOTAL 0.4 mg/dL (0.2-1.3); BLOOD UREA NITROGEN 4 mg/dL (7-20); CALCIUM 10.1 mg/dL (8.4-10.2); CHLORIDE 108 mmol/L (98-107); GLUCOSE 172 mg/dL (75-110); POTASSIUM 3.9 mmol/L (3.6-5.0); TOTAL PROTEIN 9.6 g/dL (6.3-8.2)
[2020-05-03 07:31] LABS: ALCOHOL < 10 mg/dL (NONE DETECTED)
[2020-05-03 07:46] LABS: CARBON DIOXIDE < 5 mmol/L (22-30)
[2020-05-03 07:52] LABS: ABSOLUTE LYMPHOCYTES# (MANUAL) 5.7 10^3/uL (0.5-4.7); ABSOLUTE MONOCYTES # (MANUAL) 0.8 10^3/uL (0.1-1.4); BASOPHILS % (MANUAL) 1 % (0-2); EOSINOPHILS % (MANUAL) 0 % (0-6); LYMPHOCYTES % (MANUAL) 51 % (13-45); METAMYELOCYTES % (MANUAL) 1 % (0-1); MONOCYTES % (MANUAL) 8 % (3-13); SEGMENTED NEUTROPHILS % (MAN) 35 % (42-78); TOTAL CELLS COUNTED 100
[2020-05-03 07:53] LABS: ANISOCYTOSIS SLIGHT; BURR CELLS SLIGHT; PLATELET COMMENT ADEQUATE; POIKILOCYTOSIS SLIGHT; POLYCHROMASIA SLIGHT; SCHISTOCYTES SLIGHT
[2020-05-03 08:44] LABS: APPEARANCE,URINE CLEAR; BILIRUBIN,URINE NEGATIVE (NEGATIVE); COLOR,URINE STRAW; GLUCOSE, URINE 50 mg/dL (NEGATIVE); KETONES,URINE NEGATIVE (NEGATIVE); LEUKOCYTE ESTERASE,URINE NEGATIVE (NEGATIVE); NITRITE,URINE NEGATIVE (NEGATIVE); PROTEIN,URINE 100 mg/dL (NEGATIVE); UROBILINOGEN,URINE NEGATIVE mg/dL (<2.0)
[2020-05-03 08:57] LABS: URINE AMPHETAMINES SCREEN NEGATIVE; URINE BARBITURATES SCREEN NEGATIVE; URINE COCAINE SCREEN NEGATIVE; URINE MARIJUANA (THC) SCREEN NEGATIVE; URINE METHADONE SCREEN NEGATIVE; URINE PHENCYCLIDINE SCREEN NEGATIVE
[2020-05-03 08:59] LABS: URINE BENZODIAZEPINES SCREEN UNCONFIRMED POSITIVE
[2020-05-03 11:08] VITALS: BP 158/103
== END 2020-05-03 11:24 | disposition home or self-care (01) ==
LOC: ER 05:42
DX: R56.9 Unspecified convulsions (principal); F17.200 Nicotine dependence, unspecified, uncomplicated; I10 Essential (primary) hypertension; Z88.6 Allergy status to analgesic agent; Z88.5 Allergy status to narcotic agent
CPT/HCPCS: 99284; 96365; 36415; 82962; 80307 ×2; 83735; 85025; 80053; 81001; J1953

== ENCOUNTER 2020-05-30 05:31 | Emergency (ER) | payer MEDICARE, MEDICAID ==
[2020-05-30 06:14] LABS: ABSOLUTE BASOPHILS # (AUTO) 0.1 10^3/uL (0.0-0.2); ABSOLUTE EOSINOPHILS # (AUTO) 0.1 10^3/uL (0.0-0.6); ABSOLUTE LYMPHOCYTES (AUTO) 1.7 10^3/uL (0.5-4.7); ABSOLUTE MONOCYTES (AUTO) 0.6 10^3/uL (0.1-1.4); ABSOLUTE NEUT (AUTO) 2.3 10^3/uL (1.7-8.2); BASOPHILS % (AUTO) 1.4 % (0-2); EOSINOPHILS % (AUTO) 1.9 % (0-6); HEMATOCRIT 44.1 % (37.9-51.0); MEAN CORPUSCULAR HEMOGLOBIN 30.5 pg (27.0-33.4); MONOCYTES % (AUTO) 12.6 % (3-13); PLATELET COUNT 209 10^3/uL (150-450); RED BLOOD COUNT 4.91 10^6/uL (4.35-5.55); RED CELL DISTRIBUTION WIDTH 14.3 % (11.5-14.0); SEGMENTED NEUTROPHILS % (AUTO) 48.1 % (42-78); TOTAL CELLS COUNTED % (AUTO) 100 %; WHITE BLOOD COUNT 4.8 10^3/uL (4.0-10.5)
[2020-05-30 06:16] LABS: APPEARANCE,URINE CLEAR; BILIRUBIN,URINE NEGATIVE (NEGATIVE); COLOR,URINE STRAW; GLUCOSE, URINE NEGATIVE (NEGATIVE); KETONES,URINE NEGATIVE (NEGATIVE); LEUKOCYTE ESTERASE,URINE NEGATIVE (NEGATIVE); NITRITE,URINE NEGATIVE (NEGATIVE); PROTEIN,URINE 30 mg/dL (NEGATIVE); URINE SPECIFIC GRAVITY 1.012; UROBILINOGEN,URINE NEGATIVE mg/dL (<2.0)
[2020-05-30 06:18] LABS: MEAN CORPUSCULAR VOLUME 90 fl (80-97)
[2020-05-30 06:34] LABS: ALBUMIN 4.4 g/dL (3.5-5.0); ALKALINE PHOSPHATASE 77 U/L (38-126); ANION GAP 15 (5-19); ASPARTATE AMINO TRANSFERASE 25 U/L (17-59); BILIRUBIN,DIRECT 0.1 mg/dL (0.0-0.4); BILIRUBIN,TOTAL 0.3 mg/dL (0.2-1.3); BLOOD UREA NITROGEN 12 mg/dL (7-20); CALCIUM 9.7 mg/dL (8.4-10.2); CARBON DIOXIDE 18 mmol/L (22-30); CHLORIDE 108 mmol/L (98-107); GLUCOSE 84 mg/dL (75-110); POTASSIUM 4.4 mmol/L (3.6-5.0); TOTAL PROTEIN 7.7 g/dL (6.3-8.2)
[2020-05-30] MEDS ORDERED: LEVETIRACETAM INJ/PF 500 MG/5 ML SDV IV ONE (06:36)
[2020-05-30 06:38] LABS: ALCOHOL < 10 mg/dL (NONE DETECTED)
[2020-05-30 06:39] LABS: URINE AMPHETAMINES SCREEN NEGATIVE; URINE BARBITURATES SCREEN NEGATIVE; URINE BENZODIAZEPINES SCREEN NEGATIVE; URINE COCAINE SCREEN NEGATIVE; URINE MARIJUANA (THC) SCREEN NEGATIVE; URINE METHADONE SCREEN NEGATIVE; URINE PHENCYCLIDINE SCREEN NEGATIVE
--- NOTE | 2020-05-30 06:39 | ER Document Report ---
ED General - General Chief Complaint: Seizure Stated Complaint: SEIZURE Time Seen by Provider: 05/30/20 06:23 Notes: HPI: 34-year-old male with a history of seizures and noncompliance with medications who presents today status post witnessed seizure. Patient himself denies any headache, fevers, vomiting, or diarrhea. He does admit he has not filled his prescription. He denies currently any weakness or numbness of his arms or legs. ROS: See HPI All other review of systems reviewed and otherwise negative Reviewed vital signs and nursing note as charted by RN. PHYSICAL EXAM: CONSTITUTIONAL: Alert and oriented and responds appropriately to questions. Well-appearing; well-nourished HEAD: Normocephalic; atraumatic EYES: PERRL; no nystagmus NECK: Supple without meningismus; non-tender; no cervical lymphadenopathy, no masses CARD: Regular rate and rhythm; no murmurs; symmetric distal pulses RESP: Normal chest excursion without splinting or tachypnea; breath sounds clear and equal bilaterally ABD/GI: Normal bowel sounds; non-distended; soft, non-tender BACK: The back appears normal and is non-tender to palpation EXT: Normal ROM in all joints; non-tender to palpation; no edema SKIN: No acute lesions noted NEURO: CN 2-12 intact; 5/5 bilateral upper and lower extremity strength with sensation intact to light touch PSYCH: The patient's mood and manner are appropriate. Grooming and personal hygiene are appropriate. TRAVEL OUTSIDE OF THE [place] IN LAST 30 DAYS: No - Related Data Allergies/Adverse Reactions: hydrocodone [From Vicodin] Allergy (Verified 05/30/20 07:14) Past Medical History - Social History Smoking Status: Never Smoker Chew tobacco use (# tins/day): No Frequency of alcohol use: Occasional Drug Abuse: None Family History: Reviewed & Not Pertinent Patient has homicidal ideation: No - Past Medical History Cardiac Medical History: Reports: Hx Hypertension Neurological Medical History: Reports: Hx Seizures Renal/ Medical History: Denies: Hx Peritoneal Dialysis Psychiatric Medical History: Reports: Hx Anxiety, Hx Depression Traumatic Medical History: 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 - Immunizations Immunizations up to date: No Hx Diphtheria, Pertussis, Tetanus Vaccination: Yes Physical Exam - Vital signs Vitals: Temp Resp 98.9 F 18 05/30/20 05:40 05/30/20 05:40 Course - Re-evaluation Re-evalutation: 05/30/20 06:38 Given the history and physical examination and admitted noncompliance I will load the patient with 20/kg of Keppra and obtain basic labs including a liver panel. I do not believe any imaging is currently appropriate or necessary at this moment. 05/30/20 07:21 Patient had a witnessed tonic-clonic seizure here being broken with Ativan. Keppra has yet to be given. Patient is on the monitor currently postictal satting 98%. 05/30/20 10:36 Patient has received medications. Moving all extremities and denies any pain at this time. I have expressed the importance of compliance with the medications and have rewritten the prescription that we have printed out and given directly to the patient. Patient understands the importance of follow-up and I have provided the [facility] information. - Vital Signs Vital signs: Temp Pulse Resp BP Pulse Ox 98.3 F 93 14 158/112 H 100 05/30/20 05:57 05/30/20 05:57 05/30/20 09:34 05/30/20 09:34 05/30/20 09:34 - Laboratory Result Diagrams: 05/30/20 05:53 05/30/20 05:53 Laboratory results interpreted by me: 05/30/20 05/30/20 05/30/20 05:45 05:53 05:53 RDW 14.3 H Chloride 108 H Carbon Dioxide 18 L Urine Protein 30 H Urine Blood SMALL H Discharge - Discharge Clinical Impression: Seizure Condition: Good Disposition: HOME, SELF-CARE Additional Instructions: Please take the medications and refrain from alcohol or drugs as discussed. Come back immediately with any repeat seizures, pain, fevers, vomiting, or any other acute problems. Please follow-up with your primary care physician or the [facility] for follow assessment and evaluation. Prescriptions: Levetiracetam [Keppra 500 mg Tablet] 500 mg PO Q12 #60 tablet Referrals: [facility] [Provider Group] - Follow up as needed
[2020-05-30] MEDS ORDERED: LORAZEPAM INJ 2 MG/1 ML VIAL IV ONE (06:50)
[2020-05-30 12:03] VITALS: BP 155/123
--- NOTE | 2020-05-30 18:07 | EKG REPORT ---
SEVERITY:- BORDERLINE ECG - SINUS RHYTHM PROBABLE LEFT ATRIAL ABNORMALITY : Confirmed by: Katie Pérez 30-May-2020 18:06:22
--- OUTSIDE RECORDS SUMMARY | 2020-05-31 17:52 | XMS REPORT ---
:1985 [facility] [place] [address] [place] [address] Care Team Providers Name Role Phone Unavailable Unavailable Unavailable Allergies, Adverse Reactions, Alerts This patient has no known allergies or adverse reactions. Medications This patient has no known medications. Problems This patient has no known problems. Procedures This patient has no known procedures. Results This patient has no known results. Encounters Start End Encounter Admission Attending Care Care Encounter Date/Time Date/Time Type Type Clinicians Facility Department ID 2018-10-26 2018-10-26 OutPatient Steven Harris [id number] 15:11:46 15:11:46 Payers Payer Name Policy Type Policy Number Effective Date Expiration D ate 1149 [id number] 2008 00:00:00 [id number] 2008 00:00:00 Social History This patient has no known social history. Vital Signs This patient has no known vital signs.
== END 2020-05-30 12:03 | disposition home or self-care (01) ==
LOC: ER 05:31
DX: R56.9 Unspecified convulsions (principal); T50.906A Underdosing of unspecified drugs, medicaments and biological substances, initial encounter; Z91.128 Patient's intentional underdosing of medication regimen for other reason; Z91.14 Patient's other noncompliance with medication regimen; I10 Essential (primary) hypertension; Z87.820 Personal history of traumatic brain injury; Z88.6 Allergy status to analgesic agent; Z88.5 Allergy status to narcotic agent
CPT/HCPCS: 93005; 99284; 96374; 96375; 36415; 80307 ×2; 83735; 85025; 80053; 81001; 93010; J2060; J1953

== ENCOUNTER 2020-06-18 23:44 | Emergency (ER) | payer MEDICARE, MEDICAID ==
[2020-06-18] MEDS ORDERED: NORMAL SALINE 1000 ML 1,000 ML IV ONE (23:54)
[2020-06-18] MEDS ORDERED: LEVETIRACETAM 1500 MG/NACL-ISO 1,500 MG/100 ML RTUPB IV ONE (23:54)
[2020-06-18] MEDS ORDERED: LORAZEPAM INJ 2 MG/1 ML VIAL IV ONE (23:55)
--- NOTE | 2020-06-18 23:55 | ER Document Report ---
ED Seizure - General Chief Complaint: Probable Seizure Stated Complaint: SEIZURE Time Seen by Provider: 06/18/20 23:49 Notes: Patient is a 34-year-old male who comes emergency department for chief complaint of a seizure. Patient has a known history of seizures, has a history of TBI, has a history of alcohol abuse and medication noncompliance. Patient very frequently has seizures as a result. Patient was at home, lying on the couch after having 6 beers according to EMS, seized on the couch without fall injury or any other complaints. Patient was postictal afterwards and is awake now, states that he has a mild headache but no other complaints, denies recent illness or fever, denies vomiting. He states last time he took his Keppra was last night. - Related Data Allergies/Adverse Reactions: hydrocodone [From Vicodin] Allergy (Verified 05/30/20 07:14) Past Medical History - General Information source: Patient - Social History Smoking Status: Unknown if Ever Smoked Frequency of alcohol use: Occasional Drug Abuse: None Lives with: Spouse/Significant other Family History: Reviewed & Not Pertinent - Past Medical History Cardiac Medical History: Reports: Hx Hypertension Neurological Medical History: Reports: Hx Seizures Renal/ Medical History: Denies: Hx Peritoneal Dialysis Psychiatric Medical History: Reports: Hx Anxiety, Hx Depression Traumatic Medical History: 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 - Immunizations Immunizations up to date: No Hx Diphtheria, Pertussis, Tetanus Vaccination: Yes Review of Systems - Review of Systems Constitutional: See HPI EENT: No symptoms reported Cardiovascular: No symptoms reported Respiratory: No symptoms reported Gastrointestinal: No symptoms reported Genitourinary: No symptoms reported Male Genitourinary: No symptoms reported Musculoskeletal: No symptoms reported Skin: No symptoms reported Hematologic/Lymphatic: No symptoms reported Neurological/Psychological: See HPI Physical Exam - Vital signs Vitals: Temp Resp Pulse Ox 98.1 F 20 95 06/18/20 23:47 06/18/20 23:47 06/18/20 23:47 - Notes Notes: GENERAL: Drowsy but arouses to voice, interacts appropriately, no signs of distress HEAD: Normocephalic, atraumatic. EYES: Pupils equal, round, and reactive to light. Extraocular movements intact. ENT: Oral mucosa moist, tongue midline, no wound to the tongue noted. Oropharynx unremarkable. Airway patent. Nares patent, sinuses non-tender, ear canals unremarkable, TM's intact. NECK: Full range of motion. Supple. Trachea midline. No lymphadenopathy. LUNGS: Clear to auscultation bilaterally, no wheezes, rales, or rhonchi. No respiratory distress. Non-tender chest wall. HEART: Regular rate and rhythm. No murmur ABDOMEN: Soft, non-tender. Non-distended. EXTREMITIES: Moves all 4 extremities spontaneously. No edema, normal radial and dorsalis pedis pulses bilaterally. No cyanosis. BACK: no cervical, thoracic, lumbar midline tenderness. No saddle anesthesia, normal distal neurovascular exam. NEUROLOGICAL: Drowsy, responds to voice, oriented to person and place but only some events. Normal speech. Cranial nerves II through XII grossly intact. Strength 5/5 in all extremities. PSYCH: Normal affect, normal mood. SKIN: Warm, dry, normal turgor. No rashes or lesions noted. Course - Re-evaluation Re-evalutation: Patient is drowsy but oriented to person and place, confused about events. He does admit to drinking alcohol today. He reports a mild headache but no other complaints. Physical exam otherwise unremarkable. No trauma reported or noted. Vital signs nonspecific other than borderline blood pressure. 06/18/20 23:55 Patient had a tonic-clonic seizure, this lasted approximately 45 seconds to 1 minute, patient stopped just before being administered 2 mg of IV Ativan. 1500 mg loading bolus of Keppra had been ordered but had not been given yet before the seizure activity. Patient will continue to be monitored, work-up pending. 06/19/20 00:52 Patient's blood pressure became very elevated during his seizure but is now declining, but now improved, his postictal and resting. He will continue to be monitored. CBC unremarkable. Chemistry shows bicarbonate of 7 and anion gap that is not reportable. Borderline renal function with creatinine 1.43. Hypernatremia at 152. Venous blood gas with pH of 7.11 and low bicarbonate. Patient has been receiving lactated Ringer's. Discussed with Dr. Garcia. Patient was discharged 2 visits ago with similar laboratory work-up. Recommendation is bolused lactated Ringer's and recheck, if this shows significant improvement and patient returns to baseline patient can be discharged with instructions to be compliant with his medication and avoid alcohol. 06/19/20 07:38 After lactated Ringer's patient had marked improvement and resolution of his metabolic acidosis. Patient is still drowsy from last night and slightly unsteady after his medications, patient will be monitored until he is ambulatory and sober enough to be safely discharged home. - Vital Signs Vital signs: Temp Pulse Resp BP Pulse Ox 98.1 F 25 H 161/114 H 96 06/18/20 23:47 06/19/20 02:31 06/19/20 02:31 06/19/20 06:00 - Laboratory Result Diagrams: 06/19/20 00:05 06/19/20 06:53 Laboratory results interpreted by me: 06/19/20 06/19/20 06/19/20 00:05 00:05 01:22 MCHC 31.7 L RDW 15.5 H Seg Neuts % (Manual) 32 L Lymphocytes % (Manual) 63 H Abs Lymphs (Manual) 6.4 H VBG pH 7.11 L* VBG pCO2 31.0 L VBG HCO3 9.7 L Sodium 152.5 H Chloride 114 H Carbon Dioxide 6 L* Anion Gap 33 H Creatinine 1.43 H Est GFR (MDRD) Non-Af 56 L Magnesium 2.6 H Total Protein 9.3 H Albumin 5.4 H 06/19/20 06:53 MCHC RDW Seg Neuts % (Manual) Lymphocytes % (Manual) Abs Lymphs (Manual) VBG pH VBG pCO2 VBG HCO3 Sodium Chloride 110 H Carbon Dioxide 21 L D Anion Gap Creatinine Est GFR (MDRD) Non-Af Magnesium Total Protein Albumin - EKG Interpretation by Me Additional EKG results interpreted by me: EKG shows sinus rhythm at a rate of 89, QTc 458, normal axis, LVH by measurements, no T wave inversions or ST segment changes in consecutive leads Discharge - Discharge Clinical Impression: Seizure disorder, Metabolic acidosis, Dehydration, Alcohol abuse Condition: Stable Disposition: HOME, SELF-CARE Additional Instructions: You have been treated for seizures, alcohol use, dehydration, metabolic acidosis. Do not drink any alcohol. This increases your seizure risk greatly. Make sure you do not miss any doses of your Keppra. Follow-up with primary care for additional management. Return for any concerning symptoms including fever, difficulty breathing, vomiting, severe headache, repeat seizures, or any other concerning symptoms. Prescriptions: Levetiracetam [Keppra 500 mg Tablet] 500 mg PO Q12 #60 tablet Forms: Return to Work
[2020-06-19] MEDS ORDERED: LEVETIRACETAM 500 MG/NACL-ISO 500 MG/100 ML RTUPB IV ONE ×2 (00:08→00:09)
[2020-06-19] MEDS ORDERED: LEVETIRACETAM 1000 MG/NACL-ISO 1,000 MG/100 ML RTUPB IV ONE ×2 (00:09)
[2020-06-19 00:24] LABS: HEMATOCRIT 50.2 % (37.9-51.0); HEMOGLOBIN 15.9 g/dL (13.5-17.0); MEAN CORPUSCULAR HEMOGLOBIN 30.1 pg (27.0-33.4); MEAN CORPUSCULAR HGB CONC 31.7 g/dL (32.0-36.0); PLATELET COUNT 248 10^3/uL (150-450); RED BLOOD COUNT 5.28 10^6/uL (4.35-5.55); RED CELL DISTRIBUTION WIDTH 15.5 % (11.5-14.0); WHITE BLOOD COUNT 10.2 10^3/uL (4.0-10.5)
[2020-06-19 00:39] LABS: ALBUMIN 5.4 g/dL (3.5-5.0); ALCOHOL 108 mg/dL (NONE DETECTED); ALKALINE PHOSPHATASE 92 U/L (38-126); ASPARTATE AMINO TRANSFERASE 30 U/L (17-59); BILIRUBIN,DIRECT 0.3 mg/dL (0.0-0.4); BILIRUBIN,TOTAL 0.5 mg/dL (0.2-1.3); BLOOD UREA NITROGEN 11 mg/dL (7-20); CALCIUM 10.2 mg/dL (8.4-10.2); GLUCOSE 105 mg/dL (75-110); TOTAL PROTEIN 9.3 g/dL (6.3-8.2)
[2020-06-19 00:43] LABS: CHLORIDE 114 mmol/L (98-107)
[2020-06-19 00:48] LABS: ABSOLUTE LYMPHOCYTES# (MANUAL) 6.4 10^3/uL (0.5-4.7); ABSOLUTE MONOCYTES # (MANUAL) 0.4 10^3/uL (0.1-1.4); BASOPHILS % (MANUAL) 0 % (0-2); EOSINOPHILS % (MANUAL) 1 % (0-6); LYMPHOCYTES % (MANUAL) 63 % (13-45); MONOCYTES % (MANUAL) 4 % (3-13); NUCLEATED RED BLOOD CELLS 2 /100 WBC (0); SEGMENTED NEUTROPHILS % (MAN) 32 % (42-78); TOTAL CELLS COUNTED 100
[2020-06-19 00:51] LABS: ANISOCYTOSIS SLIGHT; PLATELET COMMENT ADEQUATE; POIKILOCYTOSIS SLIGHT; POLYCHROMASIA SLIGHT; TEAR DROP CELLS SLIGHT
[2020-06-19 00:55] LABS: MEAN CORPUSCULAR VOLUME 95 fl (80-97)
[2020-06-19 01:04] LABS: CARBON DIOXIDE 6 mmol/L (22-30)
[2020-06-19] MEDS ORDERED: RINGERS SOLUTION,LACTATED 1,000 ML IV ONE ×2 (01:08→02:01)
[2020-06-19 01:40] LABS: ANION GAP 33 (5-19)
[2020-06-19 01:44] LABS: VENOUS BLOOD BASE EXCESS -18.6 mmol/L; VENOUS BLOOD HCO3 9.7 mmol/L (20-32)
[2020-06-19 01:53] LABS: VENOUS BLOOD PH 7.11 (7.30-7.42)
[2020-06-19] MEDS ORDERED: PROMETHAZINE HCL INJ 25 MG/1 ML VIAL IM ONE (03:06)
[2020-06-19 07:07] LABS: VENOUS BLOOD HCO3 21.9 mmol/L (20-32); VENOUS BLOOD PCO2 39.1 mmHg (35-63); VENOUS BLOOD PH 7.37 (7.30-7.42)
[2020-06-19 07:20] LABS: BLOOD UREA NITROGEN 10 mg/dL (7-20); CALCIUM 8.4 mg/dL (8.4-10.2); CHLORIDE 110 mmol/L (98-107); GLUCOSE 97 mg/dL (75-110)
[2020-06-19 07:29] LABS: ANION GAP 9 (5-19)
[2020-06-19 07:32] LABS: CARBON DIOXIDE 21 mmol/L (22-30)
[2020-06-19 09:12] VITALS: BP 150/118
--- NOTE | 2020-06-19 10:03 | EKG REPORT ---
SEVERITY:- ABNORMAL ECG - SINUS RHYTHM PROBABLE LEFT ATRIAL ABNORMALITY LEFT VENTRICULAR HYPERTROPHY : Confirmed by: Juan Claudio MD 19-Jun-2020 10:02:14
== END 2020-06-19 09:58 | disposition home or self-care (01) ==
LOC: ER 23:44
DX: R56.9 Unspecified convulsions (principal); E87.2 Acidosis; E86.0 Dehydration; F10.10 Alcohol abuse, uncomplicated; R51.9 Headache, unspecified; I10 Essential (primary) hypertension; Z87.820 Personal history of traumatic brain injury
CPT/HCPCS: 93005; 99284; 96372; 96361; 96375; 96365; 96366; 96368; 36415; 80307; 83735; 85025; 80053; 82803; 93010; J2060; J2550; J7030; J7120; J1953 ×2

== ENCOUNTER 2020-07-13 18:09 | Emergency (ER) | payer MEDICARE, MEDICAID ==
--- NOTE | 2020-07-13 19:05 | ER Document Report ---
ED Seizure - General Chief Complaint: Seizure Stated Complaint: SEIZURE UNRESPONSIVE Time Seen by Provider: 07/13/20 18:32 Mode of Arrival: Medic Information source: Emergency Med Personnel Notes: 34-year-old male presented to the emergency department with a history of a seizure. Apparently transported to the hospital because of seizure activity this afternoon. Patient has a history of TBI and poor compliance with medications. Has been seen in the emergency department on multiple occasions with seizure activity. It is unclear when he took his last dose of Keppra. - Related Data Allergies/Adverse Reactions: hydrocodone [From Vicodin] Allergy (Verified 05/30/20 07:14) Home Medications: keppra Past Medical History - Social History Smoking Status: Unknown if Ever Smoked Frequency of alcohol use: Heavy Family History: Reviewed & Not Pertinent - Past Medical History Cardiac Medical History: Reports: Hx Hypertension Neurological Medical History: Reports: Hx Seizures Renal/ Medical History: Denies: Hx Peritoneal Dialysis Psychiatric Medical History: Reports: Hx Anxiety, Hx Depression Traumatic Medical History: 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 - Immunizations Immunizations up to date: No Hx Diphtheria, Pertussis, Tetanus Vaccination: Yes Review of Systems - Review of Systems Notes: Patient is post ictal status at the time of this evaluation and unable to answer questions. The review of system was not completed due to unresponsiveness. Physical Exam - Vital signs Vitals: Resp Pulse Ox 21 H 95 07/13/20 18:21 07/13/20 18:21 - Notes Notes: PHYSICAL EXAMINATION: Physical Exam: General: Well-nourished well-developed no acute distress post ictal status HEENT: NC/AT, pupils equal round and reactive to light, MM moist,nares clear, oropharynx clear, airway patent Neck: supple, no adenopathy, no masses. Good range of motion Lungs: clear, no wheezing, no rales no rhonchi CVS: Tachycardic rate and rhythm no murmur gallop or rub Abdomen: Soft, active, nontender, no masses, no hepatosplenomegaly Ext: No edema, clubbing or cyanosis. Neuro: Sleeping, arousable, speech is nonlegible Skin: Intact no open lesions, no rash Course - Vital Signs Vital signs: Temp Pulse Resp BP Pulse Ox 99.0 F 108 H 15 161/93 H 97 07/14/20 01:52 07/13/20 18:24 07/14/20 01:09 07/14/20 01:09 07/14/20 01:09 - Laboratory Results Result Diagrams: 07/13/20 20:05 07/13/20 23:20 Laboratory Results Interpreted: 07/13/20 07/13/20 07/13/20 20:05 22:05 23:20 WBC 13.6 H RBC 5.80 H Hgb 18.0 H Hct 51.8 H RDW 14.8 H Lymph % (Auto) 5.6 L Absolute Neuts (auto) 11.7 H Seg Neutrophils % 85.6 H Sodium 136.4 L Creatinine 1.42 H Est GFR (MDRD) Non-Af 57 L Magnesium 3.0 H AST 61 H Total Protein 8.5 H Urine Protein 100 H Urine Blood SMALL H I have reviewed laboratory data and used this information for the treatment decisions regarding the patient. Critical Laboratory Results Reviewed: No Critical Results - Radiology Results Critical Radiology Results Reviewed: No Critical Results Discharge - Discharge Clinical Impression: Seizure, Seizure disorder, Noncompliance w/medication treatment due to intermit use of medication Condition: Good Disposition: HOME, SELF-CARE Instructions: Seizure, Known Epileptic (OM) Additional Instructions: You were seen in the emergency department tonight with a seizure episode it was due to your seizure disorder and poor compliance with seizure medications. A new prescription for Keppra has been sent to your pharmacy. Please pickle sorter the prescription and take the medications as prescribed. Please discontinue any illicit drug use or alcohol use to reduce the risk of further seizure activity. Please follow-up with your primary physician. If your symptoms are worsening or if you have other concerns you may return to the emergency department for further evaluation and treatment HOME CARE INSTRUCTIONS & INFORMATION: Thank you for choosing us for your medical needs. We hope you're satisfied with the care you received. After you leave, you must properly care for your problem and, at the same time, observe its progress. Any condition can change. Some illnesses can change rapidly over hours or days. If your condition worsens, return to the Emergency Department or see your physician promptly. ABOUT YOUR X-RAYS AND EKG'S: If you had an EKG or X-rays taken, they have been read by the Emergency Physician. The X-rays and EKG's will also be read by a Radiologist or Head School Custodian within 24 hours. If discrepancies are noted, you will be notified by telephone. Please be certain the ED has a correct telephone number & address where you can be reached. Also, realize that some fractures or abnormalities do not show up on initial X-rays. If your symptoms continue, see your physician. ABOUT YOUR LABORATORY TEST: If you had laboratory tests, the results have been reviewed by the Emergency Physician. Some test results (for example cultures) may not be available for several days. You will be contacted if any test result shows you need additional treatment. Please be certain the ED has a correct telephone number and address where you can be reached. ABOUT YOUR MEDICATIONS: You will receive instructions on how to take your medicine on the prescription label you receive. Additional information may be provided by the Pharmacy. If you have questions afterwards, call the ED for clarification or further instructions. Some prescribed medications may cause drowsiness. Do not perform tasks such as driving a car or operating machinery without consulting your Pharmacist. If you feel you need a refill of pain medication, your condition will need re-evaluation. Please do not call for a refill of any medication. ABOUT YOUR SIGNATURE: Signature of this document acknowledges to followin. Understanding that you received emergency treatment and that you may be released before al medical problems are known or treated. Please be certain the ED has a correct phone number & address where you can be reached. 2. Acknowledgement that you will arrange for follow-up care as recommended. 3. Authorization for the Emergency Physician to provide information to your follow-up Physician in order to maximize your care. AT ANY TIME, IF YOUR SYMPTOMS CHANGE SIGNIFICANTLY OR WORSEN OR YOU DEVELOP NEW SYMPTOMS, RETURN TO THE EMERGENCY DEPARTMENT IMMEDIATELY FOR RE-EVALUATION. OUR GOAL IS TO PROVIDE EXCELLENT MEDICAL CARE! WE HOPE THAT WE HAVE MET YOUR EXPECTATIONS DURING YOUR EMERGENCY DEPARTMENT VISIT AND THAT YOU FEEL YOU HAVE RECEIVED EXCELLENT CARE! Prescriptions: Levetiracetam [Keppra 500 mg Tablet] 500 mg PO Q12 #60 tablet
[2020-07-13] MEDS ORDERED: RINGERS SOLUTION,LACTATED 1,000 ML IV ONE (19:06)
[2020-07-13 20:35] LABS: ABSOLUTE BASOPHILS # (AUTO) 0.1 10^3/uL (0.0-0.2); ABSOLUTE LYMPHOCYTES (AUTO) 0.8 10^3/uL (0.5-4.7); ABSOLUTE MONOCYTES (AUTO) 1.1 10^3/uL (0.1-1.4); ABSOLUTE NEUT (AUTO) 11.7 10^3/uL (1.7-8.2); BASOPHILS % (AUTO) 0.6 % (0-2); EOSINOPHILS % (AUTO) 0.1 % (0-6); HEMATOCRIT 51.8 % (37.9-51.0); LYMPHOCYTES % (AUTO) 5.6 % (13-45); MEAN CORPUSCULAR HEMOGLOBIN 31.1 pg (27.0-33.4); MEAN CORPUSCULAR HGB CONC 34.8 g/dL (32.0-36.0); MONOCYTES % (AUTO) 8.1 % (3-13); PLATELET COUNT 203 10^3/uL (150-450); RED CELL DISTRIBUTION WIDTH 14.8 % (11.5-14.0); SEGMENTED NEUTROPHILS % (AUTO) 85.6 % (42-78); TOTAL CELLS COUNTED % (AUTO) 100 %; WHITE BLOOD COUNT 13.6 10^3/uL (4.0-10.5)
[2020-07-13] MEDS ORDERED: LORAZEPAM INJ 2 MG/1 ML VIAL IV ONE (20:41)
[2020-07-13] MEDS ORDERED: LEVETIRACETAM 1000 MG/NACL-ISO 1,000 MG/100 ML RTUPB IV ONE ×2 (20:42→20:43)
[2020-07-13 20:44] LABS: MEAN CORPUSCULAR VOLUME 89 fl (80-97)
[2020-07-13] MEDS ORDERED: LEVETIRACETAM 1000 MG/NACL-ISO 1,000 MG/100 ML RTUPB IV SCH (22:00)
[2020-07-13 22:48] LABS: APPEARANCE,URINE SLIGHTLY-CLOUDY; BILIRUBIN,URINE NEGATIVE (NEGATIVE); COLOR,URINE YELLOW; GLUCOSE, URINE NEGATIVE (NEGATIVE); KETONES,URINE NEGATIVE (NEGATIVE); PROTEIN,URINE 100 mg/dL (NEGATIVE); URINE SPECIFIC GRAVITY 1.014; UROBILINOGEN,URINE NEGATIVE mg/dL (<2.0)
[2020-07-13 23:54] LABS: ALBUMIN 4.5 g/dL (3.5-5.0); ALKALINE PHOSPHATASE 111 U/L (38-126); ANION GAP 5 (5-19); ASPARTATE AMINO TRANSFERASE 61 U/L (17-59); BILIRUBIN,DIRECT 0.3 mg/dL (0.0-0.4); BILIRUBIN,TOTAL 0.7 mg/dL (0.2-1.3); BLOOD UREA NITROGEN 15 mg/dL (7-20); CALCIUM 9.3 mg/dL (8.4-10.2); CARBON DIOXIDE 27 mmol/L (22-30); CHLORIDE 104 mmol/L (98-107); GLUCOSE 94 mg/dL (75-110); POTASSIUM 4.1 mmol/L (3.6-5.0); TOTAL PROTEIN 8.5 g/dL (6.3-8.2)
[2020-07-14 01:13] LABS: URINE AMPHETAMINES SCREEN NEGATIVE; URINE BARBITURATES SCREEN NEGATIVE; URINE COCAINE SCREEN NEGATIVE; URINE MARIJUANA (THC) SCREEN NEGATIVE; URINE METHADONE SCREEN NEGATIVE; URINE PHENCYCLIDINE SCREEN NEGATIVE
[2020-07-14 01:14] VITALS: BP 161/93
[2020-07-14 01:19] LABS: URINE BENZODIAZEPINES SCREEN UNCONFIRMED POSITIVE
== END 2020-07-14 01:53 | disposition home or self-care (01) ==
LOC: ER 18:09
DX: G40.909 Epilepsy, unspecified, not intractable, without status epilepticus (principal); T42.6X6A Underdosing of other antiepileptic and sedative-hypnotic drugs, initial encounter; Z91.14 Patient's other noncompliance with medication regimen; R00.0 Tachycardia, unspecified; I10 Essential (primary) hypertension; Z87.820 Personal history of traumatic brain injury; Z88.6 Allergy status to analgesic agent; Z88.5 Allergy status to narcotic agent
CPT/HCPCS: 99284; 96375; 96365; 36415; 83735; 85025; 80053; 81001; 80307; J2060; J7120; J1953

== ENCOUNTER 2020-08-02 06:23 | Emergency (ER) | payer MEDICARE, MEDICAID ==
[2020-08-02] MEDS ORDERED: LEVETIRACETAM 1500 MG/NACL-ISO 1,500 MG/100 ML RTUPB IV ONE (06:36)
[2020-08-02] MEDS ORDERED: NORMAL SALINE 1000 ML 1,000 ML IV ONE (06:37)
[2020-08-02 06:46] LABS: ABSOLUTE BASOPHILS # (AUTO) 0.1 10^3/uL (0.0-0.2); ABSOLUTE LYMPHOCYTES (AUTO) 5.3 10^3/uL (0.5-4.7); ABSOLUTE MONOCYTES (AUTO) 0.9 10^3/uL (0.1-1.4); ABSOLUTE NEUT (AUTO) 5.1 10^3/uL (1.7-8.2); BASOPHILS % (AUTO) 0.9 % (0-2); EOSINOPHILS % (AUTO) 0.3 % (0-6); HEMATOCRIT 48.9 % (37.9-51.0); HEMOGLOBIN 15.9 g/dL (13.5-17.0); LYMPHOCYTES % (AUTO) 46.7 % (13-45); MEAN CORPUSCULAR HEMOGLOBIN 30.3 pg (27.0-33.4); MEAN CORPUSCULAR HGB CONC 32.4 g/dL (32.0-36.0); MONOCYTES % (AUTO) 7.5 % (3-13); PLATELET COUNT 273 10^3/uL (150-450); RED BLOOD COUNT 5.23 10^6/uL (4.35-5.55); RED CELL DISTRIBUTION WIDTH 14.5 % (11.5-14.0); SEGMENTED NEUTROPHILS % (AUTO) 44.6 % (42-78); TOTAL CELLS COUNTED % (AUTO) 100 %; WHITE BLOOD COUNT 11.4 10^3/uL (4.0-10.5)
--- NOTE | 2020-08-02 06:48 | ER Document Report ---
Entered by HITESH KING SCRIBE 08/02/20 0630 Acting as scribe for:GINGER BYRNES MD ED Seizure - General Stated Complaint: AMS,SEIZURE Mode of Arrival: Ambulatory Information source: Patient Notes: This 35-year-old male patient with a history of epilepsy presents to the emergency department today for complaints of a seizure. Family on scene reported that the patient drank heavily last night as he usually does. He was last seen here for a seizure on 07/13/2020 and he was given a prescription for Keppra which he did not fill. The last time his Keppra level was checked at this facility was on December 20, 2019 and it was undetectable at that time. He was seizing in route so he was given 2.5 mg of Versed. - Related Data Allergies/Adverse Reactions: hydrocodone [From Vicodin] Allergy (Verified 08/02/20 07:26) Past Medical History - General Information source: [facility] Records Cannot obtain history due to: Altered mental status - Social History Smoking Status: Current Every Day Smoker Cigarette use (# per day): Yes Frequency of alcohol use: Heavy Drug Abuse: Cocaine Lives with: Family Family History: Reviewed & Not Pertinent - Past Medical History Cardiac Medical History: Reports: Hx Hypertension Neurological Medical History: Reports: Hx Seizures Psychiatric Medical History: Reports: Hx Anxiety, Hx Depression Traumatic Medical History: 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 Surgical Hx: Negative - Immunizations Immunizations up to date: No Hx Diphtheria, Pertussis, Tetanus Vaccination: Yes Review of Systems - Review of Systems -: Yes ROS unobtainable due to patient's medical condition Neurological/Psychological: See HPI, Seizure Physical Exam - Vital signs Vitals: Resp Pulse Ox 22 H 99 08/02/20 06:20 08/02/20 06:20 - Notes Notes: Physical Exam: General: Somnolent. HEENT: Normocephalic. Atraumatic. PERRL. Oropharynx clear. Neck: Supple. Non-tender. Respiratory: Mildly tachypneic. Clear and equal breath sounds bilaterally. Cardiovascular: Tachycardic, regular rhythm. Abdominal: Normal Inspection. Non-tender. No distension. Normal Bowel Sounds. Back: No gross abnormalities. Extremities: Moves all four extremities. Upper extremities: Normal inspection. Normal ROM. Lower extremities: Normal inspection. No edema. Normal ROM. Neurological: Somnolent, given versed prior to exam. Skin: Warm. Dry. Normal color. Course - Re-evaluation Re-evalutation: 08/02/20 09:57 Patient does have a metabolic acidosis with a serum CO2 of 5. He is a little dehydrated. Urine drug screen is only positive for marijuana today. At this time he is asking to eat, is feeling better after receiving 2 L of IV fluids. He has eaten some crackers that were provided here. He does seem anxious to go home. Patient states that he is taking his medication, that he has medication at home. I told him the prescription he received on 07/13/2020, does not show that it was filled when online pharmacy records are accessed. I told him that some pharmacies are not very good at entering this information, but I did know for a fact that when I saw him in December 2019 his Keppra level was undetectable. He is encouraged to take his medication every day and not use marijuana or any other drugs. He is also encouraged to drink plenty of fluids and get plenty of sleep today. - Vital Signs Vital signs: Temp Pulse Resp BP Pulse Ox 99.3 F 10 L 139/100 H 99 08/02/20 09:30 08/02/20 09:26 08/02/20 09:26 08/02/20 09:26 - Laboratory Results Result Diagrams: 08/02/20 06:32 08/02/20 06:32 Laboratory Results Interpreted: 08/02/20 08/02/20 08/02/20 06:32 06:32 06:54 WBC 11.4 H RDW 14.5 H Lymph % (Auto) 46.7 H Absolute Lymphs (auto) 5.3 H Sodium 148.4 H Carbon Dioxide < 5 L* Creatinine 1.85 H Est GFR ( Amer) 50 L Est GFR (MDRD) Non-Af 42 L Glucose 120 H Calcium 10.4 H Magnesium 2.5 H Creatine Kinase 258 H Total Protein 9.0 H Albumin 5.3 H Urine Protein 100 H Urine Ketones TRACE H Urine Blood SMALL H Critical Laboratory Results Reviewed: Yes Attending or Supervising Physician who Reviewed Labs: GINGER BYRNES - Metabolic acidosis - Radiology Results Radiology Results Interpreted: 08/02/20 09:57 Chest x-ray does not show active disease. Critical Radiology Results Reviewed: No Critical Results - EKG Interpretation by Me EKG shows normal: Sinus rhythm, [place], Intervals, QRS Complexes, ST-T Waves Rate: Tachycardia - 109 Voltage: Consistent with LVH P Waves: LAE When compared to previous EKG there are: No significant change Discharge - Discharge Clinical Impression: Seizure, Metabolic acidosis, Noncompliance w/medication treatment due to intermit use of medication Condition: Stable Disposition: HOME, SELF-CARE Additional Instructions: Seizure, Known Epileptic You have had a seizure. Seizures may "break through" in an epileptic due to stress of infection or injury, a change in blood chemistry, or drug and alcohol use. Another common cause is failure to take medication as prescribed. Your doctor has evaluated your situation for the likely cause of this seizure. It is important that you follow his advice concerning any medication changes and follow-up care. Further testing of anti-seizure medication levels in your blood may be necessary. 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 This seizure must be reported to the armor recon[employer] driver's license bureau. Call the doctor or return if seizures recur, or if new or unusual symptoms arise -- such as severe headache, confusion, excessive sleepiness, local weakness or numbness, neck stiffness, or fever. Your lab work today suggest you may have been having several seizures recently. It is important that you get the Keppra prescription filled and take the medication to prevent further injury to yourself. Drink plenty of fluids get plenty of rest today. Follow-up with a local primary care provider to monitor your medication. RETURN TO THE EMERGENCY ROOM IF ANY NEW OR WORSENING SYMPTOMS. Prescriptions: Levetiracetam [Keppra 500 mg Tablet] 500 mg PO Q12 #60 tablet I personally performed the services described in the documentation, reviewed and edited the documentation which was dictated to the scribe in my presence, and it accurately records my words and actions.
[2020-08-02 06:50] LABS: MEAN CORPUSCULAR VOLUME 94 fl (80-97)
[2020-08-02] MEDS ORDERED: LEVETIRACETAM 1000 MG/NACL-ISO 1,000 MG/100 ML RTUPB IV ONE (06:57)
[2020-08-02] MEDS ORDERED: LEVETIRACETAM 500 MG/NACL-ISO 500 MG/100 ML RTUPB IV ONE (06:57)
[2020-08-02 07:01] LABS: ALBUMIN 5.3 g/dL (3.5-5.0); ALCOHOL 10 mg/dL (NONE DETECTED); ALKALINE PHOSPHATASE 88 U/L (38-126); ASPARTATE AMINO TRANSFERASE 32 U/L (17-59); BILIRUBIN,DIRECT 0.2 mg/dL (0.0-0.4); BILIRUBIN,TOTAL 0.2 mg/dL (0.2-1.3); BLOOD UREA NITROGEN 17 mg/dL (7-20); CALCIUM 10.4 mg/dL (8.4-10.2); CREATINE KINASE 258 U/L (55-170); GLUCOSE 120 mg/dL (75-110)
[2020-08-02 07:11] LABS: APPEARANCE,URINE CLEAR; BILIRUBIN,URINE NEGATIVE (NEGATIVE); COLOR,URINE YELLOW; GLUCOSE, URINE NEGATIVE (NEGATIVE); KETONES,URINE TRACE mg/dL (NEGATIVE); LEUKOCYTE ESTERASE,URINE NEGATIVE (NEGATIVE); NITRITE,URINE NEGATIVE (NEGATIVE); PROTEIN,URINE 100 mg/dL (NEGATIVE); URINE SPECIFIC GRAVITY 1.016; UROBILINOGEN,URINE NEGATIVE mg/dL (<2.0)
[2020-08-02 07:20] LABS: CHLORIDE 106 mmol/L (98-107); POTASSIUM 4.4 mmol/L (3.6-5.0)
[2020-08-02 07:25] LABS: CARBON DIOXIDE < 5 mmol/L (22-30)
[2020-08-02] MEDS ORDERED: RINGERS SOLUTION,LACTATED 1,000 ML IV ONE ×2 (07:30→08:40)
--- NOTE | 2020-08-02 07:30 | RADIOLOGY REPORT (SQ) ---
CHEST X-RAY 1 VIEW on 08/02/2020 at 6:48 AM CLINICAL INDICATION: Seizure COMPARISON: 02/14/2020 FINDINGS: The lungs are clear. There is slight elevation of the right hemidiaphragm. Cardiac, hilar and mediastinal contours are within normal limits. Pulmonary vascularity is within normal limits. No bony abnormality is noted. IMPRESSION: No active disease.
[2020-08-02 07:33] LABS: URINE AMPHETAMINES SCREEN NEGATIVE; URINE BARBITURATES SCREEN NEGATIVE; URINE BENZODIAZEPINES SCREEN NEGATIVE; URINE COCAINE SCREEN NEGATIVE; URINE METHADONE SCREEN NEGATIVE; URINE PHENCYCLIDINE SCREEN NEGATIVE
[2020-08-02 07:34] LABS: URINE MARIJUANA (THC) SCREEN UNCONFIRMED POSITIVE
--- NOTE | 2020-08-02 08:33 | EKG REPORT ---
SEVERITY:- ABNORMAL ECG - SINUS TACHYCARDIA PROBABLE LEFT ATRIAL ABNORMALITY PROBABLE LEFT VENTRICULAR HYPERTROPHY TALL T, CONSIDER METABOLIC/ISCHEMIC ABNRM BORDERLINE PROLONGED QT INTERVAL : Confirmed by: Maddy Marx MD 02-Aug-2020 08:33:24
[2020-08-02 10:38] VITALS: BP 130/76
== END 2020-08-02 09:35 | disposition home or self-care (01) ==
LOC: ER 06:23
DX: G40.909 Epilepsy, unspecified, not intractable, without status epilepticus (principal); E87.2 Acidosis; F10.10 Alcohol abuse, uncomplicated; R41.82 Altered mental status, unspecified; E86.0 Dehydration; Z91.14 Patient's other noncompliance with medication regimen; F12.10 Cannabis abuse, uncomplicated; F17.210 Nicotine dependence, cigarettes, uncomplicated; Z88.8 Allergy status to other drugs, medicaments and biological substances
CPT/HCPCS: 93005; 99285; 96361; 96365; 36415; 80177; 80307 ×2; 82550; 83735; 85025; 80053; 81001; 84484; 71045; 93010; J7030; J7120; J1953